=== PATIENT | male | born 1955 | race Caucasian/White ===

== ENCOUNTER 2019-12-16 20:05 | Emergency (ER) | payer OTHER, SELFPAY ==
[2019-12-16 20:07] VITALS: BP 162/96; PULSE 97; RESP 20; TEMP 36.2; O2SAT 97; BMI 39.5
--- NOTE | 2019-12-16 21:00 | CT_ITS ---
STUDY: CT ABDOMEN AND PELVIS WITHOUT CONTRAST REASON FOR EXAM: Male, 64 years old. FELL OUT OF BED OF TRUCK. LANDED ON LT HIP. PAIN. RADIATION DOSAGE (If Supplied By Facility): CTDIvol = ( 22.55 ) mGy, DLP = ( 1110.01 ) mGycm TECHNIQUE: Transaxial images were obtained from the dome of the diaphragm to the symphysis pubis without oral contrast, and without intravenous contrast. Sagittal and coronal images were reconstructed. Individualized dose optimization techniques were used for this CT. COMPARISON: None. FINDINGS: Subsegmental atelectasis seen in the lingula of the left upper lobe in addition to chronic scarring. Normal liver. No intrahepatic biliary duct dilatation or liver mass. Normal gallbladder and extrahepatic biliary system. Normal spleen. Normal pancreas. Normal bilateral adrenal glands. Normal right kidney. Normal left kidney. . No hydronephrosis or renal masses. No large stones. There is a small hiatal hernia. Normal small intestine. Mild to moderate wall of the proximal sigmoid colon in acutely inflamed diverticula in the same region compatible with acute diverticulitis. The sigmoid colon is torturous and to the right of midline. The remaining colonic loops are unremarkable. No bowel dilatation or obstruction. No free air or free fluid. The appendix is visualized and appears normal. There is diffuse atherosclerotic calcification of the abdominal aorta, without a demonstrated aneurysm. Normal inferior vena cava. Normal retroperitoneum. Normal urinary bladder. Normal abdominal wall. There are diffuse degenerative changes of the visualized lumbar spine. No visualized fractures of the spine or pelvis or bilateral hips. CT/Abdomen/Pelvis without Cont IMPRESSION: 1. Mild to moderate wall of the proximal sigmoid colon in acutely inflamed diverticula in the same region compatible with acute diverticulitis 2. There are diffuse degenerative changes of the visualized lumbar spine. No visualized fractures of the spine or pelvis or bilateral hips. Electronically Signed: Yung Gunderson MD at 21:46 EDT , Service support ,
--- NOTE | 2019-12-16 21:01 | RAD_ITS ---
STUDY: X-RAY - RIGHT WRIST REASON FOR EXAM: Male, 64 years old. FALL TECHNIQUE: 3 view(s) of the wrist were obtained. COMPARISON: None. FINDINGS: Normal visualized distal radius and ulna. Normal radiocarpal articulation. Normal distal radioulnar articulation. Normal carpal bones. Normal carpal articulations. Normal carpometacarpal articulation of the thumb. Normal second through fifth carpometacarpal articulations. Normal visualized metacarpal bones. The soft tissue structures are unremarkable. There is no demonstrated acute fracture. Atherosclerotic calcifications are present. RAD/Wrist min 3 Views IMPRESSION: No acute process of the right wrist Electronically Signed: Yung Gunderson MD at 22:20 EDT , Service support ,
--- NOTE | 2019-12-16 21:01 | ED.VIS.GEN ---
History of Present Illness Chief Complaint: Fall Informant: Patient Onset: Today Current Severity: Mild Maximum Severity: Moderate Narrative: Patient presents after a fall from the back of his pickup truck. Injury occurred 6 hours prior to my evaluation. He states he was coming off the back of his pickup truck and thought he had another step but fell to the ground landing on his right side. He is right-hand dominant. He denies striking his head or having any neck pain. He is complaining of pain to his elbow and wrist on the right. He is also complaining of pain to the right hip and right lower back. He has not noted any hematuria. He did take ibuprofen for pain prior to arrival. Past Medical History - Allergies and Home Meds Allergies/Adverse Reactions: Allergies No Known Allergies Allergy (Verified 12/16/19 20:06) Primary Care Physician: Jess Lopez AMBULATORY SERVICE REPRESENTATIVE, AMBULATORY SERVICE REPRESENTATIVE-C [Primary Care Provider] - Past Medical History: - - GERD Lives: Spouse/ Significant Other Review of Systems General: Denies: Chills, Fever Eyes: Denies: Visual changes - bilaterally ENT: Denies: Bilateral ear pain Cardiovascular: Denies: Chest pain Respiratory: Denies: Dyspnea, Cough Gastrointestinal: Denies: Abdominal pain, Vomiting, Diarrhea Genitourinary: Denies: Dysuria Musculoskeletal: Reports: Back pain, Extremity Pain Neurological: Denies: Headache, Weakness Hematologic: Denies: Easy bruising Allergy: Denies: Uticaria Physical Exam Vital Signs/Narrative: Vital Signs Temp Pulse Resp BP Pulse Ox 12/16/19 20:07 97.2 F L 97 20 H 162/96 H 97 Inital Vital Signs reviewed: Yes General: Well nourished, Well developed Head: Normocephalic ENT: Moist mucous membranes Neck: Supple Cardiovascular: Regular rate, Regular rhythm Respiratory: No distress, CTA bilaterally Abdomen: Soft, Nontender Extremities: - - Mild tenderness location at the right elbow and right wrist. Mild edema. Good range of motion. Mild tenderness over the lateral portion of the right hip. Neurological: Alert, Oriented x3 Psychological: Normal affect Diagnostic/Tx/Re-eval Impressions Abdomen/Pelvis CT 12/16/19 21:00 IMPRESSION: 1. Mild to moderate wall of the proximal sigmoid colon in acutely inflamed diverticula in the same region compatible with acute diverticulitis 2. There are diffuse degenerative changes of the visualized lumbar spine. No visualized fractures of the spine or pelvis or bilateral hips. Electronically Signed: Yung Gunderson MD at 21:46 EDT , Service support , Wrist X-Ray 12/16/19 21:01 IMPRESSION: No acute process of the right wrist Electronically Signed: Yung Gunderson MD at 22:20 EDT , Service support , Elbow X-Ray 12/16/19 21:10 IMPRESSION: Normal x-ray examination of the elbow. Electronically Signed: Yung Gunderson MD at 22:18 EDT , Service support , 12/16/19 21:00 Abdomen/Pelvis without Cont [CT] Stat 12/16/19 21:01 Wrist min 3 Views [RAD] Stat 12/16/19 21:10 Elbow min 3 Views [RAD] Stat - Medical Decision Making Patient declined anything for pain while here. X-ray results are discussed with patient and at bedside. CT flank was obtained to evaluate the right kidney and right hip along with his lower back. These areas are okay, however patient does have evidence of acute diverticulitis on CT scan. Patient will be covered with Augmentin for this. ED Disposition - Plan for ED Patient: Disposition: Home or Assisted Living Diagnosis: Diverticulitis, Arm contusion, Back strain Instructions: ED Diverticulitis, ED Mechanical Fall, ED LUMBAR SPRAIN/STRAIN Prescriptions: Amox/Clavulanate Tablet [Augmentin Tablet] 875 mg PO Q12H #20 tab Transmission Status: Pending to [facility]/pharmacy #[id number] Referrals: Jess Lopez NP, AMBULATORY SERVICE REPRESENTATIVE-C [Primary Care Provider] - 1 Week if not improving
--- NOTE | 2019-12-16 21:10 | RAD_ITS ---
STUDY: X-RAY - RIGHT ELBOW REASON FOR EXAM: Male, 64 years old. FALL TECHNIQUE: 3 view(s) of the elbow. COMPARISON: None. FINDINGS: Normal visualized humerus, radius and ulna. Normal radiocapitellar and ulnotrochlear articulations. The soft tissue structures are unremarkable. There is no demonstrated fracture. RAD/Elbow min 3 Views IMPRESSION: Normal x-ray examination of the elbow. Electronically Signed: Yung Gunderson MD at 22:18 EDT , Service support ,
[2019-12-16 21:41] VITALS: RESP 18
[2019-12-16] MEDS: Amox/Clavulanate 875 MG Tablet PO (22:42)
[2019-12-16 22:46] VITALS: RESP 16
== END 2019-12-16 22:47 | disposition home or self-care (01) ==
PROVIDERS: Emergency Provider Emergency Medicine; PCP Nurse Practitioner
DX: K57.32 Diverticulitis of large intestine without perforation or abscess without bleeding (principal); S40.021A Contusion of right upper arm, initial encounter; S39.012A Strain of muscle, fascia and tendon of lower back, initial encounter; V58.4XXA Person boarding or alighting a pick-up truck or van injured in noncollision transport accident, initial encounter; Y93.9 Activity, unspecified; Y92.9 Unspecified place or not applicable; K21.9 Gastro-esophageal reflux disease without esophagitis
CPT/HCPCS: 73080; 73110; 74176; 99283

== ENCOUNTER 2021-06-09 07:10 | Outpatient (CLI) | payer BC, SELFPAY ==
--- NOTE | 2021-06-09 07:17 | CT_ITS ---
EXAM: CT CHEST, LUNG CANCER SCREENING WITHOUT INTRAVENOUS CONTRAST : 1955 CLINICAL INDICATION: CURRENT SMOKER TECHNIQUE: Helically acquired images were obtained of the chest without intravenous contrast using low dose (LDCT) lung cancer screening protocol. This CT exam was performed using one or more of the following dose reduction techniques: automated exposure control, adjustment of the mA and/or kV according to patient size, and/or use of iterative reconstruction technique. This report was created using dscovered report generation technology. COMPARISON: None. FINDINGS: LUNGS AND PLEURAL SPACES: Several bilateral 2-3 mm pulmonary nodules are noted some of which are calcified likely related to granulomatous disease. No suspicious pulmonary nodule. No pleural effusion or thickening. No pneumothorax. HEART: Moderate coronary artery calcification. Heart size is normal. No pericardial effusion. MEDIASTINUM: Unremarkable. No mediastinal or hilar adenopathy. Esophagus is unremarkable. No hiatal hernia. THYROID: Unremarkable. No thyroid lesions. BONES/JOINTS: Unremarkable. No suspicious lytic or blastic abnormality. VASCULATURE: Unremarkable. Thoracic aorta is non-dilated. LYMPH NODES: Unremarkable. No enlarged lymph nodes. CT/Low Dose CT Lung Screening IMPRESSION: 1. Small bilateral pulmonary nodules most of which appear calcified and measure 3 mm and less in size. 2. ACR Lung CT Screening Reporting T Data System (Lung-RADS) score: 1 - Recommend continued annual screening with low-dose CT (LDCT) in 12 months. Individualized dose optimization techniques were used for this CT. at 0855 Reported and signed by: Hardy Davidson MD Electronically Signed: Hardy Davidson MD at 8:54 EST ,
--- NOTE | 2021-06-09 12:55 | PFT ---
INTRODUCTION: The patient is a 66-year-old male that presents for pulmonary function studies secondary to a diagnosis of tobacco dependency. Respiratory therapy reported good patient effort. Bronchodilators were used during testing. INTERPRETATION: Forced expiration spirometry demonstrates the presence of a mild large airways obstructive ventilatory defect. There was no significant response to aerosolized bronchodilators. Spirograms are of good quality and plateau gradually indicating slow emptying of the lungs. Body plethysmography was performed and revealed an elevated TLC and RV, indicative of underlying hyperinflation and air trapping. Diffusing capacity by single breath CO is within normal limits. IMPRESSION: Irreversible mild large airways obstructive ventilatory defect with associated hyperinflation and air trapping.
== END 2021-06-09 23:59 | disposition home or self-care (01) ==
PROVIDERS: PCP Internal Medicine; Visit Provider Internal Medicine
DX: R06.2 Wheezing (principal); F17.200 Nicotine dependence, unspecified, uncomplicated
CPT/HCPCS: 71271; 94060; 94726; 94729

== ENCOUNTER 2021-06-23 06:28 | Outpatient (CLI) | payer BC, SELFPAY ==
--- NOTE | 2021-06-23 06:30 | CT_ITS ---
STUDY: CT ABDOMEN AND PELVIS WITH CONTRAST REASON FOR EXAM: Male, 66 years old. ABD PAIN / ABNORMAL ABD CT SCAN. T1 half months of left lower quadrant pain. RADIATION DOSAGE (If Supplied By Facility): CTDIvol = ( 16.20 ) mGy, DLP = ( 1111.06 ) mGycm TECHNIQUE: Transaxial images were obtained from the dome of the diaphragm to the symphysis pubis with oral contrast. Oral and amp; IV Readi-CAT and amp; 100mL Isovue-300 was administered. Sagittal and coronal images were reconstructed. Individualized dose optimization techniques were used for this CT. COMPARISON: Comparison is made with prior study dated 12/16/2019. FINDINGS: The visualized lung bases are unremarkable. The visualized portions of the heart are within normal limits. There is decreased attenuation of the liver consistent with steatosis. Normal gallbladder and extrahepatic biliary system. Normal spleen. Normal pancreas. Normal bilateral adrenal glands. Normal right kidney. Normal left kidney. There is a small hiatal hernia. Normal small intestine. There is diverticulosis, with thickening of the colon wall, and pericolonic inflammation changes consistent with acute diverticulitis. Moderate amount of fecal material is seen in the colon. The appendix is visualized and appears normal. There is scattered atherosclerotic calcification of the abdominal aorta, without a demonstrated aneurysm. Normal inferior vena cava. Normal retroperitoneum. Normal urinary bladder. There is a small umbilical hernia containing fat. There are degenerative changes of the visualized lumbar spine. CT/Abdomen/Pelvis WITH Contrast IMPRESSION: Findings in keeping with a noncomplicated acute sigmoid diverticulitis. Moderate amount of fecal material is seen in the colon. Fatty infiltration of the liver. Electronically Signed: Dustin Dickson MD at 8:32 EDT ,
[2021-06-23 06:41] LABS: CREATININE FINGERSTICK 0.8 mg/dL (0.70-1.30); EGFR FINGERSTICK > 60.0000 mL/min (>60)
== END 2021-06-23 23:59 | disposition home or self-care (01) ==
LOC: CT 06:29
PROVIDERS: PCP Internal Medicine; Referring Provider Internal Medicine; Visit Provider Internal Medicine
DX: R10.9 Unspecified abdominal pain (principal); R93.5 Abnormal findings on diagnostic imaging of other abdominal regions, including retroperitoneum
CPT/HCPCS: 74177; Q9967

== ENCOUNTER → 2022-11-29 | Outpatient (CLI) | payer MEDICARE, OTHER, SELFPAY ==
--- NOTE | 2022-11-29 07:01 | CT_ITS ---
ACR Level 3 findings have been noted. An addendum which confirms receipt of the report will follow. INDICATION: Abnormal abdominal CT scan EXAMINATION: CT ABDOMEN AND PELVIS WITH CONTRAST - CT Abdomen And Pelvis W/ Contrast Injection TECHNIQUE: Helically acquired images were obtained of the abdomen and pelvis following IV contrast. A radiation dose optimization technique was used for this scan. IV Contrast dosage and agent: 100 mL Isovue-370 Oral contrast: None. COMPARISON: June 23, 2021. FINDINGS: LOWER CHEST: Lung bases are clear. No cardiomegaly or pericardial effusion. LIVER: Homogeneous. No focal mass. GALLBLADDER AND BILIARY TREE: No calcified gallstones. No gallbladder distension or wall edema. No intra- or extrahepatic biliary ductal dilation. PANCREAS: No focal cystic or solid mass. SPLEEN: Normal size without focal cystic or solid mass. ADRENAL GLANDS: No nodules. KIDNEYS AND URETERS: Normal renal size and position. No hydronephrosis. BOWEL: Small persistent hiatal hernia with irregular wall thickening of the cardia of the stomach. Oral contrast extends through mid small bowel without distention or wall thickening. Normal appendix. Moderate to large colonic stool burden from cecum to sigmoid colon. Large diverticulum in the sigmoid colon with wall thickening similar to June 23, 2021, slightly more extensive, with minimal adjacent inflammatory stranding..No ascites or free fluid. No free air. No abscess. LYMPH NODES: No enlarged mesenteric or retroperitoneal lymph nodes. VESSELS: Aortic atherosclerosis without ectasia. URINARY BLADDER: Unremarkable. REPRODUCTIVE ORGANS: No pelvic masses. ABDOMINAL WALL: No discrete abdominal or pelvic wall hernia. Bilateral fat-containing inguinal hernias and umbilical hernia without inflammation. BONES: No lytic or blastic abnormality. CT/Abdomen/Pelvis WITH Contrast IMPRESSION: 1. Findings concerning for recurrent acute uncomplicated diverticulitis of the sigmoid colon in same location of June 23, 2021. There is prominent wall thickening at the sigmoid diverticulum with relatively limited surrounding inflammatory stranding which is nonspecific but can be seen with underlying malignancy. Follow-up colonoscopy or CT is recommended in 6 weeks after treatment 2. Persistent hiatal hernia with increased nonspecific wall thickening of the cardia of the stomach. Further evaluation is recommended. Consider endoscopy when clinically able 3. Fat-containing umbilical and bilateral inguinal hernias without inflammation. Electronically Signed: Sarath Leos MD at 8:51 EDT ,
[2022-11-29 07:27] LABS: CREATININE FINGERSTICK 1.3 mg/dL (0.70-1.30)
== END | disposition home or self-care (01) ==
PROVIDERS: PCP Internal Medicine; Referring Provider Internal Medicine; Visit Provider Internal Medicine
DX: R93.5 Abnormal findings on diagnostic imaging of other abdominal regions, including retroperitoneum (principal)
CPT/HCPCS: 74177; Q9967

== ENCOUNTER → 2024-03-01 | Outpatient (CLI) | payer MEDICARE, OTHER, SELFPAY ==
--- NOTE | 2024-03-01 14:55 | CT_ITS ---
EXAM: CT CHEST, LUNG CANCER SCREENING WITHOUT INTRAVENOUS CONTRAST CLINICAL INDICATION: LOW-DOSE COMPUTED TOMOGRAPHY (LDCT) OF LUNGS, former smoker TECHNIQUE: Helically acquired images were obtained of the chest without intravenous contrast using low dose (LDCT) lung cancer screening protocol. This CT exam was performed using one or more of the following dose reduction techniques: automated exposure control, adjustment of the mA and/or kV according to patient size, and/or use of iterative reconstruction technique. COMPARISON: CT Lung Cancer Screening dated 06/09/2021 FINDINGS: INFRAHYOID NECK: Linear secretions identified within the trachea. LUNGS AND PLEURAL SPACES: Stable 4 mm nodule along the superior portion of the left major fissure likely representing an intrapulmonary lymph node. Minimal pleural-parenchymal thickening within the posterior right costophrenic sulcus. No pneumothorax. No evidence of a lung mass or suspicious pulmonary nodule. HEART: Normal. No pericardial effusion. Normal heart size. Coronary artery calcifications/stent is noted. MEDIASTINUM: Stable small hiatal hernia. No mediastinal or hilar adenopathy. Esophagus is unremarkable. THYROID: Normal. No thyroid nodules or calcification. BONES/JOINTS: No suspicious lytic or blastic abnormality. VASCULATURE: No aortic aneurysm. LYMPH NODES: See above. CT/Low Dose CT Lung Screening IMPRESSION: 1. No evidence of lung mass or suspicious pulmonary nodule. 2. Lung-RADS score: 1S - Additional clinically significant or potentially clinically significant findings are described. Recommend continued annual screening with a low-dose CT (LDCT) in 12 months. Electronically Signed: Hardy Davidson MD at 17:04 [facility] ,
== END | disposition home or self-care (01) ==
PROVIDERS: PCP Internal Medicine; Referring Provider Internal Medicine; Visit Provider Internal Medicine
DX: Z87.891 Personal history of nicotine dependence (principal)
CPT/HCPCS: 71271

== ENCOUNTER 2025-02-23 01:12 | Emergency (ER) | payer MEDICARE, OTHER, SELFPAY ==
[2025-02-23 01:13] VITALS: BP 215/118; PULSE 71; RESP 22; TEMP 37.1; O2SAT 99; BMI 33.2
[2025-02-23 01:16] VITALS: BP 215/188; PULSE 66; RESP 23; TEMP 37.1; O2SAT 99
--- NOTE | 2025-02-23 01:25 | CT_ITS ---
PROCEDURE: ABDOMEN/PELVIS WITHOUT CONT 02/23/2025 REASON FOR EXAM: KIDNEY STONE TECHNIQUE: Procedure Code: [id number] Modality: CT Procedure: ABDOMEN/PELVIS WITHOUT CONT Noncontrast technique limits evaluation of the abdominal and pelvic viscera. Coronal and Sagittal reconstruction series were provided. One or more dose reduction techniques were used (e.g., Automated exposure control, adjustment of the mA and/or kV according to patient size, use of iterative reconstruction technique). RADIATION DOSE SUMMARY: CTDlvol: 17.7 mGy DLP: 933 mGycm COMPARISON: 11/29/2022. FINDINGS: Bilateral nonobstructing renal stones are noted with the largest measuring 4 mm. 4 mm obstructing stone of the right ureterovesical junction. Mild right hydroureteronephrosis with right perinephric fat stranding. Moderate amount of fecal residue in the sigmoid colon. Diffuse colonic diverticulosis. Mild changes of acute sigmoid diverticulitis without perforation or abscess formation. Bilateral fat containing inguinal hernias without incarceration. Fat containing umbilical hernia without incarceration. Calcified atheromatous plaques of the aorta and iliac arteries. Diffuse spondylosis. The visualized lung bases are unremarkable. Normal unenhanced liver. Normal gallbladder and extrahepatic biliary system. Normal unenhanced spleen. Normal pancreas. Normal bilateral adrenal glands. Normal size of the right kidney. There is no right renal mass. Normal size of the left kidney. There is no left renal mass. There is no left hydronephrosis. Normal visualized left ureter. Normal visualized stomach. Normal small intestine. The appendix is visualized and appears normal. There is no demonstrated peritoneal fluid. Normal abdominal aorta. Normal inferior vena cava. Normal retroperitoneum. Normal urinary bladder. There is no pelvic mass lesion or lymphadenopathy. There is no pelvic fluid. CT/Abdomen/Pelvis without Cont IMPRESSION: Bilateral nonobstructing renal stones are noted with the largest measuring 4 mm . 4 mm obstructing stone of the right ureterovesical junction. Mild right hydroureteronephrosis with right perinephric fat stranding. Moderate amount of fecal residue in the sigmoid colon. Diffuse colonic diverticulosis. Mild changes of acute sigmoid diverticulitis without perforation or abscess for mation. Bilateral fat containing inguinal hernias without incarceration. Fat containing umbilical hernia without incarceration. Calcified atheromatous plaques of the aorta and iliac arteries. Diffuse spondylosis. Reading [facility]
[2025-02-23] MEDS: 0.9% Normal Saline (1000mL) 1,000 ML 999 ML IV (01:36)
[2025-02-23 01:37] LABS: Hematocrit 48.0 % (40-54); Hemoglobin 16.0 g/dL (13.0-16.5); Immature Granulocytes Count 0.030 X10^3/uL (0.0-0.0); Mean Corp Hgb Conc 33.3 g/dL (32-36); Mean Corpuscular Volume 85.0 fL (80-94); Mean Platelet Vol. 9.1 fl (6.2-12.0); NRBC Flagged by Analyzer 0 % (0-5); Platelet Count 243 K/mm3 (150-450); RBC Distribution Width CV 14.5 % (11.6-14.6); RBC Distribution Width SD 44.6 fl (35.1-43.9); Red Blood Count 5.65 M/mm3 (4.6-6.2); White Blood Count 9.4 K/mm3 (4.4-11.0)
[2025-02-23] MEDS: Ketorolac 30 MG/ML Syringe IV (01:37)
[2025-02-23 02:16] VITALS: BP 169/78; PULSE 65; RESP 20; TEMP 37.1; O2SAT 94
--- NOTE | 2025-02-23 02:19 | EX.ED.DYSGE1 ---
HPI History of Present Illness Chief Complaint: Flank Pain Narrative Narrative: Patient was seen and examined after presenting to ED for right-sided flank pain patient just passed a couple kidney stones a few days ago and has had experience with kidney stones in the past coming in with right flank pain and nausea and vomiting feels like continued kidney stone pain. 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) Home Medications ?Medication ?Instructions ?Recorded ?Last Taken ?Type pantoprazole 40 mg tablet,delayed 40 mg PO DAILY 12/16/19 Unknown History release cyclobenzaprine 10 mg tablet 10 mg PO HS PRN muscle spasm #7 11/07/22 Unknown Rx tabs folic acid 20 mg capsule 20 mg PO DAILY 11/07/22 Unknown History prednisone 10 mg tablet 10 mg PO DIRECTED #30 tabs 11/07/22 Unknown Rx simvastatin 20 mg tablet (Zocor) 20 mg PO DAILY 11/07/22 Unknown History amoxicillin 875 mg-potassium 875 mg PO BID #20 TABLETS 02/23/25 Unknown Rx clavulanate 125 mg tablet ondansetron 4 mg disintegrating 4 mg PO Q8H PRN PRN Nausea #30 tabs 02/23/25 Unknown Rx tablet oxycodone-acetaminophen 5 mg-325 1 tab PO Q6H PRN pain 3 days #12 02/23/25 Unknown Rx mg tablet (Percocet) tabs tamsulosin 0.4 mg capsule 0.4 mg PO DAILY #7 caps 02/23/25 Unknown Rx Allergy/AdvReac Type Severity Reaction Status Date / Time No Known Allergies Allergy Verified 04/15/24 10:11 Social History Smoking Status: Former smoker ROS ROS ED ROS Narrative Pertinent Positives: History of kidney stones recently passed more kidney stones with right flank pain nausea and vomiting Pertinent Negatives: Fevers chills chest pain pressure shortness of breath The remainder of review of systems negative unless otherwise stated in the HPI above. Systems reviewed including constitutional, psychiatric, cardiovascular, respiratory, integument, HENT, gastrointestinal. EXAM Physical Exam Narrative Exam Narrative: Afebrile he was hypertensive but likely secondary to pain. Normal heart and lung sounds. Abdomen is soft nontender nondistended but he does have right-sided CVA tenderness on palpation over the left skin discoloration or other changes no erythema no crepitus no vesicular lesions. He has intact and equal and strong MSPs in all of his extremities Const Vital Signs: 02/23/25 01:13 02/23/25 01:16 02/23/25 02:16 Temperature 98.8 F 98.8 F 98.8 F Temperature Source Oral Oral Oral Pulse Rate 71 66 65 Respiratory Rate 22 H 23 H 20 H Blood Pressure 215/118 H 215/188 H 169/78 H Blood Pressure Mean 150 197 108 Pulse Ox 99 99 94 Oxygen Delivery Method Room Air Room Air Room Air 02/23/25 03:00 Temperature 97.9 F Temperature Source Oral Pulse Rate 76 Respiratory Rate 18 Blood Pressure 174/88 H Blood Pressure Mean 116 Pulse Ox 98 Oxygen Delivery Method Room Air MDM MDM MDM Narrative Medical decision making narrative: Nursing notes, triage notes, available previous documentation, and vital signs were reviewed. Any discrepancies noted were addressed. Differential Diagnoses: Low suspicion for aortic etiology or cardiac causes seems like more likely nephrolithiasis. Lower suspicion for appendicitis or cholecystitis pancreatitis or diverticular disease Interventions: Toradol morphine Zofran Antibiotics Given: Augmentin Fluids Given: 1 L normal saline Labs Reviewed: No leukocytosis leukopenia or anemia. No electrolyte abnormality creatinine is 1.2. Urine does not appear to be infected but does show blood and 15 ketones Imaging Reviewed: Personally reviewed and interpreted by me: CT abdomen pelvis on my appearance looks like there may be a stone but still in the renal pelvis and there appeared approximately 4 mm stone in the right UVJ Previous Documentation Reviewed: None available or applicable at this time. ED Course: Patient presenting with right groin pain nausea vomiting and history of kidney stones appears that we have a kidney stone on the CT. 0406: Patient CT showing the 4 mm stone in the right UVJ with some right hydroureteronephrosis and right perinephric fat stranding but also some mild uncomplicated sigmoid diverticulitis for which patient will go home on a course of Augmentin. Patient will be given return precautions follow-up recommendations they are stable for discharge home This note was made utilizing voice recognition software. All attempts were made to correct spelling or other errors prior to note completion. However, due to the fast-paced nature of emergency medicine, some errors may still be present. Lab Data Labs: Laboratory Results - last 24 hr 02/23/25 02/23/25 01:30 03:04 WBC 9.4 RBC 5.65 Hgb 16.0 Hct 48.0 MCV 85.0 MCH 28.3 MCHC 33.3 RDW Std Deviation 44.6 H RDW Coeff of [place] 14.5 Plt Count 243 MPV 9.1 Immature Gran % (Auto) 0.300 Neut % (Auto) 81.7 H Lymph % (Auto) 10.3 L Cotton % (Auto) 4.8 Eos % (Auto) 2.6 Baso % (Auto) 0.3 Absolute Neuts (auto) 7.7 Absolute Lymphs (auto) 0.97 Nucleated RBC % 0 Sodium 141 Potassium 4.1 Chloride 108 Carbon Dioxide 20.2 L Anion Gap 14 BUN 19 Creatinine 1.28 H Estim Creat Clear Calc 67.03 Est GFR (MDRD) Non-Af 61 BUN/Creatinine Ratio 14.5 Glucose 154 H Calcium 9.3 Urine Color Yellow Urine Clarity Clear Urine pH 6.5 Ur Specific [place] 1.015 Urine Protein 30 H Urine Glucose (UA) Normal Urine Ketones 15 H Urine Occult Blood 250 H Urine Nitrite Negative Urine Bilirubin Negative Urine Urobilinogen Normal Ur Leukocyte Esterase Negative Urine RBC 0-5 SEEN Urine WBC 0 SEEN Ur Squamous Epith Cells 0 SEEN Urine Bacteria 0 SEEN Urine Mucus 0 SEEN Radiography Diagnostic Testing: Clinical Impression(s) from Imaging Studies Abdomen/Pelvis CT 02/23/25 01:25 IMPRESSION: Bilateral nonobstructing renal stones are noted with the largest measuring 4 mm. 4 mm obstructing stone of the right ureterovesical junction. Mild right hydroureteronephrosis with right perinephric fat stranding. Moderate amount of fecal residue in the sigmoid colon. Diffuse colonic diverticulosis. Mild changes of acute sigmoid diverticulitis without perforation or abscess formation. Bilateral fat containing inguinal hernias without incarceration. Fat containing umbilical hernia without incarceration. Calcified atheromatous plaques of the aorta and iliac arteries. Diffuse spondylosis. Reading Location: [place] [id number] Discharge Plan Triage Chief Complaint: Flank Pain ED Provider: Ayden Cheney Dx/Rx/DC Orders Clinical Impression: Nephrolithiasis, Hydronephrosis, right, Renal colic on right side, Diverticulitis of sigmoid colon Instructions: ED Diverticulitis, ED Kidney Stone with Pain Prescriptions: New oxycodone-acetaminophen [Percocet] 5-325 mg tablet 1 tab PO Q6H PRN (Reason: pain) 3 Days Qty: 12 0RF amoxicillin-pot clavulanate 875-125 mg tablet 875 mg PO BID Qty: 20 0RF ondansetron 4 mg tablet,disintegrating 4 mg PO Q8H PRN PRN (Reason: Nausea) Qty: 30 0RF tamsulosin 0.4 mg capsule 0.4 mg PO DAILY Qty: 7 0RF No Action folic acid 20 mg capsule 20 mg PO DAILY simvastatin [Zocor] 20 mg tablet 20 mg PO DAILY prednisone 10 mg tablet 10 mg PO DIRECTED Qty: 30 0RF Rx Instructions: 4 tablets daily x3 days, then 3 tablets daily x3 days, then 2 tablets daily x3 days, then 1 tablet daily x3 days cyclobenzaprine 10 mg tablet 10 mg PO HS PRN (Reason: muscle spasm) Qty: 7 0RF pantoprazole 40 MG tablet 40 mg PO DAILY Primary Care Provider: Lin Pardo Referrals: Lin Pardo MD [Primary Care Provider, Internal Medicine] Activity Restrictions/Additional Instructions: You have a kidney stone which we are providing you with medications for you need to follow-up with your primary care doctor and your urologist. But you also were found to have something called diverticulitis which we are putting you on antibiotics for we want you to complete that course if you are getting worse for any reason do not hesitate to return Print Language: Cam[place]onian Disposition Disposition: Home, Self Care
[2025-02-23 02:29] LABS: Anion Gap 14 (5-15); BUN 19 mg/dL (4-19); BUN/Creat Ratio 14.5 RATIO (10-20); Calcium,Total 9.3 mg/dL (7.6-11.0); Carbon Dioxide 20.2 mmol/L (21.0-32.0); Chloride 108 mmol/L (98-108); Estimated Creatinine Clearance 67.03 ml/min (50-250); Glucose 154 mg/dL (70-99); Potassium 4.1 mmol/L (3.3-5.1)
[2025-02-23 03:00] VITALS: BP 174/88; PULSE 76; RESP 18; TEMP 36.6; O2SAT 98
[2025-02-23 03:13] LABS: Mucous, Urine 0 SEEN /hpf (<or=2+); Squamous Epithelial Cells - UA 0 SEEN /hpf (0-5)
[2025-02-23 03:16] LABS: Color, Urine Yellow (Yellow); Glucose, Dipstick Normal (Normal); Ketone-Dipstick 15 mg/dl (Negative); Leukocyte Esterase-Dipstick Negative /ul (Negative); Nitrite-Dipstick Negative (Negative); Occult Blood-Urine 250 /ul (Negative); Protein-Dipstick 30 mg/dl (Negative); Specific Gravity, Urine 1.015 (1.002-1.030); Urine Bilirubin Dipstick Negative (Negative)
[2025-02-23 03:36] LABS: Red Blood Cells-Urine 0-5 SEEN /hpf (0-5)
--- OUTSIDE RECORDS SUMMARY | 2025-02-23 04:09 | XMS RPT_ITS | CCD ---
Author Organization [facility] Care Team Providers Care Education General Manager Name Role Phone John Anne Unavailable Muriel Woo Unavailable Unavailable Unavailable Unavailable Luke Driver Unavailable Unavailable Ciesa, Anne Unavailable Tiffanie Harris Unavailable Unavailable Cibeckya LEORA, Anne Unavailable Luke Driver LPN Unavailable Unavailable Adrianne Reyez LPN Unavailable Unavailable Muriel Woo Unavailable Unavailable Unavailable Unavailable Donald Moreno Unavailable Dr. Donald Pop Unavailable Lai Tucker Unavailable SABINO Gramajo LPN Unavailable Unavailable Angel , Dr. Mcdaniel Unavailable Lin Pardo MD Unavailable John COREY Anne Unavailable Dr. Lin Pardo Primary Care Provider Dr. Lin Pardo Referring Provider Dr. Lin Pardo Other Provider Dr. Harshil Huitron Attending Provider Jess Lopez Unavailable Lin Pardo MD Unavailable Lin Pardo MD Unavailable Gravius METER SETTER, Trya Unavailable Unavailable Unavailable Unavailable Lin Pardo MD Unavailable Dora Shaffer LPN Unavailable Unavailable Lin Pardo MD Attending Unavailable Lin Pardo MD Consulting Unavailable Courtney RIZVI, Kayela Unavailable Unavailable Dr. Jonas Carey Unavailable Dr. Lin Pardo Primary Care Provider [phone] Dr. Lin Pardo Referring Provider LINO Ramachandran Attending Provider Lin Pardo Referring Unavailable Willem Ramachandran Attending Unavailable Lin Pardo Primary Care Unavailable Lin Pardo Referring Unavailable Lin Pardo Primary Care Unavailable Lin Pardo Attending Unavailable Medications Current Medications Medication Drug Class(es) Dates Sig (Normalized) Sig (Original) cyclobenzaprine hydrochloride 10 mg oral tablet (20 sources) Muscle Relaxant Start: 11-07-2022 take 10 mg by mouth at bedtime Cyclobenzaprine Active 10 MG PO BEDTIME 7 November 07, 2022 12:00am Start: 07-11-2011 End: 07-09-2012 FLEXERIL, 10MG (Oral Tablet) 1 Tablet q 6-8 hours prn muscle spasm for 0 days Quantity: 30 {Tablet} Refills: 1 Ordered: 09-Jul-2012 SABINO Gramajo LPN Start : 11-Jul-2011 End : 09-Jul-2012 Inactive folic acid 20 mg oral capsule (20 sources) Start: 11-07-2022 take 20 mg by mouth once daily Folic Acid Active 20 MG PO DAILY November 07, 2022 12:00am Start: 07-20-2022 take 1 tablet by jacqueline th once daily folic acid 1 mg oral tablet 1 (one) Tablet daily for 0 days Quantity: 90 {Tablet} Refills: 3 Ordered: 20-Jul-2022 Lin Pardo MD, MD, Dana M Start : 20-Jul-2022 Active Start: 06-06-2022 take 1 tablet by jacqueline th once daily folic acid 1 mg oral tablet 1 (one) Tablet daily for 0 days Quantity: 90 {Tablet} Refills: 3 Ordered: 06-Jun-2022 Lin Pardo MD, MD, Dana M Start : 06-Jun-2022 Active Start: 06-29-2021 take 1 tablet by jacqueline th once daily Folic Acid 1 MG Oral Tablet 1 (one) Tablet daily for 0 days Quantity: 90 {Tablet} Refills: 3 Ordered: 29-Jun-2021 Tyra De Leon CMA Start : 29-Jun-2021 Active Medrol Dosepak 4 mg oral tablet (1 source) Start: 08-12-2020 End: 08-17-2020 Medrol Dosepak 4 mg oral tablet ; 1 kit orally once a day as directed x 6 days Quantity: 1 Refills: 0 Ordered: 12-Aug-2020 Tiffanie Harris Start: 12-Aug-2020 End: 17-Aug-2020 Generic Substitution Allowed Comments: It is very important that you take or use this exactly as directed. Do not skip doses or discontinue unless directed by your doctor.Obtain medical advice before taking any non-prescription drugs as some may affect the action of this medication.Take with food or milk. Comment on above: It is very important that you take or us e this exactly as directed. Do not skip doses or discontinue unless directed by your doctor.Obtain medical advice before taking any non-prescription drugs as some may affect the action of this medication.Take with food or milk. naproxen 500 mg oral tablet (1 source) Nonsteroidal Anti-inflammatory Drug Start: 08-12-2020 End: 09-01-2020 take 1 tablet by mouth every twelve hours as needed naproxen 500 mg oral tablet ; 1 tab(s) orally every 12 hours, As Needed for pain/inflammation. Take with food. Do not start until MedrolDosepak is complete Quantity: 42 Refills: 0 Ordered: 12-Aug-2020 Tiffanie Harris Start: 12-Aug-2020 End: 01-Sep-2020 Generic Substitution Allowed Comments: Check with your doctor before becoming .May cause drowsiness or dizziness.Obtain medical advice before taking any non-prescription drugs as some may affect the action of this medication.Take with food or milk. Comment on above: Check with your doctor before becoming p regnant.May cause drowsiness or dizziness.Obtain medical advice before taking any non-prescription drugs as some may affect the action of this medication.Take with food or milk. predniSONE 10 mg oral tablet (20 sources) Start: 11-07-2022 take 4 tablets by mouth once daily, then take 3 tablets by mouth once daily, then take 2 tablets by mouth once daily, then take 1 tablet by mouth once daily Prednisone Active 10 MG PO As Directed November 07, 2022 12:00am 4 tablets daily x3 days, then 3 tablets daily x3 days, then 2 tablets daily x3 days, then 1 tablet daily x3 days Start: 08-30-2007 End: 08-05-2008 take 1 tablet by mouth four times daily PREDNISONE, 10MG (Oral Tablet) 1 (one) Tablet qid for 6 days Quantity: 24 {Tablet} Refills: 0 Ordered: 30-Aug-2007 Jess Lopez Start : 30-Aug-2007 End : 05-Aug-2008 Inactive simvastatin 20 mg oral tablet (1 source) HMG-CoA Reductase Inhibitor Start: 11-07-2022 take 1 tablet by mouth once daily Simvastatin (Zocor) 20 mg tablet Active 20 MG PO DAILY November 07, 2022 12:00am valACYclovir 1000 mg oral tablet (1 source) Herpesvirus Nucleoside Analog DNA Polymerase Inhibitor, Herpes Simplex Virus Nucleoside Analog DNA Polymerase Inhibitor, Herpes Zoster Virus Nucleoside Analog DNA Polymerase Inhibitor Start: 08-12-2020 End: 08-18-2020 take 1 tablet by mouth every eight hours valACYclovir 1 g oral tablet ; 1 tab(s) orally every 8 hours x 7 days Quantity: 21 Refills: 0 Ordered: 12-Aug-2020 Tiffanie Harris Start: 12-Aug-2020 End: 18-Aug-2020 Generic Substitution Allowed Comments: It is very important that you take or use this exactly as directed. Do not skip doses or discontinue unless directed by your doctor. Comment on above: It is very important that you take or use this exactly as directed. Do not skip doses or discontinue unless directed by your doctor. Completed/Discontinued Medications Medication Drug Class(es) Dates Sig (Normalized) Sig (Original) 8 hr acetaminophen 650 mg extended release oral tablet (20 sources) Tylenol 8 Hour Arthritis Pain 650 MG Oral Tablet Extended Release (650 MG) Inactive acetaminophen 750 mg / HYDROcodone bitartrate 7.5 mg oral tablet (20 sources) Opioid Agonist Start: 07-11-2011 End: 07-09-2012 take 7.5-750 mg by mouth every six hours as needed VICODIN ES, 7.5-750MG (Oral Tablet) 1 Tablet q 6 hours prn for 0 days Quantity: 40 {Tablet} Refills: 1 Ordered: 09-Jul-2012 SABINO Graamjo LPN Start : 11-Jul-2011 End : 09-Jul-2012 Discontinued Comments: This order discontinued per [facility]. Comment on above: This order discontin ued per [facility]. [id number] 200 actuat albuterol 0.09 mg/actuat metered dose inhaler (20 sources) beta2-Adrenergic Agonist Start: 09-07-2020 End: 05-25-2021 Albuterol Sulfate HFA 108 (90 Base) MCG/ACT Inhalation Aerosol Solution 2 (two) Puff tid or qid for 0 days Quantity: 1 {Inhaler} Refills: 2 Ordered: 25-May-2021 SABINO Gramajo LPN Start : 07-Sep-2020 End : 25-May-2021 Inactive Start: 09-07-2020 End: 05-25-2021 Albuterol Sulfate HFA 108 (9 0 Base) MCG/ACT Inhalation Aerosol Solution 2 (two) Puff tid or qid for 0 days Quantity: 1 {Inhaler} Refills: 2 Ordered: 25-May-2021 SABINO Gramajo LPN Start : 07-Sep-2020 End : 25-May-2021 Inactive Start: 08-12-2020 End: 08-21-2020 take 2 puff(s) by inhalation every four hours as needed for wheezing albuterol 90 mcg/inh inhalation aerosol ; 2 puff(s) inhaled every 4 hours, As Needed for wheezing or shortness of breath Quantity: 1 Refills: 0 Ordered: 12-Aug-2020 Tiffanie Harris Start: 12-Aug-2020 End: 21-Aug-2020 Generic Substitution Allowed Comments: For inhalation only.It is very important that you take or use this exactly as directed. Do not skip doses or discontinue unless directed by your doctor.Obtain medical advice before taking any non-prescription drugs as some may affect the action of this medication.Shake well before use. Comment on above: For inhalation only. It is very important that you take or use this exactly as directed. Do not skip doses or discontinue unless directed by your doctor.Obtain medical advice before taking any non-prescription drugs as some may affect the action of this medication.Shake well before use. amoxicillin 500 mg / clavulanate 125 mg oral tablet (20 sources) Penicillin-class Antibacterial Start: 2 End: 2 take 1 tablet by mouth twice daily Augmentin 500-125 MG Oral Tablet 1 (one) Tablet bid for 14 days Quantity: 28 {Tablet} Refills: 0 Ordered: 21-Apr-2021 Jess Lopez Start : 21-Apr-2021 End : 05-May-2021 Inactive Start: 12-16-2019 End: 11-07-2022 take 875 mg by mouth every twelve hours Amoxicillin-Pot Clavulanate Active 875 MG PO Q12H December 16, 2019 10:37pm azithromycin 250 mg oral tablet (20 sources) Macrolide Antimicrobial Start: 06-08-2016 End: 06-13-2016 Zithromax Z-Chucho 250 MG Oral Tablet uad Tablet until gone for 0 days Quantity: 1 {Package} Refills: 0 Ordered: 13-Jun-2016 Coni Rebolledo CMA Start : 08-Jun-2016 End : 13-Jun-2016 Inactive ciprofloxacin 500 mg oral tablet (20 sources) Quinolone Antimicrobial Start: 06-18-2021 End: 06-29-2021 take 1 tablet by mouth twice daily Ciprofloxacin HCl 500 MG Oral Tablet 1 (one) Tablet bid for 0 days Quantity: 14 {Tablet} Refills: 0 Ordered: 29-Jun-2021 SABINO Gramajo LPN Start : 18-Jun-2021 End : 29-Jun-2021 Inactive dexlansoprazole 60 mg delayed release oral capsule (20 sources) Proton Pump Inhibitor Start: 10-03-2018 End: 10-03-2018 Dexilant 60 MG Oral Capsule Delayed Release [address] qd for 0 days Quantity: 30 {Capsule} Refills: 3 Ordered: 03-Oct-2018 Jess Lopez Start : 03-Oct-2018 End : 03-Oct-2018 Inactive Comments: to try in place of Pantoprazole until see if can get prior auth Start: 07-09-2012 End: 08-01-2012 DEXILANT, 60MG (Oral Capsule Delayed Release) [address] qd for 0 days Quantity: 30 {Capsule_DR} Refills: 0 Ordered: 01-Aug-2012 Barbie Henriquez LPN Start : 09-Jul-2012 End : 01-Aug-2012 Inactive Comments: to try in place of Pantoprazole until see if can get prior auth Comment on above: to try in place of P antoprazole until see if can get prior auth ergocalciferol 1.25 mg oral capsule (20 sources) Provitamin D2 Compound Start: 06-30-19 End: 10-14-19 take 1 capsule by mouth every week ergocalciferol (vitamin D2) 1,250 mcg (50,000 unit) oral capsule 1 (one) Capsule q weekly for 0 days Quantity: 12 {Capsule} Refills: 0 Ordered: 13-Oct-2022 Char MEJÍA, Lin Pardo MD, Lin Cisneros Start : 29-Jun-2021 End : 13-Oct-2022 Inactive gabapentin 300 mg oral capsule (20 sources) Anti-epileptic Agent Start: 08-25-19 End: 05-25-19 take 1 capsule by mouth twice daily at bedtime Gabapentin 300 MG Oral Capsule 1 (one) Capsule bid and 2at bedtime for 0 days Quantity: 120 {Capsule} Refills: 3 Ordered: 25-May-2021 SABINO Gramajo LPN Start : 07-Sep-2020 End : 25-May-2021 Inactive Comments: Oarrs run 120Post herpetic neuralgia B02.29New Dose Comment on above: Oarrs run sixty Post herpetic neuralgia B02.29 Oarrs run 120Post he rpetic neuralgia B02.29New Dose lidocaine 0.05 mg/mg topical ointment (20 sources) Antiarrhythmic, Amide Local Anesthetic Start: 09-09-19 End: 05-25-19 Lidocaine 5 % External Ointment uad Application to affected area once daily for 0 days Quantity: 30 {Gram} Refills: 2 Ordered: 25-May-2021 SABINO Gramajo LPN Start : 08-Sep-2020 End : 25-May-2021 Inactive Start: 08-12-2020 End: 08-25-2020 lidocaine 5% topical ointmen t ; Apply topically to affected area 3 times a day, As Needed for pain - do not apply to blistered/open skin Quantity: 1 Refills: 0 Ordered: 12-Aug-2020 Tiffanie Harris Start: 12-Aug-2020 End: 25-Aug-2020 Generic Substitution Allowed Comments: For external use only. Comment on above: For external use onl y. metroNIDAZOLE 500 mg oral tablet (20 sources) Nitroimidazole Antimicrobial Start: End: take 1 tablet by mouth three times daily metroNIDAZOLE 500 MG Oral Tablet 1 (one) Tablet tid for 7 days Quantity: 21 {Tablet} Refills: 0 Ordered: 29-Jun-2021 SABINO Gramajo LPN Start : 23-Jun-2021 End : 29-Jun-2021 Inactive Mounjaro 2.5 mg/0.5 mL subcutaneous pen injector (20 sources) Start: inject 2.5 mg by subcutaneous injection every week Mounjaro 2.5 mg/0.5 mL subcutaneous pen injector 2.5 Milligram SQ weekly for 30 days Quantity: 1 Kit Refills: 3 Ordered: 08-Nov-2022 Char MEJÍA, Lin Matias MD Start : 08-Nov-2022 Active Comments: please dispense QS for 30 day supply Start: 07-19-2022 inject 2.5 mg by sub cutaneous injection every week Mounjaro 2.5 mg/0.5 mL subcutaneous pen injector 2.5 Milligram SQ weekly for 30 days Quantity: 1 Kit Refills: 3 Ordered: 19-Jul-2022 Lin Pardo MD, MD, Dana M Start : 19-Jul-2022 Active Comments: please dispense QS for 30 day supply Start: 06-29-2022 inject 2.5 mg by sub cutaneous injection every week Mounjaro 2.5 mg/0.5 mL subcutaneous pen injector 2.5 Milligram SQ weekly for 30 days Quantity: 1 Kit Refills: 3 Ordered: 29-Jun-2022 Lin Pardo MD, MD, Dana M Start : 29-Jun-2022 Active Comments: please dispense QS for 30 day supply Start: 05-11-2022 inject 2.5 mg by sub cutaneous injection every week Mounjaro 2.5 mg/0.5 mL subcutaneous pen injector 2.5 Milligram SQ weekly for 30 days Quantity: 1 Kit Refills: 3 Ordered: 11-May-2022 Char MEJÍA, Lin Matias MD Start : 11-May-2022 Active Comments: please dispense QS for 30 day supply Start: 05-11-2022 inject 1 mL by subcu taneous injection every week Mounjaro 2.5 mg/0.5 mL subcutaneous pen injector 1 (one) mL SQ weekly for 30 days Quantity: 1 {Milliliter} Refills: 3 Ordered: 11-May-2022 Start : 11-May-2022 Active Comments: please dispense QS for 30 day supply Start: 04-11-2022 inject 1 mL by subcu taneous injection every week Mounjaro 2.5 mg/0.5 mL subcutaneous pen injector 1 (one) mL SQ weekly for 30 days Quantity: 1 {Milliliter} Refills: 3 Ordered: 11-Apr-2022 Fast DO, Cristina A Start : 11-Apr-2022 Active Comments: please dispense QS for 30 day supply Comment on above: please dispense QS f or 30 day supply Mounjaro 2.5 MG/0.5ML Subcutaneous Solution Pen-injector (1 source) Start: 10-18-2021 Mounjaro 2.5 MG/0.5ML Subcutaneous Solution Pen-injector 1 (one) Solution Pen-injector SC weekly for 0 days Quantity: 4 {Each} Refills: 0 Ordered: 18-Oct-2021 Char MEJÍA, Lin Matias MD Start : 18-Oct-2021 Active Comments: with needles Comment on above: with needles Mounjaro 5 mg/0.5 mL subcutaneous pen injector (4 sources) Start: 03-18-2022 Mounjaro 5 mg/0.5 mL subcutaneous pen injector 1 (one) Solution Pen-injector SC weekly for 30 days Quantity: 4 {Each} Refills: 6 Ordered: 18-Mar-2022 Lin Pardo MD, MD, Dana M Start : 18-Mar-2022 Active Comments: with needlesplease dispense quantity suff. for 30 day supply Start: 03-14-2022 Mounjaro 5 mg/ 0.5 mL subcutaneous pen injector 1 (one) Solution Pen-injector SC weekly for 30 days Quantity: 4 {Each} Refills: 6 Ordered: 14-Mar-2022 Char MEJÍA, Lin Pardo MD, Lin Cisneros Start : 14-Mar-2022 Active Comments: with needlesplease dispense quantity suff. for 30 day supply Comment on above: with needlesplease d ispense quantity suff. for 30 day supply Ozempic 1 mg/dose (4 mg/3 mL) subcutaneous pen injector (8 sources) Start: 023 inject 1 mg by subcutaneous injection every week Ozempic 1 mg/dose (4 mg/3 mL) subcutaneous pen injector 1 (one) mg sq weekly for 30 days Quantity: 4 {Applicator} Refills: 0 Ordered: 23-Nov-2022 Dora Shaffer LPN Start : 23-Nov-2022 Active Comments: Please dispense QS for month supply at 1mg weekly Comment on above: Please dispense QS f or month supply at 1mg weekly pantoprazole 40 mg delayed release oral tablet (20 sources) Proton Pump Inhibitor Start: 023 pantoprazole 40 mg oral tablet, delayed release (enteric coated) [address] qd for 0 days Quantity: 90 {Tablet} Refills: 3 Ordered: 14-Nov-2022 Yessica Wilhelm DO Start : 14-Nov-2022 Active Start: 09-06-2021 Pantoprazole S odium 40 MG Oral Tablet Delayed Release [address] qd for 0 days Quantity: 90 {Tablet} Refills: 3 Ordered: 06-Sep-2021 Tyra De Leon CMA Start : 06-Sep-2021 Active Start: 10-06-2020 Pantoprazole S odium 40 MG Oral Tablet Delayed Release [address] qd for 0 days Quantity: 90 {Tablet} Refills: 3 Ordered: 06-Oct-2020 Jess Lopez Start : 06-Oct-2020 Active Start: 09-07-2020 Pantoprazole S odium 40 MG Oral Tablet Delayed Release [address] qd for 0 days Quantity: 90 {Tablet} Refills: 3 Ordered: 07-Sep-2020 Jess Lopez CNP, CNP, Jess Flores Start : 07-Sep-2020 Active Start: 12-16-2019 take 40 mg by mouth once daily Pantoprazole Active 40 MG PO DAILY December 16, 2019 9:44pm Start: 09-25-2019 Pantoprazole S odium 40 MG Oral Tablet Delayed Release [address] qd for 0 days Quantity: 90 {Tablet} Refills: 3 Ordered: 25-Sep-2019 John COREY Jess Rodriguez CNP Start : 25-Sep-2019 Active Start: 10-03-2018 Pantoprazole S odium 40 MG Oral Tablet Delayed Release [address] qd for 0 days Quantity: 90 {Tablet} Refills: 3 Ordered: 03-Oct-2018 John COREY Jess Lopez CNP Jess Flores Start : 03-Oct-2018 Active Start: 10-02-2018 End: 10-03-2018 Pantoprazole Sodium 40 MG Or al Tablet Delayed Release [address] qd for 0 days Quantity: 90 {Tablet} Refills: 3 Ordered: 03-Oct-2018 John COREY Jess Lopez CNP Jess Flores Start : 02-Oct-2018 End : 03-Oct-2018 Inactive Start: 10-02-2018 Pantoprazole S odium 40 MG Oral Tablet Delayed Release [address] qd for 0 days Quantity: 90 {Tablet} Refills: 3 Ordered: 02-Oct-2018 John COREY Jess Lopez CNP Jess Flores Start : 02-Oct-2018 Active Start: 09-05-2017 Pantoprazole S odium 40 MG Oral Tablet Delayed Release [address] qd for 0 days Quantity: 90 {Tablet} Refills: 3 Ordered: 05-Sep-2017 John COREY Jess Lopez CNP Jess Flores Start : 05-Sep-2017 Active Start: 08-07-2006 End: 07-06-2012 PROTONIX, 40MG (Oral Tablet Delayed Release) [address] QD for 0 days Quantity: 30 {Tablet_DR} Refills: 3 Ordered: 06-Jul-2012 SABINO Gramajo LPN Start : 07-Aug-2006 End : 06-Jul-2012 Inactive Protonix 40 mg o ral granule, delayed release ; 1 each orally once a day Quantity: 0 Refills: 0 Ordered: 12-Aug-2020 Viviane Giordano Generic Substitution Allowed rosuvastatin calcium 5 mg oral tablet (20 sources) HMG-CoA Reductase Inhibitor Start: 06-06-2022 take 1 tablet by mouth once daily at bedtime rosuvastatin 5 mg oral tablet 1 (one) Tablet qhs for 0 days Quantity: 90 {Tablet} Refills: 3 Ordered: 06-Jun-2022 Lin Pardo MD, MD, Dana M Start : 06-Jun-2022 Active Start: 03-15-2022 take 1 tablet by jacqueline th once daily at bedtime rosuvastatin 5 mg oral tablet 1 (one) Tablet qhs for 0 days Quantity: 90 {Tablet} Refills: 3 Ordered: 15-Mar-2022 Lin Pardo MD, MD, Dana M Start : 15-Mar-2022 Active Start: 06-18-2021 take 1 tablet by jacqueline th once daily at bedtime Rosuvastatin Calcium 5 MG Oral Tablet 1 (one) Tablet qhs for 0 days Quantity: 90 {Tablet} Refills: 3 Ordered: 18-Jun-2021 LuisJess alejandra Start : 18-Jun-2021 Active Start: 12-01-2020 take 1 tablet by jacqueline th once daily at bedtime Rosuvastatin Calcium 5 MG Oral Tablet 1 (one) Tablet qhs for 0 days Quantity: 90 {Tablet} Refills: 0 Ordered: 01-Dec-2020 Jess Lopez CNP Start : 01-Dec-2020 Active Start: 09-07-2020 take 1 tablet by jacqueline th once daily at bedtime Rosuvastatin Calcium 5 MG Oral Tablet 1 (one) Tablet qhs for 0 days Quantity: 90 {Tablet} Refills: 0 Ordered: 07-Sep-2020 John COREY AnneSandra Lopez CNP Jess Flores Start : 07-Sep-2020 Active Vitamin D3 25 mcg (1,000 unit) oral tablet (14 sources) Start: 10-13-2022 take 1 tablet by mouth once daily Vitamin D3 25 mcg (1,000 unit) oral tablet 1 Tablet daily for 0 days Quantity: 30 {Tablet} Refills: 0 Ordered: 13-Oct-2022 Lin Pardo MD, MD, Dana M Start : 13-Oct-2022 Active Vitamins B Complex oral capsule (18 sources) Start: 06-06-2022 take 1 capsule by mouth once daily Vitamins B Complex oral capsule 1 (one) capsule daily for 0 days Quantity: 30 {Capsule} Refills: 0 Ordered: 13-Oct-2022 Dora Shaffer LPN Start : 06-Jun-2022 Active Start: 06-06-2022 take 1 capsule by mo uth once daily Vitamins B Complex oral capsule 1 (one) capsule daily for 0 days Quantity: 30 {Capsule} Refills: 0 Ordered: 06-Jun-2022 Char MEJÍA, Lin Matias MD Start : 06-Jun-2022 Active Problems Active Problems Problem Classification Problem Date Documented Da te Episodic/Chronic Abdominal pain (20 sources) Abdominal pain; Translations: [Abdominal pain] Resolved: 09-06-2021 04-21-2021 Episodic Comment on above: he has had 02-21. no blood in urine like kidney stone. his Ct in ER show diverticulitis... he in past was given augemntin for diverticulitis month ago and made not difference it has bneen constant and bee the same ibuprofen helps and climbs out of truck. if not take nsaids it will hurt dull ache in lower abd finally better had s cope cleaned out. 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 not alot signs and symptoms am cough not want regular inhaler at this point Chronic obstructive pulmonary disease and bronchiectasis (10 sources) Chronic obstructive pulmonary disease and bronchiectasis Delirium, dementia, and amnestic and other cognitive disorders (20 sources) Age-related cognitive decline; Translations: [Age-related cognitive decline] 09-06-2021 Chronic Diabetes mellitus without complication (20 sources) Abnormal glucose level; Translations: [Abnormal glucose (Renamed from Abnormal glucose level)] 10-15-2021 Episodic Diabetes mellitus without complication (20 sources) Diabetes mellitus without complication Disorders of lipid metabolism (20 sources) Hypercholesterolemia; Translations: [Hypercholesterolemia ] 05-25-2018 Chronic Comment on above: reveiwed with patien t recent tests. need to change diet. reveiwed with patien t recent tests. need to change diet. APO B and APO A great Diverticulosis and diverticulitis (20 sources) Diverticulitis; Translations: [Diverticulitis of intestine, part unspecified, without perforation or abscess without bleeding] 06-29-2021 Chronic Esophageal disorders (20 sources) Gastro-esophageal reflux disease without esophagitis; Translations: [Gastroesophageal reflux disease] Resolved: 09-06-2021 05-25-2018 Chronic Comment on above: on PPI had dilation in past right now signs and symptoms good Dr. carey E[place]. care[place] he was on protonix willstay on was on nsaids off now better on ppi and off nsaid s Esophageal disorders (12 sources) Erosive esophagitis; Translations: [Erosive esophagitis] 05-25-2018 Episodic Headache; including migraine (2 sources) Pain in face; Translations: [Left-sided face pain] 11-07-2022 Episodic Hepatitis (20 sources) Hepatitis Immunizations and screening for infectious disease (20 sources) Exposure to Bordetella pertussis; Translations: [Exposure to pertussis] Resolved: 09-06-2021 05-25-2018 Episodic Comment on above: recheck DNA good Nonspecific chest pain (20 sources) Chest pain; Translations: [Chest pain] Resolved: 07-09-2012 03-12-2015 Episodic Nutritional deficiencies (20 sources) Vitamin D deficiency; Translations: [Vitamin D deficiency] 06-29-2021 Chronic Comment on above: 06-29-21 level 15.1 06-29-21 level 15.1-- now normal Other eye disorders (20 sources) Eye / vision finding; Translations: [Visual changes] Resolved: 09-06-2021 05-25-2018 Episodic Other gastrointestinal disorders (20 sources) History of diverticulitis; Translations: [History of diverticulitis] Resolved: 06-29-2021 05-25-2021 Episodic Other infections; including parasitic (20 sources) History of herpes zoster; Translations: [History of shingles] 05-25-2021 Episodic Other lower respiratory disease (20 sources) Wheezing; Translations: [Wheezing] Resolved: 06-29-2021 08-12-2020 Episodic Other nutritional; endocrine; and metabolic disorders (20 sources) Obesity; Translations: [Obesity] 05-25-2018 Chronic Comment on above: talk about diet. has pop and carbs. no exercises. talkabout make habit. lost alot of weight on mounjaro Other nutritional; endocrine; and metabolic disorders (20 sources) Body mass index 40+ - severely obese; Translations: [BMI 40.0-44.9, adult] Resolved: 05-25-2021 05-25-2018 Chronic Comment on above: 40.44 Other nutritional; endocrine; and metabolic disorders (20 sources) Body mass index 30+ - obesity; Translations: [BMI 38.0-38.9,adult] Resolved: 05-25-2021 05-25-2018 Chronic Other nutritional; endocrine; and metabolic disorders (20 sources) Morbid obesity; Translations: [Morbid obesity] 06-29-2021 Chronic Comment on above: goal weight is 175. last see that weight 10 years ago when started camping did alot cook outs and more etoh not camp anymoreBMI 38.0 goal weight is 175. slowly loosingBMI 38.0 Other screening for suspected conditions (not mental disorders or infectious disease) (20 sources) Patient encounter status; Translations: [Screening for deficiency anemia] Resolved: 06-29-2021 05-05-2020 Episodic Comment on above: look like diverticul itis but not change with oral atb and worsen willrecheck hasd been a few months the ceruloplasmin hi s high...thats an acute phase reactant its a concern for wilsons disease if its low liver is good he needs scoped to rule out anyrhing in colon ? divert, ? drom col on inflammation getting scope. look like diverticul itis but not change with oral atb and worsen willrecheck hasd been a few months colosncopy done want repeat in year.- Other skin disorders (20 sources) Eruption; Translations: [Rash] Resolved: 09-25-2008 07-09-2012 Episodic Comment on above: Sunburn with ? 2nd d egree burn Residual codes; unclassified (20 sources) Family history of diabetes mellitus; Translations: [Family history of diabetes mellitus type 2] 05-25-2018 Episodic Residual codes; unclassified (20 sources) Tobacco use; Translations: [Tobacco use and exposure - finding] Episodic Residual codes; unclassified (20 sources) Current non-smoker ; Translations: [Current non-smoker] Resolved: 09-06-2021 08-24-2020 Episodic Residual codes; unclassified (20 sources) Insomnia; Translations: [Insomnia] Resolved: 09-06-2021 08-24-2020 Episodic Comment on above: secondary to shingle s Residual codes; unclassified (20 sources) Non-smoker; Translations: [Current non-smoker] Resolved: 09-06-2021 09-06-2021 Episodic Residual codes; unclassified (20 sources) Finding of systemic arterial pressure; Translations: [Abnormal ankle brachial index (BRINDA)] 10-13-2022 Episodic Comment on above: both 0.94 willrechec k in a year no signs and symptoms Screening and history of mental health and substance abuse codes (20 sources) Ex-smoker; Translations: [Former smoker] Onset: 04-01-2024 05-25-2021 Episodic Comment on above: LDCT scan 06-09-21 con tinue screening q 12 months Sprains and strains (4 sources) Strain of back muscle; Translations: [Strain of muscle, fascia and tendon of lower back, initial encounter] 12-17-2019 Episodic Substance-related disorders (20 sources) Smoker; Translations: [Current smoker] Resolved: 06-29-2021 05-25-2021 Chronic Comment on above: now down to social s moking greater than 30 pack years dad with lung ca Superficial injury; contusion (2 sources) Contusion of upper limb; Translations: [Contusion of unspecified upper arm, initial encounter] 12-17-2019 Episodic Unclassified (20 sources) Unclassified (20 sources) Well Male Exam (V70.0) Unclassified (20 sources) Current non-smoker ; Translations: [Current non-smoker] 05-25-2018 Unclassified (20 sources) DISEASES OF ESOPHAGUS, STRICTURE AND STENOSIS OF ESOPHAGUS (530.3) Unclassified (20 sources) BMI 38.0-38.9,adult Unclassified (20 sources) Visual changes Unclassified (3 sources) SHINGLES 08-12-2020 Comment on above: SHINGLES Unclassified (20 sources) Wheeze Unclassified (20 sources) Gastric reflux Unclassified (11 sources) Former smoker Unclassified (20 sources) History of shingles Unclassified (16 sources) Current smoker Unclassified (16 sources) History of diverticulitis Unclassified (20 sources) History of nephrolithiasis Unclassified (16 sources) Encounter for screening for malignant neoplasm of colon (Renamed from Special screening for malignant neoplasms, colon) Unclassified (14 sources) Encounter for hepatitis C virus screening test for high risk patient Unclassified (10 sources) Encounter for well adult exam with abnormal findings (Renamed from Encounter for general adult medical examination with abnormal findings) Unclassified (16 sources) Sigmoid diverticulitis Unclassified (16 sources) Abnormal abdominal CT scan Unclassified (13 sources) Elevated high sensitivity C-reactive protein Unclassified (10 sources) Elevated homocysteine Unclassified (10 sources) Abnormal blood level of copper Unclassified (10 sources) Esophageal stricture Unclassified (4 sources) BMI 37.0-37.9, adult Urinary tract infections (20 sources) Urinary tract infectious disease; Translations: [UTI (urinary tract infection)] Resolved: 06-29-2021 06-29-2021 Episodic Viral infection (20 sources) Herpes zoster; Translations: [Herpes zoster without mention of complication] Resolved: 09-06-2021 08-12-2020 Episodic Comment on above: keeps him awake x 4- 5 weeks. Will increase gabapentin and send to pain management right now not been a year not have pain but stillsome nerve decrease Past or Other Problems Problem Classification Problem Date Documented Da te Episodic/Chronic Deficiency and other anemia (20 sources) Deficiency and other anemia Hemorrhoids (20 sources) Hemorrhoids; Translations: [Hemorrhoids] Resolved: 09-25-2008 01-13-2015 Episodic Other gastrointestinal disorders (20 sources) Dysphagia; Translations: [Dysphagia] Resolved: 09-25-2008 03-16-2015 Episodic Other upper respiratory disease (20 sources) Allergic rhinitis; Translations: [Allergic rhinitis] Resolved: 09-25-2008 01-06-2015 Chronic Residual codes; unclassified (4 sources) Tobacco user; Translations: [Tobacco use] Resolved: 07-09-2013 02-20-2015 Chronic Comment on above: rare and in summer. Residual codes; unclassified (20 sources) Tobacco use and exposure - finding; Translations: [Tobacco use] Resolved: 07-09-2013 02-20-2015 Episodic Comment on above: rare and in summer. Screening and history of mental health and substance abuse codes (2 sources) Tobacco use and exposure - finding; Translations: [Tobacco use] Resolved: 07-09-2013 02-20-2015 Chronic Comment on above: rare and in summer. Unclassified (20 sources) DOT- GENERAL MEDICAL EXAMINATION FOR ADMINISTRATIVE PURPOSES (V70.3) Unclassified (20 sources) Aloe gel Unclassified (20 sources) Wear a hat Unclassified (5 sources) Patient examined; Translations: [General medical examination] 05-25-2018 Comment on above: see papers Unclassified (20 sources) Use sunscreen Unclassified (20 sources) Rash (782.1) Unclassified (20 sources) SYMPTOM, PAIN, CHEST NOS (786.50) Unclassified (20 sources) Patient encounter status; Translations: [Encounter for routine history and physical exam for male] Resolved: 07-10-2017 01-06-2015 Comment on above: psa rectal 01-13. re commend colon cancer screening DOT exam see papers Unclassified (20 sources) SCREENING FOR LIPID DISORDERS (V77.91) Unclassified (20 sources) SCREENING FOR CANCER OF THE PROSTATE (V76.44) Unclassified (7 sources) Screening status; Translations: [Screening for deficiency anemia] Resolved: 07-10-2017 07-10-2017 Unclassified (20 sources) Physical exam without abnormal findings (Renamed from Encounter for routine adult health examination without abnormal findings) Unclassified (20 sources) Encounter for examination for driving license Unclassified (20 sources) BMI 40.0-44.9, adult Unclassified (20 sources) Exposure to pertussis Unclassified (20 sources) Unspecified Diagnosis Resolved: 05-25-2021 10-03-2018 Unclassified (20 sources) Physical exam for work or camp (Renamed from Encounter for school health examination) Unclassified (20 sources) Screening for thyroid disorder Unclassified (10 sources) Screening for prostate cancer Results Test Name Value Interpretation Reference Range Facility Urgent Care Visit Reporton 0 04-15-2024 Urgent Care Visit Report [facility] [address], [address] [place] [address] OFFICE VISIT Date of Service: 04/15/24 MR#: [id number] Acct: [id number] Name: LEANA PORTER Rep #: [id number] 2 : 1955 Provider: LINO Puckett Age/Sex: 69/M Location: [facility] Status: Signed Intake Vital Signs 11/07/22 16:13 Height 5 ft 7 in Intake Visit Reasons: DOT PHYSICAL/SELF PAY Allergies No Known Allergies Allergy (Verified 04/15/24 10:11) Have you fallen in the past year?: No [facility] Medical History (Updated 11/07/22 @ 16:40 by Willem HUYNH, PA) Cervical strain Left-sided face pain High cholesterol GERD (gastroesophageal reflux disease) 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 by 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) Social History Smoking Status: Former smoker HPI HPI Details: LEANA PORTER, is a 69 M who presents to the office today for Office Procedures Physical Exam Coding PE Coding DOT PE: Yes Coding Level of Care Code No Charge Diagnoses 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 by 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) Z02.89 Assessment and Plan Assessment and Plan (1) 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 by 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): Status: Acute Clinical Quality Measures Falls Risk Screening/Assistive Devices Have you fallen in the past year?: No 04/15/24 1024 Date Willem HUYNH Cosigner Signature: Date (if applicable) CC: Normal [facility] Low Dose CT Lung Screeningon 03-01-[address] Lung Screening [facility] Imaging Services [address] [place] [id number] Lung Screening MR#: [id number] Acct: [id number] Name: LEAAN PORTER Rep #: [id number] : 1955 M 69 From: Hardy Davidson MD PCP: Dr. Lin Pardo MD Status: [facility] Study: Low Dose CT Lung Screening Date of Exam: 03/01 Exam# [id number] Ordering Dr: Lin Pardo MD [id number] EXAM: CT CHEST, LUNG CANCER SCREENING WITHOUT INTRAVENOUS CONTRAST CLINICAL INDICATION: LOW-DOSE COMPUTED TOMOGRAPHY (LDCT) OF LUNGS, former smoker TECHNIQUE: Helically acquired images were obtained of the chest without intravenous contrast using low dose (LDCT) lung cancer screening protocol. This CT exam was performed using one or more of the following dose reduction techniques: automated exposure control, adjustment of the mA and/or kV according to patient size, and/or use of iterative reconstruction technique. COMPARISON: CT Lung Cancer Screening dated 06/09/2021 FINDINGS: INFRAHYOID NECK: Linear secretions identified within the trachea. LUNGS AND PLEURAL SPACES: Stable 4 mm nodule along the superior portion of the left major fissure likely representing an intrapulmonary lymph node. Minimal pleural-parenchymal thickening within the posterior right costophrenic sulcus. No pneumothorax. No evidence of a lung mass or suspicious pulmonary nodule. HEART: Normal. No pericardial effusion. Normal heart size. Coronary artery calcifications/stent is noted. MEDIASTINUM: Stable small hiatal hernia. No mediastinal or hilar adenopathy. Esophagus is unremarkable. THYROID: Normal. No thyroid nodules or calcification. BONES/JOINTS: No suspicious lytic or blastic abnormality. VASCULATURE: No aortic aneurysm. LYMPH NODES: See above. CT/Low Dose CT Lung Screening IMPRESSION: 1. No evidence of lung mass or suspicious pulmonary nodule. 2. Lung-RADS score: 1S - Additional clinically significant or potentially clinically significant findings are described. Recommend continued annual screening with a low-dose CT (LDCT) in 12 months. Electronically Signed: Hardy Davidson MD at 17:04 EST , CC: Dr. Lin Pardo MD Corporate Giving Manager: Signed Normal [facility] Basophil percentageOrdered B y: Lin Pardo on 11-29-2022 Creatinine [Mass/Vol] 1.3 mg/dL 0.70-1.30 [facility] Laboratory - Chemistry and C hemistry - challengeOrdered By: Linjustyn Pardo on 11-29-2022 GFR/1.73 sq M.predicted among non-blacks MDRD (S/P/Bld) [Vol rate/Area] 60.0000 mL/min/{1.73_m2} >60 [facility] PSA ([place] [facility] [place] (8415 3)Ordered By: Supervisor Electronic Coils on 09-02-2022 Prostate specific Ag [Mass/Vol] 0.8 ng/mL Normal 0.0-4.0 [facility]; [facility] Work Phone: Comment on above: [employer] ECLIA methodol ogy. .According to the [place] [employer], Serum PSA shoulddecrease and remain at undetectable levels after radicalprostatectomy. The AUA defines biochemical recurrence as an initialPSA value 0.2 ng/mL or greater followed by a subsequent confirmatoryPSA value 0.2 ng/mL or greater.Values obtained with different assay methods or kits cannot be usedinterchangeably. Results cannot be interpreted as absolute evidenceof the presence or absence of malignant disease. PATIENT NOT FASTINGP ERFORMED BY: [email or web address] [place] [id number] C-REACT PROT HIGH SENS(hsCRP ) (64840)Ordered By: Supervisor Electronic Coils on 06-03-2022 CRP High sensitivity method [Mass/Vol] 8.58 mg/L Abnormal 0.00-3.00 [facility]; [facility] Work Phone: Comment on above: Relative Risk for Fu ture Cardiovascular Event Low <1.00 Average 1.00 - 3.00 High >3.00 PATIENT WAS FASTINGP ERFORMED BY: [employer] [email or web address] [place] [id number] CALCIFEDIOL (31095)Ordered B y: Supervisor Electronic Coils on 06-03-2022 25-hydroxyvitamin D [Mass/Vol] 68.9 ng/mL Normal 30.0-100.0 [facility]; [facility] Work Phone: Comment on above: Vitamin D deficiency has been defined by the [place] ofMedicine and an Endocrine Society practice guideline as alevel of serum 25-OH vitamin D less than 20 ng/mL (1,2).The Endocrine Society went on to further define vitamin Dinsufficiency as a level between 21 and 29 ng/mL (2).1. IOM ([place] of Medicine). 2010. Dietary reference intakes for calcium and D. [place]: The National Academies Press.2. Favian MF, Shubham RAMOS, Josep STAHL, et al. Evaluation, treatment, and prevention of vitamin D deficiency: an Endocrine Society clinical practice guideline. JCEM. 2010; 96(7):1911-30. PATIENT WAS FASTINGP ERFORMED BY: CB [facility] [id number] Travis RoadDublin [place] [id number] CBC & PLATELETS (AUTO) (8502 7)Ordered By: Supervisor Electronic Coils on 06-03-2022 Erythrocyte distribution width (RBC) [Ratio] 13.5 % Normal 11.6-15.4 [facility]; [facility] Work Phone: Comment on above: PATIENT WAS FASTINGP ERFORMED BY: CB [facility] Infscj5157 [address] RoadDublin [place] [id number] Hematocrit (Bld) [Volume fraction] 47.1 % Normal 37.5-51.0 [facility]; [facility] Work Phone: Comment on above: PATIENT WAS FASTINGP ERFORMED BY: CB [facility] [id number] [address] RoadDublin [place] [id number] Hemoglobin (Bld) [Mass/Vol] 15.8 g/dL Normal 13.0-17.7 [facility]; [facility] Work Phone: Comment on above: PATIENT WAS FASTINGP ERFORMED BY: CB [facility] [id number] [address] RoadDublin [place] [id number] MCH (RBC) [Entitic mass] 28.8 pg Normal 26.6-33.0 [facility]; [facility] Work Phone: Comment on above: PATIENT WAS FASTINGP ERFORMED BY: CB [facility] [id number] [address] RoadDublin [place] [id number] MCHC (RBC) [Mass/Vol] 33.5 g/dL Normal 31.5-35.7 [facility]; [facility] Work Phone: Comment on above: PATIENT WAS FASTINGP ERFORMED BY: GERTRUDE [facility] Hlgdto[address] [facility] [place] [id number] MCV (RBC) [Entitic vol] 86 fL Normal 79-97 [facility]; [facility] Work Phone: Comment on above: PATIENT WAS FASTINGP ERFORMED BY: GERTRUDE [facility] [id number] Travis RoadGranville Medical Centerin [place] [id number] Platelets (Bld) [#/Vol] 237 10*3/uL Normal 150-450 [facility]; [facility] Work Phone: Comment on above: PATIENT WAS FASTINGP ERFORMED BY: GERTRUDE [facility] Ohsqcd2712 Travis RoadGranville Medical Centerin [place] [id number] RBC (Bld) [#/Vol] 5.48 10*6/uL Normal 4.14-5.80 [facility]; [facility] Work Phone: Comment on above: PATIENT WAS FASTINGP ERFORMED BY: GERTRUDE [facility] Dxuesm[address] [facility] [place] [id number] WBC (Bld) [#/Vol] 8.0 10*3/uL Normal 3.4-10.8 [facility]; [facility] Work Phone: Comment on above: PATIENT WAS FASTINGP ERFORMED BY: [facility] Mvviru[address] [facility]in [place] [id number] HGB A1C (90887)Ordered By: S ystem Silver Service Waiter on 06-03-2022 HbA1c (Bld) [Mass fraction] 5.7 % Abnormal 4.8-5.6 [facility]; [facility] Work Phone: Comment on above: . Prediabetes: 5.7 - 6.4 Diabetes: >6.4 Glycemic control for adults with diabetes: <7.0 PATIENT WAS FASTINGP ERFORMED BY: GERTRUDE [facility] Bnwuxi2814 [facility] [id number] Homocysteine, Plasma (91043) Ordered By: Supervisor Electronic Coils on 06-03-2022 Homocysteine [Moles/Vol] 13.7 umol/L Normal 0.0-17.2 [facility]; [facility] Work Phone: Comment on above: PATIENT WAS FASTINGP ERFORMED BY: GERTRUDE Kari aMria6370 [facility] [id number] LIPID PANEL (70617)Ordered B y: Supervisor Electronic Coils on 06-03-2022 Cholesterol [Mass/Vol] 127 mg/dL Normal 100-199 [facility]; [facility] Work Phone: Comment on above: PATIENT WAS FASTINGP ERFORMED BY: GERTRUDE Kari Maria6370 [facility] [id number] Cholesterol in HDL [Mass/Vol] 37 mg/dL Abnormal [facility]; [facility] Work Phone: Comment on above: PATIENT WAS FASTINGP ERFORMED BY: GERTRUDE Kari Maria6370 [facility] [id number] Triglyceride [Mass/Vol] 51 mg/dL Normal 0-149 [facility]; [facility] Work Phone: Comment on above: PATIENT WAS FASTINGP ERFORMED BY: GERTRUDE Kari Maria6370 [facility] [id number] LIPID PANEL (05428) 12 mg/dL Normal 5-40 Compr e[facility]; [facility] Work Phone: Comment on above: PATIENT WAS FASTINGP ERFORMED BY: GERTRUDE Forresterlin6370 [facility] [id number] LIPID PANEL (67526) 78 mg/dL Normal 0-99 Compr ehensive [facility]; [facility] Work Phone: Comment on above: PATIENT WAS FASTINGP ERFORMED BY: GERTRUDE Forresterlin6370 [facility] [id number] LIPID PANEL (38098) 2.1 {ratio} Normal 0.0-3.[address] [facility]; [facility] Work Phone: Comment on above: LDL/HDL Ratio Men Wo men 1/2 Avg.Risk 1.0 1.5 Avg.Risk 3.6 3.2 2X Avg.Risk 6.2 5.0 3X Avg.Risk 8.0 6.1 PATIENT WAS FASTINGP ERFORMED BY: [facility] Ipdrki[address] [facility] [place] [id number] METABOLIC PANEL, COMPREHENSI VE (01149)Ordered By: Supervisor Electronic Coils on 06-03-2022 Albumin [Mass/Vol] 4.3 g/dL Normal 3.8-4.8 [facility]; [facility] Work Phone: Comment on above: PATIENT WAS FASTINGP ERFORMED BY: [facility] Cibyjq[address] [facility] [place] [id number] Albumin/Globulin [Mass ratio] 1.3 {ratio} Normal 1.2-2.2 [facility]; [facility] Work Phone: Comment on above: PATIENT WAS FASTINGP ERFORMED BY: [facility] Kirowe[address] [facility]in [place] [id number] ALP [Catalytic activity/Vol] 77 U/L Normal 44-121 [facility]; [facility] Work Phone: Comment on above: PATIENT WAS FASTINGP ERFORMED BY: [facility] Kvdgky[address] [facility] [place] [id number] ALT [Catalytic activity/Vol] 12 U/L Normal 0-44 [facility]; [facility] Work Phone: Comment on above: PATIENT WAS FASTINGP ERFORMED BY: [facility] Jfobra[address] [facility]in [place] [id number] AST [Catalytic activity/Vol] 17 U/L Normal 0-40 [facility]; [facility] Work Phone: Comment on above: PATIENT WAS FASTINGP ERFORMED BY: [facility] Faiquj[address] [facility] [place] [id number] Bilirubin [Mass/Vol] 0.2 mg/dL Normal 0.0-1.2 [facility]; [facility] Work Phone: Comment on above: PATIENT WAS FASTINGP ERFORMED BY: [facility] Eifonh9920 [address] RoadDublin [place] [id number] Calcium [Mass/Vol] 9.5 mg/dL Normal 8.6-10.2 [facility]; [facility] Work Phone: Comment on above: PATIENT WAS FASTINGP ERFORMED BY: [facility] Nqocxp6675 [address] RoadDublin [place] [id number] Chloride [Moles/Vol] 106 mmol/L Normal 96-106 [facility]; [facility] Work Phone: Comment on above: PATIENT WAS FASTINGP ERFORMED BY: [facility] Jycgua3693 [address] RoadDublin [place] [id number] CO2 [Moles/Vol] 23 mmol/L Normal 20-29 [facility]; [facility] Work Phone: Comment on above: PATIENT WAS FASTINGP ERFORMED BY: [facility] Kptkfa0551 Travis RoadGranville Medical Centerin [place] [id number] Creatinine [Mass/Vol] 0.99 mg/dL Normal 0.76-1.27 [facility]; [facility] Work Phone: Comment on above: PATIENT WAS FASTINGP ERFORMED BY: [facility] Ovlbab[address] [facility]in [place] [id number] GFR/1.73 sq M.predicted among non-blacks MDRD (S/P/Bld) [Vol rate/Area] 85 mL/min/{1.73_m2} Normal Comprehensiv e [facility]; [facility] Work Phone: Comment on above: PATIENT WAS FASTINGP ERFORMED BY: [facility] Wltgte7968 [address] RoadDublin [place] [id number] Globulin (S) [Mass/Vol] 3.2 g/dL Normal 1.5-4.5 [facility]; [facility] Work Phone: Comment on above: PATIENT WAS FASTINGP ERFORMED BY: [facility] Hlmkwq6445 [address] Roadblin [place] [id number] Glucose [Mass/Vol] 101 mg/dL Abnormal 70-99 [facility]; [facility] Work Phone: Comment on above: PATIENT WAS FASTINGP ERFORMED BY: CB [facility] Qjlwsr9679 [address] RoadDublin [place] [id number] Potassium [Moles/Vol] 4.7 mmol/L Normal 3.5-5.2 [facility]; [facility] Work Phone: Comment on above: PATIENT WAS FASTINGP ERFORMED BY: CB [facility] Swsppd8882 Travis RoadGranville Medical Centerin [place] [id number] Protein [Mass/Vol] 7.5 g/dL Normal 6.0-8.5 [facility]; [facility] Work Phone: Comment on above: PATIENT WAS FASTINGP ERFORMED BY: CB [facility] Oijsse7283 [address] RoadDuin [place] [id number] Sodium [Moles/Vol] 144 mmol/L Normal 134-144 [facility] [facility]; [facility] Medicine Work Phone: Comment on above: PATIENT WAS FASTINGP ERFORMED BY: CB [facility] Bbxirn97[address] Travis RoadDublin [place] [id number] Urea nitrogen [Mass/Vol] 11 mg/dL Normal 8-27 [facility]; [facility] Work Phone: Comment on above: PATIENT WAS FASTINGP ERFORMED BY: CB [facility] Jtsesu1496 Travis RoadDublin [place] [id number] Urea nitrogen/Creatinine [Mass ratio] 11 mg/mg Normal 10-24 [facility]; [facility] Work Phone: Comment on above: PATIENT WAS FASTINGP ERFORMED BY: CB [facility] Aejdor26[address] Travis RoadDublin [place] [id number] C-REACT PROT HIGH SENS(hsCRP ) (68448)Ordered By: Supervisor Electronic Coils on 09-07-2021 CRP High sensitivity method [Mass/Vol] 12.45 mg/L Abnormal 0.00-3.00 [facility]; [facility] Work Phone: Comment on above: Relative Risk for Fu ture Cardiovascular Event Low <1.00 Average 1.00 - 3.00 High >3.00 PATIENT NOT FASTINGP ERFORMED BY: GERTRUDE Superfocusmiladys Aoqdix6911 JeNu Biosciencesblin [place] [id number] CALCIFIDIOL (94120) VIT D 25 Ordered By: Supervisor Electronic Coils on 09-07-2021 25-hydroxyvitamin D [Mass/Vol] 67.3 ng/mL Normal 30.0-100.0 [facility]; [facility] Work Phone: Comment on above: Vitamin D deficiency has been defined by the [place] of[place]icine and an Endocrine Society practice guideline as alevel of serum 25-OH vitamin D less than 20 ng/mL (1,2).The Endocrine Society went on to further define vitamin Dinsufficiency as a level between 21 and 29 ng/mL (2).1. IOM ([place] of Medicine). 2010. Dietary reference intakes for calcium and D. [place]: The National Academies Press.2. Favian MF, Shubham RAMOS, Josep STAHL, et al. Evaluation, treatment, and prevention of vitamin D deficiency: an Endocrine Society clinical practice guideline. JCEM. 2010; 96(7):1911-30. PATIENT NOT FASTINGP ERFORMED BY: GERTRUDE Cinpost6370 Z[address] Displaysin [place] [id number] CERULOPLASMIN (18033)Ordered By: Supervisor Electronic Coils on 09-07-2021 Ceruloplasmin [Mass/Vol] 29.1 mg/dL Normal 16.0-31.0 [facility]; [facility] Work Phone: Comment on above: PATIENT NOT FASTINGP ERFORMED BY: GERTRUDE Superfocusmiladys Oqgbsx4[address] [place] [id number] Information: NURSE DRAW Homocysteine, Plasma (93434) Ordered By: Supervisor Electronic Coils on 09-07-2021 Homocysteine [Moles/Vol] 12.5 umol/L Normal 0.0-17.2 [facility]; [facility] Work Phone: Comment on above: PATIENT NOT FASTINGP ERFORMED BY: GERTRUDE Cinpost6370 [facility]Ohio [facility] [id number] VITAMIN B12 AND FOLATES (826 07)Ordered By: Supervisor Electronic Coils on 09-07-2021 Cobalamin (Vitamin B12) [Mass/Vol] 312 pg/mL Normal 232-1245 [facility]; [facility] Work Phone: Comment on above: PATIENT NOT FASTINGP ERFORMED BY: GERTRUDE Superfocus Horafc2842 JeNu BiosciencesHighsmith-Rain[facility] [id number] Information: NURSE DRAW Folate [Mass/Vol] ng/mL Normal Compreh ensive Internal Medicine; [facility] Work Phone: Comment on above: A serum folate viktor ntration of less than 3.1 ng/mL isconsidered to represent clinical deficiency. PATIENT NOT FASTINGP ERFORMED BY: GERTRUDE VendorStack70 TravisWEISSENHAUSHighsmith-Rainey Specialty Hospital [id number] Information: NURSE DRAW Basophil percentageon 2021 Creatinine [Mass/Vol] 0.8 mg/dL 0.70-1.30 [facility] Work Phone: No Panel Informationon 06-23 Bedside Estimated GFR (eGFR) > 60.0000 mL/min >60 [facility] Work Phone: ASM (ANTI SMOOTH MUSCLE ANTI BODY) (29486)Ordered By: Supervisor Electronic Coils on 06-15-2021 Actin IgG Qn 7 {Units} Normal 0-19 Comprehensiv e Internal Medicine; [facility] Work Phone: Comment on above: Negative 0 - 19 Weak positive 20 - 30 Moderate to strong positive >30 . Actin Antibodies are found in 52-85% of patients with autoimmune hepatitis or chronic active hepatitis and in 22% of patients with primary biliary cirrhosis. PATIENT NOT FASTINGP ERFORMED BY: [place] Yuandong GroupSaint Luke's Health System1447 [facility] [id number] BY: GERTRUDE Superfocus Ktmbou88[address] Women.comFormerly [facility] [id number] CERULOPLASMIN (45683)Ordered By: Supervisor Electronic Coils on 06-15-2021 Ceruloplasmin [Mass/Vol] 32.2 mg/dL Abnormal 16.0-31.0 [facility]; [facility] Work Phone: Comment on above: PATIENT NOT FASTINGP ERFORMED BY: Superfocus[address] [id number] BY: Superfocus Cbrnvd4195 [facility] [id number] Hepatitis C Quant, DNA Probe , Amplified (12599)Ordered By: Supervisor Electronic Coils on 06-15-2021 HCV RNA ANIYA+probe Qn Not detected Normal [facility]; [facility] Work Phone: Comment on above: PATIENT NOT FASTINGP ERFORMED BY: Superfocus[address] [id number] BY: Superfocus Vloxnu4982 [facility] [id number] Hepatitis C Quant, DNA Probe, Amplified (86563) SPRCS Normal [facility]; [facility] Work Phone: Comment on above: The quantitative ran ge of this assay is 15 IU/mL to 100 million IU/mL. PATIENT NOT FASTINGP ERFORMED BY: DotBlu[address] [id number] BY: Superfocus Zxqhoz1796 [facility] [id number] MICROSOMAL ANTIBODY (10968)O rdered By: Supervisor Electronic Coils on 06-15-2021 Liver kidney microsomal 1 Ab Qn (S) 1.4 {Units} Normal 0.0-20.0 [facility]; [facility] Work Phone: Comment on above: Negative 0.0 - 20.0 Equivocal 20.1 - 24.9 Positive >24.9 . LKM type 1 antibodies are detected in patients with autoimmune hepatitis type 2 and in up to 8% of patients with chronic HCV infection. PATIENT NOT FASTINGP ERFORMED BY: Superfocus[address] [id number] BY: SuperfocusCare One at Raritan Bay Medical CenterAikutc3503 [facility] [id number] URINE JONNY CULTURE-IDENTIFICA [place] (47517)Ordered By: Supervisor Electronic Coils on 06-15-2021 Bacteria identified Cx Nom (U) Final report Abnormal [facility]; [facility] Work Phone: Comment on above: PATIENT NOT FASTINGP ERFORMED BY: LabDesRueda.com Ryqrvo3989 JeNu BiosciencesHighsmith-Rain[facility] [id number] Information: SRC: Bacteria identified Cx Nom (U) Citrobacter koseri Abnormal [facility]; [facility] Work Phone: Comment on above: 25,000-50,000 colony forming units per mL PATIENT NOT FASTINGP ERFORMED BY: [facility] Aysmed6712 [address] PlibberHighsmith-Rainey Specialty Hospital [id number] Information: SRC: Other Antibiotic [Susc] MIHEAD Normal [facility]; [facility] Work Phone: Comment on above: S = Susceptible; I = Intermediate; R = Resistant P = Positive; N = Negative MICS are expressed in micrograms per mL Antibiotic RSLT#1 RSLT#2 RSLT#3 RSLT#4Amoxicillin/Clavulanic Acid SCefepime SCeftriaxone SCefuroxime SCiprofloxacin SErtapenem SGentamicin SImipenem SLevofloxacin SMeropenem SNitrofurantoin SPiperacillin/Tazobactam STetracycline STobramycin STrimethoprim/Sulfa S PATIENT NOT FASTINGP ERFORMED BY: LabDesRueda.comrp Ntkxme9335 [facility] [id number] Information: SRC: Urinalysis, Office (33249)Or dered By: SABINO Gramajo on 06-15-2021 Bilirubin Ql (U) Negative Normal Comprehe nsive Internal Medicine; [facility] Work Phone: Glucose Test strip (U) [Mass/Vol] Negative Normal [facility]; [facility] Work Phone: Hemoglobin Ql (U) Negative Normal Compreh ensive [facility] Medicine; [facility] Work Phone: Ketones Ql (U) Negative Normal Comprehens judson Internal [facility]; [facility] Work Phone: Leukocyte esterase Test strip Ql (U) Negative Normal [facility]; [facility] Work Phone: Nitrite Ql (U) Negative Normal Comprehens judson [facility]; [facility] Work Phone: pH (U) 6.0 [pH] Normal [facility]; [facility] Work Phone: Protein Ql (U) Negative Normal Comprehens judson [facility]; [facility] Work Phone: Specific gravity (U) [Rel density] 1.010 1 Normal [facility]; [facility] Work Phone: Urobilinogen (24H U) [Mass/Time] 2 mg/dL Normal [facility]; [facility] Work Phone: CBC WITH MANUAL DIFF (42772) Ordered By: Supervisor Electronic Coils on 06-08-2021 Basophils (Bld) [#/Vol] 0.0 10*3/uL Normal 0.0-0.2 [facility]; [facility] Work Phone: Comment on above: Test(s) 249287-XVG-G ; 555502-IVZ-V; 753034-Jlkrxmoppithx; 190399-Rqxrybmlcbg, Total; 111812-IQH-F (Total); 334890-Qhfig LDL-P; 902176-UJQ Size; 856050-SZ-UG Scorewas developed and its performance characteristics determinedby Second Dec[employer]. It has not been cleared or approved by the Foodand Drug Administration.PATIENT WAS FASTINGPERFORMED BY: Labcocliniq.ly Ctzkjhzlpb6708 [facility] [id number] BY: LabDesRueda.comCare One at Raritan Bay Medical CenterRniszt4244 [facility] [id number] Basophils/100 WBC (Bld) 1 % Normal [facility]; [facility] Work Phone: Comment on above: Test(s) 352371-SQC-L ; 107243-RSI-C; 305093-Hpyanwldmkouz; 193785-Wwcepijtcwq, Total; 548555-MPG-X (Total); 743516-Bnduw LDL-P; 232390-GDQ Size; 968598-OB-VM Scorewas developed and its performance characteristics determinedby Second Decimal. It has not been cleared or approved by the Foodand Drug Administration.PATIENT WAS FASTINGPERFORMED BY: Red's All natural[address] [id number] BY: BankerBay Technologies Xputho5817 JeNu BiosciencesHighsmith-Rainey Special[facility] Hospital [id number] Eosinophils (Bld) [#/Vol] 0.4 10*3/uL Normal 0.0-0.4 [facility]; [facility] Work Phone: Comment on above: Test(s) 989952-CSW-B ; 195301-RZP-U; 574745-Bnixrfpybqhsw; 710516-Hvuiijeeesm, Total; 946991-YBM-B (Total); 664602-Rjmbq LDL-P; 186544-WTY Size; 699331-EO-TH Scorewas developed and its performance characteristics determinedby Second Decimal. It has not been cleared or approved by the Foodand Drug Administration.PATIENT WAS FASTINGPERFORMED BY: [employer] [id number] BY: VPIsystems70 Travis PlibberHighsmith-Rainey Specialty Hospital [id number] Eosinophils/100 WBC (Bld) 5 % Normal [facility]; [facility] Work Phone: Comment on above: Test(s) 831841-FWG-V ; 463650-KUT-R; 987061-Sfuxdcgrxjlcl; 000085-Irpiiiikkib, Total; 819486-NUX-B (Total); 438207-Qnbfi LDL-P; 952102-OUE Size; 464702-YJ-HI Scorewas developed and its performance characteristics determinedby Second Decimal. It has not been cleared or approved by the Foodand Drug Administration.PATIENT WAS FASTINGPERFORMED BY: Red's All natural[address] [id number] BY: BankerBay TechnologiesCare One at Raritan Bay Medical CenterUpugvq4763 [facility] [id number] Erythrocyte distribution width (RBC) [Ratio] 14.0 % Normal 11.6-15.4 [facility]; [facility] Work Phone: Comment on above: Test(s) 457935-DGE-A ; 365583-QHK-Y; 075440-Yaasvxytjrioo; 111487-Dqscdrdbmvm, Total; 078130-KSY-P (Total); 840596-Bkalt LDL-P; 717282-BJG Size; 851633-UW-NG Scorewas developed and its performance characteristics determinedby Second Decimal. It has not been cleared or approved by the Foodand Drug Administration.PATIENT WAS FASTINGPERFORMED BY: uberlife [address] [id number] BY: VPIsystems70 [facility] [id number] Hematocrit (Bld) [Volume fraction] 51.0 % Normal 37.5-51.0 [facility]; [facility] Work Phone: Comment on above: Test(s) 054365-YEN-I ; 726748-NVD-H; 364074-Mkejylqujdtzx; 186781-Xunnezvqhvs, Total; 708547-PWP-Y (Total); 885755-Kryqx LDL-P; 075074-UGR Size; 485187-TU-ZU Scorewas developed and its performance characteristics determinedby Second Decimal. It has not been cleared or approved by the Foodand Drug Administration.PATIENT WAS FASTINGPERFORMED BY: uberlife [address] [id number] BY: Yeahka Qgddqa0648 [facility] [id number] Hemoglobin (Bld) [Mass/Vol] 16.6 g/dL Normal 13.0-17.7 [facility]; [facility] Work Phone: Comment on above: Test(s) 589098-CQN-B ; 164162-YJQ-X; 708158-Iboedmekaukhw; 765992-Xalwrbwntwq, Total; 116818-IYZ-I (Total); 833361-Iqeme LDL-P; 798919-JCJ Size; 823272-BP-ZP Scorewas developed and its performance characteristics determinedby Second Decimal. It has not been cleared or approved by the Foodand Drug Administration.PATIENT WAS FASTINGPERFORMED BY: uberlife [address] [id number] BY: SuperfocusCare One at Raritan Bay Medical CenterJxzdon1204 [facility] [id number] Immature granulocytes (Bld) [#/Vol] 0.0 10*3/uL Normal 0.0-0.1 [facility]; [facility] Work Phone: Comment on above: Test(s) 197232-WQG-G ; 754569-HFF-J; 780648-Tyzuhwkpyglmm; 481519-Audyccevnwf, Total; 882104-ELY-Q (Total); 220524-Rqhfn LDL-P; 684290-SMK Size; 188820-LA-PN Scorewas developed and its performance characteristics determinedby Second Decimal. It has not been cleared or approved by the Foodand Drug Administration.PATIENT WAS FASTINGPERFORMED BY: uberlife [address] [id number] BY: Soma Water6370 [facility] [id number] Immature granulocytes/100 WBC (Bld) 1 % Normal [facility]; [facility] Work Phone: Comment on above: Test(s) 697914-LMF-Y ; 538848-WSP-S; 108211-Xytioocutaxyn; 763383-Wfhafqlodwx, Total; 230189-VGH-R (Total); 269865-Fjrzu LDL-P; 188406-MNP Size; 135676-CA-PD Scorewas developed and its performance characteristics determinedby Second Decimal. It has not been cleared or approved by the Foodand Drug Administration.PATIENT WAS FASTINGPERFORMED BY: Red's All natural[address] [id number] BY: SuperfocusCare One at Raritan Bay Medical CenterPcoozr8527 [facility] [id number] Lymphocytes (Bld) [#/Vol] 1.5 10*3/uL Normal 0.7-3.1 [facility]; [facility] Work Phone: Comment on above: Test(s) 988143-ZPA-M ; 181174-VNP-K; 055176-Irvpbkwdecaea; 056451-Ucocrcgqyfe, Total; 868771-WTA-K (Total); 996487-Zzzhn LDL-P; 848327-HOX Size; 653034-JK-XH Scorewas developed and its performance characteristics determinedby Second Decimal. It has not been cleared or approved by the Foodand Drug Administration.PATIENT WAS FASTINGPERFORMED BY: uberlife [address] [id number] BY: VPIsystems70 Travis PlibberHighsmith-Rainey Specialty Hospital [id number] Lymphocytes/100 WBC (Bld) 18 % Normal [facility]; [facility] Work Phone: Comment on above: Test(s) 388095-XAF-L ; 776550-XHC-B; 822973-Hrpsxgralcdqb; 508289-Foofnuntduu, Total; 276309-ARN-A (Total); 269802-Szccn LDL-P; 918978-LMX Size; 064583-QG-EV Scorewas developed and its performance characteristics determinedby Second Decimal. It has not been cleared or approved by the Foodand Drug Administration.PATIENT WAS FASTINGPERFORMED BY: uberlife [address] [id number] BY: VPIsystems70 Travis PlibberHighsmith-Rainey Specialty Hospital [id number] MCH (RBC) [Entitic mass] 28.1 pg Normal 26.6-33.0 [facility]; [facility] Work Phone: Comment on above: Test(s) 135674-GJH-F ; 201463-MMV-E; 357074-Oeeqsffondfpb; 782169-Oqobupqykrx, Total; 189055-CVC-U (Total); 940409-Wvkiq LDL-P; 070657-GGB Size; 623813-BZ-BX Scorewas developed and its performance characteristics determinedby Second Decimal. It has not been cleared or approved by the Foodand Drug Administration.PATIENT WAS FASTINGPERFORMED BY: uberlife [address] [id number] BY: VPIsystems70 JeNu BiosciencesHighsmith-Rainey Special[facility] Hospital [id number] MCHC (RBC) [Mass/Vol] 32.5 g/dL Normal 31.5-35.7 [facility]; [facility] Work Phone: Comment on above: Test(s) 231502-OJU-A ; 053422-OEN-U; 813753-Hvoaoqxhvlbgd; 953483-Sollsjrwdyg, Total; 310263-ZQH-T (Total); 322354-Rahsl LDL-P; 157959-WQV Size; 665903-QN-FC Scorewas developed and its performance characteristics determinedby Second Decimal. It has not been cleared or approved by the Foodand Drug Administration.PATIENT WAS FASTINGPERFORMED BY: [employer] [id number] BY: VPIsystems70 [facility] [id number] MCV (RBC) [Entitic vol] 86 fL Normal 79-97 [facility]; [facility] Work Phone: Comment on above: Test(s) 114732-OLU-H ; 912412-XGJ-F; 121386-Whpulkocmgstc; 869336-Omlogialzny, Total; 208891-KZK-H (Total); 364719-Cxqxj LDL-P; 700656-SXQ Size; 020277-HM-AR Scorewas developed and its performance characteristics determinedby Second Decimal. It has not been cleared or approved by the Foodand Drug Administration.PATIENT WAS FASTINGPERFORMED BY: [employer] [id number] BY: Soma Water6370 [facility] [id number] Monocytes (Bld) [#/Vol] 0.5 10*3/uL Normal 0.1-0.9 [facility]; [facility] Work Phone: Comment on above: Test(s) 416191-HNH-T ; 972207-LDL-A; 762937-Tatswdfjyocnh; 152952-Pmvmhsqfdmw, Total; 980919-RFN-X (Total); 512132-Tlmdz LDL-P; 276306-QJO Size; 339312-YD-TY Scorewas developed and its performance characteristics determinedby Second Decimal. It has not been cleared or approved by the Foodand Drug Administration.PATIENT WAS FASTINGPERFORMED BY: uberlife [address] [id number] BY: Yeahka Zvbinw4402 [facility] [id number] Monocytes/100 WBC (Bld) 6 % Normal [facility]; [facility] Work Phone: Comment on above: Test(s) 522548-HIG-H ; 860458-OXO-Z; 225433-Rfqdfwwysbjku; 370956-Phsbgfvjkov, Total; 706186-IXX-Q (Total); 125063-Cdush LDL-P; 921342-TOH Size; 227238-RH-VB Scorewas developed and its performance characteristics determinedby Second Decimal. It has not been cleared or approved by the Foodand Drug Administration.PATIENT WAS FASTINGPERFORMED BY: uberlife [address] [id number] BY: VPIsystems70 [facility] [id number] Neutrophils (Bld) [#/Vol] 5.7 10*3/uL Normal 1.4-7.0 [facility]; [facility] Work Phone: Comment on above: Test(s) 288213-BUR-W ; 044786-JIT-O; 216789-Pbxdnbfvyfpcn; 820747-Bngaefrihsq, Total; 526388-EEQ-Z (Total); 810142-Kksij LDL-P; 514677-EAG Size; 079831-EW-KP Scorewas developed and its performance characteristics determinedby Second Decimal. It has not been cleared or approved by the Foodand Drug Administration.PATIENT WAS FASTINGPERFORMED BY: uberlife [address] [id number] BY: Yeahka Pmrper4907 [facility] [id number] Neutrophils/100 WBC (Bld) 69 % Normal [facility]; [facility] Work Phone: Comment on above: Test(s) 657796-JCB-O ; 693210-SGK-J; 881701-Snhnzuvbhjxau; 726738-Zfcoticevfq, Total; 163935-ZXS-P (Total); 168364-Dtgoh LDL-P; 397562-RDL Size; 369131-VE-AZ Scorewas developed and its performance characteristics determinedby Second Decimal. It has not been cleared or approved by the Foodand Drug Administration.PATIENT WAS FASTINGPERFORMED BY: uberlife [address] [id number] BY: Soma Water6370 [facility] [id number] Platelets (Bld) [#/Vol] 282 10*3/uL Normal 150-450 [facility]; [facility] Work Phone: Comment on above: Test(s) 568416-TSX-J ; 096183-XHU-D; 094863-Mvjfwvildipls; 400677-Codjpmjqcqm, Total; 783079-UCI-R (Total); 025996-Vhzvt LDL-P; 505807-TKR Size; 533403-DZ-GY Scorewas developed and its performance characteristics determinedby Second Decimal. It has not been cleared or approved by the Foodand Drug Administration.PATIENT WAS FASTINGPERFORMED BY: uberlife [address] [id number] BY: Soma Water6370 [facility] [id number] RBC (Bld) [#/Vol] 5.90 10*6/uL Abnormal 4.14-5.80 [facility]; [facility] Work Phone: Comment on above: Test(s) 781004-EVK-B ; 081602-OTM-N; 924850-Sxzxpsvdmnnzu; 702880-Nnupnsmiirl, Total; 049490-RNE-H (Total); 437824-Tjdei LDL-P; 899581-MAM Size; 360601-VF-RL Scorewas developed and its performance characteristics determinedby Second Decimal. It has not been cleared or approved by the Foodand Drug Administration.PATIENT WAS FASTINGPERFORMED BY: uberlife [address] [id number] BY: SuperfocusCare One at Raritan Bay Medical CenterBtjjpe2424 [facility] [id number] WBC (Bld) [#/Vol] 8.1 10*3/uL Normal 3.4-10.8 [facility]; [facility] Work Phone: Comment on above: Test(s) 256128-IBK-M ; 492963-ISK-H; 304276-Wrgfxlqzkxlon; 617209-Spijowcinlg, Total; 019495-VVM-U (Total); 779344-Hzhoy LDL-P; 190436-HBH Size; 495880-CV-NI Scorewas developed and its performance characteristics determinedby Second Decimal. It has not been cleared or approved by the Foodand Drug Administration.PATIENT WAS FASTINGPERFORMED BY: uberlife [address] [id number] BY: Second Dec[employer] Ldxgao1579 [facility] [id number] HEPATITIS C ANTIBODY (71005) Ordered By: Supervisor Electronic Coils on 06-08-2021 HCV Ab Signal/Cutoff IA [Rel units/Vol] 1.3 {s/co_ratio} Abnormal 0.0-0.9 [facility]; [facility] Work Phone: Comment on above: . Negative: < 0.8 In determinate: 0.8 - 0.9 Positive: > 0.9 . The CDC recommends that a positive HCV antibody result be followed up with a HCV Nucleic Acid Amplification test (375853). Test(s) 751899-EUI-I ; 377434-DNF-E; 107960-Riafiifydfsre; 941845-Taxnnqjxbpr, Total; 754382-HBT-Q (Total); 829183-Euchd LDL-P; 200838-EER Size; 921359-PX-CW Scorewas developed and its performance characteristics determinedby Second Decimal. It has not been cleared or approved by the Foodand Drug Administration.PATIENT WAS FASTINGPERFORMED BY: uberlife [address] [id number] BY: Soma Water6370 [facility] [id number] Metabolic Panel, Comprehensi ve (14700)Ordered By: Supervisor Electronic Coils on 06-08-2021 Albumin [Mass/Vol] 4.0 g/dL Normal 3.8-4.8 [facility]; [facility] Work Phone: Comment on above: Test(s) 364387-IZU-D ; 464129-NUB-M; 820042-Lqwcrygclykxo; 651681-Cbziwpvhwpm, Total; 401498-OCV-V (Total); 922023-Ftyvk LDL-P; 766931-JDB Size; 608232-GT-TC Scorewas developed and its performance characteristics determinedby [employer]. It has not been cleared or approved by the Foodand Drug Administration.PATIENT WAS FASTINGPERFORMED BY: [employer] [id number] BY: Soma Water6370 [address] Women.comFormerly [facility] [id number] Albumin/Globulin [Mass ratio] 1.1 {ratio} Abnormal 1.2-2.2 [facility]; [facility] Work Phone: Comment on above: Test(s) 878576-OBM-O ; 062349-SDE-L; 426130-Xkykbtdcuatad; 087081-Gtmujyxxhjg, Total; 078829-HBK-E (Total); 575988-Phwsz LDL-P; 107668-PUL Size; 153713-HR-JA Scorewas developed and its performance characteristics determinedby [employer]. It has not been cleared or approved by the Foodand Drug Administration.PATIENT WAS FASTINGPERFORMED BY: [employer] [id number] BY: Soma Water6370 [facility] [id number] ALP [Catalytic activity/Vol] 87 U/L Normal 44-121 [facility]; [facility] Work Phone: Comment on above: Test(s) 218758-UNP-O ; 999282-AIS-A; 942895-Gidsoztdcifpt; 300739-Xqfithcbnqw, Total; 410975-NWG-P (Total); 110387-Klfol LDL-P; 543051-VOI Size; 903037-KU-DG Scorewas developed and its performance characteristics determinedby Second Dec[employer]. It has not been cleared or approved by the Foodand Drug Administration.PATIENT WAS FASTINGPERFORMED BY: Superfocus[address] [id number] BY: [employer] Nlvrjr5998 [facility] [id number] ALT [Catalytic activity/Vol] 15 U/L Normal 0-44 [facility]; [facility] Work Phone: Comment on above: Test(s) 213926-PHD-H ; 585226-ECB-J; 183820-Glzeuohdbdtdy; 794132-Xyfajsdatoq, Total; 359681-CRR-X (Total); 125541-Ukbtt LDL-P; 572812-BSY Size; 578812-DW-YN Scorewas developed and its performance characteristics determinedby [employer]. It has not been cleared or approved by the Foodand Drug Administration.PATIENT WAS FASTINGPERFORMED BY: [employer] [address] [id number] BY: [employer] Emzwdz1098 [facility] [id number] AST [Catalytic activity/Vol] 18 U/L Normal 0-40 [facility]; [facility] Work Phone: Comment on above: Test(s) 778579-OQQ-J ; 341662-PWT-G; 164740-Eptzcvdmtieuv; 658019-Jwuoldlnpjx, Total; 063978-QCE-P (Total); 645389-Cqupk LDL-P; 585130-PCP Size; 902819-JT-NJ Scorewas developed and its performance characteristics determinedby [employer]. It has not been cleared or approved by the Foodand Drug Administration.PATIENT WAS FASTINGPERFORMED BY: Superfocus[address] [id number] BY: Super[employer] Dtowsf5548 [facility] [id number] Bilirubin [Mass/Vol] 0.5 mg/dL Normal 0.0-1.2 [facility]; [facility] Work Phone: Comment on above: Test(s) 845386-UUM-M ; 018923-IGW-B; 798359-Fskxdgpnqqczo; 891365-Pogjswemrld, Total; 968845-OWQ-V (Total); 036265-Pfyoy LDL-P; 090441-HGA Size; 020772-EB-EU Scorewas developed and its performance characteristics determinedby [employer]. It has not been cleared or approved by the Foodand Drug Administration.PATIENT WAS FASTINGPERFORMED BY: DotBlu[address] [id number] BY: Cinpost6370 [facility] [id number] Calcium [Mass/Vol] 8.9 mg/dL Normal 8.6-10.2 [facility]; [facility] Work Phone: Comment on above: Test(s) 344749-DQR-P ; 202854-YEV-X; 279700-Gvhkuciphtlcs; 319064-Ibvxyccqnem, Total; 811252-BPV-H (Total); 245619-Wopkh LDL-P; 029355-JDK Size; 908350-EY-OW Scorewas developed and its performance characteristics determinedby [employer]. It has not been cleared or approved by the Foodand Drug Administration.PATIENT WAS FASTINGPERFORMED BY: DotBlu[address] [id number] BY: Cinpost6370 [facility] [id number] Chloride [Moles/Vol] 101 mmol/L Normal 96-106 [facility]; [facility] Work Phone: Comment on above: Test(s) 879475-YYJ-W ; 132291-BGS-N; 539493-Bsdpopyosvzaz; 947324-Ygynmuarvwh, Total; 961459-WSN-A (Total); 824931-Demik LDL-P; 792102-HUQ Size; 283324-RY-YV Scorewas developed and its performance characteristics determinedby [employer]. It has not been cleared or approved by the Foodand Drug Administration.PATIENT WAS FASTINGPERFORMED BY: uberlife [address] [id number] BY: [employer] Whrqpi6899 [facility] [id number] CO2 [Moles/Vol] 23 mmol/L Normal 20-29 [facility]; [facility] Work Phone: Comment on above: Test(s) 889849-LFN-T ; 254388-ECR-P; 581314-Aljiwnsivdcsh; 885921-Vqprefspcjb, Total; 851784-FUM-F (Total); 616630-Ojnkl LDL-P; 667606-YBO Size; 617963-JL-PT Scorewas developed and its performance characteristics determinedby [employer]. It has not been cleared or approved by the Foodand Drug Administration.PATIENT WAS FASTINGPERFORMED BY: uberlife [address] [id number] BY: Soma Water6370 [facility] [id number] Creatinine [Mass/Vol] 1.05 mg/dL Normal 0.76-1.27 [facility]; [facility] Work Phone: Comment on above: Test(s) 414630-FRA-Z ; 797467-XFZ-Y; 596878-Ehjrknaxembaf; 098999-Vtldussoidl, Total; 296416-TOH-J (Total); 021442-Kxbou LDL-P; 654791-ZIH Size; 099406-IY-OO Scorewas developed and its performance characteristics determinedby [employer]. It has not been cleared or approved by the Foodand Drug Administration.PATIENT WAS FASTINGPERFORMED BY: uberlife [address] [id number] BY: Yeahka Vznbfw6390 [facility] [id number] GFR/1.73 sq M.predicted among non-blacks MDRD (S/P/Bld) [Vol rate/Area] 79 mL/min/{1.73_m2} Normal [facility]; [facility] Work Phone: Comment on above: Test(s) 261801-WJD-L ; 558422-MDT-M; 202213-Xugwpdbqnqddi; 158157-Kqmhztplfwi, Total; 434300-ISX-E (Total); 751987-Rdufk LDL-P; 368244-FEJ Size; 718772-RA-RN Scorewas developed and its performance characteristics determinedby [employer]. It has not been cleared or approved by the Foodand Drug Administration.PATIENT WAS FASTINGPERFORMED BY: [employer] [id number] BY: VPIsystems70 [facility] [id number] Globulin (S) [Mass/Vol] 3.5 g/dL Normal 1.5-4.5 [facility]; [facility] Work Phone: Comment on above: Test(s) 765820-WPQ-T ; 432886-DUT-Y; 152237-Ueniugcjngbph; 409953-Usnldqjxuuy, Total; 807340-KVR-D (Total); 254244-Pxlnx LDL-P; 310253-ZIQ Size; 289159-JB-ZR Scorewas developed and its performance characteristics determinedby [employer]. It has not been cleared or approved by the Foodand Drug Administration.PATIENT WAS FASTINGPERFORMED BY: [employer] [id number] BY: Soma Water6370 [facility] [id number] Glucose [Mass/Vol] 91 mg/dL Normal 65-99 [facility]; [facility] Work Phone: Comment on above: Test(s) 984414-ROB-R ; 300010-MGH-G; 743399-Ffxmkgjhrjddq; 076667-Dloxakuovuf, Total; 647739-EBZ-Q (Total); 607699-Fbygb LDL-P; 187854-GHA Size; 804983-TV-WL Scorewas developed and its performance characteristics determinedby [employer]. It has not been cleared or approved by the Foodand Drug Administration.PATIENT WAS FASTINGPERFORMED BY: Superfocus[address] [id number] BY: SuperfocusCare One at Raritan Bay Medical CenterJgrdyr5070 [facility] [id number] Potassium [Moles/Vol] 4.4 mmol/L Normal 3.5-5.2 [facility]; [facility] Work Phone: Comment on above: Test(s) 144005-DZF-U ; 264531-AGO-K; 159939-Umoktbzqlscxw; 310594-Wwimzjezzeh, Total; 383161-PQG-K (Total); 736239-Wjlhq LDL-P; 740463-YMF Size; 887084-WB-XV Scorewas developed and its performance characteristics determinedby [employer]. It has not been cleared or approved by the Foodand Drug Administration.PATIENT WAS FASTINGPERFORMED BY: [employer] [address] [id number] BY: SuperfocusUNM Children's Psychiatric CenterJfabed7100 [facility] [id number] Protein [Mass/Vol] 7.5 g/dL Normal 6.0-8.5 [facility]; [facility] Work Phone: Comment on above: Test(s) 173023-WVR-U ; 665813-VMB-M; 706879-Wgsuagtvoreds; 623327-Lmwjuhjzzhp, Total; 503363-GRI-K (Total); 083647-Ouklf LDL-P; 692102-YRV Size; 302735-QO-XV Scorewas developed and its performance characteristics determinedby [employer]. It has not been cleared or approved by the Foodand Drug Administration.PATIENT WAS FASTINGPERFORMED BY: Superfocus[address] [id number] BY: SuperfocusCare One at Raritan Bay Medical CenterTpbakl0347 [facility] [id number] Sodium [Moles/Vol] 141 mmol/L Normal 134-144 [facility]; [facility] Work Phone: Comment on above: Test(s) 224919-OFI-S ; 725618-IJC-Y; 081170-Yaolnvfavanvx; 706476-Gsfeppnqkcc, Total; 625180-FES-O (Total); 270506-Boyck LDL-P; 468543-NUR Size; 928456-EO-AM Scorewas developed and its performance characteristics determinedby [employer]. It has not been cleared or approved by the Foodand Drug Administration.PATIENT WAS FASTINGPERFORMED BY: uberlife [address] [id number] BY: VPIsystems70 [facility] [id number] Urea nitrogen [Mass/Vol] 12 mg/dL Normal 8-27 [facility]; [facility] Work Phone: Comment on above: Test(s) 812452-ZVL-X ; 016206-AHF-K; 304706-Gmtjwyndwusge; 216199-Bwtzwzphdks, Total; 467548-HMN-L (Total); 127353-Nklrz LDL-P; 775300-EWL Size; 272646-XG-IF Scorewas developed and its performance characteristics determinedby [employer]. It has not been cleared or approved by the Foodand Drug Administration.PATIENT WAS FASTINGPERFORMED BY: [employer]erlife [address] [id number] BY: Soma Water6370 [facility] [id number] Urea nitrogen/Creatinine [Mass ratio] 11 mg/mg Normal 10-24 [facility]; [facility] Work Phone: Comment on above: Test(s) 606092-YJN-F ; 832886-IEN-C; 586291-Mdhklojivjkay; 179026-Pptsmluvfrt, Total; 504312-BVO-I (Total); 166266-Kssiu LDL-P; 631620-WMM Size; 294081-XU-DY Scorewas developed and its performance characteristics determinedby [employer]. It has not been cleared or approved by the Foodand Drug Administration.PATIENT WAS FASTINGPERFORMED BY: uberlife [address] [id number] BY: BankerBay TechnologiesUNM Children's Psychiatric CenterBnjxqk5833 [facility] [id number] NMR Profile (81483)Ordered B y: Supervisor Electronic Coils on 06-08-2021 Cholesterol [Mass/Vol] 124 mg/dL Normal 100-199 [facility]; [facility] Work Phone: Comment on above: Test(s) 841583-OJG-O ; 109218-TGD-Q; 544475-Ivmxfejyounst; 736746-Qehtpjiturq, Total; 110223-VVH-Y (Total); 383548-Depfg LDL-P; 080747-VSG Size; 129201-HU-PL Scorewas developed and its performance characteristics determinedby [employer]. It has not been cleared or approved by the Foodand Drug Administration.PATIENT WAS FASTINGPERFORMED BY: [employer] [id number] BY: Soma Water6370 [facility] [id number] Information: NURSE DRAW Lipoprotein.alpha [Moles/Vol] 20.5 umol/L Abnormal [facility]; [facility] Work Phone: Comment on above: Test(s) 932793-NUS-R ; 243274-LIW-G; 952138-Vkqvklhwamtvf; 050275-Bnatiiendam, Total; 949528-GTC-L (Total); 507209-Wvsxl LDL-P; 729282-LII Size; 020862-YI-UH Scorewas developed and its performance characteristics determinedby [employer]. It has not been cleared or approved by the Foodand Drug Administration.PATIENT WAS FASTINGPERFORMED BY: uberlife [address] [id number] BY: Yeahka Khojms0809 [facility] [id number] Information: NURSE DRAW Lipoprotein.beta.stringer bparticle [Entitic length] 21.0 nm Normal [facility]; [facility] Work Phone: Comment on above: INTERPRETATIVE INFORMATION PARTICLE CONCENTRATION AND SIZE <--Lower CVD Risk Higher CVD Risk--> LDL AND HDL PARTICLES Percentile in Reference Population HDL-P (total) High 75th 50th 25th Low >34.9 34.9 30.5 26.7 <26.7 . Small LDL-P Low 25th 50th 75th High <117 117 527 839 >839 . LDL Size <-Large (Pattern A)-> <-Small (Pattern B)-> 23.0 20.6 20.5 19.0 Small LDL-P and LDL Size are associated with CVD risk, but not afterLDL-P is taken into account. Test(s) 530074-YGG-V ; 919795-QIC-V; 390171-Qwisoalstseqv; 258968-Uimmulyatcj, Total; 536478-HEV-O (Total); 496555-Znmdc LDL-P; 229618-PDN Size; 233351-SU-BW Scorewas developed and its performance characteristics determinedby [employer]. It has not been cleared or approved by the Foodand Drug Administration.PATIENT WAS FASTINGPERFORMED BY: BN [facility] [address] [id number] BY: LabcoCare One at Raritan Bay Medical CenterIasrvw9849 [facility] [id number] Information: NURSE DRAW Lipoprotein.beta.stringer bparticle [Moles/Vol] 1072 nmol/L Abnormal [facility]; [facility] Work Phone: Comment on above: Low < 1000 Moderate 1000 - 1299 Borderline-High 1300 - 1599 High 1600 - 2000 Very High > 2000 Test(s) 836837-WBZ-Y ; 532057-QXZ-P; 977360-Meqqffikldpnf; 486331-Dxirqpesrwq, Total; 648249-OAW-O (Total); 436490-Uyxye LDL-P; 218640-QTR Size; 579621-VP-IA Scorewas developed and its performance characteristics determinedby [employer]. It has not been cleared or approved by the Foodand Drug Administration.PATIENT WAS FASTINGPERFORMED BY: uberlife [address] [id number] BY: Yeahka Yikbzl2701 [facility] [id number] Information: NURSE DRAW Lipoprotein.beta.stringer bparticle.small [Moles/Vol] 532 nmol/L Abnormal [facility]; [facility] Work Phone: Comment on above: Test(s) 850787-GKN-C ; 195279-LQC-O; 835018-Nqekfkhmeupio; 931489-Voydialdvrq, Total; 392360-LWG-T (Total); 027552-Bizvy LDL-P; 268907-WNP Size; 423066-OW-PC Scorewas developed and its performance characteristics determinedby [employer]. It has not been cleared or approved by the Foodand Drug Administration.PATIENT WAS FASTINGPERFORMED BY: uberlife [address] [id number] BY: Yeahka Ohumyf7474 [facility] [id number] Information: NURSE DRAW Triglyceride [Mass/Vol] 78 mg/dL Normal 0-149 [facility]; [facility] Work Phone: Comment on above: Test(s) 319283-GIK-N ; 287658-NCU-V; 582370-Amljimftonkmn; 815249-Qspearkavsk, Total; 646364-BSM-H (Total); 758267-Tcgbj LDL-P; 542205-UTK Size; 114139-FQ-JJ Scorewas developed and its performance characteristics determinedby [employer]. It has not been cleared or approved by the Foodand Drug Administration.PATIENT WAS FASTINGPERFORMED BY: uberlife [address] [id number] BY: Soma Water6370 [facility] [id number] Information: NURSE DRAW NMR Profile (28131) 74 mg/dL Normal 0-99 [facility]; [facility] Work Phone: Comment on above: . Optimal < 100 Abov e optimal 100 - 129 Borderline 130 - 159 High 160 - 189 Very high > 189 . Test(s) 885013-QGM-L ; 156473-YMX-I; 024052-Ighvcqrairzou; 125138-Kxdqafhewlh, Total; 882182-APY-L (Total); 872875-Htjpk LDL-P; 057685-KJZ Size; 861974-IS-VR Scorewas developed and its performance characteristics determinedby Second Dec[employer]. It has not been cleared or approved by the Foodand Drug Administration.PATIENT WAS FASTINGPERFORMED BY: uberlife [address] [id number] BY: Soma Water6370 [facility] [id number] Information: NURSE DRAW NMR Profile (66282) 34 mg/dL Abnormal [facility]; [facility] Work Phone: Comment on above: Test(s) 027480-KEU-V ; 096817-HQD-R; 124703-Kxlsctuwzlnml; 472828-Qzundjfpglw, Total; 972731-NIM-X (Total); 948588-Sjcdz LDL-P; 823007-SZK Size; 758255-EJ-RJ Scorewas developed and its performance characteristics determinedby Second Dec[employer]. It has not been cleared or approved by the Foodand Drug Administration.PATIENT WAS FASTINGPERFORMED BY: uberlife [address] [id number] BY: VPIsystems70 [facility] [id number] Information: NURSE DRAW PSA (Prostate Specific Antig en), Screening (98544)Ordered By: Supervisor Electronic Coils on 06-08-2021 Prostate specific Ag [Mass/Vol] 1.0 ng/mL Normal 0.0-4.0 [facility]; [facility] Work Phone: Comment on above: Josee ECLIA methodol ogy. .According to the [place] [employer], Serum PSA shoulddecrease and remain at undetectable levels after radicalprostatectomy. The AUA defines biochemical recurrence as an initialPSA value 0.2 ng/mL or greater followed by a subsequent confirmatoryPSA value 0.2 ng/mL or greater.Values obtained with different assay methods or kits cannot be usedinterchangeably. Results cannot be interpreted as absolute evidenceof the presence or absence of malignant disease. Test(s) 586017-UEB-V ; 928663-DLY-Y; 816436-Tvamnzxvjqysy; 228096-Hmnfrcvonoa, Total; 572008-QYD-O (Total); 617156-Zqyoq LDL-P; 845407-OKB Size; 308190-PB-BC Scorewas developed and its performance characteristics determinedby Second Dec[employer]. It has not been cleared or approved by the Foodand Drug Administration.PATIENT WAS FASTINGPERFORMED BY: Superfocus[address] [id number] BY: Superfocus Xhgnig7814 JeNu BiosciencesHighsmith-Rain[facility] [id number] CBC, PLATELETS & AUT DIFF (5 4984)Ordered By: Supervisor Electronic Coils on 09-03-2020 Basophils (Bld) [#/Vol] 0.0 10*3/uL Normal 0.0-0.2 [facility]; [facility] Work Phone: Comment on above: PATIENT WAS FASTINGP ERFORMED BY: Roojoomlin6370 JeNu BiosciencesHighsmith-Rainey Special[facility] Hospital [id number] Basophils/100 WBC (Bld) 1 % Normal [facility]; [facility] Work Phone: Comment on above: PATIENT WAS FASTINGP ERFORMED BY: Tesaris70 [facility] DisplaysOhio [facility] [id number] Eosinophils (Bld) [#/Vol] 0.3 10*3/uL Normal 0.0-0.4 [facility]; [facility] Work Phone: Comment on above: PATIENT WAS FASTINGP ERFORMED BY: Roojoomlin6370 [facility] [id number] Eosinophils/100 WBC (Bld) 5 % Normal [facility]; [facility] Work Phone: Comment on above: PATIENT WAS FASTINGP ERFORMED BY: GERTRUDE Maria6370 [facility] [id number] Erythrocyte distribution width (RBC) [Ratio] 14.2 % Normal 11.6-15.4 [facility]; [facility] Work Phone: Comment on above: PATIENT WAS FASTINGP ERFORMED BY: [facility] Dkpyxk0437 [facility] [id number] Hematocrit (Bld) [Volume fraction] 44.1 % Normal 37.5-51.0 [facility]; [facility] Work Phone: Comment on above: PATIENT WAS FASTINGP ERFORMED BY: [facility] Yezlfi1447 [facility] [id number] Hemoglobin (Bld) [Mass/Vol] 14.8 g/dL Normal 13.0-17.7 [facility]; [facility] Work Phone: Comment on above: PATIENT WAS FASTINGP ERFORMED BY: Esa Qicfap4750 [facility] [id number] Immature granulocytes (Bld) [#/Vol] 0.0 10*3/uL Normal 0.0-0.1 [facility]; [facility] Work Phone: Comment on above: PATIENT WAS FASTINGP ERFORMED BY: [facility] Xibapq1453 [facility] [id number] Immature granulocytes/100 WBC (Bld) 1 % Normal [facility]; [facility] Work Phone: Comment on above: PATIENT WAS FASTINGP ERFORMED BY: [facility] Yhbmss0675 [facility] [id number] Lymphocytes (Bld) [#/Vol] 1.6 10*3/uL Normal 0.7-3.1 [facility]; [facility] Work Phone: Comment on above: PATIENT WAS FASTINGP ERFORMED BY: [facility] Vgmthw3758 [facility] [id number] Lymphocytes/100 WBC (Bld) 23 % Normal [facility]; [facility] Work Phone: Comment on above: PATIENT WAS FASTINGP ERFORMED BY: [facility] Gkeuoh5074 [facility] [id number] MCH (RBC) [Entitic mass] 28.5 pg Normal 26.6-33.0 [facility]; [facility] Work Phone: Comment on above: PATIENT WAS FASTINGP ERFORMED BY: [place] [id number] [facility] [id number] MCHC (RBC) [Mass/Vol] 33.6 g/dL Normal 31.5-35.7 [facility]; [facility] Work Phone: Comment on above: PATIENT WAS FASTINGP ERFORMED BY: [place] [id number] [facility] [id number] MCV (RBC) [Entitic vol] 85 fL Normal 79-97 [facility]; [facility] Work Phone: Comment on above: PATIENT WAS FASTINGP ERFORMED BY: JustinChristina [place] [id number] [facility] [id number] Monocytes (Bld) [#/Vol] 0.3 10*3/uL Normal 0.1-0.9 [facility]; [facility] Work Phone: Comment on above: PATIENT WAS FASTINGP ERFORMED BY: [facility]6370 [facility] [id number] Monocytes/100 WBC (Bld) 5 % Normal [facility]; [facility] Work Phone: Comment on above: PATIENT WAS FASTINGP ERFORMED BY: [facility]Holland [facility]6370 [facility] [id number] Neutrophils (Bld) [#/Vol] 4.5 10*3/uL Normal 1.4-7.0 [facility]; [facility] Work Phone: Comment on above: PATIENT WAS FASTINGP ERFORMED BY: GERTRUDE [facility] Pqvrpj8396 Travis RoadDublin [place] [id number] Neutrophils/100 WBC (Bld) 65 % Normal [facility]; [facility] Work Phone: Comment on above: PATIENT WAS FASTINGP ERFORMED BY: GERTRUDE [facility] Sdnygb4509 Travis RoadDublin [place] [id number] Platelets (Bld) [#/Vol] 254 10*3/uL Normal 150-450 [facility]; [facility] Work Phone: Comment on above: PATIENT WAS FASTINGP ERFORMED BY: GERTRUDE [facility] [id number] Travis RoadDublin [place] [id number] RBC (Bld) [#/Vol] 5.19 10*6/uL Normal 4.14-5.80 Compr ehensive [facility]; [facility] Work Phone: Comment on above: PATIENT WAS FASTINGP ERFORMED BY: GERTRUDE [facility] [id number] [address] RoadDublin [place] [id number] WBC (Bld) [#/Vol] 6.8 10*3/uL Normal 3.4-10.8 Compre [facility]; [facility] Work Phone: Comment on above: PATIENT WAS FASTINGP ERFORMED BY: GERTRUDE [facility] Ntlaon6585 [address] RoadDublin [place] [id number] LIPID PANEL ([id number])Ordered B y: Supervisor Electronic Coils on 09-03-2020 Cholesterol [Mass/Vol] 197 mg/dL Normal 100-199 [facility]; [facility] Work Phone: Comment on above: PATIENT WAS FASTINGP ERFORMED BY: GERTRUDE [facility] [id number] [address] RoadDublin [place] [id number] Cholesterol in HDL [Mass/Vol] 37 mg/dL Abnormal [facility]; [facility] Work Phone: Comment on above: PATIENT WAS FASTINGP ERFORMED BY: GERTRUDE [facility] Ylvoio4044 [address] RoadDublin [place] [id number] Triglyceride [Mass/Vol] 73 mg/dL Normal 0-149 [facility]; [facility] Work Phone: Comment on above: PATIENT WAS FASTINGP ERFORMED BY: GERTRUDE [facility] [id number] [address]blin [place] [id number] LIPID PANEL ([id number]) 13 mg/dL Normal 5-40 [facility]; [facility] Work Phone: Comment on above: PATIENT WAS FASTINGP ERFORMED BY: GERTRUDE [facility] Hasicm0790 [address]blin [place] [id number] LIPID PANEL (22008) 147 mg/dL Abnormal 0-99 [facility]; [facility] Work Phone: Comment on above: PATIENT WAS FASTINGP ERFORMED BY: GERTRUDE [facility] ForresterMsjwmv[address] [facility] [id number] LIPID PANEL (06288) 4.0 {ratio} Abnormal 0.0-3.6 [facility]; [facility] Work Phone: Comment on above: LDL/HDL Ratio Men Wo men 1/2 Avg.Risk 1.0 1.5 Avg.Risk 3.6 3.2 2X Avg.Risk 6.2 5.0 3X Avg.Risk 8.0 6.1 PATIENT WAS FASTINGP ERFORMED BY: GERTRUDE [facility] Ucyhmc7360 [facility] [id number] METABOLIC PANEL, COMPREHENSI VE ([id number])Ordered By: Supervisor Electronic Coils on 09-03-2020 Albumin [Mass/Vol] 3.8 g/dL Normal 3.8-4.8 [facility]; [facility] Work Phone: Comment on above: PATIENT WAS FASTINGP ERFORMED BY: GERTRUDE [facility] Owyeef[address] [facility] [place] [id number] Albumin/Globulin [Mass ratio] 1.2 {ratio} Normal 1.2-2.2 [facility]; [facility] Work Phone: Comment on above: PATIENT WAS FASTINGP ERFORMED BY: GERTRUDE [facility] [id number] [address] [facility] HospitalDublin [place] [id number] ALP [Catalytic activity/Vol] 78 U/L Normal 48-121 [facility]; [facility] Work Phone: Comment on above: PATIENT WAS FASTINGP ERFORMED BY: CB [facility] Zcisue2978 [address] RoadDublin [place] [id number] ALT [Catalytic activity/Vol] 18 U/L Normal 0-44 [facility]; [facility] Work Phone: Comment on above: PATIENT WAS FASTINGP ERFORMED BY: CB [facility] Ewktnf8248 [address]Dublin [place] [id number] AST [Catalytic activity/Vol] 22 U/L Normal 0-40 [facility]; [facility] Work Phone: Comment on above: PATIENT WAS FASTINGP ERFORMED BY: CB [facility] Nfsieo1016 [address]Dublin [place] [id number] Bilirubin [Mass/Vol] 0.3 mg/dL Normal 0.0-1.2 [facility]; [facility] Work Phone: Comment on above: PATIENT WAS FASTINGP ERFORMED BY: CB [facility] Ykquyt9131 [address]Dublin [place] [id number] Calcium [Mass/Vol] 8.7 mg/dL Normal 8.6-10.2 [facility]; [facility] Work Phone: Comment on above: PATIENT WAS FASTINGP ERFORMED BY: CB [facility] Fhlnhn7335 [address] RoadDublin [place] [id number] Chloride [Moles/Vol] 107 mmol/L Abnormal 96-106 [facility]; [facility] Work Phone: Comment on above: PATIENT WAS FASTINGP ERFORMED BY: CB [facility] Amrwtd6287 [address]Dublin [place] [id number] CO2 [Moles/Vol] 24 mmol/L Normal 20-29 [facility]; [facility] Work Phone: Comment on above: PATIENT WAS FASTINGP ERFORMED BY: CB [facility] Duvohg9862 [address] RoadDublin [place] [id number] Creatinine [Mass/Vol] 1.19 mg/dL Normal 0.76-1.27 [facility]; [facility] Work Phone: Comment on above: PATIENT WAS FASTINGP ERFORMED BY: [facility]6370 [facility] [id number] GFR/1.73 sq M.predicted among blacks CKD-EPI (S/P/Bld) [Vol rate/Area] 75 mL/min/1.73 Normal [facility]; [facility] Work Phone: Comment on above: [facility] currently reports eGFR in compliance with the current recommendations of the National Kidney Foundation. [facility] will update reporting as new guidelines are published from the NKF-ASN Task force. PATIENT WAS FASTINGP ERFORMED BY: [facility]6370 [facility] [id number] GFR/1.73 sq M.predicted among non-blacks CKD-EPI (S/P/Bld) [Vol rate/Area] 65 mL/min/1.73 Normal [facility]; [facility] Work Phone: Comment on above: PATIENT WAS FASTINGP ERFORMED BY: [facility]6370 [facility] [id number] Globulin (S) [Mass/Vol] 3.3 g/dL Normal 1.5-4.5 [facility]; [facility] Work Phone: Comment on above: PATIENT WAS FASTINGP ERFORMED BY: [facility]6370 [facility] [id number] Glucose [Mass/Vol] 92 mg/dL Normal 65-99 [facility]; [facility] Work Phone: Comment on above: PATIENT WAS FASTINGP ERFORMED BY: [facility] Qapleg5450 [facility] [id number] Potassium [Moles/Vol] 4.6 mmol/L Normal 3.5-5.2 [facility]; [facility] Work Phone: Comment on above: PATIENT WAS FASTINGP ERFORMED BY: [facility] Vcyazs1492 [facility] [id number] Protein [Mass/Vol] 7.1 g/dL Normal 6.0-8.5 [facility]; [facility] Work Phone: Comment on above: PATIENT WAS FASTINGP ERFORMED BY: [facility] Xhpvtc2736 [address] [facility] [id number] Sodium [Moles/Vol] 145 mmol/L Abnormal 134-144 [facility]; [facility] Work Phone: Comment on above: PATIENT WAS FASTINGP ERFORMED BY: [facility] Unfasj3655 [address] [facility] [id number] Urea nitrogen [Mass/Vol] 12 mg/dL Normal 8-27 [facility]; [facility] Work Phone: Comment on above: PATIENT WAS FASTINGP ERFORMED BY: [facility] Ypuzjn[address] [facility] [id number] Urea nitrogen/Creatinine [Mass ratio] 10 mg/mg Normal 10-24 [facility]; [facility] Work Phone: Comment on above: PATIENT WAS FASTINGP ERFORMED BY: [facility] Xlvknx7496 [facility] [id number] TSH (THYROID STIMULATING HOR JAYSON) ([id number])Ordered By: Supervisor Electronic Coils on 09-03-2020 TSH Qn 2.850 {uIU/mL} Normal 0.450-4.500 [facility] Internal [facility]; [facility] Work Phone: Comment on above: PATIENT WAS FASTINGP ERFORMED BY: [facility] Gpyxur0841 [facility] [id number] Provider Note - ED v2on 08-01 Provider Note - ED v2 Provider Note - ED v2: Chart Review: HISTORY OF PRESENTING ILLNESS MEMO is a 65 year old Male and was seen by me at 12-Aug-2020 14:17. The historian is the patientspouse. Triage Information: Most recent Vital Sign Value Date PAST MEDICAL HISTORY ATTESTATION: I have reviewed and confirmed nurse's/medic's notes for patient's medications, allergies, and medical, surgical, family and social history ALLERGIES/INTOLERANCES: No Known Allergies HEALTH HISTORY: No known health issues. Family history: no pertinent history. Social history: . 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 Former smoker (quit in 2019) - 1 PPD x 20+ years. OUTPATIENT MEDICATIONS: Home Medications Review Status for Reconciliation: Complete Med Status: Patient Currently Takes Medications Drug Name: Protonix 40 mg oral granule, delayed release Instructions: 1 each orally once a day Drug Name: albuterol 90 mcg/inh inhalation aerosol Instructions: 2 puff(s) inhaled every 4 hours, As Needed for wheezing or shortness of breath Drug Name: Medrol Dosepak 4 mg oral tablet Instructions: 1 kit orally once a day as directed x 6 days Drug Name: valACYclovir 1 g oral tablet Instructions: 1 tab(s) orally every 8 hours x 7 days Drug Name: lidocaine 5% topical ointment Instructions: Apply topically to affected area 3 times a day, As Needed for pain - do not apply to blistered/open skin Drug Name: naproxen 500 mg oral tablet Instructions: 1 tab(s) orally every 12 hours, As Needed for pain/inflammation. Take with food. Do not start until MedrolDosepak is complete SIGNIFICANT EVENTS: No known significant events or known past surgical history. RESULTS/VITAL SIGNS VITAL SIGNS: T PRBP SpO2O2(LPM) %FiO2 Method 12-Aug-2020 13:41:[id number] 97 MEDICAL DECISION MAKING/ED COURSE MDM/ED COURSE: This note was generated with voice recognition software and may contain errors including spelling, grammar, syntax, and misrecognization of what was dictated CHIEF COMPLAINT rash and R leg pain wheezing (added) HISTORY OF PRESENT ILLNESS Patient presents today (accompanied by his , who helps to provide history) for evaluation of R leg pain that started on Monday, followed by a rash to his R leg that he first noticed yesterday. He had fatigue and malaise on Monday, and burning R buttock/leg pain that he attributed to a flare up of my sciatica. However, when he noticed the rash yesterday, he became concerned about shingles. The rash is burning and very sensitive- feels like sunburn. Pain is worst at his R buttock, but goes down all the way to his ankle - I thought a bug was biting me or something before I saw the rash. Rash extends from R buttock all the way down his leg; no rash noted anywhere else. Denies any itching or drainage; no known injury or irritants. No fever/chills, n/v, or other systemic symptoms. He has been taking Aleve more than I should - 440 mg every AM and 440 mg again before noon. Has not tried any OTC medications for his symptoms. Denies any other complaints. No known health issues. 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 States he has not received the Herpes Zoster vaccine. Audible wheezing not noted by patient, but noted by provider during discussion/exam- pt denies any bothersome symptoms, and reports breathing is baseline. Denies any history of or treatment for asthma/COPD, and states is not a current smoker, but has a 20+ year history of 1 PPD smoking. Denies any acute c/o; symptoms do not typically interfere with his activities. states he does snore loudly when asleep. REVIEW OF SYSTEMS 10 systems reviewed negative with exception of history of present illness listed above PHYSICAL EXAMINATION General: Pleasant male, alert and oriented, in no acute distress. Accompanied by his , who helps to provide history. Eyes: Pupils equal, round and reactive to light. Eyes non-icteric; conjunctiva clear. No rash noted to eyelids or immediate periorbital area. HENT: Airway patent. Neck: Supple; no palpable lymphadenopathy Respiratory: Respirations are non-labored; lungs with decreased air movement throughout, with few scattered wheezes - pt states is baseline and not bothersome. Breath sounds are equal, Symmetrical chest wall expansion. Non-dyspneic. Cardiovascular: Normal rate, Regular rhythm. No m/r/g. Musculoskeletal: Grossly normal. Gait mildly antalgic. Has FROM all extremities, including R knee/hip, and ankle. Neg SLRs to 90 degrees bilat (but testing elicits pain); no spinal tenderness, but tenderness starting at R SI and extending down R leg. Integumentary: Clusters of clear vesicles (on erythematous base) and maculopapular rash scattered to posterior R buttock and extending down posterior R leg (rash limited to S1/S2 dermatomal area), down to distal R calf. No pustules, crusting, or drainage, (more content not included)... Normal [facility] Urinalysis, Office ([id number])Or dered By: Luke Driver on 05-05-2020 Bilirubin Ql (U) Negative Normal Comprehe nsive [facility]; [facility] Work Phone: Bilirubin Ql (U) Negative Normal Comprehe nsive [facility]; [facility] Work Phone: Glucose Test strip (U) [Mass/Vol] Negative Normal [facility]; [facility] Work Phone: Glucose Test strip (U) [Mass/Vol] Negative Normal [facility]; [facility] Work Phone: Hemoglobin Ql (U) Negative Normal Compreh ensive [facility]; [facility] Work Phone: Hemoglobin Ql (U) Negative Normal Compreh ensive [facility]; [facility] Work Phone: Ketones Ql (U) Negative Normal Comprehens [facility]; [facility] Work Phone: Ketones Ql (U) Negative Normal Comprehens [facility]; [facility] Work Phone: Leukocyte esterase Test strip Ql (U) Negative Normal [facility]; [facility] Work Phone: Leukocyte esterase Test strip Ql (U) Negative Normal [facility]; [facility] Work Phone: Nitrite Ql (U) Negative Normal Comprehens [facility]; [facility] Work Phone: Nitrite Ql (U) Negative Normal Comprehens [facility]; [facility] Work Phone: pH (U) 6 [pH] Abnormal [facility]; [facility] Work Phone: Protein Ql (U) Negative Normal Comprehens [facility]; [facility] Work Phone: Protein Ql (U) Negative Normal Comprehens [facility]; [facility] Work Phone: Specific gravity (U) [Rel density] 1.030 1 Abnormal [facility]; [facility] Work Phone: Urobilinogen (24H U) [Mass/Time] Normal Normal [facility]; [facility] Work Phone: Urinalysis, Office ([id number])Or dered By: Muriel Woo on 05-25-2018 Bilirubin Ql (U) Negative Normal Comprehe nsive [facility] Work Phone: Bilirubin Ql (U) Negative Normal Comprehe nsive [facility]; [facility] Work Phone: Glucose Test strip (U) [Mass/Vol] Negative Normal [facility]; [facility] Work Phone: Glucose Test strip mass conc (U) Negative Normal [facility] Work Phone: Hemoglobin Ql (U) Negative Normal Compreh ensive [facility] Work Phone: Hemoglobin Ql (U) Negative Normal Compreh ensive [facility]; [facility] Work Phone: Ketones Ql (U) Negative Normal Comprehens [facility] Work Phone: Ketones Ql (U) Negative Normal Comprehens [facility]; [facility] Work Phone: Leukocyte esterase Test strip Ql (U) Negative Normal [facility] Work Phone: Leukocyte esterase Test strip Ql (U) Negative Normal [facility]; [facility] Work Phone: Nitrite Ql (U) Negative Normal Comprehens [facility] Work Phone: Nitrite Ql (U) Negative Normal Comprehens [facility]; [facility] Work Phone: pH (U) 6.5 [pH] Normal [facility] Work Phone: Protein Ql (U) Negative Normal Comprehens [facility] Work Phone: Protein Ql (U) Negative Normal Comprehens [facility]; [facility] Work Phone: Specific gravity Relative Density (U) 1.020 1 Normal [facility] Work Phone: Urobilinogen mass/time (24H U) Normal Normal [facility] Work Phone: Urinalysis, Office ([id number])Or dered By: Coni Rebolledo on 06-13-2016 Bilirubin Ql (U) Negative Normal Comprehe nsive [facility] Work Phone: Bilirubin Ql (U) Negative Normal Comprehe nsive [facility]; [facility] Work Phone: Glucose Test strip (U) [Mass/Vol] Negative Normal [facility]; [facility] Work Phone: Glucose Test strip mass conc (U) Negative Normal [facility] Work Phone: Hemoglobin Ql (U) Negative Normal Compreh ensive [facility] Work Phone: Hemoglobin Ql (U) Negative Normal Compreh ensive [facility]; [facility] Work Phone: Ketones Ql (U) Negative Normal Comprehens [facility] Work Phone: Ketones Ql (U) Negative Normal Comprehens [facility]; [facility] Work Phone: Leukocyte esterase Test strip Ql (U) Negative Normal [facility] Work Phone: Leukocyte esterase Test strip Ql (U) Negative Normal [facility]; [facility] Work Phone: Nitrite Ql (U) Negative Normal Comprehens [facility] Work Phone: Nitrite Ql (U) Negative Normal Comprehens [facility]; [facility] Work Phone: pH (U) 5 [pH] Abnormal [facility] Work Phone: Protein Ql (U) Negative Normal Comprehens [facility] Work Phone: Protein Ql (U) Negative Normal Comprehens [facility]; [facility] Work Phone: Specific gravity Relative Density (U) 1.025 1 Normal [facility] Work Phone: Urobilinogen mass/time (24H U) Normal Normal [facility] Work Phone: Urinalysis, Office ([id number])Or dered By: Barbie Henriquez on 07-01-2014 Bilirubin Ql (U) Negative Normal Comprehe nsive [facility] Work Phone: Bilirubin Ql (U) Negative Normal Comprehe nsive [facility]; [facility] Work Phone: Glucose Test strip (U) [Mass/Vol] Negative Normal [facility]; [facility] Work Phone: Glucose Test strip mass conc (U) Negative Normal [facility] Work Phone: Hemoglobin Ql (U) Negative Normal Compreh ensive [facility] Work Phone: Hemoglobin Ql (U) Negative Normal Compreh ensive [facility]; [facility] Work Phone: Ketones Ql (U) Negative Normal Comprehens [facility] Work Phone: Ketones Ql (U) Negative Normal Comprehens [facility]; [facility] Work Phone: Leukocyte esterase Test strip Ql (U) Negative Normal [facility] Work Phone: Leukocyte esterase Test strip Ql (U) Negative Normal [facility]; [facility] Work Phone: Nitrite Ql (U) Negative Normal Comprehens [facility] Work Phone: Nitrite Ql (U) Negative Normal Comprehens [facility]; [facility] Work Phone: pH (U) 7.0 [pH] Normal [facility] Work Phone: Protein Ql (U) Negative Normal Comprehens [facility] Work Phone: Protein Ql (U) Negative Normal Comprehens [facility]; [facility] Work Phone: Specific gravity Relative Density (U) 1.020 1 Normal [facility] Work Phone: Urobilinogen mass/time (24H U) Normal Normal [facility] Work Phone: Urinalysis, Office ([id number])Or dered By: Tiffanie Hopkins on 01-14-2013 Bilirubin Ql (U) Negative Normal Comprehe nsive [facility] Work Phone: Comment on above: screen fmx bladder c a Glucose Test strip mass conc (U) Negative Normal [facility] Work Phone: Comment on above: screen fmx bladder c a Hemoglobin Ql (U) Negative Normal Compreh ensive [facility] Work Phone: Comment on above: screen fmx bladder c a Ketones Ql (U) Negative Normal Comprehens [facility] Work Phone: Comment on above: screen fmx bladder c a Leukocyte esterase Test strip Ql (U) Negative Normal [facility] Work Phone: Comment on above: screen fmx bladder c a Nitrite Ql (U) Negative Normal Comprehens [facility] Work Phone: Comment on above: screen fmx bladder c a pH (U) 6.0 [pH] Normal [facility] Work Phone: Comment on above: screen fmx bladder c a Protein Ql (U) Negative Normal Comprehens [facility] Work Phone: Comment on above: screen fmx bladder c a Specific gravity Relative Density (U) 1.025 1 Normal [facility] Work Phone: Comment on above: screen fmx bladder c a Urobilinogen mass/time (24H U) Normal Normal [facility] Work Phone: Comment on above: screen fmx bladder c a Urinalysis, Office ([id number])on 01-14-2013 Bilirubin Ql (U) Negative Normal Comprehe nsive [facility]; [facility] Work Phone: Comment on above: screen fmx bladder c a Glucose Test strip (U) [Mass/Vol] Negative Normal [facility]; [facility] Work Phone: Comment on above: screen fmx bladder c a Hemoglobin Ql (U) Negative Normal Compreh ensive [facility]; [facility] Work Phone: Comment on above: screen fmx bladder c a Ketones Ql (U) Negative Normal Comprehens [facility]; [facility] Work Phone: Comment on above: screen fmx bladder c a Leukocyte esterase Test strip Ql (U) Negative Normal [facility]; [facility] Work Phone: Comment on above: screen fmx bladder c a Nitrite Ql (U) Negative Normal Comprehens [facility]; [facility] Work Phone: Comment on above: screen fmx bladder c a Protein Ql (U) Negative Normal Comprehens [facility]; [facility] Work Phone: Comment on above: screen fmx bladder c a CBCDOrdered By: System Manag er on 12-22-2012 Erythrocyte distribution width Ratio (RBC) 15.2 % Abnormal 11.6-14.6 [facility] Work Phone: Hematocrit Volume Fraction (Bld) 45.4 % Normal 40-54 [facility] Work Phone: Hemoglobin mass conc (Bld) 15.1 g/dL Normal 13.0-16.5 [facility] Work Phone: MCH Entitic mass (RBC) 28.8 pg Normal 27.0-32.0 [facility] Work Phone: MCHC mass conc (RBC) 33.3 g/dL Normal 32-36 [facility] Work Phone: MCV Entitic volume (RBC) 86.6 fL Normal 80-94 [facility] Work Phone: Platelet mean volume Entitic volume (Bld) 9.5 fL Normal 6.2-12.0 [facility] Work Phone: Platelets #/vol (Bld) 265 10*3/uL Normal 150-450 [facility] Work Phone: RBC #/vol (Bld) 5.24 {M/mm3} Normal 4.6-6.2 Compreh ensive [facility] Work Phone: WBC #/vol (Bld) 7.4 {k/mm3} Normal 4.4-11.0 Comprehe nsive [facility] Work Phone: CBCD 0.4 % Normal 0-1 [facility] Work Phone: CBCD 4.7 % Normal 0-5 [facility] Work Phone: CBCD 8.1 % Normal 0-10 [facility] Work Phone: CBCD 22.6 % Normal 19-41 [facility] Work Phone: CBCD 63.8 % Normal 47-70 [facility] Work Phone: CBCD 48.1 fL Abnormal 35.1-43.9 [facility] Work Phone: CBCD 4.7 3/uL Normal 2.0-7.7 [facility] Work Phone: CBCD 0.40 % Normal 0.0-0.9 [facility] Work Phone: Comment on above: IG% - Immature Granu locytes (promyelocytes, myelocytes,metamyelocytes) >1.0% indicates that a LEFT SHIFT ispresent. CMPOrdered By: System Manage r on 12-22-2012 Albumin mass conc 3.5 g/dL Normal 3.4-5.0 [facility] Work Phone: ALT enzyme act/vol 25 U/L Normal 12-78 [facility] Work Phone: AST enzyme act/vol 20 U/L Normal 15-37 [facility] Work Phone: Calcium mass conc 8.8 mg/dL Normal 8.5-10.1 [facility] Work Phone: Chloride molar conc 105 mmol/L Normal 98-107 [facility] Work Phone: CO2 molar conc 28.0 mmol/L Normal 21.0-32.0 [facility] Work Phone: Creatinine mass conc 1.1 mg/dL Normal 0.8-1.3 [facility] Work Phone: GFR/1.73 sq M predicted among non-blacks MDRD vol rate/area (S/P/Bld) 74 mL/min/{1.73_m2} Normal [facility] Work Phone: Globulin mass conc (S) 4.3 g/dL Abnormal 2.7-4.2 [facility] Work Phone: Glucose mass conc 91 mg/dL Normal 70-110 [facility] Work Phone: Potassium molar conc 4.3 mmol/L Normal 3.5-5.1 [facility] Work Phone: Protein mass conc 7.8 g/dL Normal 6.4-8.2 [facility] Work Phone: Sodium molar conc 142 mmol/L Normal 136-145 [facility] Work Phone: Urea nitrogen mass conc 13 mg/dL Normal 7-18 [facility] Work Phone: CMP 0.50 mg/dL Normal 0.00-1.00 [facility] Work Phone: CMP 86 U/L Normal 50-136 [facility] Work Phone: CMP 9 1 Normal 5-15 [facility] Work Phone: CMP 0.8 {RATIO} Abnormal 0.9-2.4 [facility] Work Phone: CMP 11.8 {RATIO} Normal 10-20 [facility] Work Phone: CMP 90 mL/min Normal [facility] Work Phone: LIPIDOrdered By: Yury hennessy on 12-22-2012 Cholesterol in HDL mass conc 35 mg/dL Abnormal [facility] Work Phone: Comment on above: Reference RangeHDL < 40 mg/dL Low HDL CholesterolHDL >or= 60 mg/dL High HDL Cholesterol Cholesterol in LDL mass conc 132 mg/dL Abnormal 0-130 [facility] Work Phone: Cholesterol mass conc 181 mg/dL Normal [facility] Work Phone: Comment on above: <200 mg/dL Desirable 200-240 mg/dL Borderline>240 mg/dL High Risk Triglyceride mass conc 69 mg/dL Normal [facility] Work Phone: Comment on above: Serum Triglycerides Reference IntervalNormal <150 mg/dLBorderline high 150 - 199 mg/dLHigh 200 - 499 mg/dLVery High > or = 500 mg/dL LIPID 14 mg/dL Normal 5-40 [facility] Work Phone: Urinalysis, Office ([id number])Or dered By: Barbie Henriquez on 08-01-2012 Bilirubin Ql (U) Negative Normal [facility] Work Phone: Bilirubin Ql (U) Negative Normal [facility]; [facility] Work Phone: Glucose Test strip (U) [Mass/Vol] Negative Normal [facility]; [facility] Work Phone: Glucose Test strip mass conc (U) Negative Normal [facility] Work Phone: Hemoglobin Ql (U) Negative Normal [facility] Work Phone: Hemoglobin Ql (U) Negative Normal [facility]; [facility] Work Phone: Ketones Ql (U) Negative Normal [facility] Work Phone: Ketones Ql (U) Negative Normal [facility]; [facility] Work Phone: Leukocyte esterase Test strip Ql (U) Negative Normal [facility] Work Phone: Leukocyte esterase Test strip Ql (U) Negative Normal [facility]; [facility] Work Phone: Nitrite Ql (U) Negative Normal [facility] Work Phone: Nitrite Ql (U) Negative Normal [facility]; [facility] Work Phone: pH (U) 6.0 [pH] Normal [facility] Work Phone: Protein Ql (U) Negative Normal [facility] Work Phone: Protein Ql (U) Negative Normal [facility]; [facility] Work Phone: Specific gravity Relative Density (U) 1.025 1 Normal [facility] Work Phone: Urobilinogen mass/time (24H U) 2 mg/dL Normal [facility] Work Phone: RIBS,UNI,MIN 3V,W/PA CHESTOr dered By: Supervisor Electronic Coils on 07-11-2011 RIBS,UNI,MIN 3V,W/PA CHEST See Note Normal [facility] Work Phone: Comment on above: PROCEDURE: X-RAY - U NILATERAL RIBS ( LEFT ) REASON FOR EXAM: Male, 56 years old. Left-sided rib pain TECHNIQUE: 5 views of the ribs. COMPARISON: None. FINDINGS:There are 12 left-sided ribs. There is no acute fracture or dislocation.There is no periosteal reaction to suggest nondisplaced fractures. Normal visualized lung. There is no demonstrated pneumothorax. Normal visualized thoracic spine. Limited evaluation of the leftshoulderdemonstrates no gross abnormalities. IMPRESSION:No acute fracture or dislocation of the left sided ribs. To consult with a radiologist regarding this report, please call our [id number] line @ Dictated on 07/11/11 1426 by Ashley MEJÍA, SupratikTranscribed on 07/12/11 0121 by ITS IMPORTSign by Ashley MEJÍA, Supratik on 07/12/11 0122 Sign by: Ashley MEJÍA, Supratik Urinalysis, Office ([id number])Or dered By: Dominga Queen on 07-26-2010 Bilirubin Ql (U) Negative Normal [facility] Work Phone: Glucose Test strip mass conc (U) Negative Normal [facility] Work Phone: Hemoglobin Ql (U) Negative Normal [facility] Work Phone: Ketones Ql (U) Negative Normal [facility] Work Phone: Leukocyte esterase Test strip Ql (U) Negative Normal [facility] Work Phone: Nitrite Ql (U) Negative Normal [facility] Work Phone: pH (U) 7.0 [pH] Normal [facility] Work Phone: Protein Ql (U) Negative Normal [facility] Work Phone: Specific gravity Relative Density (U) 1.025 1 Normal [facility] Work Phone: Urobilinogen mass/time (24H U) Normal Normal [facility] Work Phone: Urinalysis, Office ([id number])on 07-26-2010 Bilirubin Ql (U) Negative Normal [facility]; [facility] Work Phone: Glucose Test strip (U) [Mass/Vol] Negative Normal [facility]; [facility] Work Phone: Hemoglobin Ql (U) Negative Normal [facility]; [facility] Work Phone: Ketones Ql (U) Negative Normal [facility]; [facility] Work Phone: Leukocyte esterase Test strip Ql (U) Negative Normal [facility]; [facility] Work Phone: Nitrite Ql (U) Negative Normal [facility]; [facility] Work Phone: Protein Ql (U) Negative Normal [facility]; [facility] Work Phone: PSA (Prostate Specific Antig en), Screening ([id number])Ordered By: Jess Lopez on 08-06-2008 Prostate specific Ag mass conc 1.0 ng/mL Normal 0.0-4.0 [facility] Work Phone: Comment on above: Josee ECLIA methodol ogy. .According to the [place] [employer], PSA should beundetectable after radical prostatectomy. A PSA of less than0.5 ng/mL (or undetectable) is not likely to be associated withdisease recurrence within five years of treatment.Values obtained with different assay methods or kits cannot be usedinterchangeably. Results cannot be interpreted as absolute evidenceof the presence or absence of malignant disease. PATIENT NOT FASTINGC linical Information: ADD DRAW FEE [id number] ADD J [id number] [facility]: [facility] [id number] Urinalysis, Office ([id number])Or dered By: Shawnee Payan on 08-05-2008 Bilirubin Ql (U) Negative Normal [facility] Work Phone: Comment on above: done BC Bilirubin Ql (U) Negative Normal [facility]; [facility] Work Phone: Comment on above: done BC Glucose Test strip (U) [Mass/Vol] Negative Normal [facility]; [facility] Work Phone: Comment on above: done BC Glucose Test strip mass conc (U) Negative Normal [facility] Work Phone: Comment on above: done BC Hemoglobin Ql (U) Hemolyzed Trace [facility] Work Phone: Comment on above: done BC Ketones Ql (U) Negative Normal [facility] Work Phone: Comment on above: done BC Ketones Ql (U) Negative Normal [facility]; [facility] Work Phone: Comment on above: done BC Leukocyte esterase Test strip Ql (U) Negative Normal [facility] Work Phone: Comment on above: done BC Leukocyte esterase Test strip Ql (U) Negative Normal [facility]; [facility] Work Phone: Comment on above: done BC Nitrite Ql (U) Negative Normal [facility] Work Phone: Comment on above: done BC Nitrite Ql (U) Negative Normal [facility]; [facility] Work Phone: Comment on above: done BC pH (U) 6.0 [pH] Normal [facility] Work Phone: Comment on above: done BC Protein Ql (U) Negative Normal [facility] Work Phone: Comment on above: done BC Protein Ql (U) Negative Normal [facility]; [facility] Work Phone: Comment on above: done BC Specific gravity Relative Density (U) 1.025 1 Normal [facility] Work Phone: Comment on above: done BC Urobilinogen mass/time (24H U) Normal Normal [facility] Work Phone: Comment on above: done BC Vital Signs Date Time Vital Sign Value Performing Clinician Facility 11-07-2022 16:13-0400 Body height 170.[address] Lin Pardo Work Phone: [facility] 11-07-2022 16:13-0400 Body mass index (BMI) [Ratio] 31.8 kg/m2 Dr. Lin Pardo Work Phone: [facility] 11-07-2022 16:13-0400 Body temperature 98.2 [degF] Dr. Lin Pardo Work Phone: [facility] 11-07-2022 16:13-0400 Body weight 92.[address] Lin Pardo Work Phone: [facility] 11-07-2022 16:13-0400 Diastolic blood pressure 86 mm[Hg] Dr. Lin Pardo Work Phone: [facility] 11-07-2022 16:13-0400 Heart rate 73 /min Dr. Lin Pardo Work Phone: [facility] 11-07-2022 16:13-0400 Respiratory rate 16 /min Dr. Lin Pardo Work Phone: [facility] 11-07-2022 16:13-0400 SaO2% (BldA) [Mass fraction] 98 % Dr. Lin Pardo Work Phone: [facility] 11-07-2022 16:13-0400 Systolic blood pressure 128 mm[Hg] Dr. Lin Pardo Work Phone: [facility] 10-13-2022 14:52-0400 Body height 167.64 cm Dora Shaffer LPN [facility]; [facility] Work Phone: 10-13-2022 14:52-0400 Body mass index (BMI) [Ratio] 32.78 kg/m2 Dora Shaffer LPN [facility]; [facility] Work Phone: 10-13-2022 14:52-0400 Body surface area Derived from formula 2.01 m2 Dora Shaffer LPN [facility]; [facility] Work Phone: 10-13-2022 14:52-0400 Body temperature 97.8 [degF] Dora Shaffer LPN [facility]; [facility] Work Phone: 10-13-2022 14:52-0400 Body weight 92.14 kg Dora Shaffer LPN [facility]; [facility] Work Phone: 10-13-2022 14:52-0400 Diastolic blood pressure 90 mm[Hg] Dora Shaffer LPN [facility]; [facility] Work Phone: Comment on above: Patient Position: Sitting; Cuff Location : Left Arm; Cuff Size: Standard 10-13-2022 14:52-0400 Heart rate 83 /min Dora Shaffer LPN [facility]; [facility] Work Phone: Comment on above: Pattern: Regular 10-13-2022 14:52-0400 Respiratory rate 16 /min Dora Shaffer LPN [facility]; [facility] Work Phone: Comment on above: Pattern: Unlabored 10-13-2022 14:52-0400 SaO2% (BldA) [Mass fraction] 94 % Dora Shaffer LPN [facility]; [facility] Work Phone: Comment on above: Room air 10-13-2022 14:52-0400 Systolic blood pressure 130 mm[Hg] Dora Shaffer LPN [facility]; [facility] Work Phone: Comment on above: Patient Position: Sitting; Cuff Location : Left Arm; Cuff Size: Standard 06-06-2022 15:21-0500 Body temperature 98.1 [degF] Dora Shaffer LPN [facility]; [facility] Work Phone: 06-06-2022 15:21-0500 Body weight 98.49 kg Dora Shaffer LPN [facility]; [facility] Work Phone: 06-06-2022 15:21-0500 Diastolic blood pressure 72 mm[Hg] Dora Shaffer LPN [facility]; [facility] Work Phone: Comment on above: Patient Position: Sitting; Cuff Location : Left Arm; Cuff Size: Standard 06-06-2022 15:21-0500 Heart rate 85 /min Dora Shaffer LPN [facility]; [facility] Work Phone: Comment on above: Pattern: Regular 06-06-2022 15:21-0500 Respiratory rate 16 /min Dora Shaffer NURSING CLINICAL DIRECTOR [facility]; [facility] Work Phone: Comment on above: Pattern: Unlabored 06-06-2022 15:21-0500 SaO2% (BldA) [Mass fraction] 99 % Dora Shaffer LPN [facility]; [facility] Work Phone: Comment on above: Room air 06-06-2022 15:21-0500 Systolic blood pressure 118 mm[Hg] Dora Shaffer NURSING CLINICAL DIRECTOR [facility]; [facility] Work Phone: Comment on above: Patient Position: Sitting; Cuff Location : Left Arm; Cuff Size: Standard 04-11-2022 13:48-0500 Body weight 90.72 kg Lin Pardo MD Work Phone: [facility]; [facility] Work Phone: 09-06-2021 15:38-0400 Body height 167.64 cm Tyra De Leon [facility]; [facility] Work Phone: 09-06-2021 15:38-0400 Body mass index (BMI) [Ratio] 37.77 kg/m2 Tyra De Leon [facility]; [facility] Work Phone: 09-06-2021 15:38-0400 Body surface area Derived from formula 2.14 m2 Tyra De Leon [facility]; [facility] Work Phone: 09-06-2021 15:38-0400 Body temperature 97.3 [degF] Tyra De Leon [facility]; [facility] Work Phone: Comment on above: Method: Infrared 06-06-2022 15:38-0400 Body weight 106.15 kg Tyra De Leon [facility]; [facility] Work Phone: 09-06-2021 15:38-0400 Diastolic blood pressure 82 mm[Hg] Tyra De Leon [facility]; [facility] Work Phone: Comment on above: Patient Position: Sitting; Cuff Location : Left Arm; Cuff Size: Standard 09-06-2021 15:38-0400 Heart rate 84 /min Tyra De Leon [facility]; [facility] Work Phone: Comment on above: Pattern: Regular 09-06-2021 15:38-0400 Respiratory rate 16 /min Tyra De Leon [facility]; [facility] Work Phone: Comment on above: Pattern: Unlabored 09-06-2021 15:38-0400 SaO2% (BldA) [Mass fraction] 94 % Tyra De Leon [facility]; [facility] Work Phone: Comment on above: Room air 09-06-2021 15:38-0400 Systolic blood pressure 138 mm[Hg] Tyra De Leon [facility]; [facility] Work Phone: Comment on above: Patient Position: Sitting; Cuff Location : Left Arm; Cuff Size: Standard 06-29-2021 15:55-0400 Body height 167.64 cm SABINO Gramajo LPN [facility]; [facility] Work Phone: 06-29-2021 15:55-0400 Body mass index (BMI) [Ratio] 37.61 kg/m2 SABINO Gramajo LPN [facility]; [facility] Work Phone: 06-29-2021 15:55-0400 Body surface area Derived from formula 2.13 m2 SABINO Gramajo LPN [facility]; [facility] Work Phone: 06-29-2021 15:55-0400 Body temperature 97.9 [degF] SABINO Gramajo LPN [facility]; [facility] Work Phone: Comment on above: Method: Temporal 06-29-2021 15:55-0400 Body weight 105.7 kg SABINO Gramajo LONNIE [facility]; [facility] Work Phone: 06-29-2021 15:55-0400 Diastolic blood pressure 86 mm[Hg] SABINO Gramajo LONNIE [facility]; [facility] Work Phone: Comment on above: Patient Position: Sitting; Cuff Location : Left Arm; Cuff Size: Standard 06-29-2021 15:55-0400 Heart rate 88 /min SABINO Gramajo LONNIE [facility]; [facility] Work Phone: Comment on above: Pattern: Regular 06-29-2021 15:55-0400 Respiratory rate 20 /min SABINO Gramajo LONNIE [facility]; [facility] Work Phone: Comment on above: Pattern: Unlabored 06-29-2021 15:55-0400 SaO2% (BldA) [Mass fraction] 97 % SABINO Gramajo LONNIE [facility]; [facility] Work Phone: Comment on above: Room air 06-29-2021 15:55-0400 Systolic blood pressure 127 mm[Hg] SABINO Gramajo LONNIE [facility]; [facility] Work Phone: Comment on above: Patient Position: Sitting; Cuff Location : Left Arm; Cuff Size: Standard 05-25-2021 15:55-0500 Body temperature 100.22 [degF] Lin Pardo MD Work Phone: [facility]; [facility] Work Phone: Comment on above: Method: Oral 05-25-2021 15:55-0500 Diastolic blood pressure 80 mm[Hg] Lin Pardo MD Work Phone: [facility]; [facility] Work Phone: Comment on above: Patient Position: Sitting 05-25-2021 15:55-0500 Heart rate 84 /min Lin Pardo MD Work Phone: [facility]; [facility] Work Phone: Comment on above: Pattern: Regular 05-25-2021 15:55-0500 Respiratory rate 18 /min Lin Pardo MD Work Phone: [facility]; [facility] Work Phone: 05-25-2021 15:55-0500 SaO2% (BldA) [Mass fraction] 97 % Lin Pardo MD Work Phone: [facility]; [facility] Work Phone: Comment on above: Room air 05-25-2021 15:55-0500 Systolic blood pressure 124 mm[Hg] Lin Pardo MD Work Phone: [facility]; [facility] Work Phone: Comment on above: Patient Position: Sitting 09-07-2020 14:55-0400 Body height 172.72 cm Luke Driver LPN [facility]; [facility] Work Phone: 09-07-2020 14:55-0400 Body mass index (BMI) [Ratio] 38.78 kg/m2 Luke Driver LPN [facility]; [facility] Work Phone: 09-07-2020 14:55-0400 Body surface area Derived from formula 2.27 m2 Luke Driver LPN [facility]; [facility] Work Phone: 09-07-2020 14:55-0400 Body temperature 97.9 [degF] Luke Driver LPN [facility]; [facility] Work Phone: Comment on above: Method: Infrared 09-07-2020 14:55-0400 Body weight 115.68 kg Luke Driver LPN [facility]; [facility] Work Phone: 09-07-2020 14:55-0400 Diastolic blood pressure 82 mm[Hg] Luke Driver LPN [facility]; [facility] Work Phone: Comment on above: Patient Position: Sitting; Cuff Location : Left Arm; Cuff Size: Standard 09-07-2020 14:55-0400 Heart rate 99 /min Luke Driver LPN [facility]; [facility] Work Phone: Comment on above: Pattern: Regular 09-07-2020 14:55-0400 Respiratory rate 16 /min Luke Driver NURSING CLINICAL DIRECTOR [facility]; [facility] Work Phone: Comment on above: Pattern: Unlabored 09-07-2020 14:55-0400 SaO2% (BldA) [Mass fraction] 98 % Luke Driver [facility]; [facility] Work Phone: Comment on above: Room air 09-07-2020 14:55-0400 Systolic blood pressure 140 mm[Hg] Luke Driver [facility]; [facility] Work Phone: Comment on above: Patient Position: Sitting; Cuff Location : Left Arm; Cuff Size: Standard 08-24-2020 15:38-0400 Body height 172.72 cm [facility]; [facility] Work Phone: 08-24-2020 15:38-0400 Body mass index (BMI) [Ratio] 38.32 kg/m2 [facility]; [facility] Work Phone: 08-24-2020 15:38-0400 Body surface area Derived from formula 2.26 m2 [facility]; [facility] Work Phone: 08-24-2020 15:38-0400 Body weight 114.33 kg [facility]; [facility] Work Phone: 08-12-2020 15:41-0400 Body height 175.2 cm Jess Lopez Other Phone: [facility] 08-12-2020 15:41-0400 Body temperature 98.6 [degF] Jess Lopez Other Phone: [facility] 08-12-2020 15:41-0400 Diastolic blood pressure 86 mm[Hg] Jess Lopez Other Phone: [facility] 08-12-2020 15:41-0400 Heart rate 90 /min Jess Lopez Other Phone: [facility] 08-12-2020 15:41-0400 Respiratory rate 16 /min Jess Lopez Other Phone: [facility] 08-12-2020 15:41-0400 SaO2% (BldA) [Mass fraction] 97 % Jess Lopez Other Phone: [facility] 08-12-2020 15:41-0400 Systolic blood pressure 143 mm[Hg] Jess Lopez Other Phone: [facility] 05-05-2020 12:56-0500 BMI (Body Mass Index) 38.32 kg/m2 Luke Driver LPN [facility]; [facility] Work Phone: Comment on above: PASSED WHISPER TESTPASSED COLOR VISION T EST 05-05-2020 12:56-0500 Body Temperature 97.8 [degF] Luke Driver LPN [facility]; [facility] Work Phone: Comment on above: Method: Infrared PASSED WHISPER TESTP ASSED COLOR VISION TEST 05-05-2020 12:56-0500 Body weight 114.33 kg Luke Driver LPN [facility]; [facility] Work Phone: Comment on above: PASSED WHISPER TESTPASSED COLOR VISION T EST 05-05-2020 12:56-0500 BP Diastolic 78 mm[Hg] Luke Driver LPN [facility]; [facility] Work Phone: Comment on above: Patient Position: Sitting; Cuff Location : Left Arm; Cuff Size: Standard PASSED WHISPER TESTP ASSED COLOR VISION TEST 05-05-2020 12:56-0500 BP Systolic 120 mm[Hg] Luke Driver LPN [facility]; [facility] Work Phone: Comment on above: Patient Position: Sitting; Cuff Location : Left Arm; Cuff Size: Standard PASSED WHISPER TESTP ASSED COLOR VISION TEST 05-05-2020 12:56-0500 BSA (Body Surface Area) 2.26 m2 Luke Driver LPN [facility]; [facility] Work Phone: Comment on above: PASSED WHISPER TESTPASSED COLOR VISION T EST 05-05-2020 12:56-0500 Height 172.72 cm Luke Driver LPN [facility]; [facility] Work Phone: Comment on above: PASSED WHISPER TESTPASSED COLOR VISION T EST 05-05-2020 12:56-0500 Pulse (Heart Rate) 100 /min Luke Driver LPN [facility]; [facility] Work Phone: Comment on above: Pattern: Regular PASSED WHISPER TESTP ASSED COLOR VISION TEST 05-05-2020 12:56-0500 Pulse Oximetry 97 % Jess Lopez [facility]; [facility] Work Phone: Comment on above: Room air PASSED WHISPER TESTP ASSED COLOR VISION TEST 05-05-2020 12:56-0500 Respiratory Rate 18 /min Luke Driver LPN [facility]; [facility] Work Phone: Comment on above: Pattern: Unlabored PASSED WHISPER TESTP ASSED COLOR VISION TEST 05-05-2020 12:56-0500 SaO2% (BldA) [Mass fraction] 97 % Luke Driver LPN [facility]; [facility] Work Phone: Comment on above: Room air PASSED WHISPER TESTP ASSED COLOR VISION TEST 05-25-2018 09:13-0500 BMI (Body Mass Index) 38.49 kg/m2 Muriel Woo [facility] Internal Medicine Work Phone: 05-25-2018 09:13-0500 Body Temperature 97.1 [degF] Muriel Woo [facility] Work Phone: Comment on above: Method: Temporal 05-25-2018 09:13-0500 Body weight 114.82 kg Muriel Woo [facility] Work Phone: 05-25-2018 09:13-0500 BP Diastolic 80 mm[Hg] Muriel Woo [facility] Work Phone: Comment on above: Patient Position: Sitting; Cuff Location : Left Arm; Cuff Size: Standard 05-25-2018 09:13-0500 BP Systolic 124 mm[Hg] Muriel Woo [facility] Work Phone: Comment on above: Patient Position: Sitting; Cuff Location : Left Arm; Cuff Size: Standard 05-25-2018 09:13-0500 BSA (Body Surface Area) 2.26 m2 Muriel Woo [facility] Work Phone: 05-25-2018 09:13-0500 Height 172.72 cm Muriel Woo [facility] Work Phone: 05-25-2018 09:13-0500 Pulse (Heart Rate) 86 /min Muriel Woo [facility] Work Phone: Comment on above: Pattern: Regular 05-25-2018 09:13-0500 Pulse Oximetry 96 % Jess Lopez [facility] Work Phone: Comment on above: Room air 05-25-2018 09:13-0500 Respiratory Rate 17 /min Muriel Woo [facility] Work Phone: Comment on above: Pattern: Unlabored 05-25-2018 09:13-0500 SaO2% (BldA) [Mass fraction] 96 % Muriel Woo [facility]; [facility] Work Phone: Comment on above: Room air 05-25-2018 09:13-0500 Weight 114.82 kg Jess Lopez [facility] Medicine Work Phone: 06-13-2016 14:29-0400 BMI (Body Mass Index) 40.44 kg/m2 Coni Rebolledo [facility] Internal Medicine Work Phone: 06-13-2016 14:29-0400 Body Temperature 98.4 [degF] Coni Rebolledo [facility] Medicine Work Phone: Comment on above: Method: Temporal 06-13-2016 14:29-0400 Body weight 120.66 kg Coni Rebolledo [facility] Medicine Work Phone: 06-13-2016 14:29-0400 BP Diastolic 78 mm[Hg] Coni Rebolledo [facility] Work Phone: Comment on above: Patient Position: Sitting; Cuff Location : Left Arm; Cuff Size: Standard 06-13-2016 14:29-0400 BP Systolic 136 mm[Hg] Coni Rebolledo [facility] Work Phone: Comment on above: Patient Position: Sitting; Cuff Location : Left Arm; Cuff Size: Standard 06-13-2016 14:29-0400 BSA (Body Surface Area) 2.31 m2 Coni Rebolledo [facility] Internal Medicine Work Phone: 06-13-2016 14:29-0400 Height 172.72 cm Coni Rebolledo [facility] Medicine Work Phone: 06-13-2016 14:29-0400 Pulse (Heart Rate) 93 /min Coni Rebolledo [facility] Medicine Work Phone: Comment on above: Pattern: Regular 06-13-2016 14:29-0400 Pulse Oximetry 98 % Jess Lopez [facility] Work Phone: Comment on above: Room air 06-13-2016 14:29-0400 Respiratory Rate 16 /min Coni Rebolledo [facility] Medicine Work Phone: Comment on above: Pattern: Unlabored 06-13-2016 14:29-0400 SaO2% (BldA) [Mass fraction] 98 % Coni Rebolledo [facility]; [facility] Work Phone: Comment on above: Room air 06-13-2016 14:29-0400 Weight 120.66 kg Jess Lopez [facility] Medicine Work Phone: 07-01-2014 15:38-0400 BMI (Body Mass Index) 40.29 kg/m2 Barbie Martinez [facility] Internal Medicine Work Phone: 07-01-2014 15:38-0400 Body Temperature 98.6 [degF] Barbie Martinez [facility] Internal Medicine Work Phone: Comment on above: Method: Oral 07-01-2014 15:38-0400 Body weight 120.2 kg Barbie Henriquez [facility] Internal Medicine Work Phone: 07-01-2014 15:38-0400 BP Diastolic 78 mm[Hg] Barbie Henriquez LPN [facility] Work Phone: Comment on above: Patient Position: Sitting; Cuff Location : Left Arm; Cuff Size: Standard 07-01-2014 15:38-0400 BP Systolic 124 mm[Hg] Barbie Henriquez LPN [facility] Work Phone: Comment on above: Patient Position: Sitting; Cuff Location : Left Arm; Cuff Size: Standard 07-01-2014 15:38-0400 BSA (Body Surface Area) 2.3 m2 Barbie Henriquez LPN [facility] Work Phone: 07-01-2014 15:38-0400 Height 172.72 cm Barbie Henriquez LPN [facility] Work Phone: 07-01-2014 15:38-0400 Pulse (Heart Rate) 84 /min Barbie Henriquez LPN [facility] Work Phone: Comment on above: Pattern: Regular 07-01-2014 15:38-0400 Pulse Oximetry 98 % Jess Lopez [facility] Work Phone: Comment on above: Room air 07-01-2014 15:38-0400 Respiratory Rate 16 /min Barbie Henriquez LPN [facility] Work Phone: 07-01-2014 15:38-0400 SaO2% (BldA) [Mass fraction] 98 % Barbie Henriquez LPN [facility]; [facility] Work Phone: Comment on above: Room air 07-01-2014 15:38-0400 Weight 120.2 kg Jess Lopez [facility] Work Phone: 01-14-2013 15:05-0400 BMI (Body Mass Index) 39.25 kg/m2 Talia Henderson [facility] Internal Medicine Work Phone: 01-14-2013 15:05-0400 Body Temperature 97.8 [degF] Talia Fountain [facility] Work Phone: Comment on above: Method: Oral 10-14-2013 15:05-0400 Body weight 117.09 kg Talia Fountain [facility] Work Phone: 01-14-2013 15:05-0400 BP Diastolic 58 mm[Hg] Talia Fountain [facility] Work Phone: Comment on above: Patient Position: Sitting; Cuff Location : Left Arm; Cuff Size: Standard 01-14-2013 15:05-0400 BP Systolic 116 mm[Hg] [facility] Work [facility]: Comment on above: Patient Position: Sitting; Cuff Location : Left Arm; Cuff Size: Standard 01-14-2013 15:05-0400 BSA (Body Surface Area) 2.28 m2 Talia Fountain [facility] Work Phone: 01-14-2013 15:05-0400 Height 172.72 cm [facility] Work Phone: 01-14-2013 15:05-0400 Pulse (Heart Rate) 72 /min Talia Fountain [facility] Work Phone: Comment on above: Pattern: Regular 01-14-2013 15:05-0400 Respiratory Rate 18 /min Talia Fountain [facility] Work Phone: Comment on above: Pattern: Unlabored 01-14-2013 15:05-0400 Weight 117.09 kg Jess Lopez [facility] Work Phone: 08-01-2012 15:20-0400 BMI (Body Mass Index) 39.25 kg/m2 Barbie Martinez [facility] Internal Medicine Work Phone: 08-01-2012 15:20-0400 Body Temperature 98.2 [degF] Barbie Martinez FLEMING [facility] Work Phone: Comment on above: Method: Oral 08-01-2012 15:20-0400 Body weight 117.09 kg Barbie Martinez FLEMING [facility] Work Phone: 08-01-2012 15:20-0400 BP Diastolic 82 mm[Hg] Barbie Henriquez LPN [facility] Work Phone: Comment on above: Patient Position: Sitting; Cuff Location : Left Arm; Cuff Size: Standard 08-01-2012 15:20-0400 BP Systolic 124 mm[Hg] Barbie Henriquez LPN [facility] Work Phone: Comment on above: Patient Position: Sitting; Cuff Location : Left Arm; Cuff Size: Standard 08-01-2012 15:20-0400 BSA (Body Surface Area) 2.28 m2 Barbie Henriquez LPN [facility] Work Phone: 08-01-2012 15:20-0400 Height 172.72 cm Barbie Henriquez LPN [facility] Work Phone: 08-01-2012 15:20-0400 Pulse (Heart Rate) 86 /min Barbie Henriquez LPN [facility] Work Phone: Comment on above: Pattern: Regular 08-01-2012 15:20-0400 Pulse Oximetry 98 % Jess Lopez [facility] Work Phone: Comment on above: Room air 08-01-2012 15:20-0400 Respiratory Rate 16 /min Barbie Henriquez LPN [facility] Work Phone: 08-01-2012 15:20-0400 SaO2% (BldA) [Mass fraction] 98 % Barbie Henriquez LPN [facility]; [facility] Work Phone: Comment on above: Room air 08-01-2012 15:20-0400 Weight 117.09 kg Jess Lopez [facility] Work Phone: 07-26-2010 15:43-0400 BMI (Body Mass Index) 38.37 kg/m2 Barbie Henriquez LPN [facility] Work Phone: 07-26-2010 15:43-0400 Body Temperature 97 [degF] Barbie Henriquez LPN [facility] Work Phone: Comment on above: Method: Oral 07-26-2010 15:43-0400 Body weight 114.48 kg Barbie Henriquez LPN [facility] Work Phone: 07-26-2010 15:43-0400 BP Diastolic 82 mm[Hg] Barbie Henriquez LPN [facility] Work Phone: Comment on above: Patient Position: Sitting; Cuff Location : Left Arm; Cuff Size: Standard 07-26-2010 15:43-0400 BP Systolic 124 mm[Hg] Barbie Henriquez LPN [facility] Work Phone: Comment on above: Patient Position: Sitting; Cuff Location : Left Arm; Cuff Size: Standard 07-26-2010 15:43-0400 BSA (Body Surface Area) 2.26 m2 Barbie Henriquez LPN [facility] Work Phone: 07-26-2010 15:43-0400 Height 172.72 cm Barbie Henriquez LPN [facility] Work Phone: 07-26-2010 15:43-0400 Pulse (Heart Rate) 82 /min Barbie Henriquez LPN [facility] Work Phone: Comment on above: Pattern: Regular 07-26-2010 15:43-0400 Respiratory Rate 15 /min Barbie Henriquez LPN [facility] Work Phone: Comment on above: Pattern: Unlabored 07-26-2010 15:43-0400 Weight 114.48 kg Jess Lopez [facility] Work Phone: 08-05-2008 15:47-0400 BMI (Body Mass Index) 37.43 kg/m2 Shawnee Payan [facility] Internal Medicine Work Phone: 08-05-2008 15:47-0400 Body Temperature 97.5 [degF] Shawnee [facility] Work Phone: Comment on above: Method: Oral 08-05-2008 15:47-0400 Body [facility] 111.67 [facility] Work Phone: 08-05-2008 15:47-0400 BP Diastolic 82 mm[Hg] Shawnee [facility] Work Phone: Comment on above: Patient Position: Sitting; Cuff Location : Left Arm; Cuff Size: Large 08-05-2008 15:47-0400 BP Systolic 128 mm[Hg] Shawnee [facility] Work Phone: Comment on above: Patient Position: Sitting; Cuff Location : Left Arm; Cuff Size: Large 08-05-2008 15:47-0400 BSA (Body Surface Area) 2.23 m2 [facility] Work Phone: 08-05-2008 15:47-0400 Head Circumference 0 [facility] Work Phone: 08-05-2008 15:47-0400 Head Occipital-frontal circumference 0 cm [facility]; [facility] Work Phone: 08-05-2008 15:47-0400 Height 172.72 cm Shaw[facility] Work Phone: 08-05-2008 15:47-0400 Pulse (Heart Rate) 74 /min Shaw[facility] Work Phone: Comment on above: Pattern: Regular 08-05-2008 15:47-0400 Respiratory Rate 16 /min Shaw[facility] Work Phone: Comment on above: Pattern: Unlabored 08-05-2008 15:47-0400 Weight 111.67 kg [facility] Work Phone: 08-30-2007 08:03-0400 BMI (Body Mass Index) 38.11 kg/m2 Junie [facility] Medicine Work Phone: 08-30-2007 08:03-0400 Body Temperature 98 [degF] [facility] Work Phone: Comment on above: Method: Oral 08-30-2007 08:03-0400 Body weight 112.04 kg [facility] Work Phone: 08-30-2007 08:03-0400 BP Diastolic 70 mm[Hg] [facility] Work Phone: Comment on above: Patient Position: Sitting; Cuff Location : Left Arm; Cuff Size: Large 08-30-2007 08:03-0400 BP Systolic 128 mm[Hg] [facility] Work Phone: Comment on above: Patient Position: Sitting; Cuff Location : Left Arm; Cuff Size: Large 08-30-2007 08:03-0400 BSA (Body Surface Area) 2.22 m2 [facility] Work Phone: 08-30-2007 08:03-0400 Head Circumference 0 cm Jess [facility] Medicine Work Phone: 08-30-2007 08:03-0400 Head Occipital-frontal circumference 0 cm [facility]; [facility] Work Phone: 08-30-2007 08:03-0400 Height 171.45 cm [facility] Work Phone: 08-30-2007 08:03-0400 Pulse (Heart Rate) 80 /min [facility] Work Phone: Comment on above: Pattern: Regular 08-30-2007 08:03-0400 Respiratory Rate 18 /min [facility] Work Phone: Comment on above: Pattern: Unlabored 08-30-2007 08:03-0400 Weight 112.04 kg Jess Lopez [facility] Work Phone: 08-07-2006 15:26-0400 BMI (Body Mass Index) 38.11 kg/m2 Lena Metcalf RN [facility] Internal Medicine Work Phone: 08-07-2006 15:26-0400 Body Temperature 98.1 [degF] Lena Metcalf RN [facility] Work Phone: Comment on above: Method: Oral 08-07-2006 15:26-0400 Body weight 112.04 kg Lena Metcalf RN [facility] Work Phone: 08-07-2006 15:26-0400 BP Diastolic 78 mm[Hg] Lena Metcalf RN [facility] Work Phone: Comment on above: Patient Position: Sitting; Cuff Location : Left Arm; Cuff Size: Standard 08-07-2006 15:26-0400 BP Systolic 130 mm[Hg] Lena Metcalf RN [facility] Work Phone: Comment on above: Patient Position: Sitting; Cuff Location : Left Arm; Cuff Size: Standard 08-07-2006 15:26-0400 BSA (Body Surface Area) 2.22 m2 Lena Metcalf RN [facility] Work Phone: 08-07-2006 15:26-0400 Head Circumference 0 cm Jess John Onofre [facility] Work Phone: 08-07-2006 15:26-0400 Head Occipital-frontal circumference 0 cm Lena Metcalf RN [facility]; [facility] Work Phone: 08-07-2006 15:26-0400 Height 171.45 cm Lena Metcalf RN [facility] Work Phone: 08-07-2006 15:26-0400 Pulse (Heart Rate) 72 /min Lena Metcalf RN [facility] Work Phone: Comment on above: Pattern: Regular 08-07-2006 15:-0400 Respiratory Rate 16 /min Lena Metcalf RN [facility] Work Phone: Comment on above: Pattern: Unlabored 08-07-2006 15:-0400 Weight 112.04 kg Jess John [facility] Work Phone: Encounters Encounter Date Encounter Type Care Provider Facility Start: 04-15-2024 End: 04-15-2024 [facility] Start: 03-01-2024 End: 03-01-2024 [facility] Start: 11-30-2022 End: 11-30-2022 Phone Encounter Lin Pardo MD Work Phone: [facility] Start: 11-29-2022 End: 11-29-[address] Lin Pardo Work Phone: [facility] Work Phone: Start: 11-29-2022 End: 11-29-[address] Lin Pardo Work Phone: [facility] [place] [facility], [facility] Work Phone: Start: 11-23-2022 End: 11-23-2022 Prescription Refill Lin Pardo MD Work Phone: [facility] Start: 11-07-2022 End: 11-07-[address] Lin Pardo Work Phone: [facility] Work Phone: Start: 10-13-2022 End: 10-13-2022 Patient encounter procedure Lin Pardo MD Work Phone: [facility] Start: 10-13-2022 End: 10-13-2022 Patient encounter status Lin Pardo MD Work Phone: [facility] Start: 10-13-2022 Review Lin Cueva Work Phone: [facility] Start: 09-02-2022 End: 09-01-2022 Lab Order Lin Pardo MD Work Phone: [facility] Start: 09-01-2022 End: 09-01-2022 Phone Encounter Lin Pardo MD Work Phone: [facility] Start: 06-06-2022 ambulatory Lin Pardo MD [facility] Start: 06-06-2022 End: 06-06-2022 Office outpatient visit 25 minutes Lin Pardo MD Work Phone: [facility] Start: 06-06-2022 End: 06-06-2022 Patient encounter status Lin Pardo MD Work Phone: [facility]; [facility] Work Phone: Comment on above: 06-29-21 EUSEBIOP physic al: positive hep c negative viral load, PSA 06-22, colonoscopy scheduled with Angel, LDCT scan good recheck 12 months, PFT's done (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) Start: 04-11-2022 End: 04-11-2022 Phone Encounter Lin Pardo MD Work Phone: [facility] Start: 02-08-2022 End: 02-08-2022 Lab Order Lin Pardo MD Work Phone: [facility] Start: 10-18-2021 End: 10-18-2021 Office outpatient visit 15 minutes Lin Pardo MD Work Phone: [facility] Start: 10-15-2021 End: 10-15-2021 Office outpatient visit 10 minutes Lin Pardo MD Work Phone: [facility] Start: 09-10-2021 End: 09-10-2021 Lab Order Lin Pardo MD Work Phone: [facility] Start: 09-06-2021 End: 09-06-2021 Office outpatient visit 40 minutes Lin Pardo MD Work Phone: [facility] Start: 09-06-2021 End: 09-06-2021 Patient encounter status Lin Pardo MD Work Phone: [facility]; [facility] Work Phone: Comment on above: 06-29-21 EUSEBIOP physic al: positive hep c negative viral load, PSA 06-22, colonoscopy scheduled with Angel, LDCT scan good recheck 12 months, PFT's done (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 Lin Pardo Work Phone: [facility], [facility] Start: 06-18-2021 End: 06-18-2021 Phone Encounter Jess Lopez Work Phone: [facility] Start: 06-17-2021 Review Jess Lopez Work Phone: [facility] Start: 06-15-2021 End: 06-15-2021 Office outpatient visit 15 minutes Jess Lopez Work Phone: [facility] Start: 06-15-2021 End: 06-15-2021 Lab Order Jess Loepz CNP Work Phone: [facility] Start: 06-14-2021 End: 06-14-2021 Lab Order Jess Lopez CNP Work Phone: [facility] Start: 06-09-2021 Non-patient / Non-visit Dr. Galdamez Work Phone: [facility] Start: 06-09-2021 End: 06-09-[address] iLn Pardo Work Phone: [facility] Start: 05-28-2021 End: 05-28-2021 Lab Order Jess Lopez CNP Work Phone: [facility] Start: 05-25-2021 Review Jess Lopez CNP Work Phone: [facility] Start: 05-25-2021 End: 05-25-2021 Periodic preventive med est patient 18-39 yrs Jess Lopez CNP Work Phone: [facility] Start: 05-25-2021 Review Jess Lopez CNP Work Phone: [facility] Start: 04-21-2021 End: 04-21-2021 Annotation/Addendum Jess Lopez CNP Work Phone: [facility] Start: 09-08-2020 End: 09-08-2020 Phone Encounter Jess Lopez CNP Work Phone: [facility] Start: 09-07-2020 End: 09-07-2020 Annotation/Addendum Jess Ciesa [employer] Work Phone: [facility] Start: 09-07-2020 End: 09-07-2020 Office outpatient visit 25 minutes Jess Lopez [employer] Work Phone: [facility] Start: 09-07-2020 Review Jess Lopez [employer] Work Phone: [facility] Start: 09-03-2020 End: 09-03-2020 Annotation/Addendum Jess Lopez [employer] Work Phone: [facility] Start: 08-24-2020 End: 08-24-2020 Office outpatient visit 15 minutes Jess Lopez [employer] Work Phone: [facility] Start: 08-12-2020 End: 08-12-2020 Emergency department patient visit Tiffanie Harris [facility] Start: 05-05-2020 End: 05-05-2020 Office outpatient visit 25 minutes Jess Lopez [facility] Start: 10-03-2018 End: 10-03-2018 Annotation/Addendum Jess Luisjustyn Onofre [facility] Start: 05-25-2018 End: 05-25-2018 Office outpatient visit 25 minutes Jess Lopez [facility] Start: 05-25-2018 End: 05-25-2018 Physical examination Lin Pardo MD Work Phone: [facility] Start: 06-13-2016 End: 06-13-2016 Office outpatient visit 15 minutes Jess Lopez [facility] Start: 06-08-2016 End: 06-08-2016 Refill Request Jess Lopez [facility] Start: 07-01-2014 End: 07-01-2014 Office outpatient visit 15 minutes Jess Lopez [facility] Start: 07-01-2014 End: 07-01-2014 Patient encounter status Lin Pardo MD Work Phone: [facility] Start: 01-14-2013 End: 01-14-2013 Patient encounter procedure Jess Lopez [facility] Start: 01-14-2013 End: 01-14-2013 Patient encounter status Lin Pardo MD Work Phone: [facility] Start: 08-01-2012 End: 08-01-2012 Office outpatient visit 25 minutes Jess Lopez [facility] Start: 08-01-2012 End: 08-01-2012 Patient encounter status Lin Pardo MD Work Phone: [facility] Start: 07-09-2012 End: 07-09-2012 Phone Encounter Jess Lopez [facility] Start: 07-09-2012 End: 07-09-2012 Phone Encounter Jess Lopez [facility] Start: 07-06-2012 End: 07-06-2012 Refill Request Jess Lopez [facility] Medicine Start: 07-11-2011 End: 07-11-2011 Phone Encounter Jess Lopez [facility] Start: 07-26-2010 End: 07-27-2010 Office outpatient visit 15 minutes Jess Lopez [facility] Start: 07-26-2010 End: 07-27-2010 Patient encounter status Lin Pardo MD Work Phone: [facility] Start: 08-05-2008 End: 08-05-2008 Patient encounter procedure Jess Lopez [facility] Start: 08-05-2008 End: 08-05-2008 Patient encounter status Lin Pardo MD Work Phone: [facility] Start: 08-30-2007 End: 08-30-2007 Office outpatient visit 25 minutes Jess Lopez [facility] Start: 08-07-2006 End: 08-07-2006 Patient encounter procedure Jess Lopez [facility] Start: 08-07-2006 End: 08-07-2006 Patient encounter status Lin Pardo MD Work Phone: [facility] Start: 08-03-2006 End: 08-03-2006 Historical Summary Jess Lopez [facility] Patient encounter status Muriel Woo [facility]; [facility] Work Phone: Comment on above: see papers Patient encounter status SABINO GURROLA [facility]; [facility] Work Phone: Comment on above: 06-29-21 CORNEL physic al: positive hep c negative viral load, PSA 06-22, colonoscopy scheduled with Angel, LDCT scan good recheck 12 months, PFT's done (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) Patient encounter status Lin Pardo MD Work Phone: [facility]; [facility] Work Phone: Comment on above: 10-13-22 AMP and EUSEBIO P physical: positive hep PSA 08/23, colonoscopy 2021 with Angel, LDCT scan good recheck 12 months, PFT's done (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) refused [place] and cognivue Physical examination Adrianne Reyez NURSING CLINICAL DIRECTOR Com prehens[facility]; [facility] Work Phone: Comment on above: DOT exam End: 10-28-2013 Physical examination Supervisor Electronic Coils [facility]; [facility] Work Phone: Comment on above: psa rectal 10-13. re commend colon cancer screening Physical examination Luke Driver [facility] Com prehensive Internal Medicine; [facility] Work Phone: Comment on above: DOT exam Physical examination Lin zhu MD Work Phone: [facility]; [facility] Work Phone: Comment on above: DOT exam Physical examination SABINO Gramajo [facility] Medicine; [facility] Work Phone: Comment on above: DOT exam Physical examination Tyra De Leon [facility] Work Phone: Comment on above: DOT exam [facility] Work Phone: Comment on above: DOT exam Physical examination [facility] Work Phone: Comment on above: DOT exam Procedures Date Procedure Procedure Detail Performing Clinician Start: 11-29-2022 Computed tomography of abdomen and pelvis with contrast Dr. Lin Pardo Work Phone: Start: 11-29-2022 End: 11-29-2022 Abdomen/Pelvis WITH Contrast Procedure Note: See Note; NOTES: [facility] Imaging Services [address] [place] [id number] Abdomen/Pelvis WITH Contrast MR#: [id number] Acct: [id number] Name: LEANA PORTER Rep #: [id number] : 1955 M 67 From: Sarath Leos MD PCP: Dr. Lin Pardo MD Status: REG CLI Study: Abdomen/Pelvis WITH Contrast Date of Exam: Exam# [id number] Ordering Dr: Lni Pardo MD ACR Level 3 findings have been noted. An addendum which confirms receipt of the report will follow. INDICATION: Abnormal abdominal CT scan EXAMINATION: CT ABDOMEN AND PELVIS WITH CONTRAST - CT Abdomen And Pelvis W/ Contrast Injection TECHNIQUE: Helically acquired images were obtained of the abdomen and pelvis following IV contrast. A radiation dose optimization technique was used for this scan. IV Contrast dosage and agent: 100 mL Isovue-370 Oral contrast: None. COMPARISON: June 23, 2021. FINDINGS: LOWER CHEST: Lung bases are clear. No cardiomegaly or pericardial effusion. LIVER: Homogeneous. No focal mass. GALLBLADDER AND BILIARY TREE: No calcified gallstones. No gallbladder distension or wall edema. No intra- or extrahepatic biliary ductal dilation. PANCREAS: No focal cystic or solid mass. SPLEEN: Normal size without focal cystic or solid mass. ADRENAL GLANDS: No nodules. KIDNEYS AND URETERS: Normal renal size and position. No hydronephrosis. BOWEL: Small persistent hiatal hernia with irregular wall thickening of the cardia of the stomach. Oral contrast extends through mid small bowel without distention or wall thickening. Normal appendix. Moderate to large colonic stool burden from cecum to sigmoid colon. Large diverticulum in the sigmoid colon with wall thickening similar to June 23, 2021, slightly more extensive, with minimal adjacent inflammatory stranding..No ascites or free fluid. No free air. No abscess. LYMPH NODES: No enlarged mesenteric or retroperitoneal lymph nodes. VESSELS: Aortic atherosclerosis without ectasia. URINARY BLADDER: Unremarkable. REPRODUCTIVE ORGANS: No pelvic masses. ABDOMINAL WALL: No discrete abdominal or pelvic wall hernia. Bilateral fat-containing inguinal hernias and umbilical hernia without inflammation. BONES: No lytic or blastic abnormality. CT/Abdomen/Pelvis WITH Contrast IMPRESSION: 1. Findings concerning for recurrent acute uncomplicated diverticulitis of the sigmoid colon in same location of June 23, 2021. There is prominent wall thickening at the sigmoid diverticulum with relatively limited surrounding inflammatory stranding which is nonspecific but can be seen with underlying malignancy. Follow-up colonoscopy or CT is recommended in 6 weeks after treatment 2. Persistent hiatal hernia with increased nonspecific wall thickening of the cardia of the stomach. Further evaluation is recommended. Consider endoscopy when clinically able 3. Fat-containing umbilical and bilateral inguinal hernias without inflammation. Electronically Signed: Sarath Leos MD at 8:51 EDT , CC: Dr. Lin Pardo MD Corporate Giving Manager: Signed Lin Pardo MD Work Phone: Start: 11-07-2022 End: 11-07-2022 Urgent Care Visit Report Procedure Note: See Note; NOTES: [facility] [address], [address] [place] [id number] OFFICE VISIT Date of Service: 11/07/22 MR#: [id number] Acct: [id number] Name: LEANA PORTER Rep #: [id number] : 1955 Provider: LINO Puckett Age/Sex: 67/M Location: [facility] Status: Signed Intake Vital Signs 12/16/19 20:07 11/07/22 16:13 Height 5 ft 8 in 5 ft 7 in Weight: 203 lb BMI 31.8 BP 128/86 H Blood Pressure Location Lt brachial Position Sitting Respiration 16 Pulse 73 Pulse Source Monitor Temp 98.2 F Temp Source Temporal Pulse Oximetry (%) 98 Oxygen Delivery Method room air Intake Visit Reasons: LEFT EAR PAIN/SORE THROAT Chief Complaint: LT ear pain Lumber Buyer Required: No Accompanied by: Is patient in pain?: No Allergies No Known Allergies Allergy (Verified 11/07/22 16:14) Medications pantoprazole 40 mg tablet,delayed release 40 mg PO DAILY 09/14/20 [History Confirmed 11/07/22] cyclobenzaprine 10 mg tablet 10 mg PO HS PRN muscle spasm #7 tabs 11/07/22 [Rx Confirmed 11/07/22] folic acid 20 mg capsule 20 mg PO DAILY 11/07/22 [History Confirmed 11/07/22] prednisone 10 mg tablet 10 mg PO DIRECTED #30 tabs 11/07/22 [Rx Confirmed 11/07/22] simvastatin 20 mg tablet (Zocor) 20 mg PO DAILY 11/07/22 [History Confirmed 11/07/22] PFS Medical History (Updated 11/07/22 @ 16:40 by Willem HUYNH, PA) Cervical strain 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 No vision changes, and no hearing changes. No complaints of rash, upper extremity radicular complaints, fever, chills, sweats, lightheadedness/dizziness, nausea/vomiting. Patient has tolerated food and fluids well, no changes in color/character of urine/stool. No vrow-xmz-mnoqepi products taken to assist. Chickenpox as a child, along with shingles x1 outbreak several years ago. No other associated symptoms and no alleviating/aggravating factors. ROS Const Constitutional: No other (As above) Exam Const General: cooperative, healthy appearing and no acute distress Orientation: alert, awake and oriented x3 HENMT Head: normal to inspection Ears: hearing grossly normal bilaterally, external ears normal, TM's normal bilaterally and EAC's normal Nose: external nose normal, nares normal, septum normal and no nasal discharge Face and sinus: normal facial exam, sinuses nontender and face symmetric Mouth: oral mucosae normal, lip normal, tongue normal and oropharynx normal Throat: posterior oropharynx normal, tonsils normal, uvula midline and no postnasal drainage Eyes General: appearance normal, both eyes and all related structures Neck Neck: normal visual inspection, full ROM, no lymphadenopathy, no meningeal signs and supple Neck mass: No Thyroid: thyroid normal Lymphatic: no lymphadenopathy noted Chest Chest palpation inspection: normal inspection of the chest Resp Effort Inspection: normal respiratory effort and able to speak in complete sentences Auscultation: Bilateral: Clear to Auscultation Cardio Palpation: normal PMI Rate: regular rate Rhythm: regular rhythm Heart Sounds: S1 normal, S2 normal, no gallops, no murmurs and no rubs Pulses: radial pulses present GI Inspection: normal to inspection Palpation: soft and no hepatosplenomegaly Musc Cervical Spine: cervical muscular tenderness (left to touch); No cervical spinal tenderness Skin General: no rashes or lesions noted Neuro General: patient alert, patient awake, patient oriented x3 and gait normal Cognition: normal cognition Speech: speech normal Gait: normal gait Motor: muscle tone normal throughout Sensory Exam: no sensory deficits noted Extrem General: normal to inspection Psych Appearance: grossly normal Mental Status: mental status grossly normal Mood: congruent mood Affect: normal affect Speech and Movement: speech and movement normal Attitude: cooperative Thought Process: normal Thought Content: normal Judgment: judgment good Coding Level of Care Code Off vis,est,level 3 Diagnoses Left-sided face pain R51.9 Cervical strain S16.1XXA Assessment and Plan Assessment and Plan (1) Left-sided face pain: Status: Acute (2) Cervical strain: Status: Acute Plan: Prednisone and Flexeril as prescribed today. Supportive measures as instructed today. Follow-up with PCP in 5 to 7 days should symptoms not improve, sooner should symptoms worsen or any other concerns develop. Patient and both state acknowledging understanding all the above. This note was generated with Croak[employer] dictation software. It may contain incorrect words, spelling, and punctuation that were not noted in checking the note before signing. Medications: New prednisone 4 tablets daily x3 days, then 3 tablets daily x3 days, then 2 tablets daily x3 days, then 1 tablet daily x3 days 10 mg PO DIRECTED 30 tabs 0RF cyclobenzaprine 10 mg PO HS PRN 7 tabs 0RF muscle spasm 11/07/22 1641 <Electronically signed by Willem HUYNH> Date Willem Holt Signature: Date (if applicable) CC: Lin Pardo MD Work Phone: Start: 04-28-2022 End: 04-28-2022 Urgent Care Visit Report Procedure Note: See Note; NOTES: [facility] [address] [place] [address] [address] [place] [address] OFFICE VISIT Date of Service: 04/28/22 MR#: [id number] Acct: [id number] Name: LEANA PORTER Rep #: [id number] : 1955 Provider: LINO pena Age/Sex: 67/M Location: [facility] Status: Signed Intake Intake Visit Reasons: DOT PHYSICAL/[place] Allergies No Known Allergies Allergy (Verified 12/16/19 20:06) [facility] Medical History (Updated 04/28/22 @ 16:26 by LINO Leal) 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 by 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) Social History Smoking Status: Former smoker HPI HPI Details: LEANA PORTER, is a 67 M who presents to the office today for Office Procedures Physical Exam Coding PE Coding Sports/School Physical: No DOT PE: Yes Pre-employment PE: No Coding Level of Care Code No Charge Diagnoses 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 by 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) Z02.89 Assessment and Plan Assessment and Plan (1) 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 by 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): Status: Acute 04/28/22 1626 <Electronically signed by Willem HUYNH> Date Willem Holt Signature: Date (if applicable) CC: Lin Pardo MD Work Phone: Start: 06-23-2021 End: 06-23-2021 Abdomen/Pelvis WITH Contrast Comments: See Note; NOTES: [facility] Imaging Services [address] [place] [address] Abdomen/Pelvis WITH Contrast MR#: [id number] Acct: [id number] Name: LEANA PORTER Rep #: [id number] : 1955 M 66 From: Dustin rivera MD PCP: Dr. Lin Pardo MD Status: REG CLI Study: Abdomen/Pelvis WITH Contrast Date of Exam: Exam# [id number] Ordering Dr: Lin Pardo MD STUDY: CT ABDOMEN AND PELVIS WITH CONTRAST REASON FOR EXAM: Male, 66 years old. ABD PAIN / ABNORMAL ABD CT SCAN. T1 half months of left lower quadrant pain. RADIATION DOSAGE (If Supplied By Facility): CTDIvol = ( 16.20 ) mGy, DLP = ( 1111.06 ) mGycm TECHNIQUE: Transaxial images were obtained from the dome of the diaphragm to the symphysis pubis with oral contrast. Oral and amp; IV Readi-CAT and amp; 100mL Isovue-300 was administered. Sagittal and coronal images were reconstructed. Individualized dose optimization techniques were used for this CT. COMPARISON: Comparison is made with prior study dated 12/16/2019. FINDINGS: The visualized lung bases are unremarkable. The visualized portions of the heart are within normal limits. There is decreased attenuation of the liver consistent with steatosis. Normal gallbladder and extrahepatic biliary system. Normal spleen. Normal pancreas. Normal bilateral adrenal glands. Normal right kidney. Normal left kidney. There is a small hiatal hernia. Normal small intestine. There is diverticulosis, with thickening of the colon wall, and pericolonic inflammation changes consistent with acute diverticulitis. Moderate amount of fecal material is seen in the colon. The appendix is visualized and appears normal. There is scattered atherosclerotic calcification of the abdominal aorta, without a demonstrated aneurysm. Normal inferior vena cava. Normal retroperitoneum. Normal urinary bladder. There is a small umbilical hernia containing fat. There are degenerative changes of the visualized lumbar spine. CT/Abdomen/Pelvis WITH Contrast IMPRESSION: Findings in keeping with a noncomplicated acute sigmoid diverticulitis. Moderate amount of fecal material is seen in the colon. Fatty infiltration of the liver. Electronically Signed: Dustin Dickson MD at 8:32 EDT , CC: Dr. Lin Pardo MD Corporate Giving Manager: Signed Lin Pardo MD Work Phone: Start: 06-23-2021 Computed tomography of abdomen and pelvis with contrast Dr. Lin Pardo Work Phone: Start: 06-09-2021 End: 06-09-2021 Pulmonary Function Test Comments: See Note; NOTES: [facility]Neurology [address] [place] [address] MR#: [id number] Acct: [id number] Name: LEANA PORTER Rep #: [id number] : 1955 66 From: Harshil Huitron DO Referring Dr: Status: REG CLI Location: CT Date: 06/09/21 Sex: M C INTRODUCTION: The patient is a 66-year-old male that presents for pulmonary function studies secondary to a diagnosis of tobacco dependency. Respiratory therapy reported good patient effort. Bronchodilators were used during testing. INTERPRETATION: Forced expiration spirometry demonstrates the presence of a mild large airways obstructive ventilatory defect. There was no significant response to aerosolized bronchodilators. Spirograms are of good quality and plateau gradually indicating slow emptying of the lungs. Body plethysmography was performed and revealed an elevated TLC and RV, indicative of underlying hyperinflation and air trapping. Diffusing capacity by single breath CO is within normal limits. IMPRESSION: Irreversible mild large airways obstructive ventilatory defect with associated hyperinflation and air trapping. 06/09/21 1256 <Electronically signed by Harshil Huitron DO> Date Harshil Huitron DO CC: Dr. Lin Pardo MD Date Dictated: 06/09/21 1255 Date Transcribed: 06/09/211254 Corporate Giving Manager: DB Signed Jess Lopez CNP Work Phone: Start: 06-09-[address] Lin Pardo Work Phone: Start: 06-09-2021 End: 06-09-[address] Lung Screening Comments: See Note; NOTES: [facility] Imaging Services [address] [place] [address] Lung Screening MR#: [id number] Acct: [id number] Name: LEANA PORTER Rep #: [id number] : 1955 M 66 From: Hardy Davidson MD PCP: Dr. Lin Pardo MD Status: [facility] Study: Low Dose CT Lung Screening Date of Exam: 06/09 Exam# [id number] Ordering Dr: Lin Pardo MD EXAM: CT CHEST, LUNG CANCER SCREENING WITHOUT INTRAVENOUS CONTRAST : 1955 CLINICAL INDICATION: CURRENT SMOKER TECHNIQUE: Helically acquired images were obtained of the chest without intravenous contrast using low dose (LDCT) lung cancer screening protocol. This CT exam was performed using one or more of the following dose reduction techniques: automated exposure control, adjustment of the mA and/or kV according to patient size, and/or use of iterative reconstruction technique. This report was created using NetHook[employer] report generation technology. COMPARISON: None. FINDINGS: LUNGS AND PLEURAL SPACES: Several bilateral 2-3 mm pulmonary nodules are noted some of which are calcified likely related to granulomatous disease. No suspicious pulmonary nodule. No pleural effusion or thickening. No pneumothorax. HEART: Moderate coronary artery calcification. Heart size is normal. No pericardial effusion. MEDIASTINUM: Unremarkable. No mediastinal or hilar adenopathy. Esophagus is unremarkable. No hiatal hernia. THYROID: Unremarkable. No thyroid lesions. BONES/JOINTS: Unremarkable. No suspicious lytic or blastic abnormality. VASCULATURE: Unremarkable. Thoracic aorta is non-dilated. LYMPH NODES: Unremarkable. No enlarged lymph nodes. CT/Low Dose CT Lung Screening IMPRESSION: 1. Small bilateral pulmonary nodules most of which appear calcified and measure 3 mm and less in size. 2. ACR Lung CT Screening Reporting T Data System (Lung-RADS) score: 1 - Recommend continued annual screening with low-dose CT (LDCT) in 12 months. Individualized dose optimization techniques were used for this CT. at 0855 Reported and signed by: Hardy Davidson MD Electronically Signed: Hardy Davidson MD at 8:54 EST , CC: Dr. Lin Pardo MD Corporate Giving Manager: Signed Lin Pardo MD Work Phone: Start: 12-16-2019 End: 12-17-2019 Elbow min 3 Views Comments: See Note; NOTES: [facility] Imaging Services [address] [place] [address] Elbow min 3 Views MR#: [id number] Acct: [id number] Name: LEANA PORTER Rep #: [id number] : 1955 M 64 From: Yung forbes MD PCP: Jess Lopez NP-C Status: REG ER Study: Elbow min 3 Views Date of Exam: 12/16/19 Exam# [id number] Ordering Dr: Heather Mina MD STUDY: X-RAY - RIGHT ELBOW REASON FOR EXAM: Male, 64 years old. FALL TECHNIQUE: 3 view(s) of the elbow. COMPARISON: None. FINDINGS: Normal visualized humerus, radius and ulna. Normal radiocapitellar and ulnotrochlear articulations. The soft tissue structures are unremarkable. There is no demonstrated fracture. RAD/Elbow min 3 Views IMPRESSION: Normal x-ray examination of the elbow. Electronically Signed: Yung Gunderson MD at 22:18 EDT , Service support , CC: EDWIN Lopez; Dr. Heather Mina MD Corporate Giving Manager: Signed Jess Lopez Start: 12-16-2019 End: 12-17-2019 Emergency Department Summary Comments: See Note; NOTES: [facility] Medical Records Department [address] [place] [address] Emergency Department Summary 12/16/19 MR#: [id number] Acct: [id number] Name: LEANA PORTER Rep #: [id number] : 1955 64 From: Heather Mina MD PCP: EDWIN Davalos Status:DEP ER History of Present Illness Chief Complaint: Fall Informant: Patient Onset: Today Current Severity: Mild Maximum Severity: Moderate Narrative: Patient presents after a fall from the back of his pickup truck. Injury occurred 6 hours prior to my evaluation. He states he was coming off the back of his pickup truck and thought he had another step but fell to the ground landing on his right side. He is right-hand dominant. He denies striking his head or having any neck pain. He is complaining of pain to his elbow and wrist on the right. He is also complaining of pain to the right hip and right lower back. He has not noted any hematuria. He did take ibuprofen for pain prior to arrival. Past Medical History - Allergies and Home Meds Allergies/Adverse Reactions: Allergies No Known Allergies Allergy (Verified 12/16/19 20:06) Primary Care Physician: Jess Lopez NP SEMICONDUCTOR LAB TECHNICIAN-C [Primary Care Provider] - Past Medical History: - - GERD Lives: Spouse/ Significant Other Review of Systems General: Denies: Chills, Fever Eyes: Denies: Visual changes - bilaterally ENT: Denies: Bilateral ear pain Cardiovascular: Denies: Chest pain Respiratory: Denies: Dyspnea, Cough Gastrointestinal: Denies: Abdominal pain, Vomiting, Diarrhea Genitourinary: Denies: Dysuria Musculoskeletal: Reports: Back pain, Extremity Pain Neurological: Denies: Headache, Weakness Hematologic: Denies: Easy bruising Allergy: Denies: Uticaria Physical Exam Vital Signs/Narrative: Vital Signs Temp Pulse Resp BP Pulse Ox 12/16/19 20:07 97.2 F L 97 20 H 162/96 H 97 Inital Vital Signs reviewed: Yes General: Well nourished, Well developed Head: Normocephalic ENT: Moist mucous membranes Neck: Supple Cardiovascular: Regular rate, Regular rhythm Respiratory: No distress, CTA bilaterally Abdomen: Soft, Nontender Extremities: - - Mild tenderness location at the right elbow and right wrist. Mild edema. Good range of motion. Mild tenderness over the lateral portion of the right hip. Neurological: Alert, Oriented x3 Psychological: Normal affect Diagnostic/Tx/Re-eval Impressions Abdomen/Pelvis CT 12/16/19 21:00 IMPRESSION: 1. Mild to moderate wall of the proximal sigmoid colon in acutely inflamed diverticula in the same region compatible with acute diverticulitis 2. There are diffuse degenerative changes of the visualized lumbar spine. No visualized fractures of the spine or pelvis or bilateral hips. Electronically Signed: Ynug Gunderson MD at 21:46 EDT , Service support , Wrist X-Ray 12/16/19 21:01 IMPRESSION: No acute process of the right wrist Electronically Signed: Yung Gunderson MD at 22:20 EDT , Service support , Elbow X-Ray 12/16/19 21:10 IMPRESSION: Normal x-ray examination of the elbow. Electronically Signed: Yung Gunderson MD at 22:18 EDT , Service support , 12/16/19 21:00 Abdomen/Pelvis without Cont [CT] Stat 12/16/19 21:01 Wrist min 3 Views [RAD] Stat 12/16/19 21:10 Elbow min 3 Views [RAD] Stat - Medical Decision Making Patient declined anything for pain while here. X-ray results are discussed with patient and at bedside. CT flank was obtained to evaluate the right kidney and right hip along with his lower back. These areas are okay, however patient does have evidence of acute diverticulitis on CT scan. Patient will be covered with Augmentin for this. ED Disposition - Plan for ED Patient: Disposition: Home or Assisted Living Diagnosis: Diverticulitis, Arm contusion, Back strain Instructions: ED Diverticulitis, ED Mechanical Fall, ED LUMBAR SPRAIN/STRAIN Prescriptions: Amox/Clavulanate Tablet [Augmentin Tablet] 875 mg PO Q12H #20 tab Transmission Status: Pending to [facility]/pharmacy #[id number] Referrals: Jess Lopez NP, SEMICONDUCTOR LAB TECHNICIAN-C [Primary Care Provider] - 1 Week if not improving What to do if you have Problems For any increased pain, shortness of breath, bleeding, nausea or vomiting, chest pain, or any unexpected problems, contact your Primary Care Provider. Call [facility] ([phone]) or report to the closest Emergency Room. Call 911 if necessary. 12/17/19 0039 <Electronically signed by Heather Mina MD> Date Heather Mina MD Cosigner Signature (If Indicated): Date CC: SEMICONDUCTOR LAB TECHNICIAN-C Jess Lopez Start: 12-16-2019 End: 12-17-2019 Wrist min 3 Views Comments: See Note; NOTES: [facility] Imaging Services [address] [place] [address] Wrist min 3 Views MR#: [id number] Acct: [id number] Name: LEANA PORTER Rep #: [id number] : 1955 M 64 From: Yung forbes MD PCP: EDWIN Davalos Status: REG ER Study: Wrist min 3 Views Date of Exam: 12/16/19 Exam# [id number] Ordering Dr: Heather Mina MD STUDY: X-RAY - RIGHT WRIST REASON FOR EXAM: Male, 64 years old. FALL TECHNIQUE: 3 view(s) of the wrist were obtained. COMPARISON: None. FINDINGS: Normal visualized distal radius and ulna. Normal radiocarpal articulation. Normal distal radioulnar articulation. Normal carpal bones. Normal carpal articulations. Normal carpometacarpal articulation of the thumb. Normal second through fifth carpometacarpal articulations. Normal visualized metacarpal bones. The soft tissue structures are unremarkable. There is no demonstrated acute fracture. Atherosclerotic calcifications are present. RAD/Wrist min 3 Views IMPRESSION: No acute process of the right wrist Electronically Signed: Yung Gunderson MD at 22:20 EDT , Service support , CC: EDWIN Lopez; Dr. Heather Mina MD Corporate Giving Manager: Signed Jess Lopez Start: 12-16-2019 End: 12-17-2019 Abdomen/Pelvis without Cont Comments: See Note; NOTES: [facility] Imaging Services [address] [place] [id number] Abdomen/Pelvis without Cont MR#: [id number] Acct: [id number] Name: LEANA PORTER Rep #: [id number] : 1955 M 64 From: Yung forbes MD PCP: EDWIN Davalos Status: REG ER Study: Abdomen/Pelvis without Cont Date of Exam: 12/02 07/21 Exam# [id number] Ordering Dr: Heather Mina MD STUDY: CT ABDOMEN AND PELVIS WITHOUT CONTRAST REASON FOR EXAM: Male, 64 years old. FELL OUT OF BED OF TRUCK. LANDED ON LT HIP. PAIN. RADIATION DOSAGE (If Supplied By Facility): CTDIvol = ( 22.55 ) mGy, DLP = ( 1110.01 ) mGycm TECHNIQUE: Transaxial images were obtained from the dome of the diaphragm to the symphysis pubis without oral contrast, and without intravenous contrast. Sagittal and coronal images were reconstructed. Individualized dose optimization techniques were used for this CT. COMPARISON: None. FINDINGS: Subsegmental atelectasis seen in the lingula of the left upper lobe in addition to chronic scarring. Normal liver. No intrahepatic biliary duct dilatation or liver mass. Normal gallbladder and extrahepatic biliary system. Normal spleen. Normal pancreas. Normal bilateral adrenal glands. Normal right kidney. Normal left kidney. . No hydronephrosis or renal masses. No large stones. There is a small hiatal hernia. Normal small intestine. Mild to moderate wall of the proximal sigmoid colon in acutely inflamed diverticula in the same region compatible with acute diverticulitis. The sigmoid colon is torturous and to the right of midline. The remaining colonic loops are unremarkable. No bowel dilatation or obstruction. No free air or free fluid. The appendix is visualized and appears normal. There is diffuse atherosclerotic calcification of the abdominal aorta, without a demonstrated aneurysm. Normal inferior vena cava. Normal retroperitoneum. Normal urinary bladder. Normal abdominal wall. There are diffuse degenerative changes of the visualized lumbar spine. No visualized fractures of the spine or pelvis or bilateral hips. CT/Abdomen/Pelvis without Cont IMPRESSION: 1. Mild to moderate wall of the proximal sigmoid colon in acutely inflamed diverticula in the same region compatible with acute diverticulitis 2. There are diffuse degenerative changes of the visualized lumbar spine. No visualized fractures of the spine or pelvis or bilateral hips. Electronically Signed: Yung Gunderson MD at 21:46 EDT , Service support , CC: EDWIN Lopez; Dr. Heather Mina MD Corporate Giving Manager: Signed Jess Lopez Start: 12-22-2012 PSA screening Jess Lopez Comment on above: This test was performed using the TPSA a ssay method for the[employer] chemistry system. Values obtained with differentassay methods cannot be used interchangably.When changing PSA assays in the course of monitoring apatient, additional sequential testing should be carriedout to confirm baseline values. 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 Comment on above: 1983 Vasectomy planned Dora Coff man NURSING CLINICAL DIRECTOR Comment on above: 1983 Vasectomy planned Dora Coff man NURSING CLINICAL DIRECTOR Comment on above: 1983 Plan of Treatment Date Care Activity Detail Author Start: 10-13-2022 Procedure Education Eprescribe d prescriptions (G8553) [facility] Work Phone: Start: 09-01-2022 Assay of prostate specific antigen total PSA (PROSTATE SPECIFIC ANTIGEN) (V76.44) [facility]; [facility] Work Phone: Start: 06-06-2022 Procedure Education Eprescribe d prescriptions (G8553) [facility]; [facility] Work Phone: Start: 02-08-2022 C-reactive protein h igh sensitivity C-REACT PROT HIGH SENS(hsCRP) (13270) [facility]; [facility] Work Phone: Start: 02-08-2022 25 hydroxy includes fractions if performed CALCIFEDIOL (42073) [facility]; [facility] Work Phone: Start: 02-08-2022 Assay of homocysteine Homocyst eine, Plasma (81121) [facility]; [facility] Work Phone: Start: 02-08-2022 Blood count complete automated CBC & PLATELETS (AUTO) (11523) [facility]; [facility] Work Phone: Start: 02-08-2022 Hemoglobin glycosyla darrion a1c HGB A1C (57772) [facility]; [facility] Work Phone: Start: 02-08-2022 Comprehensive metabo lic panel METABOLIC PANEL, COMPREHENSIVE (09374) [facility]; [facility] Work Phone: Start: 02-08-2022 Lipid panel LIPID PANEL (17994) [facility]; [facility] Work Phone: Start: 09-10-2021 C-reactive protein C-REACTIVE PROTEIN (23199) [facility]; [facility] Work Phone: Comment on above: re check prior to [place] appointment Start: 09-06-2021 Ceruloplasmin CERULOPLASMIN (89946) [facility]; [facility] Work Phone: Start: 09-06-2021 Procedure Education Eprescribe d prescriptions (G8553) [facility]; [facility] Work Phone: Start: 06-29-2021 Protein total xcpt refractometry urine PROTEIN, URINE , Copper (43808) [facility]; [facility] Work Phone: Comment on above: need 24 hour urine c opper Start: 06-29-2021 Cyanocobalamin vitam in b-12 VITAMIN B12 AND FOLATES (84011) [facility]; [facility] Work Phone: Start: 06-29-2021 Assay of homocysteine Homocyst eine, Plasma (21063) [facility]; [facility] Work Phone: Start: 06-29-2021 C-reactive protein h igh sensitivity C-REACT PROT HIGH SENS(hsCRP) (56851) [facility]; [facility] Work Phone: Start: 06-29-2021 25 hydroxy includes fractions if performed CALCIFIDIOL (26990) VIT D 25 [facility]; [facility] Work Phone: Start: 06-15-2021 Culture bct isol&prs mptv id isolate ea urine URINE JONNY CULTURE-IDENTIFICATN (99122) [facility]; [facility] Work Phone: Start: 06-15-2021 Iadna hepatitis c amplified probe&revrse transcr Hepatitis C RNA, DNA Probe, Amplified (60988) [facility]; [facility] Work Phone: Start: 06-15-2021 Ceruloplasmin CERULOPLASMIN (64803) [facility]; [facility] Work Phone: Start: 06-15-2021 Fluorescent nonnfct agt antb screen ea antibody ASM (ANTI SMOOTH MUSCLE ANTIBODY) (38593) [facility]; [facility] Work Phone: Start: 06-15-2021 Microsomal antibodie s each MICROSOMAL ANTIBODY (93311) [facility]; [facility] Work Phone: Start: 06-15-2021 Iadna hepatitis c qu ant & reverse pharmacy billing adjudicator Hepatitis C Quant, DNA Probe, Amplified (03029) [facility]; [facility] Work Phone: Start: 06-14-2021 Iadna hepatitis c amplified probe&revrse transcr Hepatitis C RNA, DNA Probe, Amplified (71238) [facility]; [facility] Work Phone: Start: 06-08-2021 Assay of prostate specific antigen total PSA (Prostate Specific Antigen), Screening (54445) [facility]; [facility] Work Phone: Start: 06-08-2021 Blood count manual c ell count each CBC WITH MANUAL DIFF (51553) [facility]; [facility] Work Phone: Start: 06-08-2021 Comprehensive metabo lic panel Metabolic Panel, Comprehensive (94340) [facility]; [facility] Work Phone: Start: 06-08-2021 Hepatitis c antibody HEPATITIS C ANTIBODY (16458) [facility]; [facility] Work Phone: Start: 06-08-2021 Lipoprotein blood qu an numbers & subclasses NMR Profile (16310) [facility]; [facility] Work Phone: Start: 12-08-2020 Comprehensive metabo lic panel Metabolic Panel, Comprehensive (74527) [facility]; [facility] Work Phone: Start: 12-08-2020 Lipid panel LIPID PANEL (87634) [facility]; [facility] Work Phone: Start: 09-07-2020 Procedure Education Eprescribe d prescriptions (G8553) [facility]; [facility] Work Phone: Start: 09-07-2020 Provider Instruction s for Treatment Follow up in 3 months 4-7 days after Dec 7 [facility]; [facility] Work Phone: Start: 09-03-2020 Assay of thyroid stimulating hormone tsh TSH (83988) [facility]; [facility] Work Phone: Start: 09-03-2020 Blood count complete auto&auto difrntl wbc CBC, Platelets & Auto Diff (40171) [facility]; [facility] Work Phone: Start: 09-03-2020 Comprehensive metabo lic panel Metabolic Panel, Comprehensive (68202) [facility]; [facility] Work Phone: Start: 09-03-2020 Lipid panel LIPID PANEL (45249) [facility] Work Phone: Start: 09-03-2020 Assay of thyroid stimulating hormone tsh [facility]; [facility] Work Phone: Start: 09-03-2020 Blood count complete auto&auto difrntl wbc [facility]; [facility] Work Phone: Start: 09-03-2020 Comprehensive metabo lic panel METABOLIC PANEL, COMPREHENSIVE (65348) [facility]; [facility] Work Phone: Start: 09-03-2020 Lipid panel LIPID PANEL (79522) [facility]; [facility] Work Phone: Start: 08-24-2020 Procedure Education Eprescribe d prescriptions (G8553) [facility]; [facility] Work Phone: Start: 08-24-2020 Provider Instruction s for Treatment Follow up Week of September 07 with [facility] desk clerk to schedule [facility]; [facility] Work Phone: Start: 05-05-2020 Procedure Education Eprescribe d prescriptions (G8553) [facility]; [facility] Work Phone: Start: 05-05-2020 Provider Instruction s for Treatment COVID SCREENING FORM [facility]; [facility] Work Phone: Start: 05-25-2018 Procedure Education Eprescribe d prescriptions (G8553) [facility] Work Phone: Start: 06-13-2016 Procedure Education Eprescribe d prescriptions (G8553) [facility] Work Phone: Start: 01-14-2013 Lipid panel LIPID PANEL (87851) [facility] Work Phone: Start: 01-14-2013 Hepatic function panel HEPATIC FUNCTION PANEL (66071) [facility] Work Phone: Start: 08-01-2012 Blood count complete auto&auto difrntl wbc CBC, Platelets & Auto Diff (80184) [facility] Work Phone: Start: 08-01-2012 Comprehensive metabo lic panel Metabolic Panel, Comprehensive (60782) [facility] Work Phone: Start: 08-01-2012 Lipid panel Lipid Panel (19967) [facility] Work Phone: Start: 08-01-2012 Assay of prostate specific antigen total PSA (PROSTATE SPECIFIC ANTIGEN) (V76.44) [facility] Work Phone: Start: 08-01-2012 Protein mass conc PSA (PROSTAT E SPECIFIC ANTIGEN) (V76.44) [facility] Work Phone: Start: 08-01-2012 Provider Instruction s for Treatment [facility] Work Phone: Start: 08-07-2006 Assay of prostate specific antigen total PSA (PROSTATE SPECIFIC ANTIGEN) (12245) [facility] Work Phone: Start: 08-07-2006 Protein mass conc PSA (PROSTAT E SPECIFIC ANTIGEN) (33790) [facility] Work Phone: Start: 08-07-2006 Glucose mass conc Glucose (43087) [facility] Work Phone: Start: 08-07-2006 Glucose quantitative blood xcpt reagent strip Glucose (13741) [facility]; [facility] Work Phone: Start: 08-07-2006 Lipid panel Lipid Panel (63614) [facility] Work Phone: [facility] Work [facility]: [facility] Work Phone: [facility] Work Phone: [facility] Work Phone: [facility] Work Phone: [facility] Work Phone[facility] Work Phone: [facility] Work Phone: [facility] Work Phone: [facility] Work Phone: [facility] Work Phone: [facility]; [facility] Work Phone: Payers Date Payer Category Payer Self-pay [id number] 2024 Medicare [id number] 2024 Unknown [id number] 2021 Unknown [id number] 2017 Private Health Insurance [id number] 1955 Unknown [id number] Private Health Insurance [id number] Private Health Insurance [id number] Unknown Unknown [id number] Unknown [id number] Social History Date Type Detail Facility Alcohol Use [facility] Work Phone: Comment on above: Occasional alcohol u se some rum in the summer. 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 start at 12 yo, at the height of smoking pack a day Occasional alcohol u se some rum in the summer. not as much as use too can go weeks without. was mainly around camping. negative CAGE Start: 12-16-2019 End: 11-07-2022 Tobacco smoking consumption unknown [facility] Start: 12-16-2019 Spouse/ Signif icant Other [facility] Start: 1955 Sex Assigned At Male W [facility] Functional Status Date Assessment Result Facility 06-08-2021 LP-IR Score LP-IR Score 49 [facility]; [facility] Work Phone: Comment on above: INSULIN RESISTANCE M KELI <--Insulin Sensitive Insulin Resistant--> Percentile in Reference PopulationInsulin Resistance ScoreLP-IR Score Low 25th 50th 75th High <27 27 45 63 >63LP-IR Score is inaccurate if patient is non-fasting. .The LP-IR score is a laboratory developed index that has beenassociated with insulin resistance and diabetes risk and should beused as one component of a physician's clinical assessment. Test(s) 177283-MFA-N ; 155520-OII-P; 161624-Ytsjinyrudwfr; 844458-Jaggazhsxgb, Total; 909942-IMY-Y (Total); 805869-Tieuc LDL-P; 440588-IMY Size; 363179-YD-PN Scorewas developed and its performance characteristics determinedby [employer]. It has not been cleared or approved by the Foodand Drug Administration.PATIENT WAS FASTINGPERFORMED BY: BN [facility] [id number] [facility] [id number] BY: GERTRUDE [facility] [id number] [facility] [id number] Information: NURSE DRAW Clinical Notes Note Date & Type Note Facility Evaluation note No assessment information availa ble [facility] Work Phone: Evaluation note Diagnosis Onset Date Cervical strain acute Left-sided face pain acute [facility] Work Phone: Instructions* Name Dates Details How to Access Health Informa tion Online using Patient Portal and [employer] Indication:Current non-smoker Start:24-Aug-2020 Instruction Type:Patient Education Patient Instructions Indication:BMI 38.0-38.9,adult Start:24-Aug-2020 Instruction Type:Provider Instructions for Treatment Patient Instructions Indication:Current non-smoker Start:05-May-2020 Instruction Type:Provider Instructions for Treatment How to Access Health Informa tion Online using Patient Portal and [employer] Apps Indication:Current non-smoker Start:05-May-2020 Instruction Type:Patient Education How to access health informa tion online Indication:Physical exam without abnormal findings (Renamed from Encounter for routine adult health examination without abnormal findings) Start:25-May-2018 Instruction Type:Patient Education How to access health informa tion online - Detail Indication:Physical exam without abnormal findings (Renamed from Encounter for routine adult health examination without abnormal findings) Start:25-May-2018 Instruction Type:Patient Education Patient Instructions Indication:BMI 38.0-38.9,adult Start:25-May-2018 Instruction Type:Provider Instructions for Treatment How to access health informa tion online Indication:Encounter for examination for driving license Start:13-Jun-2016 Instruction Type:Patient Education How to access health informa tion online - Detail Indication:Encounter for examination for driving license Start:13-Jun-2016 Instruction Type:Patient Education Patient Instructions Indication:Encounter for examination for driving license Start:13-Jun-2016 Instruction Type:Provider Instructions for Treatment Patient Instructions Indication:Obesity Start:14-Jan-2013 Instruction Type:Provider Instructions for Treatment [facility]; [facility] Work Phone: Instructions* Name Dates Details How to Access Health Informa tion Online using Patient Portal and [employer] Apps Indication:Current non-smoker Start:24-Aug-2020 Instruction Type:Patient Education Patient Instructions Indication:BMI 38.0-38.9,adult Start:24-Aug-2020 Instruction Type:Provider Instructions for Treatment Patient Instructions Indication:Current non-smoker Start:05-May-2020 Instruction Type:Provider Instructions for Treatment How to Access Health Informa tion Online using Patient Portal and [employer] Apps Indication:Current non-smoker Start:05-May-2020 Instruction Type:Patient Education How to access health informa tion online Indication:Physical exam without abnormal findings (Renamed from Encounter for routine adult health examination without abnormal findings) Start:25-May-2018 Instruction Type:Patient Education How to access health informa tion online - Detail Indication:Physical exam without abnormal findings (Renamed from Encounter for routine adult health examination without abnormal findings) Start:25-May-2018 Instruction Type:Patient Education Patient Instructions Indication:BMI 38.0-38.9,adult Start:25-May-2018 Instruction Type:Provider Instructions for Treatment How to access health informa tion online Indication:Encounter for examination for driving license Start:13-Jun-2016 Instruction Type:Patient Education How to access health informa tion online - Detail Indication:Encounter for examination for driving license Start:13-Jun-2016 Instruction Type:Patient Education Patient Instructions Indication:Encounter for examination for driving license Start:13-Jun-2016 Instruction Type:Provider Instructions for Treatment Patient Instructions Indication:Obesity Start:14-Jan-2013 Instruction Type:Provider Instructions for Treatment [facility]; [facility] Work Phone: Instructions* Name Dates Details Patient Instructions Indication:Current non-smoker Start:07-Sep-2020 Instruction Type:Provider Instructions for Treatment How to Access Health Informa tion Online using Patient Portal and [employer] Apps Indication:Current non-smoker Start:07-Sep-2020 Instruction Type:Patient Education How to Access Health Informa tion Online using Patient Portal and [employer] Apps Indication:Current non-smoker Start:24-Aug-2020 Instruction Type:Patient Education Patient Instructions Indication:BMI 38.0-38.9,adult Start:24-Aug-2020 Instruction Type:Provider Instructions for Treatment Patient Instructions Indication:Current non-smoker Start:05-May-2020 Instruction Type:Provider Instructions for Treatment How to Access Health Informa tion Online using Patient Portal and [employer] Apps Indication:Current non-smoker Start:05-May-2020 Instruction Type:Patient Education How to access health informa tion online Indication:Physical exam without abnormal findings (Renamed from Encounter for routine adult health examination without abnormal findings) Start:25-May-2018 Instruction Type:Patient Education How to access health informa tion online - Detail Indication:Physical exam without abnormal findings (Renamed from Encounter for routine adult health examination without abnormal findings) Start:25-May-2018 Instruction Type:Patient Education Patient Instructions Indication:BMI 38.0-38.9,adult Start:25-May-2018 Instruction Type:Provider Instructions for Treatment How to access health informa tion online Indication:Encounter for examination for driving license Start:13-Jun-2016 Instruction Type:Patient Education How to access health informa tion online - Detail Indication:Encounter for examination for driving license Start:13-Jun-2016 Instruction Type:Patient Education Patient Instructions Indication:Encounter for examination for driving license Start:13-Jun-2016 Instruction Type:Provider Instructions for Treatment Patient Instructions Indication:Obesity Start:14-Jan-2013 Instruction Type:Provider Instructions for Treatment [facility] Work Phone: Instructions* Name Dates Details Patient Instructions Indication:Gastric reflux Start:07-Sep-2020 Instruction Type:Provider Instructions for Treatment How to Access Health Informa tion Online using Patient Portal and [employer] Apps Indication:Current non-smoker Start:07-Sep-2020 Instruction Type:Patient Education How to Access Health Informa tion Online using Patient Portal and [employer] Apps Indication:Current non-smoker Start:24-Aug-2020 Instruction Type:Patient Education Patient Instructions Indication:BMI 38.0-38.9,adult Start:24-Aug-2020 Instruction Type:Provider Instructions for Treatment Patient Instructions Indication:Current non-smoker Start:05-May-2020 Instruction Type:Provider Instructions for Treatment How to Access Health Informa tion Online using Patient Portal and [employer] Apps Indication:Current non-smoker Start:05-May-2020 Instruction Type:Patient Education How to access health informa tion online Indication:Physical exam without abnormal findings (Renamed from Encounter for routine adult health examination without abnormal findings) Start:25-May-2018 Instruction Type:Patient Education How to access health informa tion online - Detail Indication:Physical exam without abnormal findings (Renamed from Encounter for routine adult health examination without abnormal findings) Start:25-May-2018 Instruction Type:Patient Education Patient Instructions Indication:BMI 38.0-38.9,adult Start:25-May-2018 Instruction Type:Provider Instructions for Treatment How to access health informa tion online Indication:Encounter for examination for driving license Start:13-Jun-2016 Instruction Type:Patient Education How to access health informa tion online - Detail Indication:Encounter for examination for driving license Start:13-Jun-2016 Instruction Type:Patient Education Patient Instructions Indication:Encounter for examination for driving license Start:13-Jun-2016 Instruction Type:Provider Instructions for Treatment Patient Instructions Indication:Obesity Start:14-Jan-2013 Instruction Type:Provider Instructions for Treatment [facility]; [facility] Work Phone: Instructions* Name Dates Details Patient Instructions Indication:Gastric reflux Start:07-Sep-2020 Instruction Type:Provider Instructions for Treatment How to Access Health Informa tion Online using Patient Portal and [employer] Indication:Current non-smoker Start:07-Sep-2020 Instruction Type:Patient Education How to Access Health Informa tion Online using Patient Portal and [employer] Apps Indication:Current non-smoker Start:24-Aug-2020 Instruction Type:Patient Education Patient Instructions Indication:BMI 38.0-38.9,adult Start:24-Aug-2020 Instruction Type:Provider Instructions for Treatment Patient Instructions Indication:Current non-smoker Start:05-May-2020 Instruction Type:Provider Instructions for Treatment How to Access Health Informa tion Online using Patient Portal and [employer] Indication:Current non-smoker Start:05-May-2020 Instruction Type:Patient Education How to access health informa tion online Indication:Physical exam without abnormal findings (Renamed from Encounter for routine adult health examination without abnormal findings) Start:25-May-2018 Instruction Type:Patient Education How to access health informa tion online - Detail Indication:Physical exam without abnormal findings (Renamed from Encounter for routine adult health examination without abnormal findings) Start:25-May-2018 Instruction Type:Patient Education Patient Instructions Indication:BMI 38.0-38.9,adult Start:25-May-2018 Instruction Type:Provider Instructions for Treatment How to access health informa tion online Indication:Encounter for examination for driving license Start:13-Jun-2016 Instruction Type:Patient Education How to access health informa tion online - Detail Indication:Encounter for examination for driving license Start:13-Jun-2016 Instruction Type:Patient Education Patient Instructions Indication:Encounter for examination for driving license Start:13-Jun-2016 Instruction Type:Provider Instructions for Treatment Patient Instructions Indication:Obesity Start:14-Jan-2013 Instruction Type:Provider Instructions for Treatment [facility]; [facility] Work Phone: Instructions* Name Dates Details Patient Instructions Indication:Gastric reflux Start:07-Sep-2020 Instruction Type:Provider Instructions for Treatment How to Access Health Informa tion Online using Patient Portal and [employer] Indication:Current non-smoker Start:07-Sep-2020 Instruction Type:Patient Education How to Access Health Informa tion Online using Patient Portal and [employer] Apps Indication:Current non-smoker Start:24-Aug-2020 Instruction Type:Patient Education Patient Instructions Indication:BMI 38.0-38.9,adult Start:24-Aug-2020 Instruction Type:Provider Instructions for Treatment Patient Instructions Indication:Current non-smoker Start:05-May-2020 Instruction Type:Provider Instructions for Treatment How to Access Health Informa tion Online using Patient Portal and [employer] Apps Indication:Current non-smoker Start:05-May-2020 Instruction Type:Patient Education How to access health informa tion online Indication:Physical exam without abnormal findings (Renamed from Encounter for routine adult health examination without abnormal findings) Start:25-May-2018 Instruction Type:Patient Education How to access health informa tion online - Detail Indication:Physical exam without abnormal findings (Renamed from Encounter for routine adult health examination without abnormal findings) Start:25-May-2018 Instruction Type:Patient Education Patient Instructions Indication:BMI 38.0-38.9,adult Start:25-May-2018 Instruction Type:Provider Instructions for Treatment How to access health informa tion online Indication:Encounter for examination for driving license Start:13-Jun-2016 Instruction Type:Patient Education How to access health informa tion online - Detail Indication:Encounter for examination for driving license Start:13-Jun-2016 Instruction Type:Patient Education Patient Instructions Indication:Encounter for examination for driving license Start:13-Jun-2016 Instruction Type:Provider Instructions for Treatment Patient Instructions Indication:Obesity Start:14-Jan-2013 Instruction Type:Provider Instructions for Treatment [facility]; [facility] Work Phone: instructions* Name Dates Details Patient Instructions Indication:Gastric reflux Start:07-Sep-2020 Instruction Type:Provider Instructions for Treatment How to Access Health Informa tion Online using Patient Portal and [employer] Apps Indication:Current non-smoker Start:07-Sep-2020 Instruction Type:Patient Education How to Access Health Informa tion Online using Patient Portal and [employer] Apps Indication:Current non-smoker Start:24-Aug-2020 Instruction Type:Patient Education Patient Instructions Indication:BMI 38.0-38.9,adult Start:24-Aug-2020 Instruction Type:Provider Instructions for Treatment Patient Instructions Indication:Current non-smoker Start:05-May-2020 Instruction Type:Provider Instructions for Treatment How to Access Health Informa tion Online using Patient Portal and [employer] Apps Indication:Current non-smoker Start:05-May-2020 Instruction Type:Patient Education How to access health informa tion online Indication:Physical exam without abnormal findings (Renamed from Encounter for routine adult health examination without abnormal findings) Start:25-May-2018 Instruction Type:Patient Education How to access health informa tion online - Detail Indication:Physical exam without abnormal findings (Renamed from Encounter for routine adult health examination without abnormal findings) Start:25-May-2018 Instruction Type:Patient Education Patient Instructions Indication:BMI 38.0-38.9,adult Start:25-May-2018 Instruction Type:Provider Instructions for Treatment How to access health informa tion online Indication:Encounter for examination for driving license Start:13-Jun-2016 Instruction Type:Patient Education How to access health informa tion online - Detail Indication:Encounter for examination for driving license Start:13-Jun-2016 Instruction Type:Patient Education Patient Instructions Indication:Encounter for examination for driving license Start:13-Jun-2016 Instruction Type:Provider Instructions for Treatment Patient Instructions Indication:Obesity Start:14-Jan-2013 Instruction Type:Provider Instructions for Treatment [facility]; [facility] Work Phone: Instructions* Name Dates Details Patient Instructions Indication:Gastric reflux Start:07-Sep-2020 Instruction Type:Provider Instructions for Treatment How to Access Health Informa tion Online using Patient Portal and [employer] Apps Indication:Current non-smoker Start:07-Sep-2020 Instruction Type:Patient Education How to Access Health Informa tion Online using Patient Portal and [employer] Apps Indication:Current non-smoker Start:24-Aug-2020 Instruction Type:Patient Education Patient Instructions Indication:BMI 38.0-38.9,adult Start:24-Aug-2020 Instruction Type:Provider Instructions for Treatment Patient Instructions Indication:Current non-smoker Start:05-May-2020 Instruction Type:Provider Instructions for Treatment How to Access Health Informa tion Online using Patient Portal and [employer] Apps Indication:Current non-smoker Start:05-May-2020 Instruction Type:Patient Education How to access health informa tion online Indication:Physical exam without abnormal findings (Renamed from Encounter for routine adult health examination without abnormal findings) Start:25-May-2018 Instruction Type:Patient Education How to access health informa tion online - Detail Indication:Physical exam without abnormal findings (Renamed from Encounter for routine adult health examination without abnormal findings) Start:25-May-2018 Instruction Type:Patient Education Patient Instructions Indication:BMI 38.0-38.9,adult Start:25-May-2018 Instruction Type:Provider Instructions for Treatment How to access health informa tion online Indication:Encounter for examination for driving license Start:13-Jun-2016 Instruction Type:Patient Education How to access health informa tion online - Detail Indication:Encounter for examination for driving license Start:13-Jun-2016 Instruction Type:Patient Education Patient Instructions Indication:Encounter for examination for driving license Start:13-Jun-2016 Instruction Type:Provider Instructions for Treatment Patient Instructions Indication:Obesity Start:14-Jan-2013 Instruction Type:Provider Instructions for Treatment [facility]; [facility] Work Phone: Instructions* Name Dates Details Patient Instructions Indication:Gastric reflux Start:07-Sep-2020 Instruction Type:Provider Instructions for Treatment How to Access Health Informa tion Online using Patient Portal and [employer] Apps Indication:Current non-smoker Start:07-Sep-2020 Instruction Type:Patient Education How to Access Health Informa tion Online using Patient Portal and [employer] Apps Indication:Current non-smoker Start:24-Aug-2020 Instruction Type:Patient Education Patient Instructions Indication:BMI 38.0-38.9,adult Start:24-Aug-2020 Instruction Type:Provider Instructions for Treatment Patient Instructions Indication:Current non-smoker Start:05-May-2020 Instruction Type:Provider Instructions for Treatment How to Access Health Informa tion Online using Patient Portal and [employer] Apps Indication:Current non-smoker Start:05-May-2020 Instruction Type:Patient Education How to access health informa tion online Indication:Physical exam without abnormal findings (Renamed from Encounter for routine adult health examination without abnormal findings) Start:25-May-2018 Instruction Type:Patient Education How to access health informa tion online - Detail Indication:Physical exam without abnormal findings (Renamed from Encounter for routine adult health examination without abnormal findings) Start:25-May-2018 Instruction Type:Patient Education Patient Instructions Indication:BMI 38.0-38.9,adult Start:25-May-2018 Instruction Type:Provider Instructions for Treatment How to access health informa tion online Indication:Encounter for examination for driving license Start:13-Jun-2016 Instruction Type:Patient Education How to access health informa tion online - Detail Indication:Encounter for examination for driving license Start:13-Jun-2016 Instruction Type:Patient Education Patient Instructions Indication:Encounter for examination for driving license Start:13-Jun-2016 Instruction Type:Provider Instructions for Treatment Patient Instructions Indication:Obesity Start:14-Jan-2013 Instruction Type:Provider Instructions for Treatment [facility]; [facility] Work Phone: Instructions* Name Dates Details Patient Instructions Indication:Gastric reflux Start:07-Sep-2020 Instruction Type:Provider Instructions for Treatment How to Access Health Informa tion Online using Patient Portal and [employer] Apps Indication:Current non-smoker Start:07-Sep-2020 Instruction Type:Patient Education How to Access Health Informa tion Online using Patient Portal and [employer] Apps Indication:Current non-smoker Start:24-Aug-2020 Instruction Type:Patient Education Patient Instructions Indication:BMI 38.0-38.9,adult Start:24-Aug-2020 Instruction Type:Provider Instructions for Treatment Patient Instructions Indication:Current non-smoker Start:05-May-2020 Instruction Type:Provider Instructions for Treatment How to Access Health Informa tion Online using Patient Portal and [employer] Indication:Current non-smoker Start:05-May-2020 Instruction Type:Patient Education How to access health informa tion online Indication:Physical exam without abnormal findings (Renamed from Encounter for routine adult health examination without abnormal findings) Start:25-May-2018 Instruction Type:Patient Education How to access health informa tion online - Detail Indication:Physical exam without abnormal findings (Renamed from Encounter for routine adult health examination without abnormal findings) Start:25-May-2018 Instruction Type:Patient Education Patient Instructions Indication:BMI 38.0-38.9,adult Start:25-May-2018 Instruction Type:Provider Instructions for Treatment How to access health informa tion online Indication:Encounter for examination for driving license Start:13-Jun-2016 Instruction Type:Patient Education How to access health informa tion online - Detail Indication:Encounter for examination for driving license Start:13-Jun-2016 Instruction Type:Patient Education Patient Instructions Indication:Encounter for examination for driving license Start:13-Jun-2016 Instruction Type:Provider Instructions for Treatment Patient Instructions Indication:Obesity Start:14-Jan-2013 Instruction Type:Provider Instructions for Treatment [facility]; [facility] Work Phone: Instructions* Name Dates Details Patient Instructions Indication:Gastric reflux Start:07-Sep-2020 Instruction Type:Provider Instructions for Treatment How to Access Health Informa tion Online using Patient Portal and [employer] Apps Indication:Current non-smoker Start:07-Sep-2020 Instruction Type:Patient Education How to Access Health Informa tion Online using Patient Portal and [employer] Apps Indication:Current non-smoker Start:24-Aug-2020 Instruction Type:Patient Education Patient Instructions Indication:BMI 38.0-38.9,adult Start:24-Aug-2020 Instruction Type:Provider Instructions for Treatment Patient Instructions Indication:Current non-smoker Start:05-May-2020 Instruction Type:Provider Instructions for Treatment How to Access Health Informa tion Online using Patient Portal and [employer] Apps Indication:Current non-smoker Start:05-May-2020 Instruction Type:Patient Education How to access health informa tion online Indication:Physical exam without abnormal findings (Renamed from Encounter for routine adult health examination without abnormal findings) Start:25-May-2018 Instruction Type:Patient Education How to access health informa tion online - Detail Indication:Physical exam without abnormal findings (Renamed from Encounter for routine adult health examination without abnormal findings) Start:25-May-2018 Instruction Type:Patient Education Patient Instructions Indication:BMI 38.0-38.9,adult Start:25-May-2018 Instruction Type:Provider Instructions for Treatment How to access health informa tion online Indication:Encounter for examination for driving license Start:13-Jun-2016 Instruction Type:Patient Education How to access health informa tion online - Detail Indication:Encounter for examination for driving license Start:13-Jun-2016 Instruction Type:Patient Education Patient Instructions Indication:Encounter for examination for driving license Start:13-Jun-2016 Instruction Type:Provider Instructions for Treatment Patient Instructions Indication:Obesity Start:14-Jan-2013 Instruction Type:Provider Instructions for Treatment [facility]; [facility] Work Phone: Instructions* Name Dates Details Patient Instructions Indication:Gastric reflux Start:07-Sep-2020 Instruction Type:Provider Instructions for Treatment How to Access Health Informa tion Online using Patient Portal and [employer] Indication:Current non-smoker Start:07-Sep-2020 Instruction Type:Patient Education How to Access Health Informa tion Online using Patient Portal and [employer] Indication:Current non-smoker Start:24-Aug-2020 Instruction Type:Patient Education Patient Instructions Indication:BMI 38.0-38.9,adult Start:24-Aug-2020 Instruction Type:Provider Instructions for Treatment Patient Instructions Indication:Current non-smoker Start:05-May-2020 Instruction Type:Provider Instructions for Treatment How to Access Health Informa tion Online using Patient Portal and [employer] Indication:Current non-smoker Start:05-May-2020 Instruction Type:Patient Education How to access health informa tion online Indication:Physical exam without abnormal findings (Renamed from Encounter for routine adult health examination without abnormal findings) Start:25-May-2018 Instruction Type:Patient Education How to access health informa tion online - Detail Indication:Physical exam without abnormal findings (Renamed from Encounter for routine adult health examination without abnormal findings) Start:25-May-2018 Instruction Type:Patient Education Patient Instructions Indication:BMI 38.0-38.9,adult Start:25-May-2018 Instruction Type:Provider Instructions for Treatment How to access health informa tion online Indication:Encounter for examination for driving license Start:13-Jun-2016 Instruction Type:Patient Education How to access health informa tion online - Detail Indication:Encounter for examination for driving license Start:13-Jun-2016 Instruction Type:Patient Education Patient Instructions Indication:Encounter for examination for driving license Start:13-Jun-2016 Instruction Type:Provider Instructions for Treatment Patient Instructions Indication:Obesity Start:14-Jan-2013 Instruction Type:Provider Instructions for Treatment [facility]; [facility] Work Phone: Instructions* Name Dates Details Patient Instructions Indication:Gastric reflux Start:07-Sep-2020 Instruction Type:Provider Instructions for Treatment How to Access Health Informa tion Online using Patient Portal and [employer] Indication:Current non-smoker Start:07-Sep-2020 Instruction Type:Patient Education How to Access Health Informa tion Online using Patient Portal and [employer] Apps Indication:Current non-smoker Start:24-Aug-2020 Instruction Type:Patient Education Patient Instructions Indication:BMI 38.0-38.9,adult Start:24-Aug-2020 Instruction Type:Provider Instructions for Treatment Patient Instructions Indication:Current non-smoker Start:05-May-2020 Instruction Type:Provider Instructions for Treatment How to Access Health Informa tion Online using Patient Portal and [employer] Apps Indication:Current non-smoker Start:05-May-2020 Instruction Type:Patient Education How to access health informa tion online Indication:Physical exam without abnormal findings (Renamed from Encounter for routine adult health examination without abnormal findings) Start:25-May-2018 Instruction Type:Patient Education How to access health informa tion online - Detail Indication:Physical exam without abnormal findings (Renamed from Encounter for routine adult health examination without abnormal findings) Start:25-May-2018 Instruction Type:Patient Education Patient Instructions Indication:BMI 38.0-38.9,adult Start:25-May-2018 Instruction Type:Provider Instructions for Treatment How to access health informa tion online Indication:Encounter for examination for driving license Start:13-Jun-2016 Instruction Type:Patient Education How to access health informa tion online - Detail Indication:Encounter for examination for driving license Start:13-Jun-2016 Instruction Type:Patient Education Patient Instructions Indication:Encounter for examination for driving license Start:13-Jun-2016 Instruction Type:Provider Instructions for Treatment Patient Instructions Indication:Obesity Start:14-Jan-2013 Instruction Type:Provider Instructions for Treatment [facility]; [facility] Work Phone: Instructions* Name Dates Details Patient Instructions Indication:Gastric reflux Start:07-Sep-2020 Instruction Type:Provider Instructions for Treatment How to Access Health Informa tion Online using Patient Portal and [employer] Indication:Current non-smoker Start:07-Sep-2020 Instruction Type:Patient Education How to Access Health Informa tion Online using Patient Portal and [employer] Apps Indication:Current non-smoker Start:24-Aug-2020 Instruction Type:Patient Education Patient Instructions Indication:BMI 38.0-38.9,adult Start:24-Aug-2020 Instruction Type:Provider Instructions for Treatment Patient Instructions Indication:Current non-smoker Start:05-May-2020 Instruction Type:Provider Instructions for Treatment How to Access Health Informa tion Online using Patient Portal and [employer] Apps Indication:Current non-smoker Start:05-May-2020 Instruction Type:Patient Education How to access health informa tion online Indication:Physical exam without abnormal findings (Renamed from Encounter for routine adult health examination without abnormal findings) Start:25-May-2018 Instruction Type:Patient Education How to access health informa tion online - Detail Indication:Physical exam without abnormal findings (Renamed from Encounter for routine adult health examination without abnormal findings) Start:25-May-2018 Instruction Type:Patient Education Patient Instructions Indication:BMI 38.0-38.9,adult Start:25-May-2018 Instruction Type:Provider Instructions for Treatment How to access health informa tion online Indication:Encounter for examination for driving license Start:13-Jun-2016 Instruction Type:Patient Education How to access health informa tion online - Detail Indication:Encounter for examination for driving license Start:13-Jun-2016 Instruction Type:Patient Education Patient Instructions Indication:Encounter for examination for driving license Start:13-Jun-2016 Instruction Type:Provider Instructions for Treatment Patient Instructions Indication:Obesity Start:14-Jan-2013 Instruction Type:Provider Instructions for Treatment [facility] Work Phone: instructions* Name Dates Details Patient Instructions Indication:Encounter for well adult exam with abnormal findings (Renamed from Encounter for general adult medical examination with abnormal findings) Start:29-Jun-2021 Instruction Type:Provider Instructions for Treatment How to Access Health Informa tion Online using Patient Portal and [employer] Apps Indication:Encounter for well adult exam with abnormal findings (Renamed from Encounter for general adult medical examination with abnormal findings) Start:29-Jun-2021 Instruction Type:Patient Education Patient Instructions Indication:Gastric reflux Start:07-Sep-2020 Instruction Type:Provider Instructions for Treatment How to Access Health Informa tion Online using Patient Portal and [employer] Apps Indication:Current non-smoker Start:07-Sep-2020 Instruction Type:Patient Education How to Access Health Informa tion Online using Patient Portal and [employer] Apps Indication:Current non-smoker Start:24-Aug-2020 Instruction Type:Patient Education Patient Instructions Indication:BMI 38.0-38.9,adult Start:24-Aug-2020 Instruction Type:Provider Instructions for Treatment Patient Instructions Indication:Current non-smoker Start:05-May-2020 Instruction Type:Provider Instructions for Treatment How to Access Health Informa tion Online using Patient Portal and [employer] Apps Indication:Current non-smoker Start:05-May-2020 Instruction Type:Patient Education How to access health informa tion online Indication:Physical exam without abnormal findings (Renamed from Encounter for routine adult health examination without abnormal findings) Start:25-May-2018 Instruction Type:Patient Education How to access health informa tion online - Detail Indication:Physical exam without abnormal findings (Renamed from Encounter for routine adult health examination without abnormal findings) Start:25-May-2018 Instruction Type:Patient Education Patient Instructions Indication:BMI 38.0-38.9,adult Start:25-May-2018 Instruction Type:Provider Instructions for Treatment How to access health informa tion online Indication:Encounter for examination for driving license Start:13-Jun-2016 Instruction Type:Patient Education How to access health informa tion online - Detail Indication:Encounter for examination for driving license Start:13-Jun-2016 Instruction Type:Patient Education Patient Instructions Indication:Encounter for examination for driving license Start:13-Jun-2016 Instruction Type:Provider Instructions for Treatment Patient Instructions Indication:Obesity Start:14-Jan-2013 Instruction Type:Provider Instructions for Treatment [facility] Work Phone: Instructions* Name Dates Details Patient Instructions Indication:Encounter for well adult exam with abnormal findings (Renamed from Encounter for general adult medical examination with abnormal findings) Start:29-Jun-2021 Instruction Type:Provider Instructions for Treatment How to Access Health Informa tion Online using Patient Portal and [employer] Apps Indication:Encounter for well adult exam with abnormal findings (Renamed from Encounter for general adult medical examination with abnormal findings) Start:29-Jun-2021 Instruction Type:Patient Education Patient Instructions Indication:Gastric reflux Start:07-Sep-2020 Instruction Type:Provider Instructions for Treatment How to Access Health Informa tion Online using Patient Portal and [employer] Apps Indication:Current non-smoker Start:07-Sep-2020 Instruction Type:Patient Education How to Access Health Informa tion Online using Patient Portal and [employer] Apps Indication:Current non-smoker Start:24-Aug-2020 Instruction Type:Patient Education Patient Instructions Indication:BMI 38.0-38.9,adult Start:24-Aug-2020 Instruction Type:Provider Instructions for Treatment Patient Instructions Indication:Current non-smoker Start:05-May-2020 Instruction Type:Provider Instructions for Treatment How to Access Health Informa tion Online using Patient Portal and [employer] Apps Indication:Current non-smoker Start:05-May-2020 Instruction Type:Patient Education How to access health informa tion online Indication:Physical exam without abnormal findings (Renamed from Encounter for routine adult health examination without abnormal findings) Start:25-May-2018 Instruction Type:Patient Education How to access health informa tion online - Detail Indication:Physical exam without abnormal findings (Renamed from Encounter for routine adult health examination without abnormal findings) Start:25-May-2018 Instruction Type:Patient Education Patient Instructions Indication:BMI 38.0-38.9,adult Start:25-May-2018 Instruction Type:Provider Instructions for Treatment How to access health informa tion online Indication:Encounter for examination for driving license Start:13-Jun-2016 Instruction Type:Patient Education How to access health informa tion online - Detail Indication:Encounter for examination for driving license Start:13-Jun-2016 Instruction Type:Patient Education Patient Instructions Indication:Encounter for examination for driving license Start:13-Jun-2016 Instruction Type:Provider Instructions for Treatment Patient Instructions Indication:Obesity Start:14-Jan-2013 Instruction Type:Provider Instructions for Treatment [facility] Work Phone: Instructions* Name Dates Details Patient Instructions Indication:BMI 37.0-37.9, adult Start:06-Sep-2021 Instruction Type:Provider Instructions for Treatment How to Access Health Informa tion Online using Patient Portal and [employer] Apps Indication:BMI 37.0-37.9, adult Start:06-Sep-2021 Instruction Type:Patient Education Patient Instructions Indication:Encounter for well adult exam with abnormal findings (Renamed from Encounter for general adult medical examination with abnormal findings) Start:29-Jun-2021 Instruction Type:Provider Instructions for Treatment How to Access Health Informa tion Online using Patient Portal and [employer] Apps Indication:Encounter for well adult exam with abnormal findings (Renamed from Encounter for general adult medical examination with abnormal findings) Start:29-Jun-2021 Instruction Type:Patient Education Patient Instructions Indication:Gastric reflux Start:07-Sep-2020 Instruction Type:Provider Instructions for Treatment How to Access Health Informa tion Online using Patient Portal and [employer] Apps Indication:Current non-smoker Start:07-Sep-2020 Instruction Type:Patient Education How to Access Health Informa tion Online using Patient Portal and [employer] Apps Indication:Current non-smoker Start:24-Aug-2020 Instruction Type:Patient Education Patient Instructions Indication:BMI 38.0-38.9,adult Start:24-Aug-2020 Instruction Type:Provider Instructions for Treatment Patient Instructions Indication:Current non-smoker Start:05-May-2020 Instruction Type:Provider Instructions for Treatment How to Access Health Informa tion Online using Patient Portal and [employer] Apps Indication:Current non-smoker Start:05-May-2020 Instruction Type:Patient Education How to access health informa tion online Indication:Physical exam without abnormal findings (Renamed from Encounter for routine adult health examination without abnormal findings) Start:25-May-2018 Instruction Type:Patient Education How to access health informa tion online - Detail Indication:Physical exam without abnormal findings (Renamed from Encounter for routine adult health examination without abnormal findings) Start:25-May-2018 Instruction Type:Patient Education Patient Instructions Indication:BMI 38.0-38.9,adult Start:25-May-2018 Instruction Type:Provider Instructions for Treatment How to access health informa tion online Indication:Encounter for examination for driving license Start:13-Jun-2016 Instruction Type:Patient Education How to access health informa tion online - Detail Indication:Encounter for examination for driving license Start:13-Jun-2016 Instruction Type:Patient Education Patient Instructions Indication:Encounter for examination for driving license Start:13-Jun-2016 Instruction Type:Provider Instructions for Treatment Patient Instructions Indication:Obesity Start:14-Jan-2013 Instruction Type:Provider Instructions for Treatment [facility] Work Phone: Instructions* Name Dates Details Patient Instructions Indication:BMI 37.0-37.9, adult Start:06-Sep-2021 Instruction Type:Provider Instructions for Treatment How to Access Health Informa tion Online using Patient Portal and [employer] Apps Indication:BMI 37.0-37.9, adult Start:06-Sep-2021 Instruction Type:Patient Education Patient Instructions Indication:Encounter for well adult exam with abnormal findings (Renamed from Encounter for general adult medical examination with abnormal findings) Start:29-Jun-2021 Instruction Type:Provider Instructions for Treatment How to Access Health Informa tion Online using Patient Portal and [employer] Apps Indication:Encounter for well adult exam with abnormal findings (Renamed from Encounter for general adult medical examination with abnormal findings) Start:29-Jun-2021 Instruction Type:Patient Education Patient Instructions Indication:Gastric reflux Start:07-Sep-2020 Instruction Type:Provider Instructions for Treatment How to Access Health Informa tion Online using Patient Portal and [employer] Apps Indication:Current non-smoker Start:07-Sep-2020 Instruction Type:Patient Education How to Access Health Informa tion Online using Patient Portal and [employer] Apps Indication:Current non-smoker Start:24-Aug-2020 Instruction Type:Patient Education Patient Instructions Indication:BMI 38.0-38.9,adult Start:24-Aug-2020 Instruction Type:Provider Instructions for Treatment Patient Instructions Indication:Current non-smoker Start:05-May-2020 Instruction Type:Provider Instructions for Treatment How to Access Health Informa tion Online using Patient Portal and [employer] Apps Indication:Current non-smoker Start:05-May-2020 Instruction Type:Patient Education How to access health informa tion online Indication:Physical exam without abnormal findings (Renamed from Encounter for routine adult health examination without abnormal findings) Start:25-May-2018 Instruction Type:Patient Education How to access health informa tion online - Detail Indication:Physical exam without abnormal findings (Renamed from Encounter for routine adult health examination without abnormal findings) Start:25-May-2018 Instruction Type:Patient Education Patient Instructions Indication:BMI 38.0-38.9,adult Start:25-May-2018 Instruction Type:Provider Instructions for Treatment How to access health informa tion online Indication:Encounter for examination for driving license Start:13-Jun-2016 Instruction Type:Patient Education How to access health informa tion online - Detail Indication:Encounter for examination for driving license Start:13-Jun-2016 Instruction Type:Patient Education Patient Instructions Indication:Encounter for examination for driving license Start:13-Jun-2016 Instruction Type:Provider Instructions for Treatment Patient Instructions Indication:Obesity Start:14-Jan-2013 Instruction Type:Provider Instructions for Treatment [facility] Work Phone: Instructions* Name Dates Details Patient Instructions Indication:BMI 37.0-37.9, adult Start:06-Sep-2021 Instruction Type:Provider Instructions for Treatment How to Access Health Informa tion Online using Patient Portal and [employer] Apps Indication:BMI 37.0-37.9, adult Start:06-Sep-2021 Instruction Type:Patient Education Patient Instructions Indication:Encounter for well adult exam with abnormal findings (Renamed from Encounter for general adult medical examination with abnormal findings) Start:29-Jun-2021 Instruction Type:Provider Instructions for Treatment How to Access Health Informa tion Online using Patient Portal and [employer] Indication:Encounter for well adult exam with abnormal findings (Renamed from Encounter for general adult medical examination with abnormal findings) Start:29-Jun-2021 Instruction Type:Patient Education Patient Instructions Indication:Gastric reflux Start:07-Sep-2020 Instruction Type:Provider Instructions for Treatment How to Access Health Informa tion Online using Patient Portal and [employer] Apps Indication:Current non-smoker Start:07-Sep-2020 Instruction Type:Patient Education How to Access Health Informa tion Online using Patient Portal and [employer] Apps Indication:Current non-smoker Start:24-Aug-2020 Instruction Type:Patient Education Patient Instructions Indication:BMI 38.0-38.9,adult Start:24-Aug-2020 Instruction Type:Provider Instructions for Treatment Patient Instructions Indication:Current non-smoker Start:05-May-2020 Instruction Type:Provider Instructions for Treatment How to Access Health Informa tion Online using Patient Portal and [employer] Apps Indication:Current non-smoker Start:05-May-2020 Instruction Type:Patient Education How to access health informa tion online Indication:Physical exam without abnormal findings (Renamed from Encounter for routine adult health examination without abnormal findings) Start:25-May-2018 Instruction Type:Patient Education How to access health informa tion online - Detail Indication:Physical exam without abnormal findings (Renamed from Encounter for routine adult health examination without abnormal findings) Start:25-May-2018 Instruction Type:Patient Education Patient Instructions Indication:BMI 38.0-38.9,adult Start:25-May-2018 Instruction Type:Provider Instructions for Treatment How to access health informa tion online Indication:Encounter for examination for driving license Start:13-Jun-2016 Instruction Type:Patient Education How to access health informa tion online - Detail Indication:Encounter for examination for driving license Start:13-Jun-2016 Instruction Type:Patient Education Patient Instructions Indication:Encounter for examination for driving license Start:13-Jun-2016 Instruction Type:Provider Instructions for Treatment Patient Instructions Indication:Obesity Start:14-Jan-2013 Instruction Type:Provider Instructions for Treatment [facility] Work Phone: Instructions* Name Dates Details Patient Instructions Indication:BMI 37.0-37.9, adult Start:06-Sep-2021 Instruction Type:Provider Instructions for Treatment How to Access Health Informa tion Online using Patient Portal and [employer] Apps Indication:BMI 37.0-37.9, adult Start:06-Sep-2021 Instruction Type:Patient Education Patient Instructions Indication:Encounter for well adult exam with abnormal findings (Renamed from Encounter for general adult medical examination with abnormal findings) Start:29-Jun-2021 Instruction Type:Provider Instructions for Treatment How to Access Health Informa tion Online using Patient Portal and [employer] Apps Indication:Encounter for well adult exam with abnormal findings (Renamed from Encounter for general adult medical examination with abnormal findings) Start:29-Jun-2021 Instruction Type:Patient Education Patient Instructions Indication:Gastric reflux Start:07-Sep-2020 Instruction Type:Provider Instructions for Treatment How to Access Health Informa tion Online using Patient Portal and [employer] Apps Indication:Current non-smoker Start:07-Sep-2020 Instruction Type:Patient Education How to Access Health Informa tion Online using Patient Portal and [employer] Apps Indication:Current non-smoker Start:24-Aug-2020 Instruction Type:Patient Education Patient Instructions Indication:BMI 38.0-38.9,adult Start:24-Aug-2020 Instruction Type:Provider Instructions for Treatment Patient Instructions Indication:Current non-smoker Start:05-May-2020 Instruction Type:Provider Instructions for Treatment How to Access Health Informa tion Online using Patient Portal and [employer] Apps Indication:Current non-smoker Start:05-May-2020 Instruction Type:Patient Education How to access health informa tion online Indication:Physical exam without abnormal findings (Renamed from Encounter for routine adult health examination without abnormal findings) Start:25-May-2018 Instruction Type:Patient Education How to access health informa tion online - Detail Indication:Physical exam without abnormal findings (Renamed from Encounter for routine adult health examination without abnormal findings) Start:25-May-2018 Instruction Type:Patient Education Patient Instructions Indication:BMI 38.0-38.9,adult Start:25-May-2018 Instruction Type:Provider Instructions for Treatment How to access health informa tion online Indication:Encounter for examination for driving license Start:13-Jun-2016 Instruction Type:Patient Education How to access health informa tion online - Detail Indication:Encounter for examination for driving license Start:13-Jun-2016 Instruction Type:Patient Education Patient Instructions Indication:Encounter for examination for driving license Start:13-Jun-2016 Instruction Type:Provider Instructions for Treatment Patient Instructions Indication:Obesity Start:14-Jan-2013 Instruction Type:Provider Instructions for Treatment [facility] Work Phone: Instructions* Name Dates Details Patient Instructions Indication:BMI 37.0-37.9, adult Start:06-Sep-2021 Instruction Type:Provider Instructions for Treatment How to Access Health Informa tion Online using Patient Portal and [employer] Apps Indication:BMI 37.0-37.9, adult Start:06-Sep-2021 Instruction Type:Patient Education Patient Instructions Indication:Encounter for well adult exam with abnormal findings (Renamed from Encounter for general adult medical examination with abnormal findings) Start:29-Jun-2021 Instruction Type:Provider Instructions for Treatment How to Access Health Informa tion Online using Patient Portal and [employer] Apps Indication:Encounter for well adult exam with abnormal findings (Renamed from Encounter for general adult medical examination with abnormal findings) Start:29-Jun-2021 Instruction Type:Patient Education Patient Instructions Indication:Gastric reflux Start:07-Sep-2020 Instruction Type:Provider Instructions for Treatment How to Access Health Informa tion Online using Patient Portal and [employer] Apps Indication:Current non-smoker Start:07-Sep-2020 Instruction Type:Patient Education How to Access Health Informa tion Online using Patient Portal and [employer] Apps Indication:Current non-smoker Start:24-Aug-2020 Instruction Type:Patient Education Patient Instructions Indication:BMI 38.0-38.9,adult Start:24-Aug-2020 Instruction Type:Provider Instructions for Treatment Patient Instructions Indication:Current non-smoker Start:05-May-2020 Instruction Type:Provider Instructions for Treatment How to Access Health Informa tion Online using Patient Portal and [employer] Apps Indication:Current non-smoker Start:05-May-2020 Instruction Type:Patient Education How to access health informa tion online Indication:Physical exam without abnormal findings (Renamed from Encounter for routine adult health examination without abnormal findings) Start:25-May-2018 Instruction Type:Patient Education How to access health informa tion online - Detail Indication:Physical exam without abnormal findings (Renamed from Encounter for routine adult health examination without abnormal findings) Start:25-May-2018 Instruction Type:Patient Education Patient Instructions Indication:BMI 38.0-38.9,adult Start:25-May-2018 Instruction Type:Provider Instructions for Treatment How to access health informa tion online Indication:Encounter for examination for driving license Start:13-Jun-2016 Instruction Type:Patient Education How to access health informa tion online - Detail Indication:Encounter for examination for driving license Start:13-Jun-2016 Instruction Type:Patient Education Patient Instructions Indication:Encounter for examination for driving license Start:13-Jun-2016 Instruction Type:Provider Instructions for Treatment Patient Instructions Indication:Obesity Start:14-Jan-2013 Instruction Type:Provider Instructions for Treatment [facility]; [facility] Work Phone: Instructions* Name Dates Details Patient Instructions Indication:BMI 37.0-37.9, adult Start:06-Sep-2021 Instruction Type:Provider Instructions for Treatment How to Access Health Informa tion Online using Patient Portal and [employer] Apps Indication:BMI 37.0-37.9, adult Start:06-Sep-2021 Instruction Type:Patient Education Patient Instructions Indication:Encounter for well adult exam with abnormal findings (Renamed from Encounter for general adult medical examination with abnormal findings) Start:29-Jun-2021 Instruction Type:Provider Instructions for Treatment How to Access Health Informa tion Online using Patient Portal and [employer] Apps Indication:Encounter for well adult exam with abnormal findings (Renamed from Encounter for general adult medical examination with abnormal findings) Start:29-Jun-2021 Instruction Type:Patient Education Patient Instructions Indication:Gastric reflux Start:07-Sep-2020 Instruction Type:Provider Instructions for Treatment How to Access Health Informa tion Online using Patient Portal and [employer] Apps Indication:Current non-smoker Start:07-Sep-2020 Instruction Type:Patient Education How to Access Health Informa tion Online using Patient Portal and [employer] Apps Indication:Current non-smoker Start:24-Aug-2020 Instruction Type:Patient Education Patient Instructions Indication:BMI 38.0-38.9,adult Start:24-Aug-2020 Instruction Type:Provider Instructions for Treatment Patient Instructions Indication:Current non-smoker Start:05-May-2020 Instruction Type:Provider Instructions for Treatment How to Access Health Informa tion Online using Patient Portal and [employer] Apps Indication:Current non-smoker Start:05-May-2020 Instruction Type:Patient Education How to access health informa tion online Indication:Physical exam without abnormal findings (Renamed from Encounter for routine adult health examination without abnormal findings) Start:25-May-2018 Instruction Type:Patient Education How to access health informa tion online - Detail Indication:Physical exam without abnormal findings (Renamed from Encounter for routine adult health examination without abnormal findings) Start:25-May-2018 Instruction Type:Patient Education Patient Instructions Indication:BMI 38.0-38.9,adult Start:25-May-2018 Instruction Type:Provider Instructions for Treatment How to access health informa tion online Indication:Encounter for examination for driving license Start:13-Jun-2016 Instruction Type:Patient Education How to access health informa tion online - Detail Indication:Encounter for examination for driving license Start:13-Jun-2016 Instruction Type:Patient Education Patient Instructions Indication:Encounter for examination for driving license Start:13-Jun-2016 Instruction Type:Provider Instructions for Treatment Patient Instructions Indication:Obesity Start:14-Jan-2013 Instruction Type:Provider Instructions for Treatment [facility]; [facility] Work Phone: Instructions* Name Dates Details Patient Instructions Indication:BMI 37.0-37.9, adult Start:06-Sep-2021 Instruction Type:Provider Instructions for Treatment How to Access Health Informa tion Online using Patient Portal and [employer] Indication:BMI 37.0-37.9, adult Start:06-Sep-2021 Instruction Type:Patient Education Patient Instructions Indication:Encounter for well adult exam with abnormal findings (Renamed from Encounter for general adult medical examination with abnormal findings) Start:29-Jun-2021 Instruction Type:Provider Instructions for Treatment How to Access Health Informa tion Online using Patient Portal and [employer] Apps Indication:Encounter for well adult exam with abnormal findings (Renamed from Encounter for general adult medical examination with abnormal findings) Start:29-Jun-2021 Instruction Type:Patient Education Patient Instructions Indication:Gastric reflux Start:07-Sep-2020 Instruction Type:Provider Instructions for Treatment How to Access Health Informa tion Online using Patient Portal and [employer] Apps Indication:Current non-smoker Start:07-Sep-2020 Instruction Type:Patient Education How to Access Health Informa tion Online using Patient Portal and [employer] Apps Indication:Current non-smoker Start:24-Aug-2020 Instruction Type:Patient Education Patient Instructions Indication:BMI 38.0-38.9,adult Start:24-Aug-2020 Instruction Type:Provider Instructions for Treatment Patient Instructions Indication:Current non-smoker Start:05-May-2020 Instruction Type:Provider Instructions for Treatment How to Access Health Informa tion Online using Patient Portal and [employer] Apps Indication:Current non-smoker Start:05-May-2020 Instruction Type:Patient Education How to access health informa tion online Indication:Physical exam without abnormal findings (Renamed from Encounter for routine adult health examination without abnormal findings) Start:25-May-2018 Instruction Type:Patient Education How to access health informa tion online - Detail Indication:Physical exam without abnormal findings (Renamed from Encounter for routine adult health examination without abnormal findings) Start:25-May-2018 Instruction Type:Patient Education Patient Instructions Indication:BMI 38.0-38.9,adult Start:25-May-2018 Instruction Type:Provider Instructions for Treatment How to access health informa tion online Indication:Encounter for examination for driving license Start:13-Jun-2016 Instruction Type:Patient Education How to access health informa tion online - Detail Indication:Encounter for examination for driving license Start:13-Jun-2016 Instruction Type:Patient Education Patient Instructions Indication:Encounter for examination for driving license Start:13-Jun-2016 Instruction Type:Provider Instructions for Treatment Patient Instructions Indication:Obesity Start:14-Jan-2013 Instruction Type:Provider Instructions for Treatment [facility]; [facility] Work Phone: Instructions* Name Dates Details Patient Instructions Indication:BMI 37.0-37.9, adult Start:06-Sep-2021 Instruction Type:Provider Instructions for Treatment How to Access Health Informa tion Online using Patient Portal and [employer] Apps Indication:BMI 37.0-37.9, adult Start:06-Sep-2021 Instruction Type:Patient Education Patient Instructions Indication:Encounter for well adult exam with abnormal findings (Renamed from Encounter for general adult medical examination with abnormal findings) Start:29-Jun-2021 Instruction Type:Provider Instructions for Treatment How to Access Health Informa tion Online using Patient Portal and [employer] Apps Indication:Encounter for well adult exam with abnormal findings (Renamed from Encounter for general adult medical examination with abnormal findings) Start:29-Jun-2021 Instruction Type:Patient Education Patient Instructions Indication:Gastric reflux Start:07-Sep-2020 Instruction Type:Provider Instructions for Treatment How to Access Health Informa tion Online using Patient Portal and [employer] Apps Indication:Current non-smoker Start:07-Sep-2020 Instruction Type:Patient Education How to Access Health Informa tion Online using Patient Portal and [employer] Apps Indication:Current non-smoker Start:24-Aug-2020 Instruction Type:Patient Education Patient Instructions Indication:BMI 38.0-38.9,adult Start:24-Aug-2020 Instruction Type:Provider Instructions for Treatment Patient Instructions Indication:Current non-smoker Start:05-May-2020 Instruction Type:Provider Instructions for Treatment How to Access Health Informa tion Online using Patient Portal and [employer] Apps Indication:Current non-smoker Start:05-May-2020 Instruction Type:Patient Education How to access health informa tion online Indication:Physical exam without abnormal findings (Renamed from Encounter for routine adult health examination without abnormal findings) Start:25-May-2018 Instruction Type:Patient Education How to access health informa tion online - Detail Indication:Physical exam without abnormal findings (Renamed from Encounter for routine adult health examination without abnormal findings) Start:25-May-2018 Instruction Type:Patient Education Patient Instructions Indication:BMI 38.0-38.9,adult Start:25-May-2018 Instruction Type:Provider Instructions for Treatment How to access health informa tion online Indication:Encounter for examination for driving license Start:13-Jun-2016 Instruction Type:Patient Education How to access health informa tion online - Detail Indication:Encounter for examination for driving license Start:13-Jun-2016 Instruction Type:Patient Education Patient Instructions Indication:Encounter for examination for driving license Start:13-Jun-2016 Instruction Type:Provider Instructions for Treatment Patient Instructions Indication:Obesity Start:14-Jan-2013 Instruction Type:Provider Instructions for Treatment [facility]; [facility] Work Phone: Instructions* Name Dates Details Patient Instructions Indication:BMI 37.0-37.9, adult Start:06-Sep-2021 Instruction Type:Provider Instructions for Treatment How to Access Health Informa tion Online using Patient Portal and [employer] Apps Indication:BMI 37.0-37.9, adult Start:06-Sep-2021 Instruction Type:Patient Education Patient Instructions Indication:Encounter for well adult exam with abnormal findings (Renamed from Encounter for general adult medical examination with abnormal findings) Start:29-Jun-2021 Instruction Type:Provider Instructions for Treatment How to Access Health Informa tion Online using Patient Portal and [employer] Apps Indication:Encounter for well adult exam with abnormal findings (Renamed from Encounter for general adult medical examination with abnormal findings) Start:29-Jun-2021 Instruction Type:Patient Education Patient Instructions Indication:Gastric reflux Start:07-Sep-2020 Instruction Type:Provider Instructions for Treatment How to Access Health Informa tion Online using Patient Portal and [employer] Apps Indication:Current non-smoker Start:07-Sep-2020 Instruction Type:Patient Education How to Access Health Informa tion Online using Patient Portal and [employer] Indication:Current non-smoker Start:24-Aug-2020 Instruction Type:Patient Education Patient Instructions Indication:BMI 38.0-38.9,adult Start:24-Aug-2020 Instruction Type:Provider Instructions for Treatment Patient Instructions Indication:Current non-smoker Start:05-May-2020 Instruction Type:Provider Instructions for Treatment How to Access Health Informa tion Online using Patient Portal and [employer] Apps Indication:Current non-smoker Start:05-May-2020 Instruction Type:Patient Education How to access health informa tion online Indication:Physical exam without abnormal findings (Renamed from Encounter for routine adult health examination without abnormal findings) Start:25-May-2018 Instruction Type:Patient Education How to access health informa tion online - Detail Indication:Physical exam without abnormal findings (Renamed from Encounter for routine adult health examination without abnormal findings) Start:25-May-2018 Instruction Type:Patient Education Patient Instructions Indication:BMI 38.0-38.9,adult Start:25-May-2018 Instruction Type:Provider Instructions for Treatment How to access health informa tion online Indication:Encounter for examination for driving license Start:13-Jun-2016 Instruction Type:Patient Education How to access health informa tion online - Detail Indication:Encounter for examination for driving license Start:13-Jun-2016 Instruction Type:Patient Education Patient Instructions Indication:Encounter for examination for driving license Start:13-Jun-2016 Instruction Type:Provider Instructions for Treatment Patient Instructions Indication:Obesity Start:14-Jan-2013 Instruction Type:Provider Instructions for Treatment [facility]; [facility] Work Phone: Instructions* Name Dates Details Patient Instructions Indication:BMI 37.0-37.9, adult Start:06-Sep-2021 Instruction Type:Provider Instructions for Treatment How to Access Health Informa tion Online using Patient Portal and [employer] Apps Indication:BMI 37.0-37.9, adult Start:06-Sep-2021 Instruction Type:Patient Education Patient Instructions Indication:Encounter for well adult exam with abnormal findings (Renamed from Encounter for general adult medical examination with abnormal findings) Start:29-Jun-2021 Instruction Type:Provider Instructions for Treatment How to Access Health Informa tion Online using Patient Portal and [employer] Apps Indication:Encounter for well adult exam with abnormal findings (Renamed from Encounter for general adult medical examination with abnormal findings) Start:29-Jun-2021 Instruction Type:Patient Education Patient Instructions Indication:Gastric reflux Start:07-Sep-2020 Instruction Type:Provider Instructions for Treatment How to Access Health Informa tion Online using Patient Portal and [employer] Apps Indication:Current non-smoker Start:07-Sep-2020 Instruction Type:Patient Education How to Access Health Informa tion Online using Patient Portal and [employer] Apps Indication:Current non-smoker Start:24-Aug-2020 Instruction Type:Patient Education Patient Instructions Indication:BMI 38.0-38.9,adult Start:24-Aug-2020 Instruction Type:Provider Instructions for Treatment Patient Instructions Indication:Current non-smoker Start:05-May-2020 Instruction Type:Provider Instructions for Treatment How to Access Health Informa tion Online using Patient Portal and [employer] Indication:Current non-smoker Start:05-May-2020 Instruction Type:Patient Education How to access health informa tion online Indication:Physical exam without abnormal findings (Renamed from Encounter for routine adult health examination without abnormal findings) Start:25-May-2018 Instruction Type:Patient Education How to access health informa tion online - Detail Indication:Physical exam without abnormal findings (Renamed from Encounter for routine adult health examination without abnormal findings) Start:25-May-2018 Instruction Type:Patient Education Patient Instructions Indication:BMI 38.0-38.9,adult Start:25-May-2018 Instruction Type:Provider Instructions for Treatment How to access health informa tion online Indication:Encounter for examination for driving license Start:13-Jun-2016 Instruction Type:Patient Education How to access health informa tion online - Detail Indication:Encounter for examination for driving license Start:13-Jun-2016 Instruction Type:Patient Education Patient Instructions Indication:Encounter for examination for driving license Start:13-Jun-2016 Instruction Type:Provider Instructions for Treatment Patient Instructions Indication:Obesity Start:14-Jan-2013 Instruction Type:Provider Instructions for Treatment [facility]; [facility] Work Phone: Instructions* Name Dates Details Patient Instructions Indication:BMI 38.0-38.9,adult Start:06-Jun-2022 Instruction Type:Provider Instructions for Treatment How to Access Health Informa tion Online using Patient Portal and [employer] Indication:BMI 38.0-38.9,adult Start:06-Jun-2022 Instruction Type:Patient Education Patient Instructions Indication:BMI 37.0-37.9, adult Start:06-Sep-2021 Instruction Type:Provider Instructions for Treatment How to Access Health Informa tion Online using Patient Portal and [employer] Apps Indication:BMI 37.0-37.9, adult Start:06-Sep-2021 Instruction Type:Patient Education Patient Instructions Indication:Encounter for well adult exam with abnormal findings (Renamed from Encounter for general adult medical examination with abnormal findings) Start:29-Jun-2021 Instruction Type:Provider Instructions for Treatment How to Access Health Informa tion Online using Patient Portal and [employer] Indication:Encounter for well adult exam with abnormal findings (Renamed from Encounter for general adult medical examination with abnormal findings) Start:29-Jun-2021 Instruction Type:Patient Education Patient Instructions Indication:Gastric reflux Start:07-Sep-2020 Instruction Type:Provider Instructions for Treatment How to Access Health Informa tion Online using Patient Portal and [employer] Indication:Current non-smoker Start:07-Sep-2020 Instruction Type:Patient Education How to Access Health Informa tion Online using Patient Portal and [employer] Indication:Current non-smoker Start:24-Aug-2020 Instruction Type:Patient Education Patient Instructions Indication:BMI 38.0-38.9,adult Start:24-Aug-2020 Instruction Type:Provider Instructions for Treatment Patient Instructions Indication:Current non-smoker Start:05-May-2020 Instruction Type:Provider Instructions for Treatment How to Access Health Informa tion Online using Patient Portal and [employer] Indication:Current non-smoker Start:05-May-2020 Instruction Type:Patient Education How to access health informa tion online Indication:Physical exam without abnormal findings (Renamed from Encounter for routine adult health examination without abnormal findings) Start:25-May-2018 Instruction Type:Patient Education How to access health informa tion online - Detail Indication:Physical exam without abnormal findings (Renamed from Encounter for routine adult health examination without abnormal findings) Start:25-May-2018 Instruction Type:Patient Education Patient Instructions Indication:BMI 38.0-38.9,adult Start:25-May-2018 Instruction Type:Provider Instructions for Treatment How to access health informa tion online Indication:Encounter for examination for driving license Start:13-Jun-2016 Instruction Type:Patient Education How to access health informa tion online - Detail Indication:Encounter for examination for driving license Start:13-Jun-2016 Instruction Type:Patient Education Patient Instructions Indication:Encounter for examination for driving license Start:13-Jun-2016 Instruction Type:Provider Instructions for Treatment Patient Instructions Indication:Obesity Start:14-Jan-2013 Instruction Type:Provider Instructions for Treatment [facility]; [facility] Work Phone: Instructions* Name Dates Details Patient Instructions Indication:BMI 38.0-38.9,adult Start:06-Jun-2022 Instruction Type:Provider Instructions for Treatment How to Access Health Informa tion Online using Patient Portal and [employer] Indication:BMI 38.0-38.9,adult Start:06-Jun-2022 Instruction Type:Patient Education Patient Instructions Indication:BMI 37.0-37.9, adult Start:06-Sep-2021 Instruction Type:Provider Instructions for Treatment How to Access Health Informa tion Online using Patient Portal and [employer] Apps Indication:BMI 37.0-37.9, adult Start:06-Sep-2021 Instruction Type:Patient Education Patient Instructions Indication:Encounter for well adult exam with abnormal findings (Renamed from Encounter for general adult medical examination with abnormal findings) Start:29-Jun-2021 Instruction Type:Provider Instructions for Treatment How to Access Health Informa tion Online using Patient Portal and [employer] Apps Indication:Encounter for well adult exam with abnormal findings (Renamed from Encounter for general adult medical examination with abnormal findings) Start:29-Jun-2021 Instruction Type:Patient Education Patient Instructions Indication:Gastric reflux Start:07-Sep-2020 Instruction Type:Provider Instructions for Treatment How to Access Health Informa tion Online using Patient Portal and [employer] Indication:Current non-smoker Start:07-Sep-2020 Instruction Type:Patient Education How to Access Health Informa tion Online using Patient Portal and [employer] Apps Indication:Current non-smoker Start:24-Aug-2020 Instruction Type:Patient Education Patient Instructions Indication:BMI 38.0-38.9,adult Start:24-Aug-2020 Instruction Type:Provider Instructions for Treatment Patient Instructions Indication:Current non-smoker Start:05-May-2020 Instruction Type:Provider Instructions for Treatment How to Access Health Informa tion Online using Patient Portal and [employer] Indication:Current non-smoker Start:05-May-2020 Instruction Type:Patient Education How to access health informa tion online Indication:Physical exam without abnormal findings (Renamed from Encounter for routine adult health examination without abnormal findings) Start:25-May-2018 Instruction Type:Patient Education How to access health informa tion online - Detail Indication:Physical exam without abnormal findings (Renamed from Encounter for routine adult health examination without abnormal findings) Start:25-May-2018 Instruction Type:Patient Education Patient Instructions Indication:BMI 38.0-38.9,adult Start:25-May-2018 Instruction Type:Provider Instructions for Treatment How to access health informa tion online Indication:Encounter for examination for driving license Start:13-Jun-2016 Instruction Type:Patient Education How to access health informa tion online - Detail Indication:Encounter for examination for driving license Start:13-Jun-2016 Instruction Type:Patient Education Patient Instructions Indication:Encounter for examination for driving license Start:13-Jun-2016 Instruction Type:Provider Instructions for Treatment Patient Instructions Indication:Obesity Start:14-Jan-2013 Instruction Type:Provider Instructions for Treatment [facility]; [facility] Work Phone: Instructions* Name Dates Details Patient Instructions Indication:BMI 38.0-38.9,adult Start:06-Jun-2022 Instruction Type:Provider Instructions for Treatment How to Access Health Informa tion Online using Patient Portal and [employer] Indication:BMI 38.0-38.9,adult Start:06-Jun-2022 Instruction Type:Patient Education Patient Instructions Indication:BMI 37.0-37.9, adult Start:06-Sep-2021 Instruction Type:Provider Instructions for Treatment How to Access Health Informa tion Online using Patient Portal and [employer] Indication:BMI 37.0-37.9, adult Start:06-Sep-2021 Instruction Type:Patient Education Patient Instructions Indication:Encounter for well adult exam with abnormal findings (Renamed from Encounter for general adult medical examination with abnormal findings) Start:29-Jun-2021 Instruction Type:Provider Instructions for Treatment How to Access Health Informa tion Online using Patient Portal and [employer] Indication:Encounter for well adult exam with abnormal findings (Renamed from Encounter for general adult medical examination with abnormal findings) Start:29-Jun-2021 Instruction Type:Patient Education Patient Instructions Indication:Gastric reflux Start:07-Sep-2020 Instruction Type:Provider Instructions for Treatment How to Access Health Informa tion Online using Patient Portal and [employer] Indication:Current non-smoker Start:07-Sep-2020 Instruction Type:Patient Education How to Access Health Informa tion Online using Patient Portal and [employer] Indication:Current non-smoker Start:24-Aug-2020 Instruction Type:Patient Education Patient Instructions Indication:BMI 38.0-38.9,adult Start:24-Aug-2020 Instruction Type:Provider Instructions for Treatment Patient Instructions Indication:Current non-smoker Start:05-May-2020 Instruction Type:Provider Instructions for Treatment How to Access Health Informa tion Online using Patient Portal and [employer] Apps Indication:Current non-smoker Start:05-May-2020 Instruction Type:Patient Education How to access health informa tion online Indication:Physical exam without abnormal findings (Renamed from Encounter for routine adult health examination without abnormal findings) Start:25-May-2018 Instruction Type:Patient Education How to access health informa tion online - Detail Indication:Physical exam without abnormal findings (Renamed from Encounter for routine adult health examination without abnormal findings) Start:25-May-2018 Instruction Type:Patient Education Patient Instructions Indication:BMI 38.0-38.9,adult Start:25-May-2018 Instruction Type:Provider Instructions for Treatment How to access health informa tion online Indication:Encounter for examination for driving license Start:13-Jun-2016 Instruction Type:Patient Education How to access health informa tion online - Detail Indication:Encounter for examination for driving license Start:13-Jun-2016 Instruction Type:Patient Education Patient Instructions Indication:Encounter for examination for driving license Start:13-Jun-2016 Instruction Type:Provider Instructions for Treatment Patient Instructions Indication:Obesity Start:14-Jan-2013 Instruction Type:Provider Instructions for Treatment [facility]; [facility] Work Phone: Instructions* Name Dates Details Patient Instructions Indication:BMI 38.0-38.9,adult Start:06-Jun-2022 Instruction Type:Provider Instructions for Treatment How to Access Health Informa tion Online using Patient Portal and [employer] Apps Indication:BMI 38.0-38.9,adult Start:06-Jun-2022 Instruction Type:Patient Education Patient Instructions Indication:BMI 37.0-37.9, adult Start:06-Sep-2021 Instruction Type:Provider Instructions for Treatment How to Access Health Informa tion Online using Patient Portal and [employer] Indication:BMI 37.0-37.9, adult Start:06-Sep-2021 Instruction Type:Patient Education Patient Instructions Indication:Encounter for well adult exam with abnormal findings (Renamed from Encounter for general adult medical examination with abnormal findings) Start:29-Jun-2021 Instruction Type:Provider Instructions for Treatment How to Access Health Informa tion Online using Patient Portal and [employer] Apps Indication:Encounter for well adult exam with abnormal findings (Renamed from Encounter for general adult medical examination with abnormal findings) Start:29-Jun-2021 Instruction Type:Patient Education Patient Instructions Indication:Gastric reflux Start:07-Sep-2020 Instruction Type:Provider Instructions for Treatment How to Access Health Informa tion Online using Patient Portal and [employer] Apps Indication:Current non-smoker Start:07-Sep-2020 Instruction Type:Patient Education How to Access Health Informa tion Online using Patient Portal and [employer] Apps Indication:Current non-smoker Start:24-Aug-2020 Instruction Type:Patient Education Patient Instructions Indication:BMI 38.0-38.9,adult Start:24-Aug-2020 Instruction Type:Provider Instructions for Treatment Patient Instructions Indication:Current non-smoker Start:05-May-2020 Instruction Type:Provider Instructions for Treatment How to Access Health Informa tion Online using Patient Portal and [employer] Apps Indication:Current non-smoker Start:05-May-2020 Instruction Type:Patient Education How to access health informa tion online Indication:Physical exam without abnormal findings (Renamed from Encounter for routine adult health examination without abnormal findings) Start:25-May-2018 Instruction Type:Patient Education How to access health informa tion online - Detail Indication:Physical exam without abnormal findings (Renamed from Encounter for routine adult health examination without abnormal findings) Start:25-May-2018 Instruction Type:Patient Education Patient Instructions Indication:BMI 38.0-38.9,adult Start:25-May-2018 Instruction Type:Provider Instructions for Treatment How to access health informa tion online Indication:Encounter for examination for driving license Start:13-Jun-2016 Instruction Type:Patient Education How to access health informa tion online - Detail Indication:Encounter for examination for driving license Start:13-Jun-2016 Instruction Type:Patient Education Patient Instructions Indication:Encounter for examination for driving license Start:13-Jun-2016 Instruction Type:Provider Instructions for Treatment Patient Instructions Indication:Obesity Start:14-Jan-2013 Instruction Type:Provider Instructions for Treatment [facility] Work Phone: Instructions* Name Dates Details Patient Instructions Indication:BMI 38.0-38.9,adult Start:13-Oct-2022 Instruction Type:Provider Instructions for Treatment How to Access Health Informa tion Online using Patient Portal and [employer] Apps Indication:BMI 38.0-38.9,adult Start:13-Oct-2022 Instruction Type:Patient Education Patient Instructions Indication:BMI 38.0-38.9,adult Start:06-Jun-2022 Instruction Type:Provider Instructions for Treatment How to Access Health Informa tion Online using Patient Portal and [employer] Apps Indication:BMI 38.0-38.9,adult Start:06-Jun-2022 Instruction Type:Patient Education Patient Instructions Indication:BMI 37.0-37.9, adult Start:06-Sep-2021 Instruction Type:Provider Instructions for Treatment How to Access Health Informa tion Online using Patient Portal and [employer] Apps Indication:BMI 37.0-37.9, adult Start:06-Sep-2021 Instruction Type:Patient Education Patient Instructions Indication:Encounter for well adult exam with abnormal findings (Renamed from Encounter for general adult medical examination with abnormal findings) Start:29-Jun-2021 Instruction Type:Provider Instructions for Treatment How to Access Health Informa tion Online using Patient Portal and [employer] Apps Indication:Encounter for well adult exam with abnormal findings (Renamed from Encounter for general adult medical examination with abnormal findings) Start:29-Jun-2021 Instruction Type:Patient Education Patient Instructions Indication:Gastric reflux Start:07-Sep-2020 Instruction Type:Provider Instructions for Treatment How to Access Health Informa tion Online using Patient Portal and [employer] Apps Indication:Current non-smoker Start:07-Sep-2020 Instruction Type:Patient Education How to Access Health Informa tion Online using Patient Portal and [employer] Apps Indication:Current non-smoker Start:24-Aug-2020 Instruction Type:Patient Education Patient Instructions Indication:BMI 38.0-38.9,adult Start:24-Aug-2020 Instruction Type:Provider Instructions for Treatment Patient Instructions Indication:Current non-smoker Start:05-May-2020 Instruction Type:Provider Instructions for Treatment How to Access Health Informa tion Online using Patient Portal and [employer] Apps Indication:Current non-smoker Start:05-May-2020 Instruction Type:Patient Education How to access health informa tion online Indication:Physical exam without abnormal findings (Renamed from Encounter for routine adult health examination without abnormal findings) Start:25-May-2018 Instruction Type:Patient Education How to access health informa tion online - Detail Indication:Physical exam without abnormal findings (Renamed from Encounter for routine adult health examination without abnormal findings) Start:25-May-2018 Instruction Type:Patient Education Patient Instructions Indication:BMI 38.0-38.9,adult Start:25-May-2018 Instruction Type:Provider Instructions for Treatment How to access health informa tion online Indication:Encounter for examination for driving license Start:13-Jun-2016 Instruction Type:Patient Education How to access health informa tion online - Detail Indication:Encounter for examination for driving license Start:13-Jun-2016 Instruction Type:Patient Education Patient Instructions Indication:Encounter for examination for driving license Start:13-Jun-2016 Instruction Type:Provider Instructions for Treatment Patient Instructions Indication:Obesity Start:14-Jan-2013 Instruction Type:Provider Instructions for Treatment [facility] Work Phone: Instructions* Name Dates Details Patient Instructions Indication:BMI 38.0-38.9,adult Start:13-Oct-2022 Instruction Type:Provider Instructions for Treatment How to Access Health Informa tion Online using Patient Portal and [employer] Apps Indication:BMI 38.0-38.9,adult Start:13-Oct-2022 Instruction Type:Patient Education Patient Instructions Indication:BMI 38.0-38.9,adult Start:06-Jun-2022 Instruction Type:Provider Instructions for Treatment How to Access Health Informa tion Online using Patient Portal and [employer] Apps Indication:BMI 38.0-38.9,adult Start:06-Jun-2022 Instruction Type:Patient Education Patient Instructions Indication:BMI 37.0-37.9, adult Start:06-Sep-2021 Instruction Type:Provider Instructions for Treatment How to Access Health Informa tion Online using Patient Portal and [employer] Apps Indication:BMI 37.0-37.9, adult Start:06-Sep-2021 Instruction Type:Patient Education Patient Instructions Indication:Encounter for well adult exam with abnormal findings (Renamed from Encounter for general adult medical examination with abnormal findings) Start:29-Jun-2021 Instruction Type:Provider Instructions for Treatment How to Access Health Informa tion Online using Patient Portal and [employer] Apps Indication:Encounter for well adult exam with abnormal findings (Renamed from Encounter for general adult medical examination with abnormal findings) Start:29-Jun-2021 Instruction Type:Patient Education Patient Instructions Indication:Gastric reflux Start:07-Sep-2020 Instruction Type:Provider Instructions for Treatment How to Access Health Informa tion Online using Patient Portal and [employer] Apps Indication:Current non-smoker Start:07-Sep-2020 Instruction Type:Patient Education How to Access Health Informa tion Online using Patient Portal and [employer] Apps Indication:Current non-smoker Start:24-Aug-2020 Instruction Type:Patient Education Patient Instructions Indication:BMI 38.0-38.9,adult Start:24-Aug-2020 Instruction Type:Provider Instructions for Treatment Patient Instructions Indication:Current non-smoker Start:05-May-2020 Instruction Type:Provider Instructions for Treatment How to Access Health Informa tion Online using Patient Portal and [employer] Apps Indication:Current non-smoker Start:05-May-2020 Instruction Type:Patient Education How to access health informa tion online Indication:Physical exam without abnormal findings (Renamed from Encounter for routine adult health examination without abnormal findings) Start:25-May-2018 Instruction Type:Patient Education How to access health informa tion online - Detail Indication:Physical exam without abnormal findings (Renamed from Encounter for routine adult health examination without abnormal findings) Start:25-May-2018 Instruction Type:Patient Education Patient Instructions Indication:BMI 38.0-38.9,adult Start:25-May-2018 Instruction Type:Provider Instructions for Treatment How to access health informa tion online Indication:Encounter for examination for driving license Start:13-Jun-2016 Instruction Type:Patient Education How to access health informa tion online - Detail Indication:Encounter for examination for driving license Start:13-Jun-2016 Instruction Type:Patient Education Patient Instructions Indication:Encounter for examination for driving license Start:13-Jun-2016 Instruction Type:Provider Instructions for Treatment Patient Instructions Indication:Obesity Start:14-Jan-2013 Instruction Type:Provider Instructions for Treatment [facility] Work Phone: Instructions* Name Dates Details Patient Instructions Indication:BMI 38.0-38.9,adult Start:13-Oct-2022 Instruction Type:Provider Instructions for Treatment How to Access Health Informa tion Online using Patient Portal and [employer] Apps Indication:BMI 38.0-38.9,adult Start:13-Oct-2022 Instruction Type:Patient Education Patient Instructions Indication:BMI 38.0-38.9,adult Start:06-Jun-2022 Instruction Type:Provider Instructions for Treatment How to Access Health Informa tion Online using Patient Portal and [employer] Apps Indication:BMI 38.0-38.9,adult Start:06-Jun-2022 Instruction Type:Patient Education Patient Instructions Indication:BMI 37.0-37.9, adult Start:06-Sep-2021 Instruction Type:Provider Instructions for Treatment How to Access Health Informa tion Online using Patient Portal and [employer] Apps Indication:BMI 37.0-37.9, adult Start:06-Sep-2021 Instruction Type:Patient Education Patient Instructions Indication:Encounter for well adult exam with abnormal findings (Renamed from Encounter for general adult medical examination with abnormal findings) Start:29-Jun-2021 Instruction Type:Provider Instructions for Treatment How to Access Health Informa tion Online using Patient Portal and [employer] Apps Indication:Encounter for well adult exam with abnormal findings (Renamed from Encounter for general adult medical examination with abnormal findings) Start:29-Jun-2021 Instruction Type:Patient Education Patient Instructions Indication:Gastric reflux Start:07-Sep-2020 Instruction Type:Provider Instructions for Treatment How to Access Health Informa tion Online using Patient Portal and [employer] Apps Indication:Current non-smoker Start:07-Sep-2020 Instruction Type:Patient Education How to Access Health Informa tion Online using Patient Portal and [employer] Apps Indication:Current non-smoker Start:24-Aug-2020 Instruction Type:Patient Education Patient Instructions Indication:BMI 38.0-38.9,adult Start:24-Aug-2020 Instruction Type:Provider Instructions for Treatment Patient Instructions Indication:Current non-smoker Start:05-May-2020 Instruction Type:Provider Instructions for Treatment How to Access Health Informa tion Online using Patient Portal and [employer] Apps Indication:Current non-smoker Start:05-May-2020 Instruction Type:Patient Education How to access health informa tion online Indication:Physical exam without abnormal findings (Renamed from Encounter for routine adult health examination without abnormal findings) Start:25-May-2018 Instruction Type:Patient Education How to access health informa tion online - Detail Indication:Physical exam without abnormal findings (Renamed from Encounter for routine adult health examination without abnormal findings) Start:25-May-2018 Instruction Type:Patient Education Patient Instructions Indication:BMI 38.0-38.9,adult Start:25-May-2018 Instruction Type:Provider Instructions for Treatment How to access health informa tion online Indication:Encounter for examination for driving license Start:13-Jun-2016 Instruction Type:Patient Education How to access health informa tion online - Detail Indication:Encounter for examination for driving license Start:13-Jun-2016 Instruction Type:Patient Education Patient Instructions Indication:Encounter for examination for driving license Start:13-Jun-2016 Instruction Type:Provider Instructions for Treatment Patient Instructions Indication:Obesity Start:14-Jan-2013 Instruction Type:Provider Instructions for Treatment [facility] Work Phone: Instructions* Name Dates Details Patient Instructions Indication:BMI 38.0-38.9,adult Start:13-Oct-2022 Instruction Type:Provider Instructions for Treatment How to Access Health Informa tion Online using Patient Portal and [employer] Apps Indication:BMI 38.0-38.9,adult Start:13-Oct-2022 Instruction Type:Patient Education Patient Instructions Indication:BMI 38.0-38.9,adult Start:06-Jun-2022 Instruction Type:Provider Instructions for Treatment How to Access Health Informa tion Online using Patient Portal and [employer] Apps Indication:BMI 38.0-38.9,adult Start:06-Jun-2022 Instruction Type:Patient Education Patient Instructions Indication:BMI 37.0-37.9, adult Start:06-Sep-2021 Instruction Type:Provider Instructions for Treatment How to Access Health Informa tion Online using Patient Portal and [employer] Apps Indication:BMI 37.0-37.9, adult Start:06-Sep-2021 Instruction Type:Patient Education Patient Instructions Indication:Encounter for well adult exam with abnormal findings (Renamed from Encounter for general adult medical examination with abnormal findings) Start:29-Jun-2021 Instruction Type:Provider Instructions for Treatment How to Access Health Informa tion Online using Patient Portal and [employer] Apps Indication:Encounter for well adult exam with abnormal findings (Renamed from Encounter for general adult medical examination with abnormal findings) Start:29-Jun-2021 Instruction Type:Patient Education Patient Instructions Indication:Gastric reflux Start:07-Sep-2020 Instruction Type:Provider Instructions for Treatment How to Access Health Informa tion Online using Patient Portal and [employer] Apps Indication:Current non-smoker Start:07-Sep-2020 Instruction Type:Patient Education How to Access Health Informa tion Online using Patient Portal and [employer] Apps Indication:Current non-smoker Start:24-Aug-2020 Instruction Type:Patient Education Patient Instructions Indication:BMI 38.0-38.9,adult Start:24-Aug-2020 Instruction Type:Provider Instructions for Treatment Patient Instructions Indication:Current non-smoker Start:05-May-2020 Instruction Type:Provider Instructions for Treatment How to Access Health Informa tion Online using Patient Portal and [employer] Apps Indication:Current non-smoker Start:05-May-2020 Instruction Type:Patient Education How to access health informa tion online Indication:Physical exam without abnormal findings (Renamed from Encounter for routine adult health examination without abnormal findings) Start:25-May-2018 Instruction Type:Patient Education How to access health informa tion online - Detail Indication:Physical exam without abnormal findings (Renamed from Encounter for routine adult health examination without abnormal findings) Start:25-May-2018 Instruction Type:Patient Education Patient Instructions Indication:BMI 38.0-38.9,adult Start:25-May-2018 Instruction Type:Provider Instructions for Treatment How to access health informa tion online Indication:Encounter for examination for driving license Start:13-Jun-2016 Instruction Type:Patient Education How to access health informa tion online - Detail Indication:Encounter for examination for driving license Start:13-Jun-2016 Instruction Type:Patient Education Patient Instructions Indication:Encounter for examination for driving license Start:13-Jun-2016 Instruction Type:Provider Instructions for Treatment Patient Instructions Indication:Obesity Start:14-Jan-2013 Instruction Type:Provider Instructions for Treatment [facility] Work Phone: Instructions* Name Dates Details Patient Instructions Indication:BMI 38.0-38.9,adult Start:13-Oct-2022 Instruction Type:Provider Instructions for Treatment How to Access Health Informa tion Online using Patient Portal and [employer] Apps Indication:BMI 38.0-38.9,adult Start:13-Oct-2022 Instruction Type:Patient Education Patient Instructions Indication:BMI 38.0-38.9,adult Start:06-Jun-2022 Instruction Type:Provider Instructions for Treatment How to Access Health Informa tion Online using Patient Portal and [employer] Apps Indication:BMI 38.0-38.9,adult Start:06-Jun-2022 Instruction Type:Patient Education Patient Instructions Indication:BMI 37.0-37.9, adult Start:06-Sep-2021 Instruction Type:Provider Instructions for Treatment How to Access Health Informa tion Online using Patient Portal and [employer] Apps Indication:BMI 37.0-37.9, adult Start:06-Sep-2021 Instruction Type:Patient Education Patient Instructions Indication:Encounter for well adult exam with abnormal findings (Renamed from Encounter for general adult medical examination with abnormal findings) Start:29-Jun-2021 Instruction Type:Provider Instructions for Treatment How to Access Health Informa tion Online using Patient Portal and [employer] Apps Indication:Encounter for well adult exam with abnormal findings (Renamed from Encounter for general adult medical examination with abnormal findings) Start:29-Jun-2021 Instruction Type:Patient Education Patient Instructions Indication:Gastric reflux Start:07-Sep-2020 Instruction Type:Provider Instructions for Treatment How to Access Health Informa tion Online using Patient Portal and [employer] Apps Indication:Current non-smoker Start:07-Sep-2020 Instruction Type:Patient Education How to Access Health Informa tion Online using Patient Portal and [employer] Apps Indication:Current non-smoker Start:24-Aug-2020 Instruction Type:Patient Education Patient Instructions Indication:BMI 38.0-38.9,adult Start:24-Aug-2020 Instruction Type:Provider Instructions for Treatment Patient Instructions Indication:Current non-smoker Start:05-May-2020 Instruction Type:Provider Instructions for Treatment How to Access Health Informa tion Online using Patient Portal and [employer] Apps Indication:Current non-smoker Start:05-May-2020 Instruction Type:Patient Education How to access health informa tion online Indication:Physical exam without abnormal findings (Renamed from Encounter for routine adult health examination without abnormal findings) Start:25-May-2018 Instruction Type:Patient Education How to access health informa tion online - Detail Indication:Physical exam without abnormal findings (Renamed from Encounter for routine adult health examination without abnormal findings) Start:25-May-2018 Instruction Type:Patient Education Patient Instructions Indication:BMI 38.0-38.9,adult Start:25-May-2018 Instruction Type:Provider Instructions for Treatment How to access health informa tion online Indication:Encounter for examination for driving license Start:13-Jun-2016 Instruction Type:Patient Education How to access health informa tion online - Detail Indication:Encounter for examination for driving license Start:13-Jun-2016 Instruction Type:Patient Education Patient Instructions Indication:Encounter for examination for driving license Start:13-Jun-2016 Instruction Type:Provider Instructions for Treatment Patient Instructions Indication:Obesity Start:14-Jan-2013 Instruction Type:Provider Instructions for Treatment [facility] Work Phone: Instructions* Name Dates Details Patient Instructions Indication:BMI 38.0-38.9,adult Start:13-Oct-2022 Instruction Type:Provider Instructions for Treatment How to Access Health Informa tion Online using Patient Portal and [employer] Apps Indication:BMI 38.0-38.9,adult Start:13-Oct-2022 Instruction Type:Patient Education Patient Instructions Indication:BMI 38.0-38.9,adult Start:06-Jun-2022 Instruction Type:Provider Instructions for Treatment How to Access Health Informa tion Online using Patient Portal and [employer] Indication:BMI 38.0-38.9,adult Start:06-Jun-2022 Instruction Type:Patient Education Patient Instructions Indication:BMI 37.0-37.9, adult Start:06-Sep-2021 Instruction Type:Provider Instructions for Treatment How to Access Health Informa tion Online using Patient Portal and [employer] Indication:BMI 37.0-37.9, adult Start:06-Sep-2021 Instruction Type:Patient Education Patient Instructions Indication:Encounter for well adult exam with abnormal findings (Renamed from Encounter for general adult medical examination with abnormal findings) Start:29-Jun-2021 Instruction Type:Provider Instructions for Treatment How to Access Health Informa tion Online using Patient Portal and [employer] Indication:Encounter for well adult exam with abnormal findings (Renamed from Encounter for general adult medical examination with abnormal findings) Start:29-Jun-2021 Instruction Type:Patient Education Patient Instructions Indication:Gastric reflux Start:07-Sep-2020 Instruction Type:Provider Instructions for Treatment How to Access Health Informa tion Online using Patient Portal and [employer] Apps Indication:Current non-smoker Start:07-Sep-2020 Instruction Type:Patient Education How to Access Health Informa tion Online using Patient Portal and [employer] Apps Indication:Current non-smoker Start:24-Aug-2020 Instruction Type:Patient Education Patient Instructions Indication:BMI 38.0-38.9,adult Start:24-Aug-2020 Instruction Type:Provider Instructions for Treatment Patient Instructions Indication:Current non-smoker Start:05-May-2020 Instruction Type:Provider Instructions for Treatment How to Access Health Informa tion Online using Patient Portal and [employer] Indication:Current non-smoker Start:05-May-2020 Instruction Type:Patient Education How to access health informa tion online Indication:Physical exam without abnormal findings (Renamed from Encounter for routine adult health examination without abnormal findings) Start:25-May-2018 Instruction Type:Patient Education How to access health informa tion online - Detail Indication:Physical exam without abnormal findings (Renamed from Encounter for routine adult health examination without abnormal findings) Start:25-May-2018 Instruction Type:Patient Education Patient Instructions Indication:BMI 38.0-38.9,adult Start:25-May-2018 Instruction Type:Provider Instructions for Treatment How to access health informa tion online Indication:Encounter for examination for driving license Start:13-Jun-2016 Instruction Type:Patient Education How to access health informa tion online - Detail Indication:Encounter for examination for driving license Start:13-Jun-2016 Instruction Type:Patient Education Patient Instructions Indication:Encounter for examination for driving license Start:13-Jun-2016 Instruction Type:Provider Instructions for Treatment Patient Instructions Indication:Obesity Start:14-Jan-2013 Instruction Type:Provider Instructions for Treatment [facility]; [facility] Work Phone: Instructions* Name Dates Details Patient Instructions Indication:BMI 38.0-38.9,adult Start:13-Oct-2022 Instruction Type:Provider Instructions for Treatment How to Access Health Informa tion Online using Patient Portal and [employer] Apps Indication:BMI 38.0-38.9,adult Start:13-Oct-2022 Instruction Type:Patient Education Patient Instructions Indication:BMI 38.0-38.9,adult Start:06-Jun-2022 Instruction Type:Provider Instructions for Treatment How to Access Health Informa tion Online using Patient Portal and [employer] Indication:BMI 38.0-38.9,adult Start:06-Jun-2022 Instruction Type:Patient Education Patient Instructions Indication:BMI 37.0-37.9, adult Start:06-Sep-2021 Instruction Type:Provider Instructions for Treatment How to Access Health Informa tion Online using Patient Portal and [employer] Indication:BMI 37.0-37.9, adult Start:06-Sep-2021 Instruction Type:Patient Education Patient Instructions Indication:Encounter for well adult exam with abnormal findings (Renamed from Encounter for general adult medical examination with abnormal findings) Start:29-Jun-2021 Instruction Type:Provider Instructions for Treatment How to Access Health Informa tion Online using Patient Portal and [employer] Apps Indication:Encounter for well adult exam with abnormal findings (Renamed from Encounter for general adult medical examination with abnormal findings) Start:29-Jun-2021 Instruction Type:Patient Education Patient Instructions Indication:Gastric reflux Start:07-Sep-2020 Instruction Type:Provider Instructions for Treatment How to Access Health Informa tion Online using Patient Portal and [employer] Apps Indication:Current non-smoker Start:07-Sep-2020 Instruction Type:Patient Education How to Access Health Informa tion Online using Patient Portal and [employer] Apps Indication:Current non-smoker Start:24-Aug-2020 Instruction Type:Patient Education Patient Instructions Indication:BMI 38.0-38.9,adult Start:24-Aug-2020 Instruction Type:Provider Instructions for Treatment Patient Instructions Indication:Current non-smoker Start:05-May-2020 Instruction Type:Provider Instructions for Treatment How to Access Health Informa tion Online using Patient Portal and [employer] Indication:Current non-smoker Start:05-May-2020 Instruction Type:Patient Education How to access health informa tion online Indication:Physical exam without abnormal findings (Renamed from Encounter for routine adult health examination without abnormal findings) Start:25-May-2018 Instruction Type:Patient Education How to access health informa tion online - Detail Indication:Physical exam without abnormal findings (Renamed from Encounter for routine adult health examination without abnormal findings) Start:25-May-2018 Instruction Type:Patient Education Patient Instructions Indication:BMI 38.0-38.9,adult Start:25-May-2018 Instruction Type:Provider Instructions for Treatment How to access health informa tion online Indication:Encounter for examination for driving license Start:13-Jun-2016 Instruction Type:Patient Education How to access health informa tion online - Detail Indication:Encounter for examination for driving license Start:13-Jun-2016 Instruction Type:Patient Education Patient Instructions Indication:Encounter for examination for driving license Start:13-Jun-2016 Instruction Type:Provider Instructions for Treatment Patient Instructions Indication:Obesity Start:14-Jan-2013 Instruction Type:Provider Instructions for Treatment [facility] Work Phone: Family History No Family History Records FoundUnknown Family Member Name Dates Details Brother 1 Comments:DM Status:Active Father Comments:[place] of lung, HTN, di ed of bladder cancer. DM Status:Active Mother Comments:HTN, DM Status:Active Sister 1 Comments:DM Status:Active Unknown Family Member Name Dates Details Brother 1 Comments:DM Status:Active Father Comments:[place] of lung, HTN, di ed of bladder cancer. DM Status:Active Mother Comments:HTN, DM Status:Active Sister 1 Comments:DM Status:Active Unknown Family Member Name Dates Details Brother 1 Comments:DM Status:Active Father Comments:[place] of lung, HTN, di ed of bladder cancer. DM Status:Active Mother Comments:HTN, DM Status:Active Sister 1 Comments:DM Status:Active Unknown Family Member Name Dates Details Brother 1 Comments:DM Status:Active Father Comments:[place] of lung, HTN, di ed of bladder cancer. DM Status:Active Mother Comments:HTN, DM Status:Active Sister 1 Comments:DM Status:Active Unknown Family Member Name Dates Details Brother 1 Comments:DM Status:Active Father Comments:[place] of lung, HTN, di ed of bladder cancer. DM Status:Active Mother Comments:HTN, DM Status:Active Sister 1 Comments:DM Status:Active Unknown Family Member Name Dates Details Brother 1 Comments:DM Status:Active Father Comments:[place] of lung, HTN, di ed of bladder cancer. DM Status:Active Mother Comments:HTN, DM Status:Active Sister 1 Comments:DM Status:Active Unknown Family Member Name Dates Details Brother 1 Comments:DM Status:Active Father Comments:[place] of lung, HTN, di ed of bladder cancer. DM Status:Active Mother Comments:HTN, DM Status:Active Sister 1 Comments:DM Status:Active Unknown Family Member Name Dates Details Brother 1 Comments:DM Status:Active Father Comments:[place] of lung, HTN, di ed of bladder cancer. DM Status:Active Mother Comments:HTN, DM Status:Active Sister 1 Comments:DM Status:Active Unknown Family Member Name Dates Details Brother 1 Comments:DM Status:Active Father Comments:[place] of lung, HTN, di ed of bladder cancer. DM Status:Active Mother Comments:HTN, DM Status:Active Sister 1 Comments:DM Status:Active Unknown Family Member Name Dates Details Brother 1 Comments:DM Status:Active Father Comments:[place] of lung, HTN, di ed of bladder cancer. DM Status:Active Mother Comments:HTN, DM Status:Active Sister 1 Comments:DM Status:Active Unknown Family Member Name Dates Details Brother 1 Comments:DM Status:Active Father Comments:[place] of lung, HTN, di ed of bladder cancer. DM Status:Active Mother Comments:HTN, DM Status:Active Sister 1 Comments:DM Status:Active Unknown Family Member Name Dates Details Brother 1 Comments:DM Status:Active Father Comments:[place] of lung, HTN, di ed of bladder cancer. DM Status:Active Mother Comments:HTN, DM Status:Active Sister 1 Comments:DM Status:Active Unknown Family Member Name Dates Details Brother 1 Comments:DM Status:Active Father Comments:[place] of lung, HTN, di ed of bladder cancer. DM Status:Active Mother Comments:HTN, DM Status:Active Sister 1 Comments:DM Status:Active Unknown Family Member Name Dates Details Brother 1 Comments:DM Status:Active Father Comments:[place] of lung, HTN, di ed of bladder cancer. DM Status:Active Mother Comments:HTN, DM Status:Active Sister 1 Comments:DM Status:Active Unknown Family Member Name Dates Details Brother 1 Comments:DM--diet controlled now Status:Active Father Comments:[place] of lung, smoker, HTN, of bladder cancer. DM Status:Active Mother Comments:HTN, DM Status:Active Sister 1 Comments:DM Status:Active Unknown Family Member Name Dates Details Brother 1 Comments:DM--diet controlled now Status:Active Father Comments:[place] of lung, smoker, HTN, of bladder cancer. DM Status:Active Mother Comments:HTN, DM Status:Active Sister 1 Comments:DM Status:Active Unknown Family Member Name Dates Details Brother 1 Comments:DM--diet controlled now Status:Active Father Comments:[place] of lung, smoker, HTN, of bladder cancer. DM Status:Active Mother Comments:HTN, DM Status:Active Sister 1 Comments:DM Status:Active Unknown Family Member Name Dates Details Brother 1 Comments:DM--diet controlled now Status:Active Father Comments:[place] of lung, smoker, HTN, of bladder cancer. DM Status:Active Mother Comments:HTN, DM Status:Active Sister 1 Comments:DM Status:Active Unknown Family Member Name Dates Details Brother 1 Comments:DM--diet controlled now Status:Active Father Comments:[place] of lung, smoker, HTN, of bladder cancer. DM Status:Active Mother Comments:HTN, DM Status:Active Sister 1 Comments:DM Status:Active Unknown Family Member Name Dates Details Brother 1 Comments:DM--diet controlled now Status:Active Father Comments:[place] of lung, smoker, HTN, of bladder cancer. DM Status:Active Mother Comments:HTN, DM Status:Active Sister 1 Comments:DM Status:Active Unknown Family Member Name Dates Details Brother 1 Comments:DM--diet controlled now Status:Active Father Comments:[place] of lung, smoker, HTN, of bladder cancer. DM Status:Active Mother Comments:HTN, DM Status:Active Sister 1 Comments:DM Status:Active Unknown Family Member Name Dates Details Brother 1 Comments:DM--diet controlled now Status:Active Father Comments:[place] of lung, smoker, HTN, of bladder cancer. DM Status:Active Mother Comments:HTN, DM Status:Active Sister 1 Comments:DM Status:Active Unknown Family Member Name Dates Details Brother 1 Comments:DM--diet controlled now Status:Active Father Comments:[place] of lung, smoker, HTN, of bladder cancer. DM Status:Active Mother Comments:HTN, DM Status:Active Sister 1 Comments:DM Status:Active Unknown Family Member Name Dates Details Brother 1 Comments:DM--diet controlled now Status:Active Father Comments:[place] of lung, smoker, HTN, of bladder cancer. DM Status:Active Mother Comments:HTN, DM Status:Active Sister 1 Comments:DM Status:Active Unknown Family Member Name Dates Details Brother 1 Comments:DM--diet controlled now Status:Active Father Comments:[place] of lung, smoker, HTN, of bladder cancer. DM Status:Active Mother Comments:HTN, DM Status:Active Sister 1 Comments:DM Status:Active Unknown Family Member Name Dates Details Brother 1 Comments:DM--diet controlled now Status:Active Father Comments:[place] of lung, smoker, HTN, of bladder cancer. DM Status:Active Mother Comments:HTN, DM Status:Active Sister 1 Comments:DM Status:Active Unknown Family Member Name Dates Details Brother 1 Comments:DM--diet controlled now Status:Active Father Comments:[place] of lung, smoker, HTN, of bladder cancer. DM Status:Active Mother Comments:HTN, DM Status:Active Sister 1 Comments:DM Status:Active Unknown Family Member Name Dates Details Brother 1 Comments:DM--diet controlled now Status:Active Father Comments:[place] of lung, smoker, HTN, of bladder cancer. DM Status:Active Mother Comments:HTN, DM Status:Active Sister 1 Comments:DM Status:Active Unknown Family Member Name Dates Details Brother 1 Comments:DM--diet controlled now Status:Active Father Comments:[place] of lung, smoker, HTN, of bladder cancer. DM Status:Active Mother Comments:HTN, DM Status:Active Sister 1 Comments:DM Status:Active Unknown Family Member Name Dates Details Brother 1 Comments:DM--diet controlled now Status:Active Father Comments:[place] of lung, smoker, HTN, of bladder cancer. DM Status:Active Mother Comments:HTN, DM Status:Active Sister 1 Comments:DM Status:Active Unknown Family Member Name Dates Details Brother 1 Comments:DM--diet controlled now Status:Active Father Comments:[place] of lung, smoker, HTN, of bladder cancer. DM Status:Active Mother Comments:HTN, DM Status:Active Sister 1 Comments:DM Status:Active Unknown Family Member Name Dates Details Brother 1 Comments:DM--diet controlled now Status:Active Father Comments:[place] of lung, smoker, HTN, of bladder cancer. DM Status:Active Mother Comments:HTN, DM Status:Active Sister 1 Comments:DM Status:Active Unknown Family Member Name Dates Details Brother 1 Comments:DM--diet controlled now Status:Active Father Comments:[place] of lung, smoker, HTN, of bladder cancer. DM Status:Active Mother Comments:HTN, DM Status:Active Sister 1 Comments:DM Status:Active Unknown Family Member Name Dates Details Brother 1 Comments:DM--diet controlled now Status:Active Father Comments:[place] of lung, smoker, HTN, of bladder cancer. DM Status:Active Mother Comments:HTN, DM Status:Active Sister 1 Comments:DM Status:Active Unknown Family Member Name Dates Details Brother 1 Comments:DM--diet controlled now Status:Active Father Comments:[place] of lung, smoker, HTN, of bladder cancer. DM Status:Active Mother Comments:HTN, DM Status:Active Sister 1 Comments:DM Status:Active Unknown Family Member Name Dates Details Brother 1 Comments:DM--diet controlled now Status:Active Father Comments:[place] of lung, smoker, HTN, of bladder cancer. DM Status:Active Mother Comments:HTN, DM Status:Active Sister 1 Comments:DM Status:Active Unknown Family Member Name Dates Details Brother 1 Comments:DM--diet controlled now Status:Active Father Comments:[place] of lung, smoker, HTN, of bladder cancer. DM Status:Active Mother Comments:HTN, DM Status:Active Sister 1 Comments:DM Status:Active Unknown Family Member Name Dates Details Brother 1 Comments:DM--diet controlled now Status:Active Father Comments:[place] of lung, smoker, HTN, of bladder cancer. DM Status:Active Mother Comments:HTN, DM Status:Active Sister 1 Comments:DM Status:Active Unknown Family Member Name Dates Details Brother 1 Comments:DM--diet controlled now Status:Active Father Comments:[place] of lung, smoker, HTN, of bladder cancer. DM Status:Active Mother Comments:HTN, DM Status:Active Sister 1 Comments:DM Status:Active Unknown Family Member Name Dates Details Brother 1 Comments:DM--diet controlled now Status:Active Father Comments:[place] of lung, smoker, HTN, of bladder cancer. DM Status:Active Mother Comments:HTN, DM Status:Active Sister 1 Comments:DM Status:Active Unknown Family Member Name Dates Details Brother 1 Comments:DM--diet controlled now Status:Active Father Comments:[place] of lung, smoker, HTN, of bladder cancer. DM Status:Active Mother Comments:HTN, DM Status:Active Sister 1 Comments:DM Status:Active Unknown Family Member Name Dates Details Brother 1 Comments:DM--diet controlled now Status:Active Father Comments:[place] of lung, smoker, HTN, of bladder cancer. DM Status:Active Mother Comments:HTN, DM Status:Active Sister 1 Comments:DM Status:Active Instructions Name Dates Details Physical exam without abnorm al findings (Renamed from Encounter for routine adult health examination without abnormal findings) : How to access health information online Indication:Physical exam without abnormal findings (Renamed from Encounter for routine adult health examination without abnormal findings) Physical exam without abnorm al findings (Renamed from Encounter for routine adult health examination without abnormal findings) : How to access health information online - Detail Indication:Physical exam without abnormal findings (Renamed from Encounter for routine adult health examination without abnormal findings) BMI 38.0-38.9,adult : Patien t Instructions Indication:BMI 38.0-38.9,adult Encounter for examination fo r driving license : How to access health information online Indication:Encounter for examination for driving license Encounter for examination fo r driving license : How to access health information online - Detail Indication:Encounter for examination for driving license Encounter for examination fo r driving license : Patient Instructions Indication:Encounter for examination for driving license Obesity : Patient Instructio ns Indication:Obesity Name Dates Details How to access health informa tion online Indication:Physical exam without abnormal findings (Renamed from Encounter for routine adult health examination without abnormal findings) Start:25-May-2018 Instruction Type:Patient Education How to access health informa tion online - Detail Indication:Physical exam without abnormal findings (Renamed from Encounter for routine adult health examination without abnormal findings) Start:25-May-2018 Instruction Type:Patient Education Patient Instructions Indication:BMI 38.0-38.9,adult Start:25-May-2018 Instruction Type:Provider Instructions for Treatment How to access health informa tion online Indication:Encounter for examination for driving license Start:13-Jun-2016 Instruction Type:Patient Education How to access health informa tion online - Detail Indication:Encounter for examination for driving license Start:13-Jun-2016 Instruction Type:Patient Education Patient Instructions Indication:Encounter for examination for driving license Start:13-Jun-2016 Instruction Type:Provider Instructions for Treatment Patient Instructions Indication:Obesity Start:14-Jan-2013 Instruction Type:Provider Instructions for Treatment Name Dates Details How to access health informa tion online Indication:Physical exam without abnormal findings (Renamed from Encounter for routine adult health examination without abnormal findings) Start:25-May-2018 Instruction Type:Patient Education How to access health informa tion online - Detail Indication:Physical exam without abnormal findings (Renamed from Encounter for routine adult health examination without abnormal findings) Start:25-May-2018 Instruction Type:Patient Education Patient Instructions Indication:BMI 38.0-38.9,adult Start:25-May-2018 Instruction Type:Provider Instructions for Treatment How to access health informa tion online Indication:Encounter for examination for driving license Start:13-Jun-2016 Instruction Type:Patient Education How to access health informa tion online - Detail Indication:Encounter for examination for driving license Start:13-Jun-2016 Instruction Type:Patient Education Patient Instructions Indication:Encounter for examination for driving license Start:13-Jun-2016 Instruction Type:Provider Instructions for Treatment Patient Instructions Indication:Obesity Start:14-Jan-2013 Instruction Type:Provider Instructions for Treatment Name Dates Details How to access health informa tion online Indication:Physical exam without abnormal findings (Renamed from Encounter for routine adult health examination without abnormal findings) Start:25-May-2018 Instruction Type:Patient Education How to access health informa tion online - Detail Indication:Physical exam without abnormal findings (Renamed from Encounter for routine adult health examination without abnormal findings) Start:25-May-2018 Instruction Type:Patient Education Patient Instructions Indication:BMI 38.0-38.9,adult Start:25-May-2018 Instruction Type:Provider Instructions for Treatment How to access health informa tion online Indication:Encounter for examination for driving license Start:13-Jun-2016 Instruction Type:Patient Education How to access health informa tion online - Detail Indication:Encounter for examination for driving license Start:13-Jun-2016 Instruction Type:Patient Education Patient Instructions Indication:Encounter for examination for driving license Start:13-Jun-2016 Instruction Type:Provider Instructions for Treatment Patient Instructions Indication:Obesity Start:14-Jan-2013 Instruction Type:Provider Instructions for Treatment Name Dates Details Patient Instructions Indication:Current non-smoker Start:05-May-2020 Instruction Type:Provider Instructions for Treatment How to Access Health Informa tion Online using Patient Portal and [employer] Apps Indication:Current non-smoker Start:05-May-2020 Instruction Type:Patient Education How to access health informa tion online Indication:Physical exam without abnormal findings (Renamed from Encounter for routine adult health examination without abnormal findings) Start:25-May-2018 Instruction Type:Patient Education How to access health informa tion online - Detail Indication:Physical exam without abnormal findings (Renamed from Encounter for routine adult health examination without abnormal findings) Start:25-May-2018 Instruction Type:Patient Education Patient Instructions Indication:BMI 38.0-38.9,adult Start:25-May-2018 Instruction Type:Provider Instructions for Treatment How to access health informa tion online Indication:Encounter for examination for driving license Start:13-Jun-2016 Instruction Type:Patient Education How to access health informa tion online - Detail Indication:Encounter for examination for driving license Start:13-Jun-2016 Instruction Type:Patient Education Patient Instructions Indication:Encounter for examination for driving license Start:13-Jun-2016 Instruction Type:Provider Instructions for Treatment Patient Instructions Indication:Obesity Start:14-Jan-2013 Instruction Type:Provider Instructions for Treatment Summary Purpose Advance Directives No Advanced Directives Records Found Advance Directive Response Recorded Date/ Time Living Will No December 16, 2019 9:41pm 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 (unrecognized sect ion and content) No Status Records FoundNo Status Records FoundNo Status Records Found INFORMATION SOURCE (unrecogn ized section and content) DATE CREATED AUTHOR 08/25/2020 [facility] DATE CREATED AUTHOR AUTHOR'S ORGANIZ ATION 06/08/2022 [facility] DATE CREATED AUTHOR AUTHOR'S ORGANIZ ATION 04/18/2024 [facility] Goals (unrecognized section and content) Goals may be documented in a n alternate sectionGoals may be documented in an alternate section Care Teams (unrecognized sec tion and content) Team Status: Active Member Role Status Dates Dr. Lin Pardo MD Family Provider Active Dr. Lin Pardo MD Primary Care Provider Active Team Status: Inactive Member Role Status Dates Dr. Lin Pardo MD Primary Care Provider, Referring Provider Active Willem HUYNH, PA Attending Provider Active Team Status: Inactive Member Role Status Dates Dr. Lin Pardo MD Primary Care Provi nikita, Attending Provider, Referring Provider Active FOR RECORDS PERTAINING TO PATIENTS WHO ARE OR HAVE BEEN ENROLLED IN A CHEMICAL DEPENDENCY/SUBSTANCEABUSE PROGRAM, SOME INFORMATION MAY BE OMITTED. This clinical summary was aggregated from multiple sources. Caution should be exercised in using it in the provision of clinical care. This summary normalizes information from multiple sources, and as a consequence, information in this document may materially change the coding, format and clinical context of patient data. In addition, data may be omitted in some cases. CLINICAL DECISIONS SHOULD BE BASED ON THE PRIMARY CLINICAL RECORDS. [employer] provides no warranty or guarantee of the accuracy or completeness of information in this document.
[2025-02-23 04:40] VITALS: BP 146/57; PULSE 76; RESP 18; TEMP 36.8; O2SAT 99
== END 2025-02-23 04:41 | disposition home or self-care (01) ==
PROVIDERS: Emergency Provider Specialist/Technologist Athletic Trainer; PCP Internal Medicine; Visit Provider Specialist/Technologist Athletic Trainer
DX: N13.2 Hydronephrosis with renal and ureteral calculous obstruction (principal); E78.00 Pure hypercholesterolemia, unspecified; Z87.891 Personal history of nicotine dependence; K57.32 Diverticulitis of large intestine without perforation or abscess without bleeding; N23 Unspecified renal colic; K21.9 Gastro-esophageal reflux disease without esophagitis; Z79.899 Other long term (current) drug therapy
CPT/HCPCS: 74176; 80048; 81001; 85025; 96361; 96374; 96375; 96376; 99282; A4216; J2405

== ENCOUNTER 2025-02-28 08:08 | Day surgery (SDC) | payer MEDICARE, OTHER, SELFPAY ==
[2025-02-28] VITALS (14 sets, daily range): BP systolic 93–175; BP diastolic 73–110; PULSE 74–94; RESP 14–20; TEMP 36.5–36.8; O2SAT 95–100; BMI 30.8
--- NOTE | 2025-02-28 08:18 | EX.ED.DYSGE1 ---
HPI History of Present Illness Chief Complaint: Flank Pain Informant: patient Onset/Context/Timing Onset: Weeks (1) Context: Sudden Onset Timing: Continuous Quality: Aching Location: Right flank Worsened by: Movement, laying flat, car rides Relieved by: Nothing Narrative Narrative: Patient presents with right flank pain that has been constant for the past week. Patient states it began rather suddenly. Patient describes it as aching. Patient states she was seen here at that time and diagnosed with right distal ureteral calculus. Patient has been taking oxycodone and tamsulosin with minimal relief. Patient states his pain is worse with any movement, laying flat, and car rides. Patient is nothing seems to help with the pain. Patient denies any fevers or chills. Patient admits to some nausea and vomiting. Patient denies any dysuria or hematuria. 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) Home Medications ?Medication ?Instructions ?Recorded ?Last Taken ?Type pantoprazole 40 mg tablet,delayed 40 mg PO DAILY 12/16/19 Unknown History release cyclobenzaprine 10 mg tablet 10 mg PO HS PRN muscle spasm #7 11/07/22 Unknown Rx tabs folic acid 20 mg capsule 20 mg PO DAILY 11/07/22 Unknown History prednisone 10 mg tablet 10 mg PO DIRECTED #30 tabs 11/07/22 Unknown Rx simvastatin 20 mg tablet (Zocor) 20 mg PO DAILY 11/07/22 Unknown History amoxicillin 875 mg-potassium 875 mg PO BID #20 TABLETS 02/23/25 Unknown Rx clavulanate 125 mg tablet ondansetron 4 mg disintegrating 4 mg PO Q8H PRN PRN Nausea #30 tabs 02/23/25 Unknown Rx tablet oxycodone-acetaminophen 5 mg-325 1 tab PO Q6H PRN pain 3 days #12 02/23/25 Unknown Rx mg tablet (Percocet) tabs tamsulosin 0.4 mg capsule 0.4 mg PO DAILY #7 caps 02/23/25 Unknown Rx Allergy/AdvReac Type Severity Reaction Status Date / Time No Known Allergies Allergy Verified 02/28/25 08:10 Social History (Updated 02/28/25 @ 08:[address] Mario Brennan, DO) Smoking Status: Former smoker substance use type: marijuana ROS ROS ED Constitutional Constitutional ED: Denies chills or fever(s) Eyes Eyes: Denies blurry vision or change in vision ENT ENT ED: Denies rhinorrhea or sore throat Cardiovascular Cardiovascular: Denies chest pain or palpitations Respiratory/Chest Respiratory/Chest: Denies cough or dyspnea Gastrointestinal Gastrointestinal: Reports nausea and vomiting Genitourinary Genitourinary ED: Denies dysuria or hematuria Musculoskeletal Musculoskeletal: Reports back pain; Denies neck pain Integumentary Denies abscess or rash Neurologic Neurologic: Denies headache(s) or weakness Allergic/Immunologic Allergic/Immunologic ED: Denies mouth swelling or urticaria EXAM Physical Exam Const Vital Signs: 02/28/25 08:08 02/28/25 09:08 02/28/25 10:00 Temperature 97.9 F Temperature Source Oral Pulse Rate 94 88 Respiratory Rate 18 14 Blood Pressure 175/110 H 150/97 H 150/97 H Blood Pressure Mean 131 114 114 Pulse Ox 97 100 Oxygen Delivery Method Room Air 02/28/25 11:00 02/28/25 12:00 Temperature Temperature Source Pulse Rate 84 88 Respiratory Rate 16 14 Blood Pressure 145/90 H 134/88 H Blood Pressure Mean 108 103 Pulse Ox 99 100 Oxygen Delivery Method Room Air Positive well nourished and well developed General Appearance ED: well developed and NAD HEENT Reports moist mucous membranes Neck supple and no JVD Resp normal respiratory effort and clear to auscultation bilaterally Cardio regular rate and regular rhythm GI non-distended Palpation: soft and tender RLQ and RUQ; Negative for guarding or rebound tenderness present Back/Spine General Back: CVA tenderness right Neuro oriented x3, CN's II-XII intact bilaterally and no sensory deficits noted Sensorium / Orientation: alert Motor Exam: strength 5/5 throughout Psych mental status grossly normal MDM MDM MDM Narrative Medical decision making narrative: Differential diagnosis includes ureteral calculus, pyelonephritis, urinary tract infection, diverticulitis, electrolyte abnormality, dehydration, bowel obstruction, perforation, abscess, and viral illness. CBC will be obtained to assess for leukocytosis and anemia. Basic metabolic profile will be obtained to assess for electrolyte abnormality renal function. CT scan of the abdomen and pelvis will be obtained to assess for ureteral calculus, diverticulitis, and abscess. Urinalysis will be obtained to assess for urinary tract infection and hematuria. History & Record Review Additional record(s) reviewed:: Prior ED visit and Prior labs Lab Data Attestation: I reviewed the patient's lab results. Lab results narrative: CBC was reviewed and was within normal limits. Basic metabolic profile was reviewed. Creatinine was slightly elevated 1.53. This is mildly elevated compared to previous result. Urinalysis was reviewed. There is no evidence of urinary tract infection or hematuria. Labs: Laboratory Results - last 24 hr 02/28/25 02/28/25 08:30 10:05 WBC 8.5 RBC 5.49 Hgb 15.9 Hct 47.4 MCV 86.3 MCH 29.0 MCHC 33.5 RDW Std Deviation 45.3 H RDW Coeff of [place] 14.2 Plt Count 243 MPV 8.8 Immature Gran % (Auto) 0.600 Neut % (Auto) 79.5 H Lymph % (Auto) 10.8 L [place] % (Auto) 6.9 Eos % (Auto) 1.8 Baso % (Auto) 0.4 Absolute Neuts (auto) 6.8 Absolute Lymphs (auto) 0.92 Nucleated RBC % 0 Sodium 139 Potassium 4.2 Chloride 102 Carbon Dioxide 24.3 Anion Gap 12 BUN 17 Creatinine 1.53 H Estim Creat Clear Calc 54.12 Est GFR (MDRD) Non-Af 49 L BUN/Creatinine Ratio 11.4 Glucose 106 H Calcium 9.0 Urine Color Yellow Urine Clarity Clear Urine pH 6.0 Ur Specific [place] 1.015 Urine Protein 30 H Urine Glucose (UA) Normal Urine Ketones 15 H Urine Occult Blood 10 H Urine Nitrite Negative Urine Bilirubin Negative Urine Urobilinogen Normal Ur Leukocyte Esterase 25 H Urine RBC 0 SEEN Urine WBC 0 SEEN Ur Squamous Epith Cells 0 SEEN Urine Bacteria 0 SEEN Urine Mucus 0 SEEN Radiography Diagnostic Testing: Clinical Impression(s) from Imaging Studies Abdomen/Pelvis CT 02/28/25 08:31 IMPRESSION: 1. Obstructing calculus with mild hydronephrosis and hydroureter. Calculus at the right ureterovesical junction. 2. Bilateral renal calculi. 3. Sliding hiatus hernia. Diverticulosis without diverticulitis. Reading Location: [id number] scan of the abdomen and pelvis was obtained. There is a calculus at the right ureterovesicular junction with mild hydronephrosis and hydroureter. There is diverticulosis but no evidence of diverticulitis. This was interpreted by the radiologist. I also independently reviewed the images and noted the right distal ureteral calculus. Management Discussion w/another healthcare provider: [facility] (Dr. Wild) Treatment and Re-Evaluation :: Patient was given IV fluids, Toradol, morphine, and Zofran. Patient was feeling better on reevaluation. Patient was advised of his findings. Discussed case with Dr. Wild. He will take the patient to the OR today for stone removal. Patient understands and is agreeable with the plan. All questions were answered. Discharge Plan Dx/Rx/DC Orders Clinical Impression: Calculus of distal right ureter, Hydronephrosis, right, Elevated blood pressure reading Disposition Disposition: Acute Care Hospital [facility]
--- NOTE | 2025-02-28 08:31 | CT_ITS ---
PROCEDURE: ABDOMEN/PELVIS WITHOUT CONT N/A REASON FOR EXAM: RIGHT FLANK PAIN TECHNIQUE: Procedure Code: [id number] Modality: CT Procedure: ABDOMEN/PELVIS WITHOUT CONT Noncontrast technique limits evaluation of the abdominal and pelvic viscera. Coronal and Sagittal reconstruction series were provided. One or more dose reduction techniques were used (e.g., Automated exposure control, adjustment of the mA and/or kV according to patient size, use of iterative reconstruction technique). RADIATION DOSE SUMMARY: CTDlvol: 17 mGy DLP: 975 mGycm COMPARISON: February 23, 2025, November 29, 2022 FINDINGS: Lung bases: Linear scarring right middle lobe in the inferior lingula. Liver: Normal Gallbladder: Normal Spleen: Normal Pancreas: Normal Adrenals: Normal Kidneys: 3.2 mm calculus is seen at the ureterovesical junction, UVJ on the right side with mild hydroureter. Additionally, there is mild hydronephrosis and some stranding of the renal pelvis. A 3.6 mm calculus is shown at the right lower pole and a 2 mm calculus is seen at the upper pole. On the left side a 3.8 mm calculus is present at the upper pole. No collecting system dilation on the left side. Bladder: Normal Reproductive Organs: Normal Bowel: Small sliding hiatus hernia. Small bowel is normal. A few scattered colonic diverticula are present without diverticulitis. Appendix: Normal Lymph nodes: None appear enlarged Vasculature: [id number] atherosclerotic plaque without aneurysm. Peritoneum / Retroperitoneum: No free air, free fluid or mass. Abdominal wall: Small umbilical hernia containing omentum. Hernia sac is 1.8 x 1.8 cm. Bones: Bridging osteophytes lower thoracic spine as well as L4/5 and L5/S1. Lower lumbar facet hypertrophy is seen. CT/Abdomen/Pelvis without Cont IMPRESSION: 1. Obstructing calculus with mild hydronephrosis and hydroureter. Calculus at the right ureterovesical junction. 2. Bilateral renal calculi. 3. Sliding hiatus hernia. Diverticulosis without diverticulitis. Reading Location: [facility]
[2025-02-28] MEDS: 0.9% Normal Saline (1000mL) 1,000 ML 1000 ML IV (08:37)
[2025-02-28 08:39] LABS: Hematocrit 47.4 % (40-54); Hemoglobin 15.9 g/dL (13.0-16.5); Immature Granulocytes Count 0.050 X10^3/uL (0.0-0.0); Mean Corp Hgb Conc 33.5 g/dL (32-36); Mean Corpuscular Volume 86.3 fL (80-94); Mean Platelet Vol. 8.8 fl (6.2-12.0); NRBC Flagged by Analyzer 0 % (0-5); Platelet Count 243 K/mm3 (150-450); RBC Distribution Width CV 14.2 % (11.6-14.6); RBC Distribution Width SD 45.3 fl (35.1-43.9); Red Blood Count 5.49 M/mm3 (4.6-6.2); White Blood Count 8.5 K/mm3 (4.4-11.0)
[2025-02-28 08:55] LABS: Anion Gap 12 (5-15); BUN 17 mg/dL (4-19); BUN/Creat Ratio 11.4 RATIO (10-20); Calcium,Total 9.0 mg/dL (7.6-11.0); Carbon Dioxide 24.3 mmol/L (21.0-32.0); Chloride 102 mmol/L (98-108); Estimated Creatinine Clearance 54.12 ml/min (50-250); Glucose 106 mg/dL (70-99); Potassium 4.2 mmol/L (3.3-5.1)
--- OUTSIDE RECORDS SUMMARY | 2025-02-28 09:06 | XMS RPT_ITS | CCD ---
Author Organization [facility] Care Team Providers Care Mobile Designer Name Role Phone John Anne Unavailable Muriel Woo Unavailable Unavailable Unavailable Unavailable Luke Driver Unavailable Unavailable Ciesa, Anne Unavailable Tiffanie Harris Unavailable Unavailable Ciesa LEORA, Anne Unavailable Luke Driver LPN Unavailable [...] MD Unavailable Lin Pardo MD Unavailable Gravius COLLECTIONS DIRECTOR, Tyra Unavailable Unavailable Unavailable Unavailable Lin Pardo MD Unavailable Dora Shaffer LPN Unavailable Unavailable Lin Pardo MD Attending Unavailable Lin Pardo MD Consulting Unavailable Courtney RIZVI, Kayela Unavailable Unavailable Dr. Jonas Carey Unavailable Dr. Lin Pardo Primary Care Provider Dr. Lin Pardo Referring Provider LINO Ramachandran Attending Provider [phone] Lin Pardo Referring Unavailable Willem Ramachandran Attending [...] 40 {Tablet} Refills: 1 Ordered: 09-Jul-2012 SABINO Gramajo LPN Start : 11-Jul-2011 End : 09-Jul-2012 Discontinued Comments: This order discontinued per [facility]. Comment on above: This order discontin ued per -Span. [id number] 200 actuat albuterol 0.09 mg/actuat metered dose [...] and symptoms good Dr. carey EGD in [facility] Dr. 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 Lin Pardo MD Status: [facility] Study: Low Dose CT Lung Screening Date of Exam: 03/01 Exam# [id number] Ordering Dr: Lin Pardo MD [id number] EXAM: CT CHEST, LUNG CANCER SCREENING WITHOUT [...] EST , CC: Dr. Lin Pardo MD Day Care Director: Signed Normal [facility] Basophil percentageOrdered B y: Lin Pardo on 11-29-2022 Creatinine [Mass/Vol] 1.3 mg/dL 0.70-1.30 [facility] Laboratory - Chemistry and C hemistry - challengeOrdered By: Linjustyn Pardo on 11-29-2022 GFR/1.73 sq M.predicted among non-blacks MDRD (S/P/Bld) [Vol rate/Area] 60.0000 mL/min/{1.73_m2} >60 [facility] PSA (Medicare - [facility]) (8415 3)Ordered By: Laundry Agent on 09-02-2022 Prostate specific Ag [Mass/Vol] 0.8 ng/mL Normal 0.0-4.0 [facility] Work Phone: Comment on above: Layar ECLIA methodol ogy. .According to the [place] [employer], Serum PSA shoulddecrease and remain [...] malignant disease. PATIENT NOT FASTINGP ERFORMED BY: Coupad[address] [place] [id number] C-REACT PROT HIGH SENS(hsCRP ) (53787)Ordered By: Laundry Agent on 06-03-2022 CRP High sensitivity method [Mass/Vol] 8.58 mg/L Abnormal 0.00-3.00 [facility]; [facility] Work Phone: Comment on above: Relative Risk for Fu ture Cardiovascular Event Low <1.00 Average 1.00 - 3.00 High >3.00 PATIENT WAS FASTINGP ERFORMED BY: EyeLock[address] [place] [id number] CALCIFEDIOL (22201)Ordered B y: Laundry Agent on 06-03-2022 25-hydroxyvitamin D [Mass/Vol] 68.9 ng/mL Normal 30.0-100.0 [facility]; [facility] Work Phone: Comment on above: Vitamin D deficiency has been defined by the Dexter ofMedicine and an Endocrine Society practice guideline as alevel of serum 25-OH vitamin D less than 20 ng/mL (1,2).The Endocrine Society went on to further define vitamin Dinsufficiency as a level between 21 and 29 ng/mL (2).1. IOM (Dexter of Medicine). 2010. Dietary reference intakes for calcium and D. [place]: The National Academies Press.2. Favian MF, Shubham RAMOS, Josep STAHL, et al. Evaluation, treatment, and prevention of vitamin D deficiency: an Endocrine Society clinical practice guideline. JCEM. 2010; 96(7):1911-30. PATIENT WAS FASTINGP ERFORMED BY: CB [facility] Hwfmwl9699 Travis RoadDublin [place] [id number] CBC & PLATELETS (AUTO) (8502 7)Ordered By: Laundry Agent on 06-03-2022 Erythrocyte distribution width (RBC) [Ratio] 13.5 % Normal 11.6-15.4 [facility]; [facility] Work Phone: Comment on above: PATIENT WAS FASTINGP ERFORMED BY: CB [facility] Tpupgp7453 Travis RoadDublin [place] [id number] Hematocrit (Bld) [Volume fraction] 47.1 % Normal 37.5-51.0 [facility]; [facility] Work Phone: Comment on above: PATIENT WAS FASTINGP ERFORMED BY: CB [facility] Hacrkr8442 Travis RoadDublin [place] [id number] Hemoglobin (Bld) [Mass/Vol] 15.8 g/dL Normal 13.0-17.7 [facility]; [facility] Work Phone: Comment on above: PATIENT WAS FASTINGP ERFORMED BY: CB [facility] Bqljmn4944 Travis RoadDublin [place] [id number] MCH (RBC) [Entitic mass] 28.8 pg Normal 26.6-33.0 [facility]; [facility] Work Phone: Comment on above: PATIENT WAS FASTINGP ERFORMED BY: CB [facility] Gjwoio9322 [address] RoadDublin [place] [id number] MCHC (RBC) [Mass/Vol] 33.5 g/dL Normal 31.5-35.7 [facility]; [facility] Work Phone: Comment on above: PATIENT WAS FASTINGP ERFORMED BY: GERTRUDE [facility] Oebszg4958 [address] [facility]bl[facility] [place] [id number] MCV (RBC) [Entitic vol] 86 fL Normal 79-97 [facility]; [facility] Work Phone: Comment on above: PATIENT WAS FASTINGP ERFORMED BY: GERTRUDE [facility] Wgrsrh5496 Travis RoadAtrium Health Carolinas Medical Centerin [place] [id number] Platelets (Bld) [#/Vol] 237 10*3/uL Normal 150-450 [facility]; [facility] Work Phone: Comment on above: PATIENT WAS FASTINGP ERFORMED BY: GERTRUDE [facility] Zubkuf1048 Travis RoadAtrium Health Carolinas Medical Centerin [place] [id number] RBC (Bld) [#/Vol] 5.48 10*6/uL Normal 4.14-5.80 [facility]; [facility] Work Phone: Comment on above: PATIENT WAS FASTINGP ERFORMED BY: GERTRUDE [facility] Qddrnl9996 [facility]in [place] [id number] WBC (Bld) [#/Vol] 8.0 10*3/uL Normal 3.4-10.8 [facility]; [facility] Work Phone: Comment on above: PATIENT WAS FASTINGP ERFORMED BY: [facility] Cxipxm6461 [address] [facility]in [place] [id number] HGB A1C (80162)Ordered By: S ystem Gluing Machine Operator Electronic on 06-03-2022 HbA1c (Bld) [Mass fraction] 5.7 % Abnormal 4.8-5.6 [facility]; [facility] Work Phone: Comment on above: . Prediabetes: 5.7 - 6.4 Diabetes: >6.4 Glycemic control for adults with diabetes: <7.0 PATIENT WAS FASTINGP ERFORMED BY: GERTRUDE [facility] Xhoxhc7766 [facility] [id number] Homocysteine, Plasma (75708) Ordered By: Laundry Agent on 06-03-2022 Homocysteine [Moles/Vol] 13.7 umol/L Normal 0.0-17.2 [facility]; [facility] Work Phone: Comment on above: PATIENT WAS FASTINGP ERFORMED BY: GERTRUDE Kari Maria6370 [facility] [id number] LIPID PANEL (55748)Ordered B y: Laundry Agent on 06-03-2022 Cholesterol [Mass/Vol] 127 mg/dL Normal 100-199 [facility]; [facility] Work Phone: Comment on above: PATIENT WAS FASTINGP ERFORMED BY: GERTRUDE Kari Maria6370 [facility] [id number] Cholesterol in HDL [Mass/Vol] 37 mg/dL Abnormal [facility]; [facility] Work Phone: Comment on above: PATIENT WAS FASTINGP ERFORMED BY: GERTRUDE Kari Maria6370 [facility] [id number] Triglyceride [Mass/Vol] 51 mg/dL Normal 0-149 [facility]; [facility] Work Phone: Comment on above: PATIENT WAS FASTINGP ERFORMED BY: GERTRUDE Kari Maria6370 [facility] [id number] LIPID PANEL (62499) 12 mg/dL Normal 5-40 Compr ehensive Internal Medicine; [facility] Work Phone: Comment on above: PATIENT WAS FASTINGP ERFORMED BY: GERTRUDE Forresterlin6370 [facility] [id number] LIPID PANEL (58926) 78 mg/dL Normal 0-99 Compr ehensive [facility]; [facility] Work Phone: Comment on above: PATIENT WAS FASTINGP ERFORMED BY: GERTRUDE Forresterlin6370 [facility] [id number] LIPID PANEL (71315) 2.1 {ratio} Normal 0.0-3.6 Comp [facility]; [facility] Work Phone: Comment on above: LDL/HDL Ratio Men Wo men 1/2 Avg.Risk 1.0 1.5 Avg.Risk 3.6 3.2 2X Avg.Risk 6.2 5.0 3X Avg.Risk 8.0 6.1 PATIENT WAS FASTINGP ERFORMED BY: [facility] Fecjcd9567 [address] [facility]bl[facility] [place] [id number] METABOLIC PANEL, COMPREHENSI VE (09748)Ordered By: Laundry Agent on 06-03-2022 Albumin [Mass/Vol] 4.3 g/dL Normal 3.8-4.8 [facility] [place] [facility]; [facility] Work Phone: Comment on above: PATIENT WAS FASTINGP ERFORMED BY: [facility] Xjjlhf9644 [address] [facility]in [place] [id number] Albumin/Globulin [Mass ratio] 1.3 {ratio} Normal 1.2-2.2 [facility]; [facility] Work Phone: Comment on above: PATIENT WAS FASTINGP ERFORMED BY: [facility] Cowfgh0067 [address] [facility]in [place] [id number] ALP [Catalytic activity/Vol] 77 U/L Normal 44-121 [facility]; [facility] Work Phone: Comment on above: PATIENT WAS FASTINGP ERFORMED BY: [facility] Wlolhc1769 [address] [facility]bl[facility] [place] [id number] ALT [Catalytic activity/Vol] 12 U/L Normal 0-44 [facility]; [facility] Work Phone: Comment on above: PATIENT WAS FASTINGP ERFORMED BY: [facility] Eearwq8265 [address] [facility]in [place] [id number] AST [Catalytic activity/Vol] 17 U/L Normal 0-40 [facility]; [facility] Work Phone: Comment on above: PATIENT WAS FASTINGP ERFORMED BY: [facility] Aotxsm1579 [address] [facility] [place] [id number] Bilirubin [Mass/Vol] 0.2 mg/dL Normal 0.0-1.2 [facility]; [facility] Work Phone: Comment on above: PATIENT WAS FASTINGP ERFORMED BY: [facility] Gclncb7073 Travis RoadDublin [place] [id number] Calcium [Mass/Vol] 9.5 mg/dL Normal 8.6-10.2 [facility]; [facility] Work Phone: Comment on above: PATIENT WAS FASTINGP ERFORMED BY: [facility] Kqzoau0785 [address] RoadDublin [place] [id number] Chloride [Moles/Vol] 106 mmol/L Normal 96-106 [facility]; [facility] Work Phone: Comment on above: PATIENT WAS FASTINGP ERFORMED BY: [facility] Dgxwza5070 Travis RoadDublin [place] [id number] CO2 [Moles/Vol] 23 mmol/L Normal 20-29 [facility]; [facility] Work Phone: Comment on above: PATIENT WAS FASTINGP ERFORMED BY: [facility] Rrekqq5853 Travis RoadAtrium Health [facility] Medical Centerin [place] [id number] Creatinine [Mass/Vol] 0.99 mg/dL Normal 0.76-1.27 [facility]; [facility] Work Phone: Comment on above: PATIENT WAS FASTINGP ERFORMED BY: [facility] Sfeznt2809 [address] [facility]in [place] [id number] GFR/1.73 sq M.predicted among non-blacks MDRD (S/P/Bld) [Vol rate/Area] 85 mL/min/{1.73_m2} Normal Comprehensiv e Internal Medicine; [facility] Work Phone: Comment on above: PATIENT WAS FASTINGP ERFORMED BY: [facility] Itsgkb4097 Travis RoadDublin [place] [id number] Globulin (S) [Mass/Vol] 3.2 g/dL Normal 1.5-4.5 [facility]; [facility] Work Phone: Comment on above: PATIENT WAS FASTINGP ERFORMED BY: [facility] Nwdchg3152 Travis Roadblin [place] [id number] Glucose [Mass/Vol] 101 mg/dL Abnormal 70-99 [facility]; [facility] Work Phone: Comment on above: PATIENT WAS FASTINGP ERFORMED BY: CB [facility] Ijpuat3433 Travis RoadDublin [place] [id number] Potassium [Moles/Vol] 4.7 mmol/L Normal 3.5-5.2 [facility]; [facility] Work Phone: Comment on above: PATIENT WAS FASTINGP ERFORMED BY: CB [facility] Slmejm8588 Travis RoadAtrium Health [facility] Centerin [place] [id number] Protein [Mass/Vol] 7.5 g/dL Normal 6.0-8.5 [facility] Internal Medicine; [facility] Internal Medicine Work Phone: Comment on above: PATIENT WAS FASTINGP ERFORMED BY: CB [facility] Dtpmqo4161 Travis RoadDuin [place] [id number] Sodium [Moles/Vol] 144 mmol/L Normal 134-144 [facility] Internal Medicine; [facility] Internal Medicine Work Phone: Comment on above: PATIENT WAS FASTINGP ERFORMED BY: CB [facility] Nikpne4417 [address] RoadDublin [place] [id number] Urea nitrogen [Mass/Vol] 11 mg/dL Normal 8-27 [facility]; [facility] Work Phone: Comment on above: PATIENT WAS FASTINGP ERFORMED BY: CB [facility] Lhwmqa1306 Travis RoadDublin [place] [id number] Urea nitrogen/Creatinine [Mass ratio] 11 mg/mg Normal 10-24 [facility]; [facility] Work Phone: Comment on above: PATIENT WAS FASTINGP ERFORMED BY: CB [facility] Rwgsko1810 [address] RoadDublin [place] [id number] C-REACT PROT HIGH SENS(hsCRP ) (40322)Ordered By: Laundry Agent on 09-07-2021 CRP High sensitivity method [Mass/Vol] 12.45 mg/L Abnormal 0.00-3.00 [facility]; [facility] Work Phone: Comment on above: Relative Risk for Fu ture Cardiovascular Event Low <1.00 Average 1.00 - 3.00 High >3.00 PATIENT NOT FASTINGP ERFORMED BY: GERTRUDE DesignLinemiladys Mnqttf0189 Mixer Labsblin [place] [id number] CALCIFIDIOL (98175) VIT D 25 Ordered By: Laundry Agent on 09-07-2021 25-hydroxyvitamin D [Mass/Vol] 67.3 ng/mL Normal 30.0-100.0 [facility]; [facility] Work Phone: Comment on above: Vitamin D deficiency has been defined by the Dexter ofMedicine and an Endocrine Society practice guideline as alevel of serum 25-OH vitamin D less than 20 ng/mL (1,2).The Endocrine Society went on to further define vitamin Dinsufficiency as a level between 21 and 29 ng/mL (2).1. IOM (Dexter of Medicine). 2010. Dietary reference intakes for calcium and D. [place]: The National Academies Press.2. Favian MF, Shubham RAMOS, Josep STAHL, et al. Evaluation, treatment, and prevention of vitamin D deficiency: an Endocrine Society clinical practice guideline. JCEM. 2010; 96(7):1911-30. PATIENT NOT FASTINGP ERFORMED BY: GERTRUDE EXFO6370 [address]omTownin [place] [id number] CERULOPLASMIN (42731)Ordered By: Laundry Agent on 09-07-2021 Ceruloplasmin [Mass/Vol] 29.1 mg/dL Normal 16.0-31.0 [facility]; [facility] Work Phone: Comment on above: PATIENT NOT FASTINGP ERFORMED BY: GERTRUDE DesignLinemiladys Uslpuv7224 [address] Mus[facility] Labsin [place] [id number] Information: NURSE DRAW Homocysteine, Plasma (28785) Ordered By: Laundry Agent on 09-07-2021 Homocysteine [Moles/Vol] 12.5 umol/L Normal 0.0-17.2 [facility]; [facility] Work Phone: Comment on above: PATIENT NOT FASTINGP ERFORMED BY: GERTRUDE EXFO6370 [facility]er LabsTrigg [facility] Hospital [id number] VITAMIN B12 AND FOLATES (826 07)Ordered By: Laundry Agent on 09-07-2021 Cobalamin (Vitamin B12) [Mass/Vol] 312 pg/mL Normal 232-1245 [facility]; [facility] Work Phone: Comment on above: PATIENT NOT FASTINGP ERFORMED BY: GERTRUDE DesignLine Vccptb9568 Mixer LabsMaria Parham Health [id number] Information: NURSE DRAW Folate [Mass/Vol] ng/mL Normal Compreh ensive Internal Medicine; [facility] Work Phone: Comment on above: A serum folate viktor ntration of less than 3.1 ng/mL isconsidered to represent clinical deficiency. PATIENT NOT FASTINGP ERFORMED BY: GERTRUDE [employer]70 TravisGroundswell TechnologiesMaria [facility]ham Health [id number] Information: NURSE DRAW Basophil percentageon 2021 Creatinine [Mass/Vol] 0.8 mg/dL 0.70-1.30 [facility] Work Phone: No Panel Informationon 06-23 Bedside Estimated GFR (eGFR) > 60.0000 mL/min >60 [facility] Work Phone: ASM (ANTI SMOOTH MUSCLE ANTI BODY) (86553)Ordered By: Laundry Agent on 06-15-2021 Actin IgG Qn 7 {Units} [...] biliary cirrhosis. PATIENT NOT FASTINGP ERFORMED BY: ODEGARD Media GroupPhelps Health1447 [facility] [id number] BY: GERTRUDE DesignLine Uwewof7222 [address] 6SenseFormerly [facility] [id number] CERULOPLASMIN (88781)Ordered By: Laundry Agent on 06-15-2021 Ceruloplasmin [Mass/Vol] 32.2 mg/dL Abnormal 16.0-31.0 [facility]; [facility] Work Phone: Comment on above: PATIENT NOT FASTINGP ERFORMED BY: DesignLine[address] [id number] BY: DesignLine Xygfid3983 [facility] [id number] Hepatitis C Quant, DNA Probe , Amplified (54237)Ordered By: Laundry Agent on 06-15-2021 HCV RNA ANIYA+probe Qn Not detected Normal [facility]; [facility] Work Phone: Comment on above: PATIENT NOT FASTINGP ERFORMED BY: [address]Line[address] [id number] BY: [employer]Line Xrfwff6886 [facility] [id number] Hepatitis C Quant, DNA Probe, Amplified (32113) SPRCS Normal [facility]; [facility] Work Phone: Comment on above: The quantitative ran ge of this assay is 15 IU/mL to 100 million IU/mL. PATIENT NOT FASTINGP ERFORMED BY: [employer] [id number] BY: DesignLine Fimruw3120 [facility] [id number] MICROSOMAL ANTIBODY (34169)O rdered By: Laundry Agent on 06-15-2021 Liver kidney microsomal 1 Ab [...] HCV infection. PATIENT NOT FASTINGP ERFORMED BY: DesignLine[address] [id number] BY: DesignLineAnn Klein Forensic CenterUtxjxi2616 [facility] [id number] URINE JONNY CULTURE-IDENTIFICA [place] (50942)Ordered By: Laundry Agent on 06-15-2021 Bacteria identified Cx Nom (U) Final report Abnormal [facility]; [facility] Work Phone: Comment on above: PATIENT NOT FASTINGP ERFORMED BY: LabSuperCloud Djmupw0619 Mixer LabsMaria Parham Health [id number] Information: SRC: Bacteria identified Cx Nom (U) Citrobacter koseri Abnormal [facility]; [facility] Work Phone: Comment on above: 25,000-50,000 colony forming units per mL PATIENT NOT FASTINGP ERFORMED BY: [facility] Oxssuc5651 [address] Muses LabsMaria [facility]ham Health [id number] Information: SRC: Other Antibiotic [Susc] MIHEAD Normal [...] STrimethoprim/Sulfa S PATIENT NOT FASTINGP ERFORMED BY: LabSuperCloudrp Fhntrv5255 TravisS[facility] Treatment Center [id number] Information: SRC: Urinalysis, Office (52526)Or dered By: SABINO Gramajo on 06-15-2021 Bilirubin [...] Medicine Work Phone: CBC WITH MANUAL DIFF (04097) Ordered By: Laundry Agent on 06-08-2021 Basophils (Bld) [#/Vol] 0.0 10*3/uL Normal 0.0-0.2 [facility]; [facility] Work Phone: Comment on above: Test(s) 628507-KIJ-B ; 545454-KGZ-R; 991968-Jefnuzdehxbbr; 397792-Nhnsnzndbnc, Total; 272794-CQM-V (Total); 041855-Cayor LDL-P; 990215-PIX Size; 678903-WZ-IT Scorewas developed and its performance characteristics determinedby [employer]. It has not been cleared or approved by the Foodand Drug Administration.PATIENT WAS FASTINGPERFORMED BY: LabcoBrandizi Fsfeqttteq0229 [facility] [id number] BY: LabSuperCloudAnn Klein Forensic CenterJfwrpm3359 [facility] [id number] Basophils/100 WBC (Bld) 1 % Normal [facility]; [facility] Work Phone: Comment on above: Test(s) 704977-IOY-R ; 629846-FXW-J; 466858-Xyxrzwlluuxco; 497802-Lifhmrltrsu, Total; 433378-MIG-W (Total); 359065-Eyviy LDL-P; 616072-HRR Size; 609162-DA-EC Scorewas developed and its performance characteristics determinedby [employer]. It has not been cleared or approved by the Foodand Drug Administration.PATIENT WAS FASTINGPERFORMED BY: [employer] [id number] BY: [employer] Irdqbx4898 Mixer LabsMaria Parham Health [id number] Eosinophils (Bld) [#/Vol] 0.4 10*3/uL Normal 0.0-0.4 [facility]; [facility] Work Phone: Comment on above: Test(s) 511128-OBI-W ; 716395-MAK-Y; 475520-Thmiknbqfklsb; 840405-Xkjsdddxkix, Total; 319918-BQU-V (Total); 904274-Myfre LDL-P; 891730-FVZ Size; 201417-VA-KB Scorewas developed and its performance characteristics determinedby [employer]. It has not been cleared or approved by the Foodand Drug Administration.PATIENT WAS FASTINGPERFORMED BY: [employer] [id number] BY: Coupad70 [address] Muses LabsMaria [facility] Health [id number] Eosinophils/100 WBC (Bld) 5 % Normal [facility]; [facility] Work Phone: Comment on above: Test(s) 576796-TAD-V ; 582747-KJK-L; 091974-Fniuwihnxmpuv; 017705-Nkdpsnojzqa, Total; 553393-LLT-T (Total); 776576-Rdsez LDL-P; 341800-FUB Size; 716639-ZQ-HC Scorewas developed and its performance characteristics determinedby [employer]. It has not been cleared or approved by the Foodand Drug Administration.PATIENT WAS FASTINGPERFORMED BY: [employer] [id number] BY: Meteor EntertainmentAnn Klein Forensic CenterFxktmf9948 [facility] [id number] Erythrocyte distribution width (RBC) [Ratio] 14.0 % Normal 11.6-15.4 [facility]; [facility] Work Phone: Comment on above: Test(s) 244954-CTJ-V ; 181924-PVG-F; 709799-Ejqmcbtlkmwbb; 772623-Riaqdtrwxin, Total; 388212-EWL-N (Total); 937892-Pzeki LDL-P; 129064-COH Size; 935077-DI-ML Scorewas developed and its performance characteristics determinedby [employer]. It has not been cleared or approved by the Foodand Drug Administration.PATIENT WAS FASTINGPERFORMED BY: [employer] [address] [id number] BY: Coupad70 [facility] [id number] Hematocrit (Bld) [Volume fraction] 51.0 % Normal 37.5-51.0 [facility]; [facility] Work Phone: Comment on above: Test(s) 488336-RJR-D ; 215881-YLB-G; 931763-Addqvilfbtbvx; 420494-Mghyqvdutmc, Total; 744253-WHM-M (Total); 997843-Vvexs LDL-P; 960053-AAG Size; 899222-AD-VQ Scorewas developed and its performance characteristics determinedby [employer]. It has not been cleared or approved by the Foodand Drug Administration.PATIENT WAS FASTINGPERFORMED BY: [employer] [address] [id number] BY: [employer] Ogjipq8078 [facility] [id number] Hemoglobin (Bld) [Mass/Vol] 16.6 g/dL Normal 13.0-17.7 [facility]; [facility] Work Phone: Comment on above: Test(s) 891353-QTA-F ; 281497-UEX-W; 528071-Qmijdetcxkuhm; 416724-Qminxnvcmgn, Total; 246935-LQY-B (Total); 578439-Yyjnw LDL-P; 645559-MIT Size; 756943-ZM-ML Scorewas developed and its performance characteristics determinedby [employer]. It has not been cleared or approved by the Foodand Drug Administration.PATIENT WAS FASTINGPERFORMED BY: [employer] [address] [id number] BY: DesignLineAnn Klein Forensic CenterIrhhxx4609 [facility] [id number] Immature granulocytes (Bld) [#/Vol] 0.0 10*3/uL Normal 0.0-0.1 [facility]; [facility] Work Phone: Comment on above: Test(s) 891545-EAZ-A ; 879323-KPV-A; 421099-Ioajjkazmqxby; 777933-Mucieimtnzs, Total; 293754-EKK-Q (Total); 254610-Hpned LDL-P; 623237-ZTQ Size; 356770-YW-SH Scorewas developed and its performance characteristics determinedby [employer]. It has not been cleared or approved by the Foodand Drug Administration.PATIENT WAS FASTINGPERFORMED BY: [employer] [address] [id number] BY: [employer]6370 [facility] [id number] Immature granulocytes/100 WBC (Bld) 1 % Normal [facility]; [facility] Work Phone: Comment on above: Test(s) 749866-DNW-G ; 698257-ENO-T; 611638-Minjlgseaplhf; 132244-Daqjeywvhos, Total; 407942-YSY-N (Total); 414859-Zrgso LDL-P; 610253-SRH Size; 469682-OS-CQ Scorewas developed and its performance characteristics determinedby [employer]. It has not been cleared or approved by the Foodand Drug Administration.PATIENT WAS FASTINGPERFORMED BY: [employer] [id number] BY: DesignLineAnn Klein Forensic CenterKzwbqm4807 [facility] [id number] Lymphocytes (Bld) [#/Vol] 1.5 10*3/uL Normal 0.7-3.1 [facility]; [facility] Work Phone: Comment on above: Test(s) 660771-USX-D ; 850966-IXB-B; 366481-Azxpwlfpyceif; 363613-Agiofsmbtxn, Total; 656561-GTN-F (Total); 465377-Xpnpd LDL-P; 292313-IXD Size; 580648-DK-KM Scorewas developed and its performance characteristics determinedby [employer]. It has not been cleared or approved by the Foodand Drug Administration.PATIENT WAS FASTINGPERFORMED BY: [employer] [address] [id number] BY: [employer]oup[employer]70 Travis Muses LabsMaria Parham Health [id number] Lymphocytes/100 WBC (Bld) 18 % Normal [facility]; [facility] Work Phone: Comment on above: Test(s) 088285-YJP-B ; 423079-ZEP-P; 599129-Rcskosbowrtoa; 735040-Xfucjpnzmoc, Total; 132174-FLP-G (Total); 986865-Zpyfu LDL-P; 066558-NQW Size; 126450-UL-FO Scorewas developed and its performance characteristics determinedby [employer]. It has not been cleared or approved by the Foodand Drug Administration.PATIENT WAS FASTINGPERFORMED BY: [employer] [address] [id number] BY: [employer]oup[employer]70 Travis Muses LabsMaria Parham Health [id number] MCH (RBC) [Entitic mass] 28.1 pg Normal 26.6-33.0 [facility]; [facility] Work Phone: Comment on above: Test(s) 274614-CMK-H ; 165787-AAN-H; 901312-Wlyuhwxxergvt; 208019-Evhwuyixalj, Total; 909228-FVL-T (Total); 279656-Jfckv LDL-P; 710576-HHO Size; 664784-CX-OZ Scorewas developed and its performance characteristics determinedby [employer]. It has not been cleared or approved by the Foodand Drug Administration.PATIENT WAS FASTINGPERFORMED BY: [employer] [address] [id number] BY: Coupad70 [facility] LabsMaria Parham Health [id number] MCHC (RBC) [Mass/Vol] 32.5 g/dL Normal 31.5-35.7 [facility]; [facility] Work Phone: Comment on above: Test(s) 379554-UJP-J ; 776330-CFT-E; 371095-Miadxwvyczgcr; 302484-Hlqgseaewmb, Total; 206309-LGV-F (Total); 098962-Fgrib LDL-P; 685536-VVT Size; 173864-YG-RN Scorewas developed and its performance characteristics determinedby [employer]. It has not been cleared or approved by the Foodand Drug Administration.PATIENT WAS FASTINGPERFORMED BY: [employer] [id number] BY: Coupad70 [facility] [id number] MCV (RBC) [Entitic vol] 86 fL Normal 79-97 [facility]; [facility] Work Phone: Comment on above: Test(s) 505795-MNO-Y ; 327010-NKB-H; 633047-Ztahpxnrhiygu; 922709-Jbtagawvibn, Total; 654835-UWA-V (Total); 690807-Rdieh LDL-P; 452745-NAB Size; 985493-FU-UY Scorewas developed and its performance characteristics determinedby [employer]. It has not been cleared or approved by the Foodand Drug Administration.PATIENT WAS FASTINGPERFORMED BY: [employer] [id number] BY: [employer]Lock6370 [facility] [id number] Monocytes (Bld) [#/Vol] 0.5 10*3/uL Normal 0.1-0.9 [facility]; [facility] Work Phone: Comment on above: Test(s) 454648-RGH-K ; 996819-JED-T; 117041-Gibblyfvpphqr; 418076-Wyuoohshhec, Total; 451842-KLM-Y (Total); 079719-Lovjh LDL-P; 511218-HLQ Size; 697283-NR-VN Scorewas developed and its performance characteristics determinedby [employer]. It has not been cleared or approved by the Foodand Drug Administration.PATIENT WAS FASTINGPERFORMED BY: [employer] [address] [id number] BY: [employer] Mforur6648 [facility] [id number] Monocytes/100 WBC (Bld) 6 % Normal [facility]; [facility] Work Phone: Comment on above: Test(s) 050893-DPD-C ; 119523-BGH-I; 721118-Igtvbovthacqc; 743754-Kvouvnfpdwz, Total; 433192-OSA-E (Total); 608211-Lhpsm LDL-P; 068977-CAI Size; 969221-AB-WS Scorewas developed and its performance characteristics determinedby [employer]. It has not been cleared or approved by the Foodand Drug Administration.PATIENT WAS FASTINGPERFORMED BY: [employer] [address] [id number] BY: Coup[employer]70 [facility] [id number] Neutrophils (Bld) [#/Vol] 5.7 10*3/uL Normal 1.4-7.0 [facility]; [facility] Work Phone: Comment on above: Test(s) 149453-YZX-R ; 493334-PAT-V; 121222-Onglwysvrbbmb; 189059-Ciypjpjhxlo, Total; 519883-MQD-A (Total); 381708-Ozpoo LDL-P; 832130-DRE Size; 378312-VI-AJ Scorewas developed and its performance characteristics determinedby [employer]. It has not been cleared or approved by the Foodand Drug Administration.PATIENT WAS FASTINGPERFORMED BY: [employer] [address] [id number] BY: [employer] Yxhmkw7509 [facility] [id number] Neutrophils/100 WBC (Bld) 69 % Normal [facility]; [facility] Work Phone: Comment on above: Test(s) 847882-SOR-H ; 094672-YVB-A; 147688-Nwatezxfkwgrn; 682843-Dwbqlvdsdnn, Total; 510558-OVP-D (Total); 766700-Fuirp LDL-P; 195401-JJD Size; 270735-HT-TO Scorewas developed and its performance characteristics determinedby [employer]. It has not been cleared or approved by the Foodand Drug Administration.PATIENT WAS FASTINGPERFORMED BY: [employer] [address] [id number] BY: [employer]Lock6370 [facility] [id number] Platelets (Bld) [#/Vol] 282 10*3/uL Normal 150-450 [facility]; [facility] Work Phone: Comment on above: Test(s) 520986-HIU-O ; 655674-GMO-G; 619474-Rrottpogomvpq; 818249-Crokbqhgmqt, Total; 451044-YJE-A (Total); 302999-Xprfp LDL-P; 603138-MFM Size; 592160-AT-EG Scorewas developed and its performance characteristics determinedby [employer]. It has not been cleared or approved by the Foodand Drug Administration.PATIENT WAS FASTINGPERFORMED BY: [employer] [address] [id number] BY: EyeLock6370 [facility] [id number] RBC (Bld) [#/Vol] 5.90 10*6/uL Abnormal 4.14-5.80 [facility]; [facility] Work Phone: Comment on above: Test(s) 636593-WHA-U ; 095581-FWY-M; 621735-Qcmtwjwnbuayy; 098303-Tuqivqypzau, Total; 445216-LBY-B (Total); 330226-Mxlas LDL-P; 032751-UPG Size; 071629-PM-GB Scorewas developed and its performance characteristics determinedby [employer]. It has not been cleared or approved by the Foodand Drug Administration.PATIENT WAS FASTINGPERFORMED BY: [employer] [address] [id number] BY: DesignLineAnn Klein Forensic CenterBzbfeu6062 [facility] [id number] WBC (Bld) [#/Vol] 8.1 10*3/uL Normal 3.4-10.8 [facility]; [facility] Work Phone: Comment on above: Test(s) 932825-RRR-K ; 986381-WWY-X; 273138-Srqbmkmntfmox; 352876-Axwnwvxlgsj, Total; 057881-FJH-O (Total); 365182-Zvkvj LDL-P; 526414-YZR Size; 297274-DZ-ZW Scorewas developed and its performance characteristics determinedby [employer]. It has not been cleared or approved by the Foodand Drug Administration.PATIENT WAS FASTINGPERFORMED BY: [employer] [address] [id number] BY: [employer] Dgbvim6016 [facility] [id number] HEPATITIS C ANTIBODY (17811) Ordered By: Laundry Agent on 06-08-2021 HCV Ab Signal/Cutoff IA [Rel units/Vol] 1.3 {s/co_ratio} Abnormal 0.0-0.9 [facility]; [facility] Work Phone: Comment on above: . Negative: < 0.8 In determinate: 0.8 - 0.9 Positive: > 0.9 . The CDC recommends that a positive HCV antibody result be followed up with a HCV Nucleic Acid Amplification test (536858). Test(s) 075937-XKK-G ; 766051-EQI-W; 843009-Npfkgstdmdjij; 136180-Aezwjqtfeck, Total; 066099-TLB-S (Total); 985541-Acyxg LDL-P; 575453-ADV Size; 024847-XW-HA Scorewas developed and its performance characteristics determinedby [employer]. It has not been cleared or approved by the Foodand Drug Administration.PATIENT WAS FASTINGPERFORMED BY: [employer] [address] [id number] BY: EyeLock6370 [facility] [id number] Metabolic Panel, Comprehensi ve (80020)Ordered By: Laundry Agent on 06-08-2021 Albumin [Mass/Vol] 4.0 g/dL Normal 3.8-4.8 [facility]; [facility] Work Phone: Comment on above: Test(s) 103920-XTR-R ; 489161-KUT-B; 174838-Niwhhwhlzivkg; 520955-Haotjpmnaif, Total; 783417-RWZ-I (Total); 865590-Ojkls LDL-P; 325305-PSG Size; 740159-OC-BF Scorewas developed and its performance characteristics determinedby [employer]. It has not been cleared or approved by the Foodand Drug Administration.PATIENT WAS FASTINGPERFORMED BY: [employer] [id number] BY: EyeLock6370 Travis 6[facility]enseFormerly [facility] [id number] Albumin/Globulin [Mass ratio] 1.1 {ratio} Abnormal 1.2-2.2 [facility]; [facility] Work Phone: Comment on above: Test(s) 496336-JYH-C ; 953758-JVX-B; 982011-Ruxxjhhqbpxlo; 977004-Eiazxanxwir, Total; 203187-RNN-F (Total); 360697-Oqilq LDL-P; 906261-RNG Size; 453750-OY-OE Scorewas developed and its performance characteristics determinedby [employer]. It has not been cleared or approved by the Foodand Drug Administration.PATIENT WAS FASTINGPERFORMED BY: [employer] [id number] BY: EyeLock6370 [facility] [id number] ALP [Catalytic activity/Vol] 87 U/L Normal 44-121 [facility]; [facility] Work Phone: Comment on above: Test(s) 965497-PJN-U ; 606725-OLL-P; 215019-Urcpypxczwned; 160433-Vhnicboniqp, Total; 592290-IXS-C (Total); 854192-Ogigl LDL-P; 545223-WSC Size; 705655-HD-WC Scorewas developed and its performance characteristics determinedby [employer]. It has not been cleared or approved by the Foodand Drug Administration.PATIENT WAS FASTINGPERFORMED BY: [employer] [id number] BY: [employer] Xqgkzw0607 TravisS[facility] [id number] ALT [Catalytic activity/Vol] 15 U/L Normal 0-44 [facility]; [facility] Work Phone: Comment on above: Test(s) 971395-KEV-Y ; 100047-YGH-J; 152265-Odouwxnrxctnd; 999161-Zfaezwqtnre, Total; 499342-QKC-X (Total); 253821-Nwgti LDL-P; 082881-ZUM Size; 101285-XD-BH Scorewas developed and its performance characteristics determinedby [employer]. It has not been cleared or approved by the Foodand Drug Administration.PATIENT WAS FASTINGPERFORMED BY: [employer] [address] [id number] BY: [employer] Soqozj5823 [facility] [id number] AST [Catalytic activity/Vol] 18 U/L Normal 0-40 [facility]; [facility] Work Phone: Comment on above: Test(s) 191104-MSU-J ; 367060-ZOR-K; 999572-Frvybaqsxdemh; 876419-Mfvymtahmnh, Total; 687401-ATZ-N (Total); 577583-Znxgj LDL-P; 066387-GAS Size; 509508-DV-LZ Scorewas developed and its performance characteristics determinedby [employer]. It has not been cleared or approved by the Foodand Drug Administration.PATIENT WAS FASTINGPERFORMED BY: [employer] [id number] BY: [employer] Kkiuyt1007 [facility] [id number] Bilirubin [Mass/Vol] 0.5 mg/dL Normal 0.0-1.2 [facility] Internal Medicine; [facility] Work Phone: Comment on above: Test(s) 109276-PFL-W ; 654519-MSF-A; 722583-Iucfxhzkxjtmk; 223908-Ajwlglgffee, Total; 903986-FWE-R (Total); 694042-Cjnxb LDL-P; 080700-RFO Size; 995675-SC-LS Scorewas developed and its performance characteristics determinedby [employer]. It has not been cleared or approved by the Foodand Drug Administration.PATIENT WAS FASTINGPERFORMED BY: [employer] [id number] BY: EXFO6370 [facility] [id number] Calcium [Mass/Vol] 8.9 mg/dL Normal 8.6-10.2 [facility] Internal Medicine; [facility] Internal Medicine Work Phone: Comment on above: Test(s) 443411-TEB-Y ; 978734-XTL-C; 320107-Wkacubcctjvla; 748910-Ryhbzupggmh, Total; 190359-RUJ-E (Total); 799224-Vdmjl LDL-P; 248084-LBM Size; 400134-XD-NG Scorewas developed and its performance characteristics determinedby [employer]. It has not been cleared or approved by the Foodand Drug Administration.PATIENT WAS FASTINGPERFORMED BY: [employer] [id number] BY: EXFO6370 [facility] [id number] Chloride [Moles/Vol] 101 mmol/L Normal 96-106 [facility] Internal Medicine; [facility] Work Phone: Comment on above: Test(s) 414904-YJM-H ; 913136-XDD-V; 128655-Kqgobafedzyrv; 708701-Psjwqbozvkt, Total; 236026-TDS-E (Total); 948837-Fhyms LDL-P; 265649-LYN Size; 029772-TU-FO Scorewas developed and its performance characteristics determinedby [employer]. It has not been cleared or approved by the Foodand Drug Administration.PATIENT WAS FASTINGPERFORMED BY: [employer] [address] [id number] BY: [employer] Tjmerb8726 [facility] [id number] CO2 [Moles/Vol] 23 mmol/L Normal 20-29 [facility] Internal Medicine; [facility] Internal Medicine Work Phone: Comment on above: Test(s) 852250-TKR-D ; 586271-KAY-M; 840193-Aisoxigawjqtw; 146525-Jnnywndlvdd, Total; 904113-BYL-N (Total); 877858-Vcojv LDL-P; 374306-HTF Size; 474467-WT-ZO Scorewas developed and its performance characteristics determinedby [employer]. It has not been cleared or approved by the Foodand Drug Administration.PATIENT WAS FASTINGPERFORMED BY: [employer] [address] [id number] BY: EyeLock6370 [facility] [id number] Creatinine [Mass/Vol] 1.05 mg/dL Normal 0.76-1.27 [facility]; [facility] Work Phone: Comment on above: Test(s) 223266-SFR-O ; 123725-XSQ-P; 775776-Fmtwtkjbvybra; 874165-Pzsbpqgsyvj, Total; 525762-KXT-K (Total); 311996-Fmibf LDL-P; 993423-BUV Size; 080982-ZU-DD Scorewas developed and its performance characteristics determinedby [employer]. It has not been cleared or approved by the Foodand Drug Administration.PATIENT WAS FASTINGPERFORMED BY: [employer] [address] [id number] BY: [employer] Zbjqxe2880 [facility] [id number] GFR/1.73 sq M.predicted among non-blacks MDRD (S/P/Bld) [Vol rate/Area] 79 mL/min/{1.73_m2} Normal Comprehensiv e Internal Medicine; [facility] Work Phone: Comment on above: Test(s) 907370-LWB-G ; 132326-XLQ-V; 508580-Ekgeoaswidxxp; 911030-Pquirmndxqj, Total; 215286-IIO-U (Total); 792306-Pnflt LDL-P; 529394-DLS Size; 538984-WI-PL Scorewas developed and its performance characteristics determinedby [employer]. It has not been cleared or approved by the Foodand Drug Administration.PATIENT WAS FASTINGPERFORMED BY: [employer] [id number] BY: Coupad70 [facility] [id number] Globulin (S) [Mass/Vol] 3.5 g/dL Normal 1.5-4.5 [facility]; [facility] Work Phone: Comment on above: Test(s) 790982-FJV-U ; 182098-RQE-H; 999511-Ingcelobqecfh; 106007-Ckndpaklveb, Total; 686885-VHO-B (Total); 589252-Amdyq LDL-P; 498237-PSQ Size; 403199-XH-LA Scorewas developed and its performance characteristics determinedby [employer]. It has not been cleared or approved by the Foodand Drug Administration.PATIENT WAS FASTINGPERFORMED BY: [employer] [id number] BY: EyeLock6370 [facility] [id number] Glucose [Mass/Vol] 91 mg/dL Normal 65-99 [facility]; [facility] Work Phone: Comment on above: Test(s) 324989-KLC-M ; 354328-JVX-V; 140106-Elzfpmmgqqdij; 672300-Guavqtwxbhs, Total; 651388-CVG-T (Total); 978597-Aoydm LDL-P; 735061-ERQ Size; 937809-IA-GA Scorewas developed and its performance characteristics determinedby [employer]. It has not been cleared or approved by the Foodand Drug Administration.PATIENT WAS FASTINGPERFORMED BY: [employer] [id number] BY: DesignLineAnn Klein Forensic CenterFefjvu5506 [facility] [id number] Potassium [Moles/Vol] 4.4 mmol/L Normal 3.5-5.2 [facility]; [facility] Work Phone: Comment on above: Test(s) 765736-FWM-D ; 279083-KTP-K; 491277-Rcnadxszmttmy; 987215-Ulamsgwksfc, Total; 672057-JXF-D (Total); 220815-Rjtxt LDL-P; 452366-BPK Size; 573533-IT-YY Scorewas developed and its performance characteristics determinedby [employer]. It has not been cleared or approved by the Foodand Drug Administration.PATIENT WAS FASTINGPERFORMED BY: [employer] [address] [id number] BY: DesignLineAlta Vista Regional HospitalJzgkal6671 [facility] [id number] Protein [Mass/Vol] 7.5 g/dL Normal 6.0-8.5 [facility]; [facility] Work Phone: Comment on above: Test(s) 757262-HKL-A ; 291084-HHR-P; 294063-Zaluprjvvcljr; 006968-Bzezratwvpg, Total; 882928-XZZ-S (Total); 421486-Khabb LDL-P; 747390-LAH Size; 534706-CG-FJ Scorewas developed and its performance characteristics determinedby [employer]. It has not been cleared or approved by the Foodand Drug Administration.PATIENT WAS FASTINGPERFORMED BY: [employer] [id number] BY: DesignLineAnn Klein Forensic CenterTijikz3964 [facility] [id number] Sodium [Moles/Vol] 141 mmol/L Normal 134-144 [facility]; [facility] Work Phone: Comment on above: Test(s) 820879-AGI-P ; 783502-ZNQ-F; 890732-Zdojuhwvrklux; 117896-Qivregngdfi, Total; 075922-AMD-J (Total); 469899-Gqwux LDL-P; 399569-RXV Size; 113373-HN-BX Scorewas developed and its performance characteristics determinedby [employer]. It has not been cleared or approved by the Foodand Drug Administration.PATIENT WAS FASTINGPERFORMED BY: [employer] [address] [id number] BY: Coupad70 [facility] [id number] Urea nitrogen [Mass/Vol] 12 mg/dL Normal 8-27 [facility]; [facility] Work Phone: Comment on above: Test(s) 141262-SLY-Z ; 184153-DOG-K; 612887-Vzhtjyaubjsxk; 810765-Osomlhyoqxd, Total; 704724-NUV-Q (Total); 551891-Ewvxz LDL-P; 249573-VFQ Size; 232770-OQ-EL Scorewas developed and its performance characteristics determinedby [employer]. It has not been cleared or approved by the Foodand Drug Administration.PATIENT WAS FASTINGPERFORMED BY: [employer] [address] [id number] BY: EyeLock6370 [facility] [id number] Urea nitrogen/Creatinine [Mass ratio] 11 mg/mg Normal 10-24 [facility]; [facility] Work Phone: Comment on above: Test(s) 360909-QSV-Y ; 671951-ODT-U; 030873-Bfiqhdtgmleyc; 574519-Eyzwmdsvajo, Total; 782914-PHV-N (Total); 946979-Ssoym LDL-P; 387223-SDZ Size; 227850-PD-KT Scorewas developed and its performance characteristics determinedby [employer]. It has not been cleared or approved by the Foodand Drug Administration.PATIENT WAS FASTINGPERFORMED BY: [employer] [address] [id number] BY: Meteor EntertainmentAlta Vista Regional HospitalIspejo9453 [facility] [id number] NMR Profile (64050)Ordered B y: Laundry Agent on 06-08-2021 Cholesterol [Mass/Vol] 124 mg/dL Normal 100-199 [facility]; [facility] Work Phone: Comment on above: Test(s) 144526-LUV-E ; 919872-MEC-E; 324987-Maqmdshlwfhmo; 467949-Tmgkqrjjcso, Total; 758202-EHY-J (Total); 297647-Fvkub LDL-P; 277670-CHE Size; 087980-SV-YJ Scorewas developed and its performance characteristics determinedby [employer]. It has not been cleared or approved by the Foodand Drug Administration.PATIENT WAS FASTINGPERFORMED BY: [employer] [id number] BY: EyeLock6370 [facility] [id number] Information: NURSE DRAW Lipoprotein.alpha [Moles/Vol] 20.5 umol/L Abnormal [facility]; [facility] Work Phone: Comment on above: Test(s) 137982-YJZ-I ; 493352-XEA-L; 002239-Oddbruylspagw; 834881-Xehrvdtzqwb, Total; 974183-ZRU-I (Total); 685378-Ekiyu LDL-P; 146543-QJO Size; 574578-XU-NB Scorewas developed and its performance characteristics determinedby [employer]. It has not been cleared or approved by the Foodand Drug Administration.PATIENT WAS FASTINGPERFORMED BY: [employer] [address] [id number] BY: [employer] Bcpdev6882 [facility] [id number] Information: NURSE DRAW Lipoprotein.beta.stringer bparticle [Entitic length] [...] not afterLDL-P is taken into account. Test(s) 182297-EDG-R ; 249148-OOS-W; 181072-Xumavxdziyqup; 791969-Vccpwixgyrj, Total; 231184-FDY-G (Total); 654160-Ihoeg LDL-P; 410455-QQW Size; 251289-RX-IG Scorewas developed and its performance characteristics determinedby [employer]. It has not been cleared or approved by the Foodand Drug Administration.PATIENT WAS FASTINGPERFORMED BY: BN [facility] [address] [id number] BY: LabcoAnn [facility] Forensic CenterDdvnat1337 [facility] [id number] Information: NURSE DRAW Lipoprotein.beta.stringer bparticle [Moles/Vol] 1072 nmol/L Abnormal [facility]; [facility] Work Phone: Comment on above: Low < 1000 Moderate 1000 - 1299 Borderline-High 1300 - 1599 High 1600 - 2000 Very High > 2000 Test(s) 422141-TMY-M ; 464512-RQI-S; 608178-Pxzksnrpctlcu; 141542-Ggcmjuweejs, Total; 190847-BIT-O (Total); 488692-Jpxid LDL-P; 160188-QUH Size; 974445-UN-JM Scorewas developed and its performance characteristics determinedby [employer]. It has not been cleared or approved by the Foodand Drug Administration.PATIENT WAS FASTINGPERFORMED BY: [employer] [address] [id number] BY: [employer] Jcnfcj5840 [facility] [id number] Information: NURSE DRAW Lipoprotein.beta.stringer bparticle.small [Moles/Vol] 532 nmol/L Abnormal [facility]; [facility] Work Phone: Comment on above: Test(s) 209813-EQF-C ; 916972-POK-K; 456675-Smdnsxhzwsktf; 851452-Kwdcfdlnevi, Total; 036366-SAF-Q (Total); 897106-Jbpar LDL-P; 281991-ZTR Size; 992869-LJ-PV Scorewas developed and its performance characteristics determinedby [employer]. It has not been cleared or approved by the Foodand Drug Administration.PATIENT WAS FASTINGPERFORMED BY: [employer] [address] [id number] BY: [employer] Itzjjs1588 [facility] [id number] Information: NURSE DRAW Triglyceride [Mass/Vol] 78 mg/dL Normal 0-149 [facility]; [facility] Work Phone: Comment on above: Test(s) 139338-ZYH-X ; 639529-FLZ-C; 385422-Bwaqycrcsqdii; 476221-Kxwsvsdxpxv, Total; 531313-GPT-T (Total); 705912-Khdqe LDL-P; 114414-PVO Size; 276291-GY-JS Scorewas developed and its performance characteristics determinedby [employer]. It has not been cleared or approved by the Foodand Drug Administration.PATIENT WAS FASTINGPERFORMED BY: [employer] [address] [id number] BY: [employer]6370 [facility] [id number] Information: NURSE DRAW NMR Profile (69489) 74 mg/dL Normal 0-99 [facility]; [facility] Work Phone: Comment on above: . Optimal < 100 Abov e optimal 100 - 129 Borderline 130 - 159 High 160 - 189 Very high > 189 . Test(s) 563754-SAT-R ; 111734-VGY-W; 238694-Oaytpyjesyyix; 416733-Rzdrlgzrxtd, Total; 449164-NBF-R (Total); 771222-Loesk LDL-P; 822827-ZGR Size; 787470-JH-WA Scorewas developed and its performance characteristics determinedby [employer]. It has not been cleared or approved by the Foodand Drug Administration.PATIENT WAS FASTINGPERFORMED BY: [employer] [address] [id number] BY: [employer]6370 [facility] [id number] Information: NURSE DRAW NMR Profile (09187) 34 mg/dL Abnormal [facility]; [facility] Work Phone: Comment on above: Test(s) 969556-WDX-P ; 200940-BJI-A; 533289-Fqnppbbymvwdd; 654809-Wqgwondhsdl, Total; 985848-VFK-L (Total); 176789-Yfahl LDL-P; 190243-BNA Size; 359092-VH-BZ Scorewas developed and its performance characteristics determinedby [employer]. It has not been cleared or approved by the Foodand Drug Administration.PATIENT WAS FASTINGPERFORMED BY: [employer] [address] [id number] BY: [employer]70 [facility] [id number] Information: NURSE DRAW PSA (Prostate Specific Antig en), Screening (26111)Ordered By: Laundry Agent on 06-08-2021 Prostate specific Ag [Mass/Vol] 1.0 ng/mL Normal 0.0-4.0 [facility]; [facility] Work Phone: Comment on above: Josee ECLIA methodol ogy. .According to the [place], Serum PSA shoulddecrease and remain at undetectable levels after radicalprostatectomy. The AUA defines biochemical recurrence as an initialPSA value 0.2 ng/mL or greater followed by a subsequent confirmatoryPSA value 0.2 ng/mL or greater.Values obtained with different assay methods or kits cannot be usedinterchangeably. Results cannot be interpreted as absolute evidenceof the presence or absence of malignant disease. Test(s) 243509-RKS-V ; 389738-PZH-V; 486650-Blbahgszuxebz; 191349-Ympvhbcrsdv, Total; 490776-PNP-O (Total); 701772-Avkbq LDL-P; 125045-SUB Size; 271816-FF-ZY Scorewas developed and its performance characteristics determinedby [employer]. It has not been cleared or approved by the Foodand Drug Administration.PATIENT WAS FASTINGPERFORMED BY: [employer] [id number] BY: [employer] Blrdgb2044 [facility] LabsMaria [facility] [id number] CBC, PLATELETS & AUT DIFF (6 5104)Ordered By: Laundry Agent on 09-03-2020 Basophils (Bld) [#/Vol] 0.0 10*3/uL Normal 0.0-0.2 [facility]; [facility] Work Phone: Comment on above: PATIENT WAS FASTINGP ERFORMED BY: Casperlin6370 [facility]er LabsMaria [facility] [id number] Basophils/100 WBC (Bld) 1 % Normal [facility]; [facility] Work Phone: Comment on above: PATIENT WAS FASTINGP ERFORMED BY: Appdra70 [facility] [id number] Eosinophils (Bld) [#/Vol] 0.3 10*3/uL Normal 0.0-0.4 [facility]; [facility] Work Phone: Comment on above: PATIENT WAS FASTINGP ERFORMED BY: Casperlin6370 [facility] [id number] Eosinophils/100 WBC (Bld) 5 % Normal [facility]; [facility] Work Phone: Comment on above: PATIENT WAS FASTINGP ERFORMED BY: GERTRUDE Maria6370 [facility] [id number] Erythrocyte distribution width (RBC) [Ratio] 14.2 % Normal 11.6-15.4 [facility]; [facility] Work Phone: Comment on above: PATIENT WAS FASTINGP ERFORMED BY: [facility] Ezecbt2749 [facility] [id number] Hematocrit (Bld) [Volume fraction] 44.1 % Normal 37.5-51.0 [facility]; [facility] Work Phone: Comment on above: PATIENT WAS FASTINGP ERFORMED BY: [facility] Zyqmfe7597 [facility] [id number] Hemoglobin (Bld) [Mass/Vol] 14.8 g/dL Normal 13.0-17.7 [facility]; [facility] Work Phone: Comment on above: PATIENT WAS FASTINGP ERFORMED BY: Esa Tzztuw2450 [facility] [id number] Immature granulocytes (Bld) [#/Vol] 0.0 10*3/uL Normal 0.0-0.1 [facility]; [facility] Work Phone: Comment on above: PATIENT WAS FASTINGP ERFORMED BY: [facility] Essbda0949 [facility] [id number] Immature granulocytes/100 WBC (Bld) 1 % Normal [facility]; [facility] Work Phone: Comment on above: PATIENT WAS FASTINGP ERFORMED BY: [facility] Oueljq2778 [facility] [id number] Lymphocytes (Bld) [#/Vol] 1.6 10*3/uL Normal 0.7-3.1 [facility]; [facility] Work Phone: Comment on above: PATIENT WAS FASTINGP ERFORMED BY: [facility] Omfyxx5513 [facility] [id number] Lymphocytes/100 WBC (Bld) 23 % Normal [facility]; [facility] Work Phone: Comment on above: PATIENT WAS FASTINGP ERFORMED BY: [facility] Hqycbn7225 [facility] [id number] MCH (RBC) [Entitic mass] 28.5 pg Normal 26.6-33.0 [facility]; [facility] Work Phone: Comment on above: PATIENT WAS FASTINGP ERFORMED BY: [place] [id number] [facility] [id number] MCHC (RBC) [Mass/Vol] 33.6 g/dL Normal 31.5-35.7 [facility]; [facility] Work Phone: Comment on above: PATIENT WAS FASTINGP ERFORMED BY: [place] [id number] [facility] [id number] MCV (RBC) [Entitic vol] 85 fL Normal 79-97 [facility]; [facility] Work Phone: Comment on above: PATIENT WAS FASTINGP ERFORMED BY: JustinJennifer [place] [id number] [facility] [id number] Monocytes (Bld) [#/Vol] 0.3 10*3/uL Normal 0.1-0.9 [facility]; [facility] Work Phone: Comment on above: PATIENT WAS FASTINGP ERFORMED BY: [facility]6370 [facility] [id number] Monocytes/100 WBC (Bld) 5 % Normal [facility]; [facility] Work Phone: Comment on above: PATIENT WAS FASTINGP ERFORMED BY: [facility]6370 [facility] [id number] Neutrophils (Bld) [#/Vol] 4.5 10*3/uL Normal 1.4-7.0 [facility]; [facility] Work Phone: Comment on above: PATIENT WAS FASTINGP ERFORMED BY: GERTRUDE [facility] Drevye10[address] RoadDublin [place] [id number] Neutrophils/100 WBC (Bld) 65 % Normal [facility]; [facility] Work Phone: Comment on above: PATIENT WAS FASTINGP ERFORMED BY: GERTRUDE [facility] Ngykfe4668 [address] RoadDublin [place] [id number] Platelets (Bld) [#/Vol] 254 10*3/uL Normal 150-450 [facility]; [facility] Work Phone: Comment on above: PATIENT WAS FASTINGP ERFORMED BY: GERTRUDE [facility] Hmtghu0225 [address] RoadDublin [place] [id number] RBC (Bld) [#/Vol] 5.19 10*6/uL Normal 4.14-5.80 Compr ehensive Internal [facility]; [facility] Work Phone: Comment on above: PATIENT WAS FASTINGP ERFORMED BY: GERTRUDE [facility] Stpqym2632 [address] RoadDublin [place] [id number] WBC (Bld) [#/Vol] 6.8 10*3/uL Normal 3.4-10.8 Compre [facility]; [facility] Work Phone: Comment on above: PATIENT WAS FASTINGP ERFORMED BY: GERTRUDE [facility] Jyndbh1681 [address]Dublin [place] [id number] LIPID PANEL (36734)Ordered B y: Laundry Agent on 09-03-2020 Cholesterol [Mass/Vol] 197 mg/dL Normal 100-199 [facility]; [facility] Work Phone: Comment on above: PATIENT WAS FASTINGP ERFORMED BY: GERTRUDE [facility] Cvfsvf0713 [address] RoadDublin [place] [id number] Cholesterol in HDL [Mass/Vol] 37 mg/dL Abnormal [facility]; [facility] Work Phone: Comment on above: PATIENT WAS FASTINGP ERFORMED BY: GERTRUDE [facility] Nwgpdx3505 [address] RoadDublin [place] [id number] Triglyceride [Mass/Vol] 73 mg/dL Normal 0-149 [facility]; [facility] Work Phone: Comment on above: PATIENT WAS FASTINGP ERFORMED BY: GERTRUDE LabComilad[facility] Tqpgtn6725 [address] Roadblin [place] [id number] LIPID PANEL (59233) 13 mg/dL Normal 5-40 [facility]; [facility] Work Phone: Comment on above: PATIENT WAS FASTINGP ERFORMED BY: GERTRUDE LabComilad[facility] Wrzsfp3503 [address]bl[address] [place] [id number] LIPID PANEL (80336) 147 mg/dL Abnormal 0-99 [facility]; [facility] Work Phone: Comment on above: PATIENT WAS FASTINGP ERFORMED BY: GERTRUDE LabComiladys ForresterNnonbk5508 [address] [facility] [id number] LIPID PANEL (99273) 4.0 {ratio} Abnormal 0.0-3.6 [facility]; [facility] Work Phone: Comment on above: LDL/HDL Ratio Men Wo men 1/2 Avg.Risk 1.0 1.5 Avg.Risk 3.6 3.2 2X Avg.Risk 6.2 5.0 3X Avg.Risk 8.0 6.1 PATIENT WAS FASTINGP ERFORMED BY: GERTRUDE LabZoey Feeobc9981 [facility] [id number] METABOLIC PANEL, COMPREHENSI VE (78606)Ordered By: Laundry Agent on 09-03-2020 Albumin [Mass/Vol] 3.8 g/dL Normal 3.8-4.8 [facility]; [facility] Work Phone: Comment on above: PATIENT WAS FASTINGP ERFORMED BY: GERTRUDE [facility] Ihsbsi60[address] [facility]in [place] [id number] Albumin/Globulin [Mass ratio] 1.2 {ratio} Normal 1.2-2.2 [facility]; [facility] Work Phone: Comment on above: PATIENT WAS FASTINGP ERFORMED BY: GERTRUDE [facility] Fazvtv20[address] Mcl[facility] RegionDublin [place] [id number] ALP [Catalytic activity/Vol] 78 U/L Normal 48-121 [facility]; [facility] Work Phone: Comment on above: PATIENT WAS FASTINGP ERFORMED BY: CB [facility] Nkpsgh9005 [address]Dublin [place] [id number] ALT [Catalytic activity/Vol] 18 U/L Normal 0-44 [facility]; [facility] Work Phone: Comment on above: PATIENT WAS FASTINGP ERFORMED BY: CB [facility] Enassk4303 [address]Dublin [place] [id number] AST [Catalytic activity/Vol] 22 U/L Normal 0-40 [facility]; [facility] Work Phone: Comment on above: PATIENT WAS FASTINGP ERFORMED BY: CB [facility] Qwvuoz5202 [address]Dublin [place] [id number] Bilirubin [Mass/Vol] 0.3 mg/dL Normal 0.0-1.2 [facility]; [facility] Work Phone: Comment on above: PATIENT WAS FASTINGP ERFORMED BY: CB [facility] Qetocc5337 [address]Dublin [place] [id number] Calcium [Mass/Vol] 8.7 mg/dL Normal 8.6-10.2 [facility] [place] [facility]; [facility] Work Phone: Comment on above: PATIENT WAS FASTINGP ERFORMED BY: CB [facility] Yccrjf1914 [address]Dublin [place] [id number] Chloride [Moles/Vol] 107 mmol/L Abnormal 96-106 [facility]; [facility] Work Phone: Comment on above: PATIENT WAS FASTINGP ERFORMED BY: CB [facility] Hqaczg3233 [address] RoadDublin [place] [id number] CO2 [Moles/Vol] 24 mmol/L Normal 20-29 [facility]; [facility] Work Phone: Comment on above: PATIENT WAS FASTINGP ERFORMED BY: CB [facility] Tdkrfh8231 [address]Dublin [place] [id number] Creatinine [Mass/Vol] 1.19 mg/dL Normal 0.76-1.27 [facility]; [facility] Work Phone: Comment on above: PATIENT WAS FASTINGP ERFORMED BY: [facility]6370 [facility] [id number] GFR/1.73 sq M.predicted among blacks CKD-EPI (S/P/Bld) [Vol rate/Area] 75 mL/min/1.73 Normal [facility]; [facility] Work Phone: Comment on above: [facility] currently reports eGFR in compliance with the current recommendations of the National Kidney Foundation. [facility] will update reporting as new guidelines are published from the NKF-ASN Task force. PATIENT WAS FASTINGP ERFORMED BY: [facility]6370 [facility] [id number] GFR/1.73 sq M.predicted among non-blacks CKD-EPI (S/P/Bld) [Vol rate/Area] 65 mL/min/1.73 Normal [facility]; [facility] Work Phone: Comment on above: PATIENT WAS FASTINGP ERFORMED BY: [facility]6370 [facility] [id number] Globulin (S) [Mass/Vol] 3.3 g/dL Normal 1.5-4.5 [facility]; [facility] Work Phone: Comment on above: PATIENT WAS FASTINGP ERFORMED BY: [facility]6370 [facility] [id number] Glucose [Mass/Vol] 92 mg/dL Normal 65-99 [facility] [place] [facility]; [facility] Work Phone: Comment on above: PATIENT WAS FASTINGP ERFORMED BY: [facility] Kwssna1409 [facility] [id number] Potassium [Moles/Vol] 4.6 mmol/L Normal 3.5-5.2 [facility]; [facility] Work Phone: Comment on above: PATIENT WAS FASTINGP ERFORMED BY: [facility] Irtgqb9250 [facility] [id number] Protein [Mass/Vol] 7.1 g/dL Normal 6.0-8.5 [facility] [place] [facility]; [facility] Work Phone: Comment on above: PATIENT WAS FASTINGP ERFORMED BY: [facility] Bpyaei3471 [address] [facility] [id number] Sodium [Moles/Vol] 145 mmol/L Abnormal 134-144 [facility] [place] [facility]; [facility] Work Phone: Comment on above: PATIENT WAS FASTINGP ERFORMED BY: [facility] Fiwqdt8455 [address] [facility] [id number] Urea nitrogen [Mass/Vol] 12 mg/dL Normal 8-27 [facility]; [facility] Work Phone: Comment on above: PATIENT WAS FASTINGP ERFORMED BY: [facility] Qzkghq3210 [facility] [id number] Urea nitrogen/Creatinine [Mass ratio] 10 mg/mg Normal 10-24 [facility]; [facility] Work Phone: Comment on above: PATIENT WAS FASTINGP ERFORMED BY: [facility] Upbilb4366 [facility] [id number] TSH (THYROID STIMULATING HOR JAYSON) (47477)Ordered By: Laundry Agent on 09-03-2020 TSH Qn 2.850 {uIU/mL} Normal 0.450-4.500 [facility]; [facility] Work Phone: Comment on above: PATIENT WAS FASTINGP ERFORMED BY: [facility] Skopfg2507 [facility] [id number] Provider Note - ED v2on 08-01 Provider [...] SIGNS: T PRBP SpO2O2(LPM) %FiO2 Method 12-Aug-2020 13:41:[id number]/86 97 MEDICAL DECISION MAKING/ED COURSE MDM/ED COURSE: [...] complaints. No known health issues. 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 States he has not received [...] or drainage, (more content not included)... Normal [facility] Urinalysis, Office (91494)Or dered By: Luke Driver on 05-05-2020 Bilirubin [...] [facility] Work Phone: Urinalysis, Office (46797)Or dered By: Muriel Woo on 05-25-2018 Bilirubin [...] [facility] Work Phone: Urinalysis, Office (88525)Or dered By: Coni Rebolledo on 06-13-2016 Bilirubin [...] [facility] Work Phone: Urinalysis, Office (40641)Or dered By: Barbie Henriquez on 07-01-2014 Bilirubin [...] [facility] Work Phone: Urinalysis, Office (41745)Or dered By: Tiffanie Hopkins on 01-14-2013 Bilirubin [...] screen fmx bladder c a Urinalysis, Office (26835)on 01-14-2013 Bilirubin Ql (U) Negative Normal Comprehe [...] [facility] Work Phone: Urinalysis, Office (98505)Or dered By: Barbie Henriquez on 08-01-2012 Bilirubin [...] Work Phone: RIBS,UNI,MIN 3V,W/PA CHESTOr dered By: Laundry Agent on 07-11-2011 RIBS,UNI,MIN 3V,W/PA CHEST See Note [...] radiologist regarding this report, please call our [id number] line @ Dictated on 07/11/11 1426 by Ashley MEJÍA, SupratikTranscribed on 07/12/11 0121 by ITS IMPORTSign by Ashley MEJÍA, Supratik on 07/12/11 0122 Sign by: Ashley MEJÍA, Supratik Urinalysis, Office (06525)Or dered By: Dominga Queen on 07-26-2010 Bilirubin [...] [facility] Work Phone: Urinalysis, Office (38456)on 07-26-2010 Bilirubin Ql (U) Negative Normal Comprehe [...] Phone: PSA (Prostate Specific Antig en), Screening (47691)Ordered By: Jess Lopez on 08-06-2008 Prostate specific Ag mass conc 1.0 ng/mL Normal 0.0-4.0 [facility] Work Phone: Comment on above: Josee ECLIA methodol ogy. .According to the [place] [employer], PSA should beundetectable after radical prostatectomy. A PSA of less than0.5 ng/mL (or undetectable) is not likely to be associated withdisease recurrence within five years of treatment.Values obtained with different assay methods or kits cannot be usedinterchangeably. Results cannot be interpreted as absolute evidenceof the presence or absence of malignant disease. PATIENT NOT FASTINGC linical Information: ADD DRAW FEE [id number] ADD J 22170 PERFORMED BY: [facility]6370 [facility] [id number] Urinalysis, Office (91533)Or dered By: Shawnee Payan on 08-05-2008 Bilirubin [...] Hemoglobin Ql (U) Hemolyzed Trace Normal [facility] Work Phone: Comment on [...] 170.[address] Lin Pardo Work Phone: [facility] 11-07-2022 16:13-0400 Body mass index (BMI) [Ratio] 31.8 kg/m2 Dr. Lin Pardo Work Phone: [facility] 11-07-2022 16:13-0400 Body temperature 98.2 [degF] Dr. Lin Pardo Work Phone: [facility] 11-07-2022 16:13-0400 Body weight 92.[address] Lin Pardo Work Phone: [facility] 11-07-2022 16:13-0400 Diastolic blood pressure 86 mm[Hg] Dr. Lin Pardo Work Phone: [facility] 11-07-2022 16:13-0400 Heart rate 73 /min Dr. Lin Pardo Work Phone: [facility] 11-07-2022 16:13-0400 Respiratory rate 16 /min Dr. Lin Pardo Work Phone: [facility] 11-07-2022 16:13-0400 SaO2% (BldA) [Mass fraction] 98 % Dr. Lin Pardo Work Phone: [facility] 11-07-2022 16:13-0400 Systolic blood pressure 128 mm[Hg] Dr. Lin Pardo Work Phone: [facility] 10-13-2022 14:52-0400 Body height 167.64 cm [...] 15:21-0500 Respiratory rate 16 /min Dora Shaffer COMMUNITY EDUCATOR [facility]; [facility] Work Phone: Comment on above: Pattern: Unlabored 06-06-2022 15:21-0500 SaO2% (BldA) [Mass fraction] 99 % Dora Shaffer LPN [facility]; [facility] Work Phone: Comment on above: Room air 06-06-2022 15:21-0500 Systolic blood pressure 118 mm[Hg] Dora Shaffer COMMUNITY EDUCATOR [facility]; [facility] Work Phone: Comment on above: Patient Position: Sitting; Cuff Location : Left Arm; Cuff Size: Standard 04-11-2022 13:48-0500 Body weight 90.72 kg Lin Pardo MD Work Phone: [facility]; [facility] Work Phone: 09-06-2021 15:38-0400 Body height 167.64 cm Tyra De Leon [facility]; [facility] Work Phone: 09-06-2021 15:38-0400 Body mass index (BMI) [Ratio] 37.77 kg/m2 Tyra De Leon [facility]; [facility] Work Phone: 09-06-2021 15:38-0400 Body surface area Derived from formula 2.14 m2 Tyra De Leon [facility]; [facility] Work Phone: 09-06-2021 15:38-0400 Body temperature 97.3 [degF] Tyra De Leon [facility]; [facility] Work Phone: Comment on above: Method: Infrared 06-06-2022 15:38-0400 Body weight 106.15 kg Tyra De Leon [facility]; [facility] Work Phone: 09-06-2021 15:38-0400 Diastolic blood pressure 82 mm[Hg] Tyra De Leon [facility]; [facility] Work Phone: Comment on above: Patient Position: Sitting; Cuff Location : Left Arm; Cuff Size: Standard 09-06-2021 15:38-0400 Heart rate 84 /min Tyra De Leon [facility]; [facility] Work Phone: Comment on above: Pattern: Regular 09-06-2021 15:38-0400 Respiratory rate 16 /min Tyra De Leon [facility]; [facility] Work Phone: Comment on above: Pattern: Unlabored 09-06-2021 15:38-0400 SaO2% (BldA) [Mass fraction] 94 % Tyra De Leon [facility]; [facility] Work Phone: Comment on above: Room air 09-06-2021 15:38-0400 Systolic blood pressure 138 mm[Hg] Tyra De Leon [facility]; [facility] Work [...] 14:55-0400 Respiratory rate 16 /min Luke Driver COMMUNITY EDUCATOR [facility]; [facility] Work Phone: Comment on above: Pattern: Unlabored 09-07-2020 14:55-0400 SaO2% (BldA) [Mass fraction] 98 % Luke Driver [facility]; [facility] Work Phone: Comment on above: Room air 09-07-2020 14:55-0400 Systolic blood pressure 140 mm[Hg] Luke Driver [facility]; [facility] Work Phone: Comment on above: Patient Position: Sitting; Cuff Location : Left Arm; Cuff Size: Standard 08-24-2020 15:38-0400 Body height 172.72 cm [facility]; [facility] Work Phone: 08-24-2020 15:38-0400 Body mass index (BMI) [Ratio] 38.32 kg/m2 [facility]; [facility] Work Phone: 08-24-2020 15:38-0400 Body surface area Derived from formula 2.26 m2 [facility]; [facility] Work Phone: 08-24-2020 15:38-0400 Body weight 114.33 kg [facility]; [facility] Work Phone: 08-12-2020 15:41-0400 Body height 175.2 cm Jess Lopez Other Phone: [facility] 08-12-2020 15:41-0400 Body temperature 98.6 [degF] Jess Lopez Other Phone: [facility] 08-12-2020 15:41-0400 Diastolic blood pressure 86 mm[Hg] Jess Lopez Other Phone: [facility] 08-12-2020 15:41-0400 Heart rate 90 /min Jess Lopez Other Phone: [facility] 08-12-2020 15:41-0400 Respiratory rate 16 /min Jess Lopez Other Phone: [facility] 08-12-2020 15:41-0400 SaO2% (BldA) [Mass fraction] 97 % Jess Lopez Other Phone: [facility] 08-12-2020 15:41-0400 Systolic blood pressure 143 mm[Hg] Jess Lopez Other Phone: [facility] 05-05-2020 12:56-0500 BMI (Body Mass Index) 38.32 kg/m2 Luke Driver LPN [facility] Internal Medicine; [facility] Work Phone: Comment on above: PASSED WHISPER TESTPASSED COLOR VISION T EST 05-05-2020 12:56-0500 Body Temperature 97.8 [degF] Luke Driver LPN [facility]; [facility] Work Phone: Comment on above: Method: Infrared PASSED WHISPER TESTP ASSED COLOR VISION TEST 05-05-2020 12:56-0500 Body weight 114.33 kg Luke Driver LPN [facility] Internal Medicine; [facility] Work Phone: Comment on above: PASSED WHISPER TESTPASSED COLOR VISION T EST 05-05-2020 12:56-0500 BP Diastolic 78 mm[Hg] uLke Driver LPN [facility]; [facility] Work Phone: Comment on above: Patient Position: Sitting; Cuff Location : Left Arm; Cuff Size: Standard PASSED WHISPER TESTP ASSED COLOR VISION TEST 05-05-2020 12:56-0500 BP Systolic 120 mm[Hg] Luke Driver LPN [facility] Internal Medicine; [facility] Work [...] 12:56-0500 Pulse Oximetry 97 % Jess Lopez [facility] Internal Medicine; [facility] Work Phone: Comment on above: Room air PASSED WHISPER TESTP ASSED COLOR VISION TEST 05-05-2020 12:56-0500 Respiratory Rate 18 /min Luke Driver LPN [facility] Internal Medicine; [facility] Work Phone: Comment on above: Pattern: Unlabored PASSED WHISPER TESTP ASSED COLOR VISION TEST 05-05-2020 12:56-0500 SaO2% (BldA) [Mass fraction] 97 % Luke Driver LPN [facility] Internal Medicine; [facility] Work Phone: Comment on above: Room air PASSED WHISPER TESTP ASSED COLOR VISION TEST 05-25-2018 09:13-0500 BMI (Body Mass Index) 38.49 kg/m2 Muriel Woo [facility] Internal Medicine Work Phone: 05-25-2018 09:13-0500 Body Temperature 97.1 [degF] Muriel Woo [facility] Internal Medicine Work Phone: Comment on above: Method: Temporal 05-25-2018 09:13-0500 Body weight 114.82 kg Muriel Woo [facility] Internal Medicine Work Phone: 05-25-2018 09:13-0500 BP Diastolic 80 mm[Hg] Muriel Woo [facility] Internal Medicine Work Phone: Comment on above: Patient Position: Sitting; Cuff Location : Left Arm; Cuff Size: Standard 05-25-2018 09:13-0500 BP Systolic 124 mm[Hg] Muriel Woo [facility] Internal Medicine Work Phone: Comment on above: Patient Position: Sitting; Cuff Location : Left Arm; Cuff Size: Standard 05-25-2018 09:13-0500 BSA (Body Surface Area) 2.26 m2 Muriel Woo [facility] Internal Medicine Work Phone: 05-25-2018 09:13-0500 Height 172.72 cm Muriel Woo [facility] Internal Medicine Work Phone: 05-25-2018 09:13-0500 Pulse (Heart Rate) 86 /min Muriel Woo [facility] Internal Medicine Work Phone: Comment on above: Pattern: Regular 05-25-2018 09:13-0500 Pulse Oximetry 96 % Jess Lopez [facility] Internal Medicine Work Phone: Comment on above: Room air 05-25-2018 09:13-0500 Respiratory Rate 17 /min Muriel Woo [facility] Internal Medicine Work Phone: Comment on above: Pattern: Unlabored 05-25-2018 09:13-0500 SaO2% (BldA) [Mass fraction] 96 % Muriel Woo [facility] Internal Medicine; [facility] Internal Medicine Work Phone: Comment on above: Room air 05-25-2018 09:13-0500 Weight 114.82 kg Jess Lopez [facility] Medicine Work Phone: 06-13-2016 14:29-0400 BMI (Body Mass Index) 40.44 kg/m2 Coni Rebolledo [facility] Internal Medicine Work Phone: 06-13-2016 14:29-0400 Body Temperature 98.4 [degF] Coni Rebolledo [facility] Internal Medicine Work Phone: Comment on above: Method: Temporal 06-13-2016 14:29-0400 Body weight 120.66 kg Coni Rebolledo [facility] Internal Medicine Work Phone: 06-13-2016 14:29-0400 BP Diastolic 78 mm[Hg] Coni Rebolledo [facility] Internal Medicine Work Phone: Comment on above: Patient Position: Sitting; Cuff Location : Left Arm; Cuff Size: Standard 06-13-2016 14:29-0400 BP Systolic 136 mm[Hg] Coni Rebolledo [facility] Internal Medicine Work Phone: Comment on above: Patient Position: Sitting; Cuff Location : Left Arm; Cuff Size: Standard 06-13-2016 14:29-0400 BSA (Body Surface Area) 2.31 m2 Coni Rebolledo [facility] Internal Medicine Work Phone: 06-13-2016 14:29-0400 Height 172.72 cm Coni Rebolledo [facility] Internal Medicine Work Phone: 06-13-2016 14:29-0400 Pulse (Heart Rate) 93 /min Coni Rebolledo [facility] Internal Medicine Work Phone: Comment on above: Pattern: Regular 06-13-2016 14:29-0400 Pulse Oximetry 98 % Jess Lopez [facility] Internal Medicine Work Phone: Comment on above: Room air 06-13-2016 14:29-0400 Respiratory Rate 16 /min Coni Rebolledo [facility] Internal Medicine Work Phone: Comment on above: Pattern: Unlabored 06-13-2016 14:29-0400 SaO2% (BldA) [Mass fraction] 98 % Coni Rebolledo [facility] Internal Medicine; [facility] Work Phone: Comment on above: Room air 06-13-2016 14:29-0400 Weight 120.66 kg Jess Lopez [facility] Internal Medicine Work Phone: 07-01-2014 15:38-0400 BMI (Body Mass Index) 40.29 kg/m2 Barbie Martinez [facility] Internal Medicine Work Phone: 07-01-2014 15:38-0400 Body Temperature 98.6 [degF] Barbie Martinez [facility] Internal Medicine Work Phone: Comment on above: Method: Oral 07-01-2014 15:38-0400 Body weight 120.2 kg Barbie Henriquez [facility] Internal Medicine Work Phone: 07-01-2014 15:38-0400 BP Diastolic 78 mm[Hg] Barbie Henriquez LPN [facility] Internal Medicine Work Phone: Comment on above: Patient Position: Sitting; Cuff Location : Left Arm; Cuff Size: Standard 07-01-2014 15:38-0400 BP Systolic 124 mm[Hg] Barbie Henriquez LPN [facility] Internal Medicine Work Phone: Comment on above: Patient Position: Sitting; Cuff Location : Left Arm; Cuff Size: Standard 07-01-2014 15:38-0400 BSA (Body Surface Area) 2.3 m2 Barbie Henriquez LPN [facility] Internal Medicine Work Phone: 07-01-2014 15:38-0400 Height 172.72 cm Barbie Henriquez LPN [facility] Internal Medicine Work Phone: 07-01-2014 15:38-0400 Pulse (Heart Rate) 84 /min Barbie Henriquez LPN [facility] Internal Medicine Work Phone: Comment on above: Pattern: Regular 07-01-2014 15:38-0400 Pulse Oximetry 98 % Jess Lopez [facility] Internal Medicine Work Phone: Comment on above: Room air 07-01-2014 15:38-0400 Respiratory Rate 16 /min Barbie Hneriquez LPN [facility] Internal Medicine Work Phone: 07-01-2014 15:38-0400 SaO2% (BldA) [Mass fraction] 98 % Barbie Henriquez LPN [facility] Internal Medicine; [facility] Work Phone: Comment on above: Room air 07-01-2014 15:38-0400 Weight 120.2 kg Jess Lopez [facility] Internal Medicine Work Phone: 01-14-2013 15:05-0400 BMI (Body Mass Index) 39.25 kg/m2 Talia Henderson [facility] Internal Medicine Work Phone: 01-14-2013 15:05-0400 Body Temperature 97.8 [degF] Talia Fountain [facility] Internal Medicine Work Phone: Comment on above: Method: Oral 10-14-2013 15:05-0400 Body weight 117.09 kg Talia Fountain [facility] Internal Medicine Work Phone: 01-14-2013 15:05-0400 BP Diastolic 58 mm[Hg] Talia Fountain [facility] Internal Medicine Work Phone: Comment on above: Patient Position: Sitting; Cuff Location : Left Arm; Cuff Size: Standard 01-14-2013 15:05-0400 BP Systolic 116 mm[Hg] [facility] Work Phone: Comment on above: Patient Position: Sitting; Cuff Location : Left Arm; Cuff Size: Standard 01-14-2013 15:05-0400 BSA (Body Surface Area) 2.28 m2 Talia Fountain [facility] Internal Medicine Work Phone: 01-14-2013 15:05-0400 Height 172.72 cm [facility] Work Phone: 01-14-2013 15:05-0400 Pulse (Heart Rate) 72 /min Talia Fountain [facility] Internal Medicine Work Phone: Comment on above: Pattern: Regular 01-14-2013 15:05-0400 Respiratory Rate 18 /min Talia Fountain [facility] Internal Medicine Work Phone: Comment on above: Pattern: Unlabored 01-14-2013 15:05-0400 Weight 117.09 kg Jess Lopez [facility] Internal Medicine Work Phone: 08-01-2012 15:20-0400 BMI (Body Mass Index) 39.25 kg/m2 Barbie Martinez [facility] Internal Medicine Work Phone: 08-01-2012 15:20-0400 Body Temperature 98.2 [degF] Barbie Martinez FLEMING [facility] Internal Medicine Work Phone: Comment [...] 08-01-2012 15:20-0400 Weight 117.09 kg Jess Lopez [facility] Internal Medicine Work Phone: 07-26-2010 15:43-0400 BMI (Body Mass Index) 38.37 kg/m2 Barbie Henriquez LPN [facility] Work Phone: 07-26-2010 15:43-0400 Body Temperature 97 [degF] Barbie Henriquez LPN [facility] Work Phone: Comment on above: Method: Oral 07-26-2010 15:43-0400 Body weight 114.48 kg Barbie Henriquez LPN [facility] Work Phone: 07-26-2010 15:43-0400 BP Diastolic 82 mm[Hg] Barbie Henriquez LPN [facility] Internal Medicine Work Phone: Comment on above: Patient Position: Sitting; Cuff Location : Left Arm; Cuff Size: Standard 07-26-2010 15:43-0400 BP Systolic 124 mm[Hg] Barbie Henriquez LPN [facility] Internal Medicine Work Phone: Comment on above: Patient Position: Sitting; Cuff Location : Left Arm; Cuff Size: Standard 07-26-2010 15:43-0400 BSA (Body Surface Area) 2.26 m2 Barbie Henriquez LPN [facility] Internal Medicine Work Phone: 07-26-2010 15:43-0400 Height 172.72 cm Barbie Henriquez LPN [facility] Internal Medicine Work Phone: 07-26-2010 15:43-0400 Pulse (Heart Rate) 82 /min Barbie Henriquez LPN [facility] Internal Medicine Work Phone: Comment on above: Pattern: Regular 07-26-2010 15:43-0400 Respiratory Rate 15 /min Barbie Henriquez LPN [facility] Internal Medicine Work Phone: Comment on above: Pattern: Unlabored 07-26-2010 15:43-0400 Weight 114.48 kg Jess Lopez [facility] Internal Medicine Work Phone: 08-05-2008 15:47-0400 BMI (Body Mass Index) 37.43 kg/m2 Shawnee Payan [facility] Internal Medicine Work Phone: 08-05-2008 15:47-0400 Body Temperature 97.5 [degF] Shaw[facility] Internal Medicine Work Phone: Comment on above: Method: Oral 08-05-2008 15:47-0400 Body weight 111.67 kg [facility] Work Phone: 08-05-2008 15:47-0400 BP Diastolic 82 mm[Hg] Shawnee [facility] Internal Medicine Work Phone: Comment on above: Patient Position: Sitting; Cuff Location : Left Arm; Cuff Size: Large 08-05-2008 15:47-0400 BP Systolic 128 mm[Hg] Shaw[facility] Internal Medicine Work Phone: Comment on above: Patient Position: Sitting; Cuff Location : Left Arm; Cuff Size: Large 08-05-2008 15:47-0400 BSA (Body Surface Area) 2.23 m2 [facility] Internal Medicine Work Phone: 08-05-2008 15:47-0400 Head Circumference 0 cm Jess [facility] Internal Medicine Work Phone: 08-05-2008 15:47-0400 Head Occipital-frontal circumference 0 cm [facility] Internal Medicine; [facility] Internal Medicine Work Phone: 08-05-2008 15:47-0400 Height 172.72 cm [facility] Internal Medicine Work Phone: 08-05-2008 15:47-0400 Pulse (Heart Rate) 74 /min [facility] Internal Medicine Work Phone: Comment on above: Pattern: Regular 08-05-2008 15:47-0400 Respiratory Rate 16 /min [facility] Internal Medicine Work Phone: Comment on above: Pattern: Unlabored 08-05-2008 15:47-0400 Weight 111.67 kg Jess [facility] Internal Medicine Work Phone: 08-30-2007 08:03-0400 BMI (Body Mass Index) 38.11 kg/m2 Junie [facility] Internal Medicine Work Phone: 08-30-2007 08:03-0400 Body Temperature 98 [degF] [facility] Internal Medicine Work Phone: Comment on above: Method: Oral 08-30-2007 08:03-0400 Body weight 112.04 kg [facility] Internal Medicine Work Phone: 08-30-2007 08:03-0400 BP Diastolic 70 mm[Hg] [facility] Internal Medicine Work Phone: Comment on above: Patient Position: Sitting; Cuff Location : Left Arm; Cuff Size: Large 08-30-2007 08:03-0400 BP Systolic 128 mm[Hg] [facility] Internal Medicine Work Phone: Comment on above: Patient Position: Sitting; Cuff Location : Left Arm; Cuff Size: Large 08-30-2007 08:03-0400 BSA (Body Surface Area) 2.22 m2 [facility] Internal Medicine Work Phone: 08-30-2007 08:03-0400 Head Circumference 0 cm Jess [facility] Internal Medicine Work Phone: 08-30-2007 08:03-0400 Head Occipital-frontal circumference 0 cm [facility] Internal Medicine; [facility] Internal Medicine Work Phone: 08-30-2007 08:03-0400 Height 171.45 cm [facility] Internal Medicine Work Phone: 08-30-2007 08:03-0400 Pulse (Heart Rate) 80 /min [facility] Internal Medicine Work Phone: Comment on above: Pattern: Regular 08-30-2007 08:03-0400 Respiratory Rate 18 /min [facility] Internal Medicine Work Phone: Comment on above: Pattern: Unlabored 08-30-2007 08:03-0400 Weight 112.04 kg Jess Lopez [facility] Internal Medicine Work Phone: 08-07-2006 15:26-0400 BMI (Body Mass Index) 38.11 kg/m2 Lena Metcalf RN [facility] Internal Medicine Work Phone: 08-07-2006 15:26-0400 Body [...] 08-07-2006 15:26-0400 Head Occipital-frontal circumference 0 cm eLna Metcalf RN [facility]; [facility] [...] Provider Facility Start: 04-15-2024 End: [facility] Start: 03-01-2024 End: 03-01-2024 [facility] Start: 11-30-2022 End: 11-30-2022 Phone Encounter Lin Pardo MD Work Phone: [facility] Start: 11-29-2022 End: 11-29-[address] Lin Pardo Work Phone: [facility] Work Phone: Start: 11-29-2022 End: 11-29-[address] Lin Pardo Work Phone: [facility] Scan, [facility] Work Phone: Start: 11-23-2022 End: 11-23-2022 Prescription Refill Lin Pardo MD Work Phone: [facility] Start: 11-07-2022 End: 11-07-[address] Lin Pardo Work Phone: [facility] Work Phone: Start: 10-13-2022 End: 10-13-2022 [...] encounter procedure Dr. Lin Pardo Work Phone: [facility], [facility] Start: 06-18-2021 End: 06-18-2021 Phone Encounter Jess Lopez Work Phone: [facility] Start: 06-17-2021 Review Jess Lopez Work Phone: [facility] Start: 06-15-2021 End: 06-15-2021 Office outpatient visit 15 minutes Jess Lopez Work Phone: [facility] Start: 06-15-2021 End: 06-15-2021 Lab Order Jess Lopez CNP Work Phone: [facility] Start: 06-14-2021 End: 06-14-2021 Lab Order Jess Lopez CNP Work Phone: [facility] Start: 06-09-2021 Non-patient / Non-visit Dr. Galdamez Work Phone: [facility] Start: 06-09-2021 End: 06-09-[address] Lin Pardo Work Phone: [facility] Start: 05-28-2021 End: 05-28-2021 Lab Order Jess [...] Start: 09-07-2020 End: 09-07-2020 Annotation/Addendum Jess Ciesa DRY DRUG WORKER Work Phone: [facility] Start: 09-07-2020 End: 09-07-2020 Office outpatient visit 25 minutes Jess Lopez DRY DRUG WORKER Work Phone: [facility] Start: 09-07-2020 Review Jess Lopez DRY DRUG WORKER Work Phone: [facility] Start: 09-03-2020 End: 09-03-2020 Annotation/Addendum Jess Lopez DRY DRUG WORKER Work Phone: [facility] Start: 08-24-2020 End: 08-24-2020 Office outpatient visit 15 minutes Jess Lopez DRY DRUG WORKER Work Phone: [facility] Start: 08-12-2020 End: 08-12-2020 Emergency department patient visit Tiffanie Harris [facility] Start: 05-05-2020 End: 05-05-2020 Office outpatient visit 25 minutes Jess Lopez [facility] Start: 10-03-2018 End: 10-03-2018 Annotation/Addendum Jess Luisjustyn Onofre [facility] Start: 05-25-2018 End: 05-25-2018 Office outpatient visit 25 minutes Jess Lopez [facility] Start: 05-25-2018 End: 05-25-2018 Physical examination Lin Pardo MD Work Phone: [facility] Start: 06-13-2016 End: 06-13-2016 Office outpatient visit 15 minutes Jess Lopez [facility] Start: 06-08-2016 End: 06-08-2016 Refill Request Jess Lopez [facility] Start: 07-01-2014 End: 07-01-2014 Office [...] End: 07-09-2012 Phone Encounter Jess Lopez [facility] Start: 07-09-2012 End: 07-09-2012 Phone Encounter Jess Lopez [facility] Start: 07-06-2012 End: 07-06-2012 Refill Request Jess Lopez [facility] Start: 07-11-2011 End: 07-11-2011 Phone Encounter Jess Lopez [facility] Start: 07-26-2010 End: 07-27-2010 Office [...] End: 08-03-2006 Historical Summary Jess Lopez [facility] Patient encounter status Muriel Woo [...] with associated hyperinflation and air trapping) refused [place] and cognivue Physical examination Adrianne Reyez COMMUNITY EDUCATOR Com prehensive Internal Medicine; [facility] Work Phone: Comment on above: 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; [facility] Work Phone: Comment on above: DOT exam Procedures Date Procedure Procedure Detail Performing Clinician Start: 11-29-2022 Computed tomography of abdomen and pelvis with contrast Dr. Lin Pardo Work Phone: Start: 11-29-2022 End: 11-29-2022 Abdomen/Pelvis WITH Contrast Procedure Note: See Note; NOTES: [facility] Imaging Services [address] [place] [id number] Abdomen/Pelvis WITH Contrast MR#: [id number] Acct: [id number] Name: LEANA PORTER Rep #: [id number] : 1955 M 67 From: Sarath Leos MD PCP: Dr. Lin Pardo MD Status: REG CLI Study: Abdomen/Pelvis WITH Contrast Date of Exam: Exam# [id number] Ordering Dr: Lin Pardo MD ACR Level 3 findings have [...] EDT , CC: Dr. 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 No vision changes, and no hearing changes. No complaints of rash, upper extremity radicular complaints, fever, chills, sweats, lightheadedness/dizziness, nausea/vomiting. Patient has tolerated food and fluids well, no changes in color/character of urine/stool. No gyuo-bfh-qdafsyg products taken to assist. Chickenpox as a [...] the above. This note was generated with [employer] dictation software. 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 Lin Pardo MD Status: REG CLI Study: Abdomen/Pelvis WITH Contrast Date of Exam: Exam# [id number] Ordering Dr: Lin Pardo MD STUDY: CT [...] EDT , CC: Dr. Lin Pardo MD Day Care Director: Signed Lin Pardo MD Work Phone: Start: 06-23-2021 Computed tomography of abdomen and pelvis with contrast Dr. Lin Pardo Work Phone: Start: 06-09-2021 End: 06-09-2021 Pulmonary Function Test Comments: See Note; NOTES: [facility]/Neurology [address] [place] [address] MR#: [id number] Acct: [id number] Name: LEANA PORTER Rep #: [id number] : 1955 66 From: Harshil Huitron DO [...] Date Dictated: 06/09/21 1255 Date Transcribed: 06/09/211254 Day Care Director: DB Signed Jess Lpoez CNP Work Phone: Start: 06-09-[address] Lin Pardo Work Phone: Start: 06-09-2021 End: 06-09-[address] Lung Screening Comments: See Note; NOTES: [facility] Imaging Services [address] [place] [address] Lung Screening MR#: [id number] Acct: [id number] Name: LEANA PORTER Rep #: [id number] : 1955 M 66 From: Hardy Davidson MD PCP: Dr. Lin Pardo MD Status: [facility] Study: Low Dose CT Lung Screening Date of Exam: 06/09 Exam# [id number] Ordering Dr: Lin Pardo MD EXAM: CT [...] reconstruction technique. This report was created using [employer] report generation technology. COMPARISON: None. FINDINGS: LUNGS [...] EST , CC: Dr. Lin Pardo MD Day Care Director: Signed Lin Pardo MD Work Phone: Start: 12-16-2019 End: 12-17-2019 Elbow min 3 Views Comments: See Note; NOTES: [facility] Imaging Services [address] [place] [address] Elbow min 3 Views MR#: [id number] Acct: [id number] Name: LEANA PORTER Rep #: [id number] : 1955 M 64 From: Yung forbes MD PCP: Jess Lopez NP-C Status: REG ER Study: Elbow min 3 Views Date of Exam: 12/16/19 Exam# [id number] Ordering Dr: Heather Mina MD STUDY: X-RAY [...] CC: EDWIN Lopez; Dr. Heather Mina MD Day Care Director: Signed Jess Lopez Start: 12-16-2019 End: 12-17-2019 Emergency Department Summary Comments: See Note; NOTES: [facility] Medical Records Department [address] [place] [address] Emergency Department Summary 12/16/19 MR#: [id number] Acct: [id number] Name: LEANA PORTER Rep #: [id number] : 1955 64 From: Heather Mina MD [...] 20:06) Primary Care Physician: Jess Lopez NP HYDROPONICS WORKER-C [Primary Care Provider] - Past Medical History: [...] Q12H #20 tab Transmission Status: Pending to [facility]/pharmacy #[id number] Referrals: Jess Lopez NP, HYDROPONICS WORKER-C [Primary Care Provider] - 1 Week if not improving What to do if you have Problems For any increased pain, shortness of breath, bleeding, nausea or vomiting, chest pain, or any unexpected problems, contact your Primary Care Provider. Call [facility] ([phone]) or report to the closest Emergency Room. Call 911 if necessary. 12/17/19 0039 <Electronically signed by Heather Mina MD> Date Heather Mina MD Cosigner Signature (If Indicated): Date CC: HYDROPONICS WORKER-C Jess Lopez Start: 12-16-2019 End: 12-17-2019 Wrist min 3 Views Comments: See Note; NOTES: [facility] Imaging Services [address] [place] [address] Wrist min 3 Views MR#: [id number] Acct: [id number] Name: LEANA PORTER Rep #: [id number] : 1955 M 64 From: Yung forbes MD PCP: EDWIN Davalos Status: REG ER Study: Wrist min 3 Views Date of Exam: 12/16/19 Exam# [id number] Ordering Dr: Heather Mina MD STUDY: X-RAY [...] CC: EDWIN Lopez; Dr. Heather Mina MD Day Care Director: Signed Jess Lopez Start: 12-16-2019 End: 12-17-2019 Abdomen/Pelvis without Cont Comments: See Note; NOTES: [facility] Imaging Services [address] [place] [address] Abdomen/Pelvis without Cont MR#: [id number] Acct: [id number] Name: LEANA PORTER Rep #: [id number] : 1955 M 64 From: Yung forbes MD PCP: EDWIN Davalos Status: REG ER Study: Abdomen/Pelvis without Cont Date of Exam: 12/02 07/21 Exam# [id number] Ordering Dr: Heather Mina MD STUDY: CT [...] CC: EDWIN Lopez; Dr. Heather Mina MD Day Care Director: Signed Jess Lopez Start: 12-22-2012 PSA screening Jess Lopez Comment on above: This test was performed using the TPSA a ssay method for theAppear Here chemistry system. Values obtained with differentassay methods cannot be used interchangably.When changing PSA assays in the course of monitoring apatient, additional sequential testing should be carriedout to confirm baseline values. Vasectomy Muriel Patinolear Comment on above: 1983 Vasectomy planned Luke Brian is Comment on above: 1983 Vasectomy planned Adrianne Carlson ss COMMUNITY EDUCATOR Comment on above: 1983 Vasectomy planned Luke Brian is COMMUNITY EDUCATOR Comment on above: 1983 Vasectomy planned Lin Randall MD Work Phone: Comment on above: 1983 Vasectomy planned SABINO Kc sell COMMUNITY EDUCATOR Comment on above: 1983 Vasectomy planned Tyra marion COLLECTIONS DIRECTOR Comment on above: 1983 Vasectomy planned Dora Coff man COMMUNITY EDUCATOR Comment on above: 1983 Vasectomy planned Dora Coff man COMMUNITY EDUCATOR Comment on above: 1983 Plan of Treatment [...] h igh sensitivity C-REACT PROT HIGH SENS(hsCRP) (05507) [facility] Work Phone: Start: 02-08-2022 25 hydroxy includes fractions if performed CALCIFEDIOL (51223) [facility]; [facility] Work Phone: Start: 02-08-2022 Assay of homocysteine Homocyst eine, Plasma (42890) [facility]; [facility] Work Phone: Start: 02-08-2022 Blood count complete automated CBC & PLATELETS (AUTO) (03262) [facility]; [facility] Work Phone: Start: 02-08-2022 Hemoglobin glycosyla darrion a1c HGB A1C (78240) [facility]; [facility] Work Phone: Start: 02-08-2022 Comprehensive metabo lic panel METABOLIC PANEL, COMPREHENSIVE (19566) [facility]; [facility] Work Phone: Start: 02-08-2022 Lipid panel LIPID PANEL (70074) [facility]; [facility] Work Phone: Start: 09-10-2021 C-reactive protein C-REACTIVE PROTEIN (68227) [facility]; [facility] Work Phone: Comment on above: re check prior to Au tiffani appointment Start: 09-06-2021 Ceruloplasmin CERULOPLASMIN (10655) [facility]; [facility] Work Phone: Start: 09-06-2021 Procedure Education Eprescribe d prescriptions (G8553) [facility]; [facility] Work Phone: Start: 06-29-2021 Protein total xcpt refractometry urine PROTEIN, URINE , Copper (11873) [facility]; [facility] Work Phone: Comment on above: need 24 hour urine c opper Start: 06-29-2021 Cyanocobalamin vitam in b-12 VITAMIN B12 AND FOLATES (71564) [facility]; [facility] Work Phone: Start: 06-29-2021 Assay of homocysteine Homocyst eine, Plasma (77108) [facility]; [facility] Work Phone: Start: 06-29-2021 C-reactive protein h igh sensitivity C-REACT PROT HIGH SENS(hsCRP) (50782) [facility]; [facility] Work Phone: Start: 06-29-2021 25 hydroxy includes fractions if performed CALCIFIDIOL (49031) VIT D 25 [facility]; [facility] Work Phone: Start: 06-15-2021 Culture bct isol&prs mptv id isolate ea urine URINE JONNY CULTURE-IDENTIFICATN (05560) [facility]; [facility] Work Phone: Start: 06-15-2021 Iadna hepatitis c amplified probe&revrse transcr Hepatitis C RNA, DNA Probe, Amplified (28136) [facility]; [facility] Work Phone: Start: 06-15-2021 Ceruloplasmin CERULOPLASMIN (24290) [facility]; [facility] Work Phone: Start: 06-15-2021 Fluorescent nonnfct agt antb screen ea antibody ASM (ANTI SMOOTH MUSCLE ANTIBODY) (25496) [facility]; [facility] Work Phone: Start: 06-15-2021 Microsomal antibodie s each MICROSOMAL ANTIBODY (36413) [facility]; [facility] Work Phone: Start: 06-15-2021 Iadna hepatitis c qu ant & reverse hod carrier Hepatitis C Quant, DNA Probe, Amplified (53967) [facility]; [facility] Work Phone: Start: 06-14-2021 Iadna hepatitis c amplified probe&revrse transcr Hepatitis C RNA, DNA Probe, Amplified (75304) [facility]; [facility] Work Phone: Start: 06-08-2021 Assay of prostate specific antigen total PSA (Prostate Specific Antigen), Screening (03810) [facility]; [facility] Work Phone: Start: 06-08-2021 Blood count manual c ell count each CBC WITH MANUAL DIFF (86517) [facility]; [facility] Work Phone: Start: 06-08-2021 Comprehensive metabo lic panel Metabolic Panel, Comprehensive (43561) [facility]; [facility] Work Phone: Start: 06-08-2021 Hepatitis c antibody HEPATITIS C ANTIBODY (49216) [facility]; [facility] Work Phone: Start: 06-08-2021 Lipoprotein blood qu an numbers & subclasses NMR Profile (04215) [facility]; [facility] Work Phone: Start: 12-08-2020 Comprehensive metabo lic panel Metabolic Panel, Comprehensive (77414) [facility]; [facility] Work Phone: Start: 12-08-2020 Lipid panel LIPID PANEL (75359) [facility]; [facility] Work Phone: Start: 09-07-2020 Procedure Education Eprescribe d prescriptions (G8553) [facility]; [facility] Work Phone: Start: 09-07-2020 Provider Instruction s for Treatment Follow up in 3 months 4-7 days after Dec 7 [facility]; [facility] Work Phone: Start: 09-03-2020 Assay of thyroid stimulating hormone tsh TSH (95921) [facility]; [facility] Work Phone: Start: 09-03-2020 Blood count complete auto&auto difrntl wbc CBC, Platelets & Auto Diff (20948) [facility]; [facility] Work Phone: Start: 09-03-2020 Comprehensive metabo lic panel Metabolic Panel, Comprehensive (57036) [facility]; [facility] Work Phone: Start: 09-03-2020 Lipid panel LIPID PANEL (90457) [facility] Work Phone: Start: 09-03-2020 Assay of thyroid stimulating hormone tsh [facility]; [facility] Work Phone: Start: 09-03-2020 Blood count complete auto&auto difrntl wbc [facility]; [facility] Work Phone: Start: 09-03-2020 Comprehensive metabo lic panel METABOLIC PANEL, COMPREHENSIVE (10919) [facility]; [facility] Work Phone: Start: 09-03-2020 Lipid panel LIPID PANEL (31437) [facility]; [facility] Work Phone: Start: 08-24-2020 Procedure Education Eprescribe d prescriptions (G8553) [facility]; [facility] Work Phone: Start: 08-24-2020 Provider Instruction s for Treatment Follow up Week of September 07 with [facility] 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 to schedule [facility]; [facility] [...] Phone: Start: 01-14-2013 Lipid panel LIPID PANEL (15944) [facility] Work Phone: Start: 01-14-2013 Hepatic function panel HEPATIC FUNCTION PANEL (10938) [facility] Work Phone: Start: 08-01-2012 Blood count complete auto&auto difrntl wbc CBC, Platelets & Auto Diff (74020) [facility] Work Phone: Start: 08-01-2012 Comprehensive metabo lic panel Metabolic Panel, Comprehensive (50927) [facility] Work Phone: Start: 08-01-2012 Lipid panel Lipid Panel (90962) [facility] Work Phone: Start: 08-01-2012 Assay of prostate specific antigen total PSA (PROSTATE SPECIFIC ANTIGEN) (V76.44) [facility] Work Phone: Start: 08-01-2012 Protein mass conc PSA (PROSTAT E SPECIFIC ANTIGEN) (V76.44) [facility] Work Phone: Start: 08-01-2012 Provider Instruction s for Treatment [facility] Work Phone: Start: 08-07-2006 Assay of prostate specific antigen total PSA (PROSTATE SPECIFIC ANTIGEN) (08873) [facility] Work Phone: Start: 08-07-2006 Protein mass conc PSA (PROSTAT E SPECIFIC ANTIGEN) (64178) [facility] Work Phone: Start: 08-07-2006 Glucose mass conc Glucose (58840) [facility] Work Phone: Start: 08-07-2006 Glucose quantitative blood xcpt reagent strip Glucose (15195) [facility]; [facility] Work Phone: Start: 08-07-2006 Lipid panel Lipid Panel (84533) [facility] Work Phone: Comprehensive [...] Phone: Payers Date Payer Category Payer Self-pay [id number] 2024 Medicare [id number] 2024 Unknown [id number] 2021 Unknown [id number] 2017 Private Health Insurance [id number] 1955 Unknown [id number] Private Health Insurance [id number] Private Health Insurance [id number] Unknown Unknown [id number] Unknown [id number] Social History Date Type Detail Facility Alcohol Use [facility] Work Phone: Comment on above: Occasional alcohol u se some rum in the summer. 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 Test(s) 795497-RUE-E ; 370269-ATT-L; 790100-Jljbmqaoxxudt; 423359-Dggrsguoldv, Total; 226736-XRB-T (Total); 903377-Vrjuj LDL-P; 548051-BOL Size; 989214-PR-LS Scorewas developed and its performance characteristics determinedby [employer]. It has not been cleared or approved by the Foodand Drug Administration.PATIENT WAS FASTINGPERFORMED BY: BN [facility] [id number] [facility] [id number] BY: GERTRUDE [facility] [id number] [facility] [id number] Information: NURSE DRAW Clinical Notes Note Date & Type Note Facility Evaluation note No assessment information availa ble [facility] Work Phone: Evaluation note Diagnosis Onset Date Cervical strain acute Left-sided face pain acute [facility] Work Phone: Instructions* Name Dates Details How to Access Health Informa tion Online using Patient Portal and [employer] Indication:Current non-smoker Start:24-Aug-2020 Instruction Type:Patient Education Patient Instructions Indication:BMI 38.0-38.9,adult Start:24-Aug-2020 Instruction Type:Provider Instructions for Treatment Patient Instructions Indication:Current non-smoker Start:05-May-2020 Instruction Type:Provider Instructions for Treatment How to Access Health Informa tion Online using Patient Portal and [employer] Indication:Current non-smoker Start:05-May-2020 Instruction Type:Patient Education [...] Informa tion Online using Patient Portal and [employer] Indication:Current non-smoker Start:24-Aug-2020 Instruction Type:Patient Education Patient Instructions Indication:BMI 38.0-38.9,adult Start:24-Aug-2020 Instruction Type:Provider Instructions for Treatment Patient Instructions Indication:Current non-smoker Start:05-May-2020 Instruction Type:Provider Instructions for Treatment How to Access Health Informa tion Online using Patient Portal and [employer] Indication:Current non-smoker Start:05-May-2020 Instruction Type:Patient Education [...] Informa tion Online using Patient Portal and [employer] Indication:Current non-smoker Start:07-Sep-2020 Instruction Type:Patient Education How to Access Health Informa tion Online using Patient Portal and [employer] Indication:Current non-smoker Start:24-Aug-2020 Instruction Type:Patient Education Patient Instructions Indication:BMI 38.0-38.9,adult Start:24-Aug-2020 Instruction Type:Provider Instructions for Treatment Patient Instructions Indication:Current non-smoker Start:05-May-2020 Instruction Type:Provider Instructions for Treatment How to Access Health Informa tion Online using Patient Portal and [employer] Indication:Current non-smoker Start:05-May-2020 Instruction Type:Patient Education [...] Informa tion Online using Patient Portal and [employer] Indication:Current non-smoker Start:07-Sep-2020 Instruction Type:Patient Education How to Access Health Informa tion Online using Patient Portal and [employer] Indication:Current non-smoker Start:24-Aug-2020 Instruction Type:Patient Education Patient Instructions Indication:BMI 38.0-38.9,adult Start:24-Aug-2020 Instruction Type:Provider Instructions for Treatment Patient Instructions Indication:Current non-smoker Start:05-May-2020 Instruction Type:Provider Instructions for Treatment How to Access Health Informa tion Online using Patient Portal and [employer] Indication:Current non-smoker Start:05-May-2020 Instruction Type:Patient Education [...] Informa tion Online using Patient Portal and [employer] Indication:Current non-smoker Start:07-Sep-2020 Instruction Type:Patient Education How to Access Health Informa tion Online using Patient Portal and [employer] Indication:Current non-smoker Start:24-Aug-2020 Instruction Type:Patient Education Patient Instructions Indication:BMI 38.0-38.9,adult Start:24-Aug-2020 Instruction Type:Provider Instructions for Treatment Patient Instructions Indication:Current non-smoker Start:05-May-2020 Instruction Type:Provider Instructions for Treatment How to Access Health Informa tion Online using Patient Portal and [employer] Indication:Current non-smoker Start:05-May-2020 Instruction Type:Patient Education [...] Informa tion Online using Patient Portal and [employer] Indication:Current non-smoker Start:07-Sep-2020 Instruction Type:Patient Education How to Access Health Informa tion Online using Patient Portal and [employer] Indication:Current non-smoker Start:24-Aug-2020 Instruction Type:Patient Education Patient Instructions Indication:BMI 38.0-38.9,adult Start:24-Aug-2020 Instruction Type:Provider Instructions for Treatment Patient Instructions Indication:Current non-smoker Start:05-May-2020 Instruction Type:Provider Instructions for Treatment How to Access Health Informa tion Online using Patient Portal and [employer] Indication:Current non-smoker Start:05-May-2020 Instruction Type:Patient Education [...] Informa tion Online using Patient Portal and [employer] Indication:Current non-smoker Start:07-Sep-2020 Instruction Type:Patient Education How to Access Health Informa tion Online using Patient Portal and [employer] Indication:Current non-smoker Start:24-Aug-2020 Instruction Type:Patient Education Patient Instructions Indication:BMI 38.0-38.9,adult Start:24-Aug-2020 Instruction Type:Provider Instructions for Treatment Patient Instructions Indication:Current non-smoker Start:05-May-2020 Instruction Type:Provider Instructions for Treatment How to Access Health Informa tion Online using Patient Portal and [employer] Indication:Current non-smoker Start:05-May-2020 Instruction Type:Patient Education [...] Informa tion Online using Patient Portal and [employer] Indication:Current non-smoker Start:07-Sep-2020 Instruction Type:Patient Education How to Access Health Informa tion Online using Patient Portal and [employer] Indication:Current non-smoker Start:24-Aug-2020 Instruction Type:Patient Education Patient Instructions Indication:BMI 38.0-38.9,adult Start:24-Aug-2020 Instruction Type:Provider Instructions for Treatment Patient Instructions Indication:Current non-smoker Start:05-May-2020 Instruction Type:Provider Instructions for Treatment How to Access Health Informa tion Online using Patient Portal and [employer] Indication:Current non-smoker Start:05-May-2020 Instruction Type:Patient Education [...] Informa tion Online using Patient Portal and [employer] Indication:Current non-smoker Start:07-Sep-2020 Instruction Type:Patient Education How to Access Health Informa tion Online using Patient Portal and [employer] Indication:Current non-smoker Start:24-Aug-2020 Instruction Type:Patient Education Patient Instructions Indication:BMI 38.0-38.9,adult Start:24-Aug-2020 Instruction Type:Provider Instructions for Treatment Patient Instructions Indication:Current non-smoker Start:05-May-2020 Instruction Type:Provider Instructions for Treatment How to Access Health Informa tion Online using Patient Portal and [employer] Indication:Current non-smoker Start:05-May-2020 Instruction Type:Patient Education [...] Informa tion Online using Patient Portal and [employer] Indication:Current non-smoker Start:07-Sep-2020 Instruction Type:Patient Education How to Access Health Informa tion Online using Patient Portal and [employer] Indication:Current non-smoker Start:24-Aug-2020 Instruction Type:Patient Education Patient Instructions Indication:BMI 38.0-38.9,adult Start:24-Aug-2020 Instruction Type:Provider Instructions for Treatment Patient Instructions Indication:Current non-smoker Start:05-May-2020 Instruction Type:Provider Instructions for Treatment How to Access Health Informa tion Online using Patient Portal and [employer] Indication:Current non-smoker Start:05-May-2020 Instruction Type:Patient Education [...] Informa tion Online using Patient Portal and [employer] Indication:Current non-smoker Start:07-Sep-2020 Instruction Type:Patient Education How to Access Health Informa tion Online using Patient Portal and [employer] Indication:Current non-smoker Start:24-Aug-2020 Instruction Type:Patient Education Patient Instructions Indication:BMI 38.0-38.9,adult Start:24-Aug-2020 Instruction Type:Provider Instructions for Treatment Patient Instructions Indication:Current non-smoker Start:05-May-2020 Instruction Type:Provider Instructions for Treatment How to Access Health Informa tion Online using Patient Portal and [employer] Indication:Current non-smoker Start:05-May-2020 Instruction Type:Patient Education [...] tion Online using Patient Portal and [employer] Apps Indication:Current non-smoker Start:07-Sep-2020 Instruction Type:Patient Education How to Access Health Informa tion Online using Patient Portal and [employer] Apps Indication:Current non-smoker Start:24-Aug-2020 Instruction Type:Patient Education Patient Instructions Indication:BMI 38.0-38.9,adult Start:24-Aug-2020 Instruction Type:Provider Instructions for Treatment Patient Instructions Indication:Current non-smoker Start:05-May-2020 Instruction Type:Provider Instructions for Treatment How to Access Health Informa tion Online using Patient Portal and [employer] Indication:Current non-smoker Start:05-May-2020 Instruction Type:Patient Education [...] Informa tion Online using Patient Portal and [employer] Indication:Current non-smoker Start:07-Sep-2020 Instruction Type:Patient Education How to Access Health Informa tion Online using Patient Portal and [employer] Indication:Current non-smoker Start:24-Aug-2020 Instruction Type:Patient Education Patient Instructions Indication:BMI 38.0-38.9,adult Start:24-Aug-2020 Instruction Type:Provider Instructions for Treatment Patient Instructions Indication:Current non-smoker Start:05-May-2020 Instruction Type:Provider Instructions for Treatment How to Access Health Informa tion Online using Patient Portal and [employer] Indication:Current non-smoker Start:05-May-2020 Instruction Type:Patient Education [...] Informa tion Online using Patient Portal and [employer] Indication:Current non-smoker Start:07-Sep-2020 Instruction Type:Patient Education How to Access Health Informa tion Online using Patient Portal and [employer] Indication:Current non-smoker Start:24-Aug-2020 Instruction Type:Patient Education Patient Instructions Indication:BMI 38.0-38.9,adult Start:24-Aug-2020 Instruction Type:Provider Instructions for Treatment Patient Instructions Indication:Current non-smoker Start:05-May-2020 Instruction Type:Provider Instructions for Treatment How to Access Health Informa tion Online using Patient Portal and [employer] Indication:Current non-smoker Start:05-May-2020 Instruction Type:Patient Education [...] Informa tion Online using Patient Portal and [employer] Indication:Encounter for well adult exam with abnormal findings (Renamed from Encounter for general adult medical examination with abnormal findings) Start:29-Jun-2021 Instruction Type:Patient Education Patient Instructions Indication:Gastric reflux Start:07-Sep-2020 Instruction Type:Provider Instructions for Treatment How to Access Health Informa tion Online using Patient Portal and [employer] Indication:Current non-smoker Start:07-Sep-2020 Instruction Type:Patient Education How to Access Health Informa tion Online using Patient Portal and [employer] Indication:Current non-smoker Start:24-Aug-2020 Instruction Type:Patient Education Patient Instructions Indication:BMI 38.0-38.9,adult Start:24-Aug-2020 Instruction Type:Provider Instructions for Treatment Patient Instructions Indication:Current non-smoker Start:05-May-2020 Instruction Type:Provider Instructions for Treatment How to Access Health Informa tion Online using Patient Portal and [employer] Indication:Current non-smoker Start:05-May-2020 Instruction Type:Patient Education [...] Informa tion Online using Patient Portal and [employer] Indication:Encounter for well adult exam with abnormal findings (Renamed from Encounter for general adult medical examination with abnormal findings) Start:29-Jun-2021 Instruction Type:Patient Education Patient Instructions Indication:Gastric reflux Start:07-Sep-2020 Instruction Type:Provider Instructions for Treatment How to Access Health Informa tion Online using Patient Portal and [employer] Indication:Current non-smoker Start:07-Sep-2020 Instruction Type:Patient Education How to Access Health Informa tion Online using Patient Portal and [employer] Indication:Current non-smoker Start:24-Aug-2020 Instruction Type:Patient Education Patient Instructions Indication:BMI 38.0-38.9,adult Start:24-Aug-2020 Instruction Type:Provider Instructions for Treatment Patient Instructions Indication:Current non-smoker Start:05-May-2020 Instruction Type:Provider Instructions for Treatment How to Access Health Informa tion Online using Patient Portal and [employer] Indication:Current non-smoker Start:05-May-2020 Instruction Type:Patient Education [...] tion Online using Patient Portal and [employer] Apps Indication:BMI 37.0-37.9, adult Start:06-Sep-2021 Instruction Type:Patient Education Patient Instructions Indication:Encounter for well adult exam with abnormal findings (Renamed from Encounter for general adult medical examination with abnormal findings) Start:29-Jun-2021 Instruction Type:Provider Instructions for Treatment How to Access Health Informa tion Online using Patient Portal and [employer] Indication:Encounter for well adult exam with abnormal findings (Renamed from Encounter for general adult medical examination with abnormal findings) Start:29-Jun-2021 Instruction Type:Patient Education Patient Instructions Indication:Gastric reflux Start:07-Sep-2020 Instruction Type:Provider Instructions for Treatment How to Access Health Informa tion Online using Patient Portal and [employer] Apps Indication:Current non-smoker Start:07-Sep-2020 Instruction Type:Patient Education How to Access Health Informa tion Online using Patient Portal and [employer] Indication:Current non-smoker Start:24-Aug-2020 Instruction Type:Patient Education Patient Instructions Indication:BMI 38.0-38.9,adult Start:24-Aug-2020 Instruction Type:Provider Instructions for Treatment Patient Instructions Indication:Current non-smoker Start:05-May-2020 Instruction Type:Provider Instructions for Treatment How to Access Health Informa tion Online using Patient Portal and [employer] Indication:Current non-smoker Start:05-May-2020 Instruction Type:Patient Education [...] tion Online using Patient Portal and [employer] Apps Indication:BMI 37.0-37.9, adult Start:06-Sep-2021 Instruction Type:Patient Education Patient Instructions Indication:Encounter for well adult exam with abnormal findings (Renamed from Encounter for general adult medical examination with abnormal findings) Start:29-Jun-2021 Instruction Type:Provider Instructions for Treatment How to Access Health Informa tion Online using Patient Portal and [employer] Apps Indication:Encounter for well adult exam with abnormal findings (Renamed from Encounter for general adult medical examination with abnormal findings) Start:29-Jun-2021 Instruction Type:Patient Education Patient Instructions Indication:Gastric reflux Start:07-Sep-2020 Instruction Type:Provider Instructions for Treatment How to Access Health Informa tion Online using Patient Portal and [employer] Apps Indication:Current non-smoker Start:07-Sep-2020 Instruction Type:Patient Education How to Access Health Informa tion Online using Patient Portal and [employer] Indication:Current non-smoker Start:24-Aug-2020 Instruction Type:Patient Education Patient Instructions Indication:BMI 38.0-38.9,adult Start:24-Aug-2020 Instruction Type:Provider Instructions for Treatment Patient Instructions Indication:Current non-smoker Start:05-May-2020 Instruction Type:Provider Instructions for Treatment How to Access Health Informa tion Online using Patient Portal and [employer] Apps Indication:Current non-smoker Start:05-May-2020 Instruction Type:Patient Education [...] Informa tion Online using Patient Portal and [employer] Indication:BMI 37.0-37.9, adult Start:06-Sep-2021 Instruction Type:Patient Education Patient Instructions Indication:Encounter for well adult exam with abnormal findings (Renamed from Encounter for general adult medical examination with abnormal findings) Start:29-Jun-2021 Instruction Type:Provider Instructions for Treatment How to Access Health Informa tion Online using Patient Portal and [employer] Indication:Encounter for well adult exam with abnormal findings (Renamed from Encounter for general adult medical examination with abnormal findings) Start:29-Jun-2021 Instruction Type:Patient Education Patient Instructions Indication:Gastric reflux Start:07-Sep-2020 Instruction Type:Provider Instructions for Treatment How to Access Health Informa tion Online using Patient Portal and [employer] Apps Indication:Current non-smoker Start:07-Sep-2020 Instruction Type:Patient Education How to Access Health Informa tion Online using Patient Portal and [employer] Indication:Current non-smoker Start:24-Aug-2020 Instruction Type:Patient Education Patient Instructions Indication:BMI 38.0-38.9,adult Start:24-Aug-2020 Instruction Type:Provider Instructions for Treatment Patient Instructions Indication:Current non-smoker Start:05-May-2020 Instruction Type:Provider Instructions for Treatment How to Access Health Informa tion Online using Patient Portal and [employer] Indication:Current non-smoker Start:05-May-2020 Instruction Type:Patient Education [...] Informa tion Online using Patient Portal and [employer] Indication:BMI 37.0-37.9, adult Start:06-Sep-2021 Instruction Type:Patient Education Patient Instructions Indication:Encounter for well adult exam with abnormal findings (Renamed from Encounter for general adult medical examination with abnormal findings) Start:29-Jun-2021 Instruction Type:Provider Instructions for Treatment How to Access Health Informa tion Online using Patient Portal and [employer] Indication:Encounter for well adult exam with abnormal findings (Renamed from Encounter for general adult medical examination with abnormal findings) Start:29-Jun-2021 Instruction Type:Patient Education Patient Instructions Indication:Gastric reflux Start:07-Sep-2020 Instruction Type:Provider Instructions for Treatment How to Access Health Informa tion Online using Patient Portal and [employer] Indication:Current non-smoker Start:07-Sep-2020 Instruction Type:Patient Education How to Access Health Informa tion Online using Patient Portal and [employer] Indication:Current non-smoker Start:24-Aug-2020 Instruction Type:Patient Education Patient Instructions Indication:BMI 38.0-38.9,adult Start:24-Aug-2020 Instruction Type:Provider Instructions for Treatment Patient Instructions Indication:Current non-smoker Start:05-May-2020 Instruction Type:Provider Instructions for Treatment How to Access Health Informa tion Online using Patient Portal and [employer] Indication:Current non-smoker Start:05-May-2020 Instruction Type:Patient Education [...] Informa tion Online using Patient Portal and [employer] Indication:BMI 37.0-37.9, adult Start:06-Sep-2021 Instruction Type:Patient Education Patient Instructions Indication:Encounter for well adult exam with abnormal findings (Renamed from Encounter for general adult medical examination with abnormal findings) Start:29-Jun-2021 Instruction Type:Provider Instructions for Treatment How to Access Health Informa tion Online using Patient Portal and [employer] Indication:Encounter for well adult exam with abnormal findings (Renamed from Encounter for general adult medical examination with abnormal findings) Start:29-Jun-2021 Instruction Type:Patient Education Patient Instructions Indication:Gastric reflux Start:07-Sep-2020 Instruction Type:Provider Instructions for Treatment How to Access Health Informa tion Online using Patient Portal and [employer] Indication:Current non-smoker Start:07-Sep-2020 Instruction Type:Patient Education How to Access Health Informa tion Online using Patient Portal and [employer] Indication:Current non-smoker Start:24-Aug-2020 Instruction Type:Patient Education Patient Instructions Indication:BMI 38.0-38.9,adult Start:24-Aug-2020 Instruction Type:Provider Instructions for Treatment Patient Instructions Indication:Current non-smoker Start:05-May-2020 Instruction Type:Provider Instructions for Treatment How to Access Health Informa tion Online using Patient Portal and [employer] Indication:Current non-smoker Start:05-May-2020 Instruction Type:Patient Education [...] Informa tion Online using Patient Portal and [employer] Indication:BMI 37.0-37.9, adult Start:06-Sep-2021 Instruction Type:Patient Education Patient Instructions Indication:Encounter for well adult exam with abnormal findings (Renamed from Encounter for general adult medical examination with abnormal findings) Start:29-Jun-2021 Instruction Type:Provider Instructions for Treatment How to Access Health Informa tion Online using Patient Portal and [employer] Indication:Encounter for well adult exam with abnormal findings (Renamed from Encounter for general adult medical examination with abnormal findings) Start:29-Jun-2021 Instruction Type:Patient Education Patient Instructions Indication:Gastric reflux Start:07-Sep-2020 Instruction Type:Provider Instructions for Treatment How to Access Health Informa tion Online using Patient Portal and [employer] Indication:Current non-smoker Start:07-Sep-2020 Instruction Type:Patient Education How to Access Health Informa tion Online using Patient Portal and [employer] Indication:Current non-smoker Start:24-Aug-2020 Instruction Type:Patient Education Patient Instructions Indication:BMI 38.0-38.9,adult Start:24-Aug-2020 Instruction Type:Provider Instructions for Treatment Patient Instructions Indication:Current non-smoker Start:05-May-2020 Instruction Type:Provider Instructions for Treatment How to Access Health Informa tion Online using Patient Portal and [employer] Indication:Current non-smoker Start:05-May-2020 Instruction Type:Patient Education [...] Informa tion Online using Patient Portal and [employer] Indication:BMI 37.0-37.9, adult Start:06-Sep-2021 Instruction Type:Patient Education Patient Instructions Indication:Encounter for well adult exam with abnormal findings (Renamed from Encounter for general adult medical examination with abnormal findings) Start:29-Jun-2021 Instruction Type:Provider Instructions for Treatment How to Access Health Informa tion Online using Patient Portal and [employer] Indication:Encounter for well adult exam with abnormal findings (Renamed from Encounter for general adult medical examination with abnormal findings) Start:29-Jun-2021 Instruction Type:Patient Education Patient Instructions Indication:Gastric reflux Start:07-Sep-2020 Instruction Type:Provider Instructions for Treatment How to Access Health Informa tion Online using Patient Portal and [employer] Indication:Current non-smoker Start:07-Sep-2020 Instruction Type:Patient Education How to Access Health Informa tion Online using Patient Portal and [employer] Indication:Current non-smoker Start:24-Aug-2020 Instruction Type:Patient Education Patient Instructions Indication:BMI 38.0-38.9,adult Start:24-Aug-2020 Instruction Type:Provider Instructions for Treatment Patient Instructions Indication:Current non-smoker Start:05-May-2020 Instruction Type:Provider Instructions for Treatment How to Access Health Informa tion Online using Patient Portal and [employer] Indication:Current non-smoker Start:05-May-2020 Instruction Type:Patient Education [...] Informa tion Online using Patient Portal and [employer] Indication:BMI 37.0-37.9, adult Start:06-Sep-2021 Instruction Type:Patient Education Patient Instructions Indication:Encounter for well adult exam with abnormal findings (Renamed from Encounter for general adult medical examination with abnormal findings) Start:29-Jun-2021 Instruction Type:Provider Instructions for Treatment How to Access Health Informa tion Online using Patient Portal and [employer] Indication:Encounter for well adult exam with abnormal findings (Renamed from Encounter for general adult medical examination with abnormal findings) Start:29-Jun-2021 Instruction Type:Patient Education Patient Instructions Indication:Gastric reflux Start:07-Sep-2020 Instruction Type:Provider Instructions for Treatment How to Access Health Informa tion Online using Patient Portal and [employer] Indication:Current non-smoker Start:07-Sep-2020 Instruction Type:Patient Education How to Access Health Informa tion Online using Patient Portal and [employer] Indication:Current non-smoker Start:24-Aug-2020 Instruction Type:Patient Education Patient Instructions Indication:BMI 38.0-38.9,adult Start:24-Aug-2020 Instruction Type:Provider Instructions for Treatment Patient Instructions Indication:Current non-smoker Start:05-May-2020 Instruction Type:Provider Instructions for Treatment How to Access Health Informa tion Online using Patient Portal and [employer] Indication:Current non-smoker Start:05-May-2020 Instruction Type:Patient Education [...] Informa tion Online using Patient Portal and [employer] Indication:BMI 37.0-37.9, adult Start:06-Sep-2021 Instruction Type:Patient Education Patient Instructions Indication:Encounter for well adult exam with abnormal findings (Renamed from Encounter for general adult medical examination with abnormal findings) Start:29-Jun-2021 Instruction Type:Provider Instructions for Treatment How to Access Health Informa tion Online using Patient Portal and [employer] Indication:Encounter for well adult exam with abnormal findings (Renamed from Encounter for general adult medical examination with abnormal findings) Start:29-Jun-2021 Instruction Type:Patient Education Patient Instructions Indication:Gastric reflux Start:07-Sep-2020 Instruction Type:Provider Instructions for Treatment How to Access Health Informa tion Online using Patient Portal and [employer] Indication:Current non-smoker Start:07-Sep-2020 Instruction Type:Patient Education How to Access Health Informa tion Online using Patient Portal and [employer] Indication:Current non-smoker Start:24-Aug-2020 Instruction Type:Patient Education Patient Instructions Indication:BMI 38.0-38.9,adult Start:24-Aug-2020 Instruction Type:Provider Instructions for Treatment Patient Instructions Indication:Current non-smoker Start:05-May-2020 Instruction Type:Provider Instructions for Treatment How to Access Health Informa tion Online using Patient Portal and [employer] Indication:Current non-smoker Start:05-May-2020 Instruction Type:Patient Education [...] Informa tion Online using Patient Portal and [employer] Indication:BMI 37.0-37.9, adult Start:06-Sep-2021 Instruction Type:Patient Education Patient Instructions Indication:Encounter for well adult exam with abnormal findings (Renamed from Encounter for general adult medical examination with abnormal findings) Start:29-Jun-2021 Instruction Type:Provider Instructions for Treatment How to Access Health Informa tion Online using Patient Portal and [employer] Indication:Encounter for well adult exam with abnormal findings (Renamed from Encounter for general adult medical examination with abnormal findings) Start:29-Jun-2021 Instruction Type:Patient Education Patient Instructions Indication:Gastric reflux Start:07-Sep-2020 Instruction Type:Provider Instructions for Treatment How to Access Health Informa tion Online using Patient Portal and [employer] Indication:Current non-smoker Start:07-Sep-2020 Instruction Type:Patient Education How to Access Health Informa tion Online using Patient Portal and [employer] Indication:Current non-smoker Start:24-Aug-2020 Instruction Type:Patient Education Patient Instructions Indication:BMI 38.0-38.9,adult Start:24-Aug-2020 Instruction Type:Provider Instructions for Treatment Patient Instructions Indication:Current non-smoker Start:05-May-2020 Instruction Type:Provider Instructions for Treatment How to Access Health Informa tion Online using Patient Portal and [employer] Indication:Current non-smoker Start:05-May-2020 Instruction Type:Patient Education [...] Informa tion Online using Patient Portal and [employer] Indication:BMI 38.0-38.9,adult Start:06-Jun-2022 Instruction Type:Patient Education Patient Instructions Indication:BMI 37.0-37.9, adult Start:06-Sep-2021 Instruction Type:Provider Instructions for Treatment How to Access Health Informa tion Online using Patient Portal and [employer] Indication:BMI 37.0-37.9, adult Start:06-Sep-2021 Instruction Type:Patient Education Patient Instructions Indication:Encounter for well adult exam with abnormal findings (Renamed from Encounter for general adult medical examination with abnormal findings) Start:29-Jun-2021 Instruction Type:Provider Instructions for Treatment How to Access Health Informa tion Online using Patient Portal and [employer] Indication:Encounter for well adult exam with abnormal findings (Renamed from Encounter for general adult medical examination with abnormal findings) Start:29-Jun-2021 Instruction Type:Patient Education Patient Instructions Indication:Gastric reflux Start:07-Sep-2020 Instruction Type:Provider Instructions for Treatment How to Access Health Informa tion Online using Patient Portal and [employer] Indication:Current non-smoker Start:07-Sep-2020 Instruction Type:Patient Education How to Access Health Informa tion Online using Patient Portal and [employer] Indication:Current non-smoker Start:24-Aug-2020 Instruction Type:Patient Education Patient Instructions Indication:BMI 38.0-38.9,adult Start:24-Aug-2020 Instruction Type:Provider Instructions for Treatment Patient Instructions Indication:Current non-smoker Start:05-May-2020 Instruction Type:Provider Instructions for Treatment How to Access Health Informa tion Online using Patient Portal and [employer] Indication:Current non-smoker Start:05-May-2020 Instruction Type:Patient Education [...] Informa tion Online using Patient Portal and [employer] Indication:BMI 38.0-38.9,adult Start:06-Jun-2022 Instruction Type:Patient Education Patient Instructions Indication:BMI 37.0-37.9, adult Start:06-Sep-2021 Instruction Type:Provider Instructions for Treatment How to Access Health Informa tion Online using Patient Portal and [employer] Indication:BMI 37.0-37.9, adult Start:06-Sep-2021 Instruction Type:Patient Education Patient Instructions Indication:Encounter for well adult exam with abnormal findings (Renamed from Encounter for general adult medical examination with abnormal findings) Start:29-Jun-2021 Instruction Type:Provider Instructions for Treatment How to Access Health Informa tion Online using Patient Portal and [employer] Indication:Encounter for well adult exam with abnormal findings (Renamed from Encounter for general adult medical examination with abnormal findings) Start:29-Jun-2021 Instruction Type:Patient Education Patient Instructions Indication:Gastric reflux Start:07-Sep-2020 Instruction Type:Provider Instructions for Treatment How to Access Health Informa tion Online using Patient Portal and [employer] Indication:Current non-smoker Start:07-Sep-2020 Instruction Type:Patient Education How to Access Health Informa tion Online using Patient Portal and [employer] Indication:Current non-smoker Start:24-Aug-2020 Instruction Type:Patient Education Patient Instructions Indication:BMI 38.0-38.9,adult Start:24-Aug-2020 Instruction Type:Provider Instructions for Treatment Patient Instructions Indication:Current non-smoker Start:05-May-2020 Instruction Type:Provider Instructions for Treatment How to Access Health Informa tion Online using Patient Portal and [employer] [employer] Indication:Current non-smoker Start:05-May-2020 Instruction Type:Patient Education [...] tion Online using Patient Portal and [employer]rd [employer] Indication:BMI 38.0-38.9,adult Start:06-Jun-2022 Instruction Type:Patient Education Patient Instructions Indication:BMI 37.0-37.9, adult Start:06-Sep-2021 Instruction Type:Provider Instructions for Treatment How to Access Health Informa tion Online using Patient Portal and [employer] Indication:BMI 37.0-37.9, adult Start:06-Sep-2021 Instruction Type:Patient Education Patient Instructions Indication:Encounter for well adult exam with abnormal findings (Renamed from Encounter for general adult medical examination with abnormal findings) Start:29-Jun-2021 Instruction Type:Provider Instructions for Treatment How to Access Health Informa tion Online using Patient Portal and [employer]rd [employer] Indication:Encounter for well adult exam with abnormal findings (Renamed from Encounter for general adult medical examination with abnormal findings) Start:29-Jun-2021 Instruction Type:Patient Education Patient Instructions Indication:Gastric reflux Start:07-Sep-2020 Instruction Type:Provider Instructions for Treatment How to Access Health Informa tion Online using Patient Portal and [employer]rd [employer] Indication:Current non-smoker Start:07-Sep-2020 Instruction Type:Patient Education How to Access Health Informa tion Online using Patient Portal and [employer] Indication:Current non-smoker Start:24-Aug-2020 Instruction Type:Patient Education Patient Instructions Indication:BMI 38.0-38.9,adult Start:24-Aug-2020 Instruction Type:Provider Instructions for Treatment Patient Instructions Indication:Current non-smoker Start:05-May-2020 Instruction Type:Provider Instructions for Treatment How to Access Health Informa tion Online using Patient Portal and [employer] Indication:Current non-smoker Start:05-May-2020 Instruction Type:Patient Education [...] Informa tion Online using Patient Portal and [employer] Indication:BMI 38.0-38.9,adult Start:06-Jun-2022 Instruction Type:Patient Education Patient Instructions Indication:BMI 37.0-37.9, adult Start:06-Sep-2021 Instruction Type:Provider Instructions for Treatment How to Access Health Informa tion Online using Patient Portal and [employer] Indication:BMI 37.0-37.9, adult Start:06-Sep-2021 Instruction Type:Patient Education Patient Instructions Indication:Encounter for well adult exam with abnormal findings (Renamed from Encounter for general adult medical examination with abnormal findings) Start:29-Jun-2021 Instruction Type:Provider Instructions for Treatment How to Access Health Informa tion Online using Patient Portal and [employer] Indication:Encounter for well adult exam with abnormal findings (Renamed from Encounter for general adult medical examination with abnormal findings) Start:29-Jun-2021 Instruction Type:Patient Education Patient Instructions Indication:Gastric reflux Start:07-Sep-2020 Instruction Type:Provider Instructions for Treatment How to Access Health Informa tion Online using Patient Portal and [employer] Indication:Current non-smoker Start:07-Sep-2020 Instruction Type:Patient Education How to Access Health Informa tion Online using Patient Portal and [employer] Indication:Current non-smoker Start:24-Aug-2020 Instruction Type:Patient Education Patient Instructions Indication:BMI 38.0-38.9,adult Start:24-Aug-2020 Instruction Type:Provider Instructions for Treatment Patient Instructions Indication:Current non-smoker Start:05-May-2020 Instruction Type:Provider Instructions for Treatment How to Access Health Informa tion Online using Patient Portal and [employer] Indication:Current non-smoker Start:05-May-2020 Instruction Type:Patient Education [...] tion Online using Patient Portal and [employer] Indication:BMI 38.0-38.9,adult Start:13-Oct-2022 Instruction Type:Patient Education Patient Instructions Indication:BMI 38.0-38.9,adult Start:06-Jun-2022 Instruction Type:Provider Instructions for Treatment How to Access Health Informa tion Online using Patient Portal and [employer] Indication:BMI 38.0-38.9,adult Start:06-Jun-2022 Instruction Type:Patient Education Patient Instructions Indication:BMI 37.0-37.9, adult Start:06-Sep-2021 Instruction Type:Provider Instructions for Treatment How to Access Health Informa tion Online using Patient Portal and [employer] Indication:BMI 37.0-37.9, adult Start:06-Sep-2021 Instruction Type:Patient Education Patient Instructions Indication:Encounter for well adult exam with abnormal findings (Renamed from Encounter for general adult medical examination with abnormal findings) Start:29-Jun-2021 Instruction Type:Provider Instructions for Treatment How to Access Health Informa tion Online using Patient Portal and [employer] Indication:Encounter for well adult exam with abnormal findings (Renamed from Encounter for general adult medical examination with abnormal findings) Start:29-Jun-2021 Instruction Type:Patient Education Patient Instructions Indication:Gastric reflux Start:07-Sep-2020 Instruction Type:Provider Instructions for Treatment How to Access Health Informa tion Online using Patient Portal and [employer] Indication:Current non-smoker Start:07-Sep-2020 Instruction Type:Patient Education How to Access Health Informa tion Online using Patient Portal and [employer] Indication:Current non-smoker Start:24-Aug-2020 Instruction Type:Patient Education Patient Instructions Indication:BMI 38.0-38.9,adult Start:24-Aug-2020 Instruction Type:Provider Instructions for Treatment Patient Instructions Indication:Current non-smoker Start:05-May-2020 Instruction Type:Provider Instructions for Treatment How to Access Health Informa tion Online using Patient Portal and [employer]rd [employer] Indication:Current non-smoker Start:05-May-2020 Instruction Type:Patient Education [...] Informa tion Online using Patient Portal and [employer] Indication:BMI 38.0-38.9,adult Start:13-Oct-2022 Instruction Type:Patient Education Patient Instructions Indication:BMI 38.0-38.9,adult Start:06-Jun-2022 Instruction Type:Provider Instructions for Treatment How to Access Health Informa tion Online using Patient Portal and [employer] Indication:BMI 38.0-38.9,adult Start:06-Jun-2022 Instruction Type:Patient Education Patient Instructions Indication:BMI 37.0-37.9, adult Start:06-Sep-2021 Instruction Type:Provider Instructions for Treatment How to Access Health Informa tion Online using Patient Portal and [employer] Indication:BMI 37.0-37.9, adult Start:06-Sep-2021 Instruction Type:Patient Education Patient Instructions Indication:Encounter for well adult exam with abnormal findings (Renamed from Encounter for general adult medical examination with abnormal findings) Start:29-Jun-2021 Instruction Type:Provider Instructions for Treatment How to Access Health Informa tion Online using Patient Portal and [employer] Indication:Encounter for well adult exam with abnormal findings (Renamed from Encounter for general adult medical examination with abnormal findings) Start:29-Jun-2021 Instruction Type:Patient Education Patient Instructions Indication:Gastric reflux Start:07-Sep-2020 Instruction Type:Provider Instructions for Treatment How to Access Health Informa tion Online using Patient Portal and [employer] Indication:Current non-smoker Start:07-Sep-2020 Instruction Type:Patient Education How to Access Health Informa tion Online using Patient Portal and [employer] Indication:Current non-smoker Start:24-Aug-2020 Instruction Type:Patient Education Patient Instructions Indication:BMI 38.0-38.9,adult Start:24-Aug-2020 Instruction Type:Provider Instructions for Treatment Patient Instructions Indication:Current non-smoker Start:05-May-2020 Instruction Type:Provider Instructions for Treatment How to Access Health Informa tion Online using Patient Portal and [employer] Indication:Current non-smoker Start:05-May-2020 Instruction Type:Patient Education [...] tion Online using Patient Portal and [employer] Indication:BMI 38.0-38.9,adult Start:13-Oct-2022 Instruction Type:Patient Education Patient Instructions Indication:BMI 38.0-38.9,adult Start:06-Jun-2022 Instruction Type:Provider Instructions for Treatment How to Access Health Informa tion Online using Patient Portal and [employer] Indication:BMI 38.0-38.9,adult Start:06-Jun-2022 Instruction Type:Patient Education Patient Instructions Indication:BMI 37.0-37.9, adult Start:06-Sep-2021 Instruction Type:Provider Instructions for Treatment How to Access Health Informa tion Online using Patient Portal and [employer] Indication:BMI 37.0-37.9, adult Start:06-Sep-2021 Instruction Type:Patient Education Patient Instructions Indication:Encounter for well adult exam with abnormal findings (Renamed from Encounter for general adult medical examination with abnormal findings) Start:29-Jun-2021 Instruction Type:Provider Instructions for Treatment How to Access Health Informa tion Online using Patient Portal and [employer] Indication:Encounter for well adult exam with abnormal findings (Renamed from Encounter for general adult medical examination with abnormal findings) Start:29-Jun-2021 Instruction Type:Patient Education Patient Instructions Indication:Gastric reflux Start:07-Sep-2020 Instruction Type:Provider Instructions for Treatment How to Access Health Informa tion Online using Patient Portal and [employer] Indication:Current non-smoker Start:07-Sep-2020 Instruction Type:Patient Education How to Access Health Informa tion Online using Patient Portal and [employer] Indication:Current non-smoker Start:24-Aug-2020 Instruction Type:Patient Education Patient Instructions Indication:BMI 38.0-38.9,adult Start:24-Aug-2020 Instruction Type:Provider Instructions for Treatment Patient Instructions Indication:Current non-smoker Start:05-May-2020 Instruction Type:Provider Instructions for Treatment How to Access Health Informa tion Online using Patient Portal and [employer] Indication:Current non-smoker Start:05-May-2020 Instruction Type:Patient Education [...] tion Online using Patient Portal and [employer] Indication:BMI 38.0-38.9,adult Start:13-Oct-2022 Instruction Type:Patient Education Patient Instructions Indication:BMI 38.0-38.9,adult Start:06-Jun-2022 Instruction Type:Provider Instructions for Treatment How to Access Health Informa tion Online using Patient Portal and [employer] Indication:BMI 38.0-38.9,adult Start:06-Jun-2022 Instruction Type:Patient Education Patient Instructions Indication:BMI 37.0-37.9, adult Start:06-Sep-2021 Instruction Type:Provider Instructions for Treatment How to Access Health Informa tion Online using Patient Portal and [employer] Indication:BMI 37.0-37.9, adult Start:06-Sep-2021 Instruction Type:Patient Education Patient Instructions Indication:Encounter for well adult exam with abnormal findings (Renamed from Encounter for general adult medical examination with abnormal findings) Start:29-Jun-2021 Instruction Type:Provider Instructions for Treatment How to Access Health Informa tion Online using Patient Portal and [employer] Indication:Encounter for well adult exam with abnormal findings (Renamed from Encounter for general adult medical examination with abnormal findings) Start:29-Jun-2021 Instruction Type:Patient Education Patient Instructions Indication:Gastric reflux Start:07-Sep-2020 Instruction Type:Provider Instructions for Treatment How to Access Health Informa tion Online using Patient Portal and [employer] Indication:Current non-smoker Start:07-Sep-2020 Instruction Type:Patient Education How to Access Health Informa tion Online using Patient Portal and [employer] Indication:Current non-smoker Start:24-Aug-2020 Instruction Type:Patient Education Patient Instructions Indication:BMI 38.0-38.9,adult Start:24-Aug-2020 Instruction Type:Provider Instructions for Treatment Patient Instructions Indication:Current non-smoker Start:05-May-2020 Instruction Type:Provider Instructions for Treatment How to Access Health Informa tion Online using Patient Portal and [employer] Indication:Current non-smoker Start:05-May-2020 Instruction Type:Patient Education [...] tion Online using Patient Portal and [employer] Indication:BMI 38.0-38.9,adult Start:13-Oct-2022 Instruction Type:Patient Education Patient Instructions Indication:BMI 38.0-38.9,adult Start:06-Jun-2022 Instruction Type:Provider Instructions for Treatment How to Access Health Informa tion Online using Patient Portal and [employer] Indication:BMI 38.0-38.9,adult Start:06-Jun-2022 Instruction Type:Patient Education Patient Instructions Indication:BMI 37.0-37.9, adult Start:06-Sep-2021 Instruction Type:Provider Instructions for Treatment How to Access Health Informa tion Online using Patient Portal and [employer] Indication:BMI 37.0-37.9, adult Start:06-Sep-2021 Instruction Type:Patient Education Patient Instructions Indication:Encounter for well adult exam with abnormal findings (Renamed from Encounter for general adult medical examination with abnormal findings) Start:29-Jun-2021 Instruction Type:Provider Instructions for Treatment How to Access Health Informa tion Online using Patient Portal and [employer] Indication:Encounter for well adult exam with abnormal findings (Renamed from Encounter for general adult medical examination with abnormal findings) Start:29-Jun-2021 Instruction Type:Patient Education Patient Instructions Indication:Gastric reflux Start:07-Sep-2020 Instruction Type:Provider Instructions for Treatment How to Access Health Informa tion Online using Patient Portal and [employer] Indication:Current non-smoker Start:07-Sep-2020 Instruction Type:Patient Education How to Access Health Informa tion Online using Patient Portal and [employer] Indication:Current non-smoker Start:24-Aug-2020 Instruction Type:Patient Education Patient Instructions Indication:BMI 38.0-38.9,adult Start:24-Aug-2020 Instruction Type:Provider Instructions for Treatment Patient Instructions Indication:Current non-smoker Start:05-May-2020 Instruction Type:Provider Instructions for Treatment How to Access Health Informa tion Online using Patient Portal and [employer] Indication:Current non-smoker Start:05-May-2020 Instruction Type:Patient Education [...] Informa tion Online using Patient Portal and [employer] Indication:BMI 38.0-38.9,adult Start:13-Oct-2022 Instruction Type:Patient Education Patient Instructions Indication:BMI 38.0-38.9,adult Start:06-Jun-2022 Instruction Type:Provider Instructions for Treatment How to Access Health Informa tion Online using Patient Portal and [employer] Indication:BMI 38.0-38.9,adult Start:06-Jun-2022 Instruction Type:Patient Education Patient Instructions Indication:BMI 37.0-37.9, adult Start:06-Sep-2021 Instruction Type:Provider Instructions for Treatment How to Access Health Informa tion Online using Patient Portal and [employer] Indication:BMI 37.0-37.9, adult Start:06-Sep-2021 Instruction Type:Patient Education Patient Instructions Indication:Encounter for well adult exam with abnormal findings (Renamed from Encounter for general adult medical examination with abnormal findings) Start:29-Jun-2021 Instruction Type:Provider Instructions for Treatment How to Access Health Informa tion Online using Patient Portal and [employer] Indication:Encounter for well adult exam with abnormal findings (Renamed from Encounter for general adult medical examination with abnormal findings) Start:29-Jun-2021 Instruction Type:Patient Education Patient Instructions Indication:Gastric reflux Start:07-Sep-2020 Instruction Type:Provider Instructions for Treatment How to Access Health Informa tion Online using Patient Portal and [employer] Indication:Current non-smoker Start:07-Sep-2020 Instruction Type:Patient Education How to Access Health Informa tion Online using Patient Portal and [employer] Indication:Current non-smoker Start:24-Aug-2020 Instruction Type:Patient Education Patient Instructions Indication:BMI 38.0-38.9,adult Start:24-Aug-2020 Instruction Type:Provider Instructions for Treatment Patient Instructions Indication:Current non-smoker Start:05-May-2020 Instruction Type:Provider Instructions for Treatment How to Access Health Informa tion Online using Patient Portal and [employer] Indication:Current non-smoker Start:05-May-2020 Instruction Type:Patient Education [...] tion Online using Patient Portal and [employer] Indication:BMI 38.0-38.9,adult Start:13-Oct-2022 Instruction Type:Patient Education Patient Instructions Indication:BMI 38.0-38.9,adult Start:06-Jun-2022 Instruction Type:Provider Instructions for Treatment How to Access Health Informa tion Online using Patient Portal and [employer] Indication:BMI 38.0-38.9,adult Start:06-Jun-2022 Instruction Type:Patient Education Patient Instructions Indication:BMI 37.0-37.9, adult Start:06-Sep-2021 Instruction Type:Provider Instructions for Treatment How to Access Health Informa tion Online using Patient Portal and [employer] Indication:BMI 37.0-37.9, adult Start:06-Sep-2021 Instruction Type:Patient Education Patient Instructions Indication:Encounter for well adult exam with abnormal findings (Renamed from Encounter for general adult medical examination with abnormal findings) Start:29-Jun-2021 Instruction Type:Provider Instructions for Treatment How to Access Health Informa tion Online using Patient Portal and [employer] Indication:Encounter for well adult exam with abnormal findings (Renamed from Encounter for general adult medical examination with abnormal findings) Start:29-Jun-2021 Instruction Type:Patient Education Patient Instructions Indication:Gastric reflux Start:07-Sep-2020 Instruction Type:Provider Instructions for Treatment How to Access Health Informa tion Online using Patient Portal and [employer] Indication:Current non-smoker Start:07-Sep-2020 Instruction Type:Patient Education How to Access Health Informa tion Online using Patient Portal and [employer] Indication:Current non-smoker Start:24-Aug-2020 Instruction Type:Patient Education Patient Instructions Indication:BMI 38.0-38.9,adult Start:24-Aug-2020 Instruction Type:Provider Instructions for Treatment Patient Instructions Indication:Current non-smoker Start:05-May-2020 Instruction Type:Provider Instructions for Treatment How to Access Health Informa tion Online using Patient Portal and [employer] Indication:Current non-smoker Start:05-May-2020 Instruction Type:Patient Education [...] Informa tion Online using Patient Portal and [employer] Indication:Current non-smoker Start:05-May-2020 Instruction Type:Patient Education [...] No December 16, 2019 9:41pm Power of [employer] No December 9:41pm Chief Complaint and Reason [...] section and content) DATE CREATED AUTHOR 08/25/2020 [facility] DATE CREATED AUTHOR AUTHOR'S ORGANIZ ATION 06/08/2022 [facility] DATE CREATED AUTHOR AUTHOR'S ORGANIZ ATION 04/18/2024 [facility] Goals (unrecognized section and content) Goals may [...] BE BASED ON THE PRIMARY CLINICAL RECORDS. [employer] provides no warranty or guarantee of the accuracy or completeness of information in this document.
[2025-02-28 10:10] LABS: Mucous, Urine 0 SEEN /hpf (<or=2+); Red Blood Cells-Urine 0 SEEN /hpf (0-5); Squamous Epithelial Cells - UA 0 SEEN /hpf (0-5)
[2025-02-28 10:12] LABS: Color, Urine Yellow (Yellow); Glucose, Dipstick Normal (Normal); Ketone-Dipstick 15 mg/dl (Negative); Leukocyte Esterase-Dipstick 25 /ul (Negative); Nitrite-Dipstick Negative (Negative); Occult Blood-Urine 10 /ul (Negative); Protein-Dipstick 30 mg/dl (Negative); Specific Gravity, Urine 1.015 (1.002-1.030); Urine Bilirubin Dipstick Negative (Negative)
--- OUTSIDE RECORDS SUMMARY | 2025-02-28 12:58 | XMS RPT_ITS | CCD ---
Author Organization [facility] Care Team Providers Care Bargeman Name Role Phone John Anne Unavailable Muriel Woo Unavailable Unavailable Unavailable Unavailable Luke Driver Unavailable Unavailable Ciesa, Anne Unavailable Tiffanie Harris Unavailable Unavailable Ciesa LEORA, Anne Unavailable Luke Driver LPN Unavailable Unavailable Adrianne Reyez LPN Unavailable Unavailable Muriel Woo Unavailable Unavailable Unavailable Unavailable Donald Moreno Unavailable Dr. Donald Pop Unavailable [phone] Lai Tucker Unavailable SABINO Gramajo LPN Unavailable Unavailable Angel , Dr. Mcdaniel Unavailable Lin Pardo MD Unavailable John COREY Anne Unavailable Dr. Lin Pardo Primary Care Provider Dr. Lin Pardo Referring Provider Dr. Lin Pardo Other Provider Dr. Harshil Huitron Attending Provider Jess Lopez Unavailable Lin Pardo MD Unavailable Lin Pardo MD Unavailable Gravius COSTUME CUTTER, Tyra Unavailable Unavailable Unavailable Unavailable Lin Pardo MD Unavailable Dora Shaffer LPN Unavailable Unavailable Lin Pardo MD Attending Unavailable Lin Pardo MD Consulting Unavailable Courtney RIZVI, Kayela Unavailable Unavailable Dr. Jonas Caery Unavailable Dr. Lin Pardo Primary Care Provider Dr. Lin Pardo Referring Provider LINO Ramachandran Attending Provider [phone] Lin Pardo Referring Unavailable Willem Ramachandran Attending [...] above: This order discontin ued per -Span. [id number] 200 actuat albuterol 0.09 mg/actuat metered dose [...] and symptoms good Dr. carey EGD in [facility] Dr. 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 Allergies No Known Allergies Allergy (Verified 04/15/24 10:11) Have you fallen in the past year?: No [facility] Medical History (Updated 11/07/22 @ 16:40 by [...] Cosigner Signature: Date (if applicable) CC: Normal [facility] Low Dose CT Lung Screeningon 03-01-[address] Lung Screening [facility] Imaging Services [address] [place] [id number] Lung Screening MR#: [id number] Acct: [id number] Name: LEANA PORTER Rep #: [id number] : 1955 M 69 From: Hardy Davidson MD PCP: Dr. Lin Pardo MD Status: [facility] Study: Low Dose CT Lung Screening Date of Exam: 03/01 Exam# [id number] Ordering Dr: Lin Pardo MD [id number] EXAM: CT CHEST, LUNG CANCER SCREENING WITHOUT [...] EST , CC: Dr. Lin Pardo MD Garden Labourer: Signed Normal [facility] Basophil percentageOrdered B y: Lin Pardo on 11-29-2022 Creatinine [Mass/Vol] 1.3 mg/dL 0.70-1.30 [facility] Laboratory - Chemistry and C hemistry - challengeOrdered By: Linjustyn Pardo on 11-29-2022 GFR/1.73 sq M.predicted among non-blacks MDRD (S/P/Bld) [Vol rate/Area] 60.0000 mL/min/{1.73_m2} >60 [facility] PSA (Medicare - [facility] [place] [place]) (8415 3)Ordered By: Sales Office Coordinator on 09-02-2022 Prostate specific Ag [Mass/Vol] 0.8 ng/mL Normal 0.0-4.0 [facility] Work Phone: Comment on above: SocialGlimpz ECLIA methodol ogy. .According to the [place] [employer], Serum PSA shoulddecrease and remain [...] malignant disease. PATIENT NOT FASTINGP ERFORMED BY: Seventymm[address] [place] [id number] C-REACT PROT HIGH SENS(hsCRP ) (78131)Ordered By: Sales Office Coordinator on 06-03-2022 CRP High sensitivity method [Mass/Vol] 8.58 mg/L Abnormal 0.00-3.00 [facility]; [facility] Work Phone: Comment on above: Relative Risk for Fu ture Cardiovascular Event Low <1.00 Average 1.00 - 3.00 High >3.00 PATIENT WAS FASTINGP ERFORMED BY: SolarBuddy[address] [place] [id number] CALCIFEDIOL (67280)Ordered B y: Sales Office Coordinator on 06-03-2022 25-hydroxyvitamin D [Mass/Vol] 68.9 ng/mL Normal 30.0-100.0 [facility]; [facility] Work Phone: Comment on above: Vitamin D deficiency has been defined by the [place] ofMedicine and an Endocrine Society practice guideline as alevel of serum 25-OH vitamin D less than 20 ng/mL (1,2).The Endocrine Society went on to further define vitamin Dinsufficiency as a level between 21 and 29 ng/mL (2).1. IOM ([place] of Medicine). 2010. Dietary reference intakes for calcium and D. [place]: The National Academies Press.2. Favian MF, Shubham RAMOS, Josep STAHL, et al. Evaluation, treatment, and prevention of vitamin D deficiency: an Endocrine Society clinical practice guideline. JCEM. 2010; 96(7):1911-30. PATIENT WAS FASTINGP ERFORMED BY: CB [facility] Ckpgdg5216 Travis RoadDublin [place] [id number] CBC & PLATELETS (AUTO) (8502 7)Ordered By: Sales Office Coordinator on 06-03-2022 Erythrocyte distribution width (RBC) [Ratio] 13.5 % Normal 11.6-15.4 [facility]; [facility] Work Phone: Comment on above: PATIENT WAS FASTINGP ERFORMED BY: CB [facility] Uoxtqz8601 Travis RoadDublin [place] [id number] Hematocrit (Bld) [Volume fraction] 47.1 % Normal 37.5-51.0 [facility]; [facility] Work Phone: Comment on above: PATIENT WAS FASTINGP ERFORMED BY: CB [facility] Izhcct1785 Travis RoadDublin [place] [id number] Hemoglobin (Bld) [Mass/Vol] 15.8 g/dL Normal 13.0-17.7 [facility]; [facility] Work Phone: Comment on above: PATIENT WAS FASTINGP ERFORMED BY: CB [facility] Lkwjgh8505 Travis RoadDublin [place] [id number] MCH (RBC) [Entitic mass] 28.8 pg Normal 26.6-33.0 [facility]; [facility] Work Phone: Comment on above: PATIENT WAS FASTINGP ERFORMED BY: CB [facility] Hsdowp6588 Travis RoadDublin [place] [id number] MCHC (RBC) [Mass/Vol] 33.5 g/dL Normal 31.5-35.7 [facility]; [facility] Work Phone: Comment on above: PATIENT WAS FASTINGP ERFORMED BY: GERTRUDE [facility] Lpdkmd6063 [address] [facility] [place] [id number] MCV (RBC) [Entitic vol] 86 fL Normal 79-97 [facility]; [facility] Work Phone: Comment on above: PATIENT WAS FASTINGP ERFORMED BY: GERTRUDE [facility] Ejvkov4274 Travis RoadCritical Access Hospitalin [place] [id number] Platelets (Bld) [#/Vol] 237 10*3/uL Normal 150-450 [facility]; [facility] Work Phone: Comment on above: PATIENT WAS FASTINGP ERFORMED BY: GERTRUDE [facility] Tkngpk9371 Travis RoadCritical Access Hospitalin [place] [id number] RBC (Bld) [#/Vol] 5.48 10*6/uL Normal 4.14-5.80 [facility] Internal [facility]; [facility] Work Phone: Comment on above: PATIENT WAS FASTINGP ERFORMED BY: GERTRUDE [facility] Renmeb41[address] [facility] [place] [id number] WBC (Bld) [#/Vol] 8.0 10*3/uL Normal 3.4-10.8 [facility]; [facility] Work Phone: Comment on above: PATIENT WAS FASTINGP ERFORMED BY: [facility] Wffhfh9[address] [facility] [place] [id number] HGB A1C (05582)Ordered By: S ystem Bolt Threader on 06-03-2022 HbA1c (Bld) [Mass fraction] 5.7 % Abnormal 4.8-5.6 [facility]; [facility] Work Phone: Comment on above: . Prediabetes: 5.7 - 6.4 Diabetes: >6.4 Glycemic control for adults with diabetes: <7.0 PATIENT WAS FASTINGP ERFORMED BY: GERTRUDE [facility] Cjmwve3994 [facility] [id number] Homocysteine, Plasma (80351) Ordered By: Sales Office Coordinator on 06-03-2022 Homocysteine [Moles/Vol] 13.7 umol/L Normal 0.0-17.2 [facility]; [facility] Work Phone: Comment on above: PATIENT WAS FASTINGP ERFORMED BY: GERTRUDE Kari Maria6370 [facility] [id number] LIPID PANEL (07601)Ordered B y: Sales Office Coordinator on 06-03-2022 Cholesterol [Mass/Vol] 127 mg/dL Normal 100-199 [facility]; [facility] Work Phone: Comment on above: PATIENT WAS FASTINGP ERFORMED BY: GERTRUDE Kari Maria6370 [facility] [id number] Cholesterol in HDL [Mass/Vol] 37 mg/dL Abnormal [facility]; [facility] Work Phone: Comment on above: PATIENT WAS FASTINGP ERFORMED BY: GERTRUDE Kari Maria6370 [facility] [id number] Triglyceride [Mass/Vol] 51 mg/dL Normal 0-149 [facility]; [facility] Work Phone: Comment on above: PATIENT WAS FASTINGP ERFORMED BY: GERTRUDE Kari Maria6370 [facility] [id number] LIPID PANEL (34849) 12 mg/dL Normal 5-40 Compr ehensive Internal Medicine; [facility] Work Phone: Comment on above: PATIENT WAS FASTINGP ERFORMED BY: GERTRUDE Forresterlin6370 [facility] [id number] LIPID PANEL (87729) 78 mg/dL Normal 0-99 Compr ehensive [facility]; [facility] Work Phone: Comment on above: PATIENT WAS FASTINGP ERFORMED BY: GERTRUDE Forresterlin6370 [facility] [id number] LIPID PANEL (07999) 2.1 {ratio} Normal 0.0-3.6 [facility]; [facility] Work Phone: Comment on above: LDL/HDL Ratio Men Wo men 1/2 Avg.Risk 1.0 1.5 Avg.Risk 3.6 3.2 2X Avg.Risk 6.2 5.0 3X Avg.Risk 8.0 6.1 PATIENT WAS FASTINGP ERFORMED BY: [facility] Nrgafx4889 [address] [facility] [place] [id number] METABOLIC PANEL, COMPREHENSI VE (31047)Ordered By: Sales Office Coordinator on 06-03-2022 Albumin [Mass/Vol] 4.3 g/dL Normal 3.8-4.8 [facility]; [facility] Work Phone: Comment on above: PATIENT WAS FASTINGP ERFORMED BY: [facility] Xxefwy1506 [address] [facility] [place] [id number] Albumin/Globulin [Mass ratio] 1.3 {ratio} Normal 1.2-2.2 [facility]; [facility] Work Phone: Comment on above: PATIENT WAS FASTINGP ERFORMED BY: [facility] Bagwcl2111 [address] [facility] [place] [id number] ALP [Catalytic activity/Vol] 77 U/L Normal 44-121 [facility]; [facility] Work Phone: Comment on above: PATIENT WAS FASTINGP ERFORMED BY: [facility] Mrxcgy4811 [address] [facility] [place] [id number] ALT [Catalytic activity/Vol] 12 U/L Normal 0-44 [facility]; [facility] Work Phone: Comment on above: PATIENT WAS FASTINGP ERFORMED BY: [facility] Dlivzq5893 [address] [facility] [place] [id number] AST [Catalytic activity/Vol] 17 U/L Normal 0-40 [facility]; [facility] Work Phone: Comment on above: PATIENT WAS FASTINGP ERFORMED BY: [facility] Uqxufb5307 [address] [facility]bl[facility] [place] [id number] Bilirubin [Mass/Vol] 0.2 mg/dL Normal 0.0-1.2 [facility]; [facility] Work Phone: Comment on above: PATIENT WAS FASTINGP ERFORMED BY: [facility] Fkhyvo4482 Travis RoadDublin [place] [id number] Calcium [Mass/Vol] 9.5 mg/dL Normal 8.6-10.2 [facility]; [facility] Work Phone: Comment on above: PATIENT WAS FASTINGP ERFORMED BY: [facility] Nskpjk7389 Travis RoadDublin [place] [id number] Chloride [Moles/Vol] 106 mmol/L Normal 96-106 [facility]; [facility] Work Phone: Comment on above: PATIENT WAS FASTINGP ERFORMED BY: [facility] Yskqfx1659 Travis RoadDublin [place] [id number] CO2 [Moles/Vol] 23 mmol/L Normal 20-29 Comprehen [facility] Internal [facility]; [facility] Work Phone: Comment on above: PATIENT WAS FASTINGP ERFORMED BY: [facility] Ebsuyb7326 Travis RoadCritical Access Hospitalin [place] [id number] Creatinine [Mass/Vol] 0.99 mg/dL Normal 0.76-1.27 [facility]; [facility] Work Phone: Comment on above: PATIENT WAS FASTINGP ERFORMED BY: [facility] Ujjxgx2126 [address] [facility]in [place] [id number] GFR/1.73 sq M.predicted among non-blacks MDRD (S/P/Bld) [Vol rate/Area] 85 mL/min/{1.73_m2} Normal Comprehensiv e Internal Medicine; [facility] Work Phone: Comment on above: PATIENT WAS FASTINGP ERFORMED BY: [facility] Fdmjca8646 Travis RoadDublin [place] [id number] Globulin (S) [Mass/Vol] 3.2 g/dL Normal 1.5-4.5 [facility]; [facility] Work Phone: Comment on above: PATIENT WAS FASTINGP ERFORMED BY: [facility] Wvbwiz3845 Travis Roadblin [place] [id number] Glucose [Mass/Vol] 101 mg/dL Abnormal 70-99 [facility]; [facility] Work Phone: Comment on above: PATIENT WAS FASTINGP ERFORMED BY: CB [facility] Jbrjaw7397 Travis RoadDublin [place] [id number] Potassium [Moles/Vol] 4.7 mmol/L Normal 3.5-5.2 [facility]; [facility] Work Phone: Comment on above: PATIENT WAS FASTINGP ERFORMED BY: CB [facility] Cbmnum7474 Travis RoadCritical Access Hospitalin [place] [id number] Protein [Mass/Vol] 7.5 g/dL Normal 6.0-8.5 [facility] Internal Medicine; [facility] Internal Medicine Work Phone: Comment on above: PATIENT WAS FASTINGP ERFORMED BY: CB [facility] Uytbjv9181 Travsi RoadDuin [place] [id number] Sodium [Moles/Vol] 144 mmol/L Normal 134-144 [facility] Internal Medicine; [facility] Internal Medicine Work Phone: Comment on above: PATIENT WAS FASTINGP ERFORMED BY: CB [facility] Pjqduo7957 [address] RoadDublin [place] [id number] Urea nitrogen [Mass/Vol] 11 mg/dL Normal 8-27 [facility]; [facility] Work Phone: Comment on above: PATIENT WAS FASTINGP ERFORMED BY: CB [facility] Dwybpe8506 Travis RoadDublin [place] [id number] Urea nitrogen/Creatinine [Mass ratio] 11 mg/mg Normal 10-24 [facility]; [facility] Work Phone: Comment on above: PATIENT WAS FASTINGP ERFORMED BY: CB [facility] Gcelcg5179 Travis RoadDublin [place] [id number] C-REACT PROT HIGH SENS(hsCRP ) (45639)Ordered By: Sales Office Coordinator on 09-07-2021 CRP High sensitivity method [Mass/Vol] 12.45 mg/L Abnormal 0.00-3.00 [facility]; [facility] Work Phone: Comment on above: Relative Risk for Fu ture Cardiovascular Event Low <1.00 Average 1.00 - 3.00 High >3.00 PATIENT NOT FASTINGP ERFORMED BY: GERTRUDE Stykymiladys Lwjzdu7474 Cinegifblin [place] [id number] CALCIFIDIOL (33808) VIT D 25 Ordered By: Sales Office Coordinator on 09-07-2021 25-hydroxyvitamin D [Mass/Vol] 67.3 ng/mL Normal 30.0-100.0 [facility]; [facility] Work Phone: Comment on above: Vitamin D deficiency has been defined by the [place] ofMedicine and an Endocrine Society practice guideline as alevel of serum 25-OH vitamin D less than 20 ng/mL (1,2).The Endocrine Society went on to further define vitamin Dinsufficiency as a level between 21 and 29 ng/mL (2).1. IOM ([place] of Medicine). 2010. Dietary reference intakes for calcium and D. [place]: The National Academies Press.2. Favian MF, Shubham RAMOS, Josep STAHL, et al. Evaluation, treatment, and prevention of vitamin D deficiency: an Endocrine Society clinical practice guideline. JCEM. 2010; 96(7):1911-30. PATIENT NOT FASTINGP ERFORMED BY: GERTRUDE Runner6370 CloudCrowdin [place] [id number] CERULOPLASMIN (35489)Ordered By: Sales Office Coordinator on 09-07-2021 Ceruloplasmin [Mass/Vol] 29.1 mg/dL Normal 16.0-31.0 [facility]; [facility] Work Phone: Comment on above: PATIENT NOT FASTINGP ERFORMED BY: GERTRUDE Stykymiladys Iizelo0085 [address] Visionin [place] [id number] Information: NURSE DRAW Homocysteine, Plasma (62110) Ordered By: Sales Office Coordinator on 09-07-2021 Homocysteine [Moles/Vol] 12.5 umol/L Normal 0.0-17.2 [facility]; [facility] Work Phone: Comment on above: PATIENT NOT FASTINGP ERFORMED BY: GERTRUDE Runner6370 CinegifGeorgetown Community Hospital [id number] VITAMIN B12 AND FOLATES (826 07)Ordered By: Sales Office Coordinator on 09-07-2021 Cobalamin (Vitamin B12) [Mass/Vol] 312 pg/mL Normal 232-1245 [facility]; [facility] Work Phone: Comment on above: PATIENT NOT FASTINGP ERFORMED BY: GERTRUDE Styky Gewtzf7484 CinegifBlue [facility] Hospital [id number] Information: NURSE DRAW Folate [Mass/Vol] ng/mL Normal Compreh ensive Internal Medicine; [facility] Work Phone: Comment on above: A serum folate viktor ntration of less than 3.1 ng/mL isconsidered to represent clinical deficiency. PATIENT NOT FASTINGP ERFORMED BY: GERTRUDE Sparkplay Media70 TravisVertroBlue Ridge Regional Hospital [id number] Information: NURSE DRAW Basophil percentageon 2021 Creatinine [Mass/Vol] 0.8 mg/dL 0.70-1.30 [facility] Work Phone: No Panel Informationon 06-23 Bedside Estimated GFR (eGFR) > 60.0000 mL/min >60 [facility] Work Phone: ASM (ANTI SMOOTH MUSCLE ANTI BODY) (38175)Ordered By: Sales Office Coordinator on 06-15-2021 Actin IgG Qn 7 {Units} [...] biliary cirrhosis. PATIENT NOT FASTINGP ERFORMED BY: ThrasosSalem Memorial District Hospital14[address] [facility] [id number] BY: GERTRUDE Styky Amwstu99[address] Cord ProjectAtrium Health Kannapolis [id number] CERULOPLASMIN (52601)Ordered By: Sales Office Coordinator on 06-15-2021 Ceruloplasmin [Mass/Vol] 32.2 mg/dL Abnormal 16.0-31.0 [facility]; [facility] Work Phone: Comment on above: PATIENT NOT FASTINGP ERFORMED BY: Styky[address] [id number] BY: Styky Qibxqh0553 [facility] [id number] Hepatitis C Quant, DNA Probe , Amplified (69299)Ordered By: Sales Office Coordinator on 06-15-2021 HCV RNA ANIYA+probe Qn Not detected Normal [facility]; [facility] Work Phone: Comment on above: PATIENT NOT FASTINGP ERFORMED BY: Styky[address] [id number] BY: Styky Idqbpg1750 [facility] [id number] Hepatitis C Quant, DNA Probe, Amplified (41350) SPRCS Normal [facility]; [facility] Work Phone: Comment on above: The quantitative ran ge of this assay is 15 IU/mL to 100 million IU/mL. PATIENT NOT FASTINGP ERFORMED BY: KnowRe[address] [id number] BY: Styky Alkfvn0054 [facility] [id number] MICROSOMAL ANTIBODY (75276)O rdered By: Sales Office Coordinator on 06-15-2021 Liver kidney microsomal 1 Ab [...] HCV infection. PATIENT NOT FASTINGP ERFORMED BY: Styky[address] [id number] BY: StykySaint Clare's Hospital at SussexHvlkmh6104 [facility] [id number] URINE JONNY CULTURE-IDENTIFICA [place] (19058)Ordered By: Sales Office Coordinator on 06-15-2021 Bacteria identified Cx Nom (U) Final report Abnormal [facility]; [facility] Work Phone: Comment on above: PATIENT NOT FASTINGP ERFORMED BY: LabGridAnts Leksir9004 CinegifBlue Ridge Regional Hospital [id number] Information: SRC: Bacteria identified Cx Nom (U) Citrobacter koseri Abnormal [facility]; [facility] Work Phone: Comment on above: 25,000-50,000 colony forming units per mL PATIENT NOT FASTINGP ERFORMED BY: [facility] Lggetk8017 [address] VisionBlue Ridge Regional Hospital [id number] Information: SRC: Other Antibiotic [Susc] MIHEAD Normal [...] STrimethoprim/Sulfa S PATIENT NOT FASTINGP ERFORMED BY: LabGridAntsrp Dlzteq6640 TravisSaint [facility] Center [id number] Information: SRC: Urinalysis, Office (03940)Or dered By: SABINO Gramajo on 06-15-2021 Bilirubin [...] Medicine Work Phone: CBC WITH MANUAL DIFF (59549) Ordered By: Sales Office Coordinator on 06-08-2021 Basophils (Bld) [#/Vol] 0.0 10*3/uL Normal 0.0-0.2 [facility]; [facility] Work Phone: Comment on above: Test(s) 380381-ORW-G ; 256440-KNC-V; 771268-Uqiejdyqcsinc; 824467-Zynfwfbfxlq, Total; 099820-GNU-H (Total); 882656-Eocrh LDL-P; 014992-EMH Size; 952832-AB-EM Scorewas developed and its performance characteristics determinedby Q Interactive. It has not been cleared or approved by the Foodand Drug Administration.PATIENT WAS FASTINGPERFORMED BY: [facility]coSur[facility] Vmwausigtk1512 [facility] [id number] BY: LabGridAntsSaint Clare's Hospital at SussexUrruli2174 [facility] [id number] Basophils/100 WBC (Bld) 1 % Normal [facility]; [facility] Work Phone: Comment on above: Test(s) 376737-YMP-W ; 489271-VIV-L; 970349-Xutpeadlesrip; 611331-Fgolnsdzrvh, Total; 987507-PSJ-X (Total); 599425-Towat LDL-P; 690305-TEK Size; 587988-ZM-ZG Scorewas developed and its performance characteristics determinedby [employer]. It has not been cleared or approved by the Foodand Drug Administration.PATIENT WAS FASTINGPERFORMED BY: Groove Customer Support[address] [id number] BY: Atieva Pprtzq6392 CinegifBlue Ridge Regional Hospital [id number] Eosinophils (Bld) [#/Vol] 0.4 10*3/uL Normal 0.0-0.4 [facility]; [facility] Work Phone: Comment on above: Test(s) 184500-ZWX-W ; 665586-GQA-E; 074680-Jmarymxnhflrw; 689999-Lcoldbcpxvd, Total; 634838-OXX-S (Total); 855222-Gyzdf LDL-P; 067687-NOL Size; 265513-GN-NX Scorewas developed and its performance characteristics determinedby [employer]. It has not been cleared or approved by the Foodand Drug Administration.PATIENT WAS FASTINGPERFORMED BY: MarketTools[address] [id number] BY: Seventymm70 [address] VisionBlue Ridge Regional Hospital [id number] Eosinophils/100 WBC (Bld) 5 % Normal [facility]; [facility] Work Phone: Comment on above: Test(s) 501167-URE-Z ; 247185-NGC-R; 457922-Ycpbbhebzylsa; 378837-Xgtsfhvjneu, Total; 158895-RYG-F (Total); 388101-Gyapd LDL-P; 957449-EMF Size; 791802-QU-MJ Scorewas developed and its performance characteristics determinedby [employer] Interactive. It has not been cleared or approved by the Foodand Drug Administration.PATIENT WAS FASTINGPERFORMED BY: Groove Customer Support[address] [id number] BY: AtievaSaint Clare's Hospital at SussexIltvld7171 [facility] [id number] Erythrocyte distribution width (RBC) [Ratio] 14.0 % Normal 11.6-15.4 [facility]; [facility] Work Phone: Comment on above: Test(s) 380728-GTJ-P ; 170474-UYU-I; 779614-Rhxnileszrioc; 948462-Pyxpqzrpnbn, Total; 468487-DXS-Y (Total); 293631-Ntvcu LDL-P; 024685-LED Size; 209863-JZ-NL Scorewas developed and its performance characteristics determinedby [employer]. It has not been cleared or approved by the Foodand Drug Administration.PATIENT WAS FASTINGPERFORMED BY: [facility] [address] [id number] BY: Seventymm70 [facility] [id number] Hematocrit (Bld) [Volume fraction] 51.0 % Normal 37.5-51.0 [facility]; [facility] Work Phone: Comment on above: Test(s) 830860-PZJ-G ; 931351-TEM-B; 564387-Clzoiosmjxjay; 049729-Wkrealfjetg, Total; 093732-ZGK-S (Total); 823145-Cnksm LDL-P; 096819-ZFM Size; 323709-EL-JO Scorewas developed and its performance characteristics determinedby [employer]. It has not been cleared or approved by the Foodand Drug Administration.PATIENT WAS FASTINGPERFORMED BY: [facility] [address] [id number] BY: Dezide Qyzjez3690 [facility] [id number] Hemoglobin (Bld) [Mass/Vol] 16.6 g/dL Normal 13.0-17.7 [facility]; [facility] Work Phone: Comment on above: Test(s) 668331-UPT-F ; 915150-ZZF-E; 928690-Nrkylvqhcpfjm; 241857-Hponzwtokuq, Total; 885332-FWE-N (Total); 235869-Bkamx LDL-P; 295641-GEU Size; 668496-IS-MK Scorewas developed and its performance characteristics determinedby [employer]. It has not been cleared or approved by the Foodand Drug Administration.PATIENT WAS FASTINGPERFORMED BY: [facility] [address] [id number] BY: StykySaint Clare's Hospital at SussexIdeyhq8841 [facility] [id number] Immature granulocytes (Bld) [#/Vol] 0.0 10*3/uL Normal 0.0-0.1 [facility]; [facility] Work Phone: Comment on above: Test(s) 082519-YMS-T ; 139307-ZRS-L; 144265-Zfgixwxofmnmi; 539923-Qyupnvqsdlx, Total; 758034-OAP-G (Total); 580845-Kvdcf LDL-P; 421624-VPB Size; 530942-KX-LL Scorewas developed and its performance characteristics determinedby [employer]. It has not been cleared or approved by the Foodand Drug Administration.PATIENT WAS FASTINGPERFORMED BY: [facility] [address] [id number] BY: SolarBuddy6370 [facility] [id number] Immature granulocytes/100 WBC (Bld) 1 % Normal [facility]; [facility] Work Phone: Comment on above: Test(s) 387765-DQG-X ; 371088-NXR-H; 341281-Zvhkvtnopjufx; 787646-Xjgbrzgbwgn, Total; 157109-ZPY-G (Total); 066985-Umxrz LDL-P; 974967-PAW Size; 847636-XT-TS Scorewas developed and its performance characteristics determinedby [employer]. It has not been cleared or approved by the Foodand Drug Administration.PATIENT WAS FASTINGPERFORMED BY: [employer] [id number] BY: StykySaint Clare's Hospital at SussexVqckoz6847 [facility] [id number] Lymphocytes (Bld) [#/Vol] 1.5 10*3/uL Normal 0.7-3.1 [facility]; [facility] Work Phone: Comment on above: Test(s) 409105-KVU-I ; 248462-YUL-B; 695790-Tbhkawpbmzkxo; 035466-Dldoglorgwm, Total; 427956-KHV-Y (Total); 768710-Brdfi LDL-P; 192268-GCD Size; 824478-NW-XW Scorewas developed and its performance characteristics determinedby [employer]. It has not been cleared or approved by the Foodand Drug Administration.PATIENT WAS FASTINGPERFORMED BY: [facility] [address] [id number] BY: Seventymm70 [employer] [facility] [id number] Lymphocytes/100 WBC (Bld) 18 % Normal [facility]; [facility] Work Phone: Comment on above: Test(s) 823548-EPP-L ; 276329-NST-X; 203130-Wvuoqrmhdwjjo; 791950-Wwqqisxfcqn, Total; 569571-FLY-U (Total); 661964-Izjpy LDL-P; 396585-XXB Size; 065836-RC-NJ Scorewas developed and its performance characteristics determinedby [employer]. It has not been cleared or approved by the Foodand Drug Administration.PATIENT WAS FASTINGPERFORMED BY: [facility] [address] [id number] BY: Seventymm70 [employer] [facility] [id number] MCH (RBC) [Entitic mass] 28.1 pg Normal 26.6-33.0 [facility]; [facility] Work Phone: Comment on above: Test(s) 578967-ZTB-F ; 730395-PRS-V; 292910-Nppenzzcegjgy; 299146-Cgwpwnujqsx, Total; 083234-JPC-T (Total); 614386-Pbuwf LDL-P; 691031-MNV Size; 277900-JP-HT Scorewas developed and its performance characteristics determinedby [employer]. It has not been cleared or approved by the Foodand Drug Administration.PATIENT WAS FASTINGPERFORMED BY: [facility] [address] [id number] BY: Seventymm70 [facility] [id number] MCHC (RBC) [Mass/Vol] 32.5 g/dL Normal 31.5-35.7 [facility]; [facility] Work Phone: Comment on above: Test(s) 915099-SIW-F ; 329797-DTQ-Z; 522153-Keurjrdaosnys; 501862-Ylcaneasiqi, Total; 329137-IKL-W (Total); 093898-Ckpla LDL-P; 681661-HBL Size; 269157-DD-YT Scorewas developed and its performance characteristics determinedby [employer]. It has not been cleared or approved by the Foodand Drug Administration.PATIENT WAS FASTINGPERFORMED BY: [employer] [id number] BY: Seventymm70 [facility] [id number] MCV (RBC) [Entitic vol] 86 fL Normal 79-97 [facility]; [facility] Work Phone: Comment on above: Test(s) 668791-RBY-E ; 289871-UQY-L; 021515-Ffehphdnlfniz; 689109-Zructowxllz, Total; 012125-RWV-G (Total); 657942-Fglbx LDL-P; 160938-JXJ Size; 591956-JI-NA Scorewas developed and its performance characteristics determinedby [employer]. It has not been cleared or approved by the Foodand Drug Administration.PATIENT WAS FASTINGPERFORMED BY: [employer] [id number] BY: SolarBuddy6370 [facility] [id number] Monocytes (Bld) [#/Vol] 0.5 10*3/uL Normal 0.1-0.9 [facility]; [facility] Work Phone: Comment on above: Test(s) 635886-PYX-J ; 027634-YHX-O; 811652-Advrdrckonwca; 321148-Cpcvpdgwopq, Total; 078500-UYS-B (Total); 930046-Khpnd LDL-P; 499893-QAQ Size; 726614-IQ-TL Scorewas developed and its performance characteristics determinedby [employer]. It has not been cleared or approved by the Foodand Drug Administration.PATIENT WAS FASTINGPERFORMED BY: [facility] [address] [id number] BY: Dezide Ecrnab6371 [facility] [id number] Monocytes/100 WBC (Bld) 6 % Normal [facility]; [facility] Work Phone: Comment on above: Test(s) 734216-CPA-U ; 653392-DLD-E; 523047-Lqflsoofunhnz; 781850-Foqcdpmjxvv, Total; 001336-PNK-E (Total); 366705-Oorex LDL-P; 889272-PRB Size; 422839-TQ-NH Scorewas developed and its performance characteristics determinedby [employer]. It has not been cleared or approved by the Foodand Drug Administration.PATIENT WAS FASTINGPERFORMED BY: [facility] [address] [id number] BY: Seventymm70 [facility] [id number] Neutrophils (Bld) [#/Vol] 5.7 10*3/uL Normal 1.4-7.0 [facility]; [facility] Work Phone: Comment on above: Test(s) 282128-VWW-O ; 870770-KBY-R; 274920-Ugakoknvxlhxg; 773710-Itaglnjvbwm, Total; 724676-BXI-P (Total); 263632-Ofzql LDL-P; 239337-XQL Size; 095892-EN-MG Scorewas developed and its performance characteristics determinedby [employer]. It has not been cleared or approved by the Foodand Drug Administration.PATIENT WAS FASTINGPERFORMED BY: [facility] [address] [id number] BY: Dezide Txcqqe0381 [facility] [id number] Neutrophils/100 WBC (Bld) 69 % Normal [facility]; [facility] Work Phone: Comment on above: Test(s) 176848-DYT-E ; 029783-HTU-I; 015257-Naytxghhxwxkg; 262370-Mrnmvmbvleb, Total; 433425-DDL-D (Total); 046679-Jgsxh LDL-P; 087114-KWR Size; 762687-AW-AM Scorewas developed and its performance characteristics determinedby [employer]. It has not been cleared or approved by the Foodand Drug Administration.PATIENT WAS FASTINGPERFORMED BY: [facility] [address] [id number] BY: SolarBuddy6370 [facility] [id number] Platelets (Bld) [#/Vol] 282 10*3/uL Normal 150-450 [facility]; [facility] Work Phone: Comment on above: Test(s) 237781-QJK-Y ; 440669-BKX-S; 734860-Wqvispdiyeytz; 858236-Lrfgkmjntya, Total; 242265-HZY-R (Total); 496349-Epubg LDL-P; 752555-IIQ Size; 182715-DJ-QL Scorewas developed and its performance characteristics determinedby [employer]. It has not been cleared or approved by the Foodand Drug Administration.PATIENT WAS FASTINGPERFORMED BY: [facility] [address] [id number] BY: SolarBuddy6370 [facility] [id number] RBC (Bld) [#/Vol] 5.90 10*6/uL Abnormal 4.14-5.80 [facility]; [facility] Work Phone: Comment on above: Test(s) 384475-QZM-Y ; 410267-DFI-M; 956599-Rgkgtkqiewjyg; 682119-Dheoqtohefh, Total; 196123-XRJ-Y (Total); 027625-Jcmwp LDL-P; 365608-DIK Size; 296365-MZ-OL Scorewas developed and its performance characteristics determinedby [employer]. It has not been cleared or approved by the Foodand Drug Administration.PATIENT WAS FASTINGPERFORMED BY: [facility] [address] [id number] BY: StykySaint Clare's Hospital at SussexYkzhxl6865 [facility] [id number] WBC (Bld) [#/Vol] 8.1 10*3/uL Normal 3.4-10.8 [facility]; [facility] Work Phone: Comment on above: Test(s) 290981-KYO-U ; 909417-UEL-T; 663864-Ngmejyrnjcwhn; 503272-Utonvxmdziu, Total; 614635-OUZ-B (Total); 726547-Zbrot LDL-P; 709941-HDM Size; 195870-RZ-UW Scorewas developed and its performance characteristics determinedby [employer]. It has not been cleared or approved by the Foodand Drug Administration.PATIENT WAS FASTINGPERFORMED BY: [facility] [address] [id number] BY: [employer] Felivc5530 [facility] [id number] HEPATITIS C ANTIBODY (91916) Ordered By: Sales Office Coordinator on 06-08-2021 HCV Ab Signal/Cutoff IA [Rel units/Vol] 1.3 {s/co_ratio} Abnormal 0.0-0.9 [facility]; [facility] Work Phone: Comment on above: . Negative: < 0.8 In determinate: 0.8 - 0.9 Positive: > 0.9 . The CDC recommends that a positive HCV antibody result be followed up with a HCV Nucleic Acid Amplification test (767546). Test(s) 979786-YRF-V ; 595842-JLK-C; 315498-Qerkoiiykypdp; 780720-Rkstjsswjuy, Total; 214248-EWZ-X (Total); 392652-Pijby LDL-P; 943370-JSM Size; 775048-TR-YD Scorewas developed and its performance characteristics determinedby [employer]. It has not been cleared or approved by the Foodand Drug Administration.PATIENT WAS FASTINGPERFORMED BY: [facility] [address] [id number] BY: SolarBuddy6370 [facility] [id number] Metabolic Panel, Comprehensi ve (87450)Ordered By: Sales Office Coordinator on 06-08-2021 Albumin [Mass/Vol] 4.0 g/dL Normal 3.8-4.8 [facility]; [facility] Work Phone: Comment on above: Test(s) 087478-IOE-H ; 509191-YWP-A; 241517-Frheibdmqlfeq; 536585-Cbrnqgnbupa, Total; 230698-FYD-O (Total); 462026-Ojnox LDL-P; 126229-BMV Size; 310705-PB-XH Scorewas developed and its performance characteristics determinedby [employer]. It has not been cleared or approved by the Foodand Drug Administration.PATIENT WAS FASTINGPERFORMED BY: [employer] [id number] BY: SolarBuddy6370 [facility] ProjectAt[facility] [id number] Albumin/Globulin [Mass ratio] 1.1 {ratio} Abnormal 1.2-2.2 [facility]; [facility] Work Phone: Comment on above: Test(s) 973934-ZEB-M ; 009070-MMU-X; 283196-Plvtrebztvktb; 227258-Ymjcjlnviyi, Total; 715040-IVK-P (Total); 432911-Bdeiy LDL-P; 530995-DFV Size; 993351-VL-TQ Scorewas developed and its performance characteristics determinedby [employer]. It has not been cleared or approved by the Foodand Drug Administration.PATIENT WAS FASTINGPERFORMED BY: [employer] [id number] BY: SolarBuddy6370 [facility] [id number] ALP [Catalytic activity/Vol] 87 U/L Normal 44-121 [facility]; [facility] Work Phone: Comment on above: Test(s) 153091-JLV-L ; 956181-GJS-Z; 142848-Iygpdishmquhy; 310744-Odouwygfzfj, Total; 204613-GAA-P (Total); 514888-Kruou LDL-P; 542767-AAH Size; 749676-FA-HV Scorewas developed and its performance characteristics determinedby [employer]. It has not been cleared or approved by the Foodand Drug Administration.PATIENT WAS FASTINGPERFORMED BY: Styky[address] [id number] BY: Styky Iquejs1009 [facility] [id number] ALT [Catalytic activity/Vol] 15 U/L Normal 0-44 [facility]; [facility] Work Phone: Comment on above: Test(s) 576463-VLY-T ; 348666-WML-H; 073610-Gubtcjdeefrng; 036451-Dpmxuddqxzy, Total; 851838-FIP-S (Total); 024759-Ljttz LDL-P; 874542-SOV Size; 437940-ZD-KQ Scorewas developed and its performance characteristics determinedby [employer]. It has not been cleared or approved by the Foodand Drug Administration.PATIENT WAS FASTINGPERFORMED BY: [employer] [address] [id number] BY: Atieva Yslxyq2302 [facility] [id number] AST [Catalytic activity/Vol] 18 U/L Normal 0-40 [facility]; [facility] Work Phone: Comment on above: Test(s) 562976-ZOW-V ; 511598-XMR-B; 421876-Yuikaetfjegms; 848422-Vjvqvvpizac, Total; 766687-IUN-C (Total); 965627-Ngpov LDL-P; 867207-JRS Size; 237891-QW-KE Scorewas developed and its performance characteristics determinedby [employer]. It has not been cleared or approved by the Foodand Drug Administration.PATIENT WAS FASTINGPERFORMED BY: Styky[address] [id number] BY: Styky Cvyhst5565 [facility] [id number] Bilirubin [Mass/Vol] 0.5 mg/dL Normal 0.0-1.2 [facility] Internal Medicine; [facility] Internal Medicine Work Phone: Comment on above: Test(s) 684508-DFC-F ; 535615-NFR-M; 919826-Bpbphjtllqfav; 039393-Smpsqsnelxc, Total; 350291-RVU-H (Total); 740574-Qpzsh LDL-P; 666040-IZI Size; 964432-GL-ZP Scorewas developed and its performance characteristics determinedby [employer]. It has not been cleared or approved by the Foodand Drug Administration.PATIENT WAS FASTINGPERFORMED BY: KnowRe[address] [id number] BY: Runner6370 [facility] [id number] Calcium [Mass/Vol] 8.9 mg/dL Normal 8.6-10.2 [facility] Internal Medicine; [facility] Internal Medicine Work Phone: Comment on above: Test(s) 222077-DNC-L ; 265157-SDP-K; 601229-Ccewvancditip; 314421-Iziwxzcsodc, Total; 708431-KOZ-X (Total); 275340-Oneyk LDL-P; 354913-YNP Size; 507602-LN-MZ Scorewas developed and its performance characteristics determinedby [employer]. It has not been cleared or approved by the Foodand Drug Administration.PATIENT WAS FASTINGPERFORMED BY: KnowRe[address] [id number] BY: Runner6370 [facility] [id number] Chloride [Moles/Vol] 101 mmol/L Normal 96-106 [facility] Internal Medicine; [facility] Internal Medicine Work Phone: Comment on above: Test(s) 400955-WBU-S ; 490883-IZY-V; 333045-Lgfhjqvhrxxnp; 112304-Eiguhvdxqcv, Total; 526213-EBU-T (Total); 451130-Fpyeu LDL-P; 897098-BDP Size; 290188-VD-TN Scorewas developed and its performance characteristics determinedby [employer]. It has not been cleared or approved by the Foodand Drug Administration.PATIENT WAS FASTINGPERFORMED BY: [facility] [address] [id number] BY: Atieva Uvteyo6477 [facility] [id number] CO2 [Moles/Vol] 23 mmol/L Normal 20-29 [facility] Internal Medicine; [facility] Internal Medicine Work Phone: Comment on above: Test(s) 402678-JWZ-E ; 887042-SJY-W; 815664-Wdavyqqdegyzp; 454703-Bokndxygnjn, Total; 914261-ZUV-V (Total); 937033-Agugr LDL-P; 075863-QLH Size; 456267-CO-BR Scorewas developed and its performance characteristics determinedby [employer]. It has not been cleared or approved by the Foodand Drug Administration.PATIENT WAS FASTINGPERFORMED BY: [facility] [address] [id number] BY: SolarBuddy6370 [facility] [id number] Creatinine [Mass/Vol] 1.05 mg/dL Normal 0.76-1.27 [facility]; [facility] Work Phone: Comment on above: Test(s) 512688-SFL-C ; 721230-KHO-A; 009576-Hgliwxdspdhvx; 342285-Rwnmlwnocfw, Total; 546764-BRF-N (Total); 190644-Vynce LDL-P; 907402-MFI Size; 976989-AF-SL Scorewas developed and its performance characteristics determinedby [employer]. It has not been cleared or approved by the Foodand Drug Administration.PATIENT WAS FASTINGPERFORMED BY: [facility] [address] [id number] BY: Dezide Txrdgi9916 [facility] [id number] GFR/1.73 sq M.predicted among non-blacks MDRD (S/P/Bld) [Vol rate/Area] 79 mL/min/{1.73_m2} Normal Comprehensiv e Internal Medicine; [facility] Work Phone: Comment on above: Test(s) 845605-CAF-W ; 076850-BHO-L; 256743-Uyzlxjogiqkae; 546441-Jlphwrafoen, Total; 021935-FEO-K (Total); 051844-Xvwvo LDL-P; 053954-KCG Size; 933371-LX-GC Scorewas developed and its performance characteristics determinedby [employer]. It has not been cleared or approved by the Foodand Drug Administration.PATIENT WAS FASTINGPERFORMED BY: [employer] [id number] BY: Seventymm70 [facility] [id number] Globulin (S) [Mass/Vol] 3.5 g/dL Normal 1.5-4.5 [facility]; [facility] Work Phone: Comment on above: Test(s) 457659-DHL-P ; 892254-CGZ-X; 201221-Nkhliyvisjvym; 757999-Bdtgiaypdai, Total; 605205-GFB-N (Total); 848250-Gyujd LDL-P; 158534-JOK Size; 143296-JE-ZC Scorewas developed and its performance characteristics determinedby [employer]. It has not been cleared or approved by the Foodand Drug Administration.PATIENT WAS FASTINGPERFORMED BY: [employer] [id number] BY: SolarBuddy6370 [facility] [id number] Glucose [Mass/Vol] 91 mg/dL Normal 65-99 [facility]; [facility] Work Phone: Comment on above: Test(s) 401367-NET-H ; 765332-PTV-P; 487036-Zesitpvvzkiko; 207635-Dbtelsspdii, Total; 382831-QDH-H (Total); 589977-Qiddm LDL-P; 771386-ZBS Size; 228060-NP-KX Scorewas developed and its performance characteristics determinedby [employer]. It has not been cleared or approved by the Foodand Drug Administration.PATIENT WAS FASTINGPERFORMED BY: Styky[address] [id number] BY: StykySaint Clare's Hospital at SussexUgxiof1520 [facility] [id number] Potassium [Moles/Vol] 4.4 mmol/L Normal 3.5-5.2 [facility]; [facility] Work Phone: Comment on above: Test(s) 330826-YDL-V ; 503248-KBZ-A; 750098-Tasycvrcegbvy; 854336-Mcbgisgordg, Total; 045816-QEQ-R (Total); 327505-Qlqrw LDL-P; 264778-XLT Size; 279909-JV-PG Scorewas developed and its performance characteristics determinedby [employer]. It has not been cleared or approved by the Foodand Drug Administration.PATIENT WAS FASTINGPERFORMED BY: [employer] [address] [id number] BY: StykyUNM Sandoval Regional Medical CenterYermab9275 [facility] [id number] Protein [Mass/Vol] 7.5 g/dL Normal 6.0-8.5 [facility]; [facility] Work Phone: Comment on above: Test(s) 055332-TDK-D ; 770049-CED-L; 785944-Msulwcrppuilp; 636177-Jdccjgccvya, Total; 198473-JOG-W (Total); 898313-Fkbup LDL-P; 729441-FED Size; 248640-FS-XR Scorewas developed and its performance characteristics determinedby [employer]. It has not been cleared or approved by the Foodand Drug Administration.PATIENT WAS FASTINGPERFORMED BY: Styky[address] [id number] BY: StykySaint Clare's Hospital at SussexEdiqjw2612 [facility] [id number] Sodium [Moles/Vol] 141 mmol/L Normal 134-144 [facility]; [facility] Work Phone: Comment on above: Test(s) 155271-ATB-M ; 532285-ROT-I; 673163-Eobugbblpxrhg; 459627-Mfdkwvpfnsw, Total; 011818-TWR-U (Total); 671764-Kchsm LDL-P; 241675-IRK Size; 669453-VI-TS Scorewas developed and its performance characteristics determinedby [employer]. It has not been cleared or approved by the Foodand Drug Administration.PATIENT WAS FASTINGPERFORMED BY: [facility] [address] [id number] BY: Seventymm70 [facility] [id number] Urea nitrogen [Mass/Vol] 12 mg/dL Normal 8-27 [facility]; [facility] Work Phone: Comment on above: Test(s) 342411-XCJ-E ; 644230-NNY-F; 445144-Wcyhpfggnxwgr; 945186-Zndewgbngsa, Total; 004485-SHD-Q (Total); 298227-Jrjvd LDL-P; 699566-NOC Size; 772256-FI-KT Scorewas developed and its performance characteristics determinedby [employer]. It has not been cleared or approved by the Foodand Drug Administration.PATIENT WAS FASTINGPERFORMED BY: [facility] [address] [id number] BY: SolarBuddy6370 [facility] [id number] Urea nitrogen/Creatinine [Mass ratio] 11 mg/mg Normal 10-24 [facility]; [facility] Work Phone: Comment on above: Test(s) 552492-TKB-V ; 177619-TTC-S; 756337-Xyoacqxgxggjb; 704744-Iqaijxevnxv, Total; 660549-SJB-R (Total); 100185-Wwrtt LDL-P; 528332-CWX Size; 855280-SP-NV Scorewas developed and its performance characteristics determinedby [employer]. It has not been cleared or approved by the Foodand Drug Administration.PATIENT WAS FASTINGPERFORMED BY: [facility] [address] [id number] BY: AtievaUNM Sandoval Regional Medical CenterGxxgag6675 [facility] [id number] NMR Profile (02237)Ordered B y: Sales Office Coordinator on 06-08-2021 Cholesterol [Mass/Vol] 124 mg/dL Normal 100-199 [facility]; [facility] Work Phone: Comment on above: Test(s) 425769-PUY-Y ; 419793-XVX-A; 841829-Waptlvcdtwzkl; 666173-Sgfxizyrbee, Total; 957523-JGL-T (Total); 775445-Kxobn LDL-P; 500387-QVI Size; 965156-BS-BP Scorewas developed and its performance characteristics determinedby [employer]. It has not been cleared or approved by the Foodand Drug Administration.PATIENT WAS FASTINGPERFORMED BY: [employer] [id number] BY: SolarBuddy6370 [facility] [id number] Information: NURSE DRAW Lipoprotein.alpha [Moles/Vol] 20.5 umol/L Abnormal [facility]; [facility] Work Phone: Comment on above: Test(s) 327541-RPD-A ; 991683-JUY-T; 155695-Nrdtggabnacul; 155944-Ixpufbaxevm, Total; 992765-UIZ-U (Total); 589831-Fpnlp LDL-P; 799815-QNE Size; 709829-HF-RR Scorewas developed and its performance characteristics determinedby [employer]. It has not been cleared or approved by the Foodand Drug Administration.PATIENT WAS FASTINGPERFORMED BY: [facility] [address] [id number] BY: Dezide Poflvw8889 [facility] [id number] Information: NURSE DRAW Lipoprotein.beta.stringer bparticle [Entitic length] [...] not afterLDL-P is taken into account. Test(s) 059786-VIF-K ; 970519-APF-T; 994522-Kiffszzfqjklb; 990519-Iaditikmsra, Total; 351099-BLI-C (Total); 429858-Iiiiy LDL-P; 096271-GPQ Size; 050384-QH-MW Scorewas developed and its performance characteristics determinedby [employer]. It has not been cleared or approved by the Foodand Drug Administration.PATIENT WAS FASTINGPERFORMED BY: BN [facility] [address] [id number] BY: LabcoSaint Clare's Hospital at SussexGvmwax5578 [facility] [id number] Information: NURSE DRAW Lipoprotein.beta.stringer bparticle [Moles/Vol] 1072 nmol/L Abnormal [facility]; [facility] Work Phone: Comment on above: Low < 1000 Moderate 1000 - 1299 Borderline-High 1300 - 1599 High 1600 - 2000 Very High > 2000 Test(s) 058176-VUL-O ; 176546-HHN-X; 873757-Mpnjyrzibuiqt; 861928-Lqtoxodgtic, Total; 902182-ANX-J (Total); 266664-Xdeie LDL-P; 834411-MVV Size; 004589-IU-FD Scorewas developed and its performance characteristics determinedby [employer]. It has not been cleared or approved by the Foodand Drug Administration.PATIENT WAS FASTINGPERFORMED BY: [facility] [address] [id number] BY: Dezide Onbzis6493 [facility] [id number] Information: NURSE DRAW Lipoprotein.beta.stringer bparticle.small [Moles/Vol] 532 nmol/L Abnormal [facility]; [facility] Work Phone: Comment on above: Test(s) 037016-EDP-O ; 297327-CMB-D; 787959-Kutfctrmsiafb; 013674-Atepxibczqt, Total; 718091-PCG-H (Total); 649834-Udmey LDL-P; 112620-LXC Size; 842826-AQ-NQ Scorewas developed and its performance characteristics determinedby [employer]. It has not been cleared or approved by the Foodand Drug Administration.PATIENT WAS FASTINGPERFORMED BY: [facility] [address] [id number] BY: Dezide Fxoucf4507 [facility] [id number] Information: NURSE DRAW Triglyceride [Mass/Vol] 78 mg/dL Normal 0-149 [facility]; [facility] Work Phone: Comment on above: Test(s) 556957-PKI-Z ; 360296-QML-K; 213248-Ibleczqgvedse; 318746-Urexuylakyb, Total; 056863-OOE-I (Total); 654144-Artog LDL-P; 611886-BDD Size; 927633-PI-OA Scorewas developed and its performance characteristics determinedby [employer]. It has not been cleared or approved by the Foodand Drug Administration.PATIENT WAS FASTINGPERFORMED BY: [facility] [address] [id number] BY: SolarBuddy6370 [facility] [id number] Information: NURSE DRAW NMR Profile (35936) 74 mg/dL Normal 0-99 [facility]; [facility] Work Phone: Comment on above: . Optimal < 100 Abov e optimal 100 - 129 Borderline 130 - 159 High 160 - 189 Very high > 189 . Test(s) 747661-OWM-X ; 302404-MZU-E; 052481-Jisnepkdacunt; 641924-Tqctrxykbur, Total; 336158-HWL-U (Total); 938795-Iakxs LDL-P; 641205-ZAZ Size; 966582-HC-VE Scorewas developed and its performance characteristics determinedby [employer]. It has not been cleared or approved by the Foodand Drug Administration.PATIENT WAS FASTINGPERFORMED BY: [facility] [address] [id number] BY: SolarBuddy6370 [facility] [id number] Information: NURSE DRAW NMR Profile (95076) 34 mg/dL Abnormal [facility]; [facility] Work Phone: Comment on above: Test(s) 443651-KPS-H ; 497814-VQS-U; 670762-Hytzsvuppujrr; 836144-Wbyxwxioewd, Total; 097131-ZTN-D (Total); 308286-Orxit LDL-P; 443038-KMY Size; 693213-GZ-HY Scorewas developed and its performance characteristics determinedby [employer] Interactive. It has not been cleared or approved by the Foodand Drug Administration.PATIENT WAS FASTINGPERFORMED BY: [facility] [address] [id number] BY: Seventymm70 [facility] [id number] Information: NURSE DRAW PSA (Prostate Specific Antig en), Screening (32417)Ordered By: Sales Office Coordinator on 06-08-2021 Prostate specific Ag [Mass/Vol] 1.0 ng/mL Normal 0.0-4.0 [facility]; [facility] Work Phone: Comment on above: Josee ECLIA methodol ogy. .According to the [employer], Serum PSA shoulddecrease and remain at undetectable levels after radicalprostatectomy. The AUA defines biochemical recurrence as an initialPSA value 0.2 ng/mL or greater followed by a subsequent confirmatoryPSA value 0.2 ng/mL or greater.Values obtained with different assay methods or kits cannot be usedinterchangeably. Results cannot be interpreted as absolute evidenceof the presence or absence of malignant disease. Test(s) 604322-HJL-T ; 390192-JTI-B; 010989-Yusofgddtqxph; 083622-Bbshnacebgu, Total; 116783-GVT-N (Total); 494700-Ntxdd LDL-P; 420188-QAT Size; 818269-FV-PW Scorewas developed and its performance characteristics determinedby [employer] Interactive. It has not been cleared or approved by the Foodand Drug Administration.PATIENT WAS FASTINGPERFORMED BY: Styky[address] [id number] BY: Styky Ulvtue7345 [facility]Blue [facility] [id number] CBC, PLATELETS & AUT DIFF (2 2809)Ordered By: Sales Office Coordinator on 09-03-2020 Basophils (Bld) [#/Vol] 0.0 10*3/uL Normal 0.0-0.2 [facility]; [facility] Work Phone: Comment on above: PATIENT WAS FASTINGP ERFORMED BY: [employer] Soullin6370 [facility]inegifBlue [facility] [id number] Basophils/100 WBC (Bld) 1 % Normal [facility]; [facility] Work Phone: Comment on above: PATIENT WAS FASTINGP ERFORMED BY: [employer]70 [facility]dGe[facility] [id number] Eosinophils (Bld) [#/Vol] 0.3 10*3/uL Normal 0.0-0.4 [facility]; [facility] Work Phone: Comment on above: PATIENT WAS FASTINGP ERFORMED BY: [employer] Soullin6370 [facility] [id number] Eosinophils/100 WBC (Bld) 5 % Normal [facility]; [facility] Work Phone: Comment on above: PATIENT WAS FASTINGP ERFORMED BY: GERTRUDE Maria6370 [facility] [id number] Erythrocyte distribution width (RBC) [Ratio] 14.2 % Normal 11.6-15.4 [facility]; [facility] Work Phone: Comment on above: PATIENT WAS FASTINGP ERFORMED BY: [facility] Cpfoqp2088 [facility] [id number] Hematocrit (Bld) [Volume fraction] 44.1 % Normal 37.5-51.0 [facility]; [facility] Work Phone: Comment on above: PATIENT WAS FASTINGP ERFORMED BY: [facility] Ayztpm5485 [facility] [id number] Hemoglobin (Bld) [Mass/Vol] 14.8 g/dL Normal 13.0-17.7 [facility]; [facility] Work Phone: Comment on above: PATIENT WAS FASTINGP ERFORMED BY: Esa Fhckoj8809 [facility] [id number] Immature granulocytes (Bld) [#/Vol] 0.0 10*3/uL Normal 0.0-0.1 [facility]; [facility] Work Phone: Comment on above: PATIENT WAS FASTINGP ERFORMED BY: [facility] Bdlmfn8442 [facility] [id number] Immature granulocytes/100 WBC (Bld) 1 % Normal [facility]; [facility] Work Phone: Comment on above: PATIENT WAS FASTINGP ERFORMED BY: [facility] Wjbtxr5815 [facility] [id number] Lymphocytes (Bld) [#/Vol] 1.6 10*3/uL Normal 0.7-3.1 [facility]; [facility] Work Phone: Comment on above: PATIENT WAS FASTINGP ERFORMED BY: [facility] Neeimn7502 [facility] [id number] Lymphocytes/100 WBC (Bld) 23 % Normal [facility]; [facility] Work Phone: Comment on above: PATIENT WAS FASTINGP ERFORMED BY: [facility] Dmrenc3040 [facility] [id number] MCH (RBC) [Entitic mass] 28.5 pg Normal 26.6-33.0 [facility]; [facility] Work Phone: Comment on above: PATIENT WAS FASTINGP ERFORMED BY: [place] [id number] [facility] [id number] MCHC (RBC) [Mass/Vol] 33.6 g/dL Normal 31.5-35.7 [facility]; [facility] Work Phone: Comment on above: PATIENT WAS FASTINGP ERFORMED BY: [place] 6658770 [facility] [id number] MCV (RBC) [Entitic vol] 85 fL Normal 79-97 [facility]; [facility] Work Phone: Comment on above: PATIENT WAS FASTINGP ERFORMED BY: JustinMike Ville 9553670 [facility] [id number] Monocytes (Bld) [#/Vol] 0.3 10*3/uL Normal 0.1-0.9 [facility]; [facility] Work Phone: Comment on above: PATIENT WAS FASTINGP ERFORMED BY: [facility]6370 [facility] [id number] Monocytes/100 WBC (Bld) 5 % Normal [facility]; [facility] Work Phone: Comment on above: PATIENT WAS FASTINGP ERFORMED BY: [facility]6370 [facility] [id number] Neutrophils (Bld) [#/Vol] 4.5 10*3/uL Normal 1.4-7.0 [facility]; [facility] Work Phone: Comment on above: PATIENT WAS FASTINGP ERFORMED BY: GERTRUDE [facility] Tuhazl5[address] RoadDublin [place] [id number] Neutrophils/100 WBC (Bld) 65 % Normal [facility]; [facility] Work Phone: Comment on above: PATIENT WAS FASTINGP ERFORMED BY: GERTRUDE [facility] Knqijk2628 Travis RoadDublin [place] [id number] Platelets (Bld) [#/Vol] 254 10*3/uL Normal 150-450 [facility]; [facility] Work Phone: Comment on above: PATIENT WAS FASTINGP ERFORMED BY: GERTRUDE [facility] Kpvfvs0217 [address] RoadDublin [place] [id number] RBC (Bld) [#/Vol] 5.19 10*6/uL Normal 4.14-5.80 Compr ehensive [facility]; [facility] Work Phone: Comment on above: PATIENT WAS FASTINGP ERFORMED BY: GERTRUDE [facility] Dbwyfj1569 Travis RoadDublin [place] [id number] WBC (Bld) [#/Vol] 6.8 10*3/uL Normal 3.4-10.8 [facility]; [facility] Work Phone: Comment on above: PATIENT WAS FASTINGP ERFORMED BY: GERTRUDE [facility] Gnnywz8880 Travis RoadDublin [place] [id number] LIPID PANEL (05860)Ordered B y: Sales Office Coordinator on 09-03-2020 Cholesterol [Mass/Vol] 197 mg/dL Normal 100-199 [facility]; [facility] Work Phone: Comment on above: PATIENT WAS FASTINGP ERFORMED BY: GERTRUDE [facility] Hzyynx6138 [address] RoadDublin [place] [id number] Cholesterol in HDL [Mass/Vol] 37 mg/dL Abnormal [facility]; [facility] Work Phone: Comment on above: PATIENT WAS FASTINGP ERFORMED BY: GERTRUED [facility] Nhhmtj3884 [address] RoadDublin [place] [id number] Triglyceride [Mass/Vol] 73 mg/dL Normal 0-149 [facility]; [facility] Work Phone: Comment on above: PATIENT WAS FASTINGP ERFORMED BY: GERTRUDE LabComilad[facility] Fvmabl7254 [address] Roadblin [place] [id number] LIPID PANEL (52242) 13 mg/dL Normal 5-40 [facility]; [facility] Work Phone: Comment on above: PATIENT WAS FASTINGP ERFORMED BY: GERTRUDE LabComil[facility] Pjvnba5219 [address] Roadblin [place] [id number] LIPID PANEL (83438) 147 mg/dL Abnormal 0-99 [facility]; [facility] Work Phone: Comment on above: PATIENT WAS FASTINGP ERFORMED BY: GERTRUDE LabComiladys ForresterPxznzr2114 [address] [facility] [id number] LIPID PANEL (92268) 4.0 {ratio} Abnormal 0.0-3.6 [facility]; [facility] Work Phone: Comment on above: LDL/HDL Ratio Men Wo men 1/2 Avg.Risk 1.0 1.5 Avg.Risk 3.6 3.2 2X Avg.Risk 6.2 5.0 3X Avg.Risk 8.0 6.1 PATIENT WAS FASTINGP ERFORMED BY: GERTRUDE LabZoey Obzelb8172 [facility] [id number] METABOLIC PANEL, COMPREHENSI VE (74152)Ordered By: Sales Office Coordinator on 09-03-2020 Albumin [Mass/Vol] 3.8 g/dL Normal 3.8-4.8 [facility]; [facility] Work Phone: Comment on above: PATIENT WAS FASTINGP ERFORMED BY: GERTRUDE [facility] Kocaav[address] [facility]in [place] [id number] Albumin/Globulin [Mass ratio] 1.2 {ratio} Normal 1.2-2.2 [facility]; [facility] Work Phone: Comment on above: PATIENT WAS FASTINGP ERFORMED BY: GERTRUDE [facility] Makhuw[address] [facility] [place] [id number] ALP [Catalytic activity/Vol] 78 U/L Normal 48-121 [facility]; [facility] Work Phone: Comment on above: PATIENT WAS FASTINGP ERFORMED BY: CB [facility] Rmaekj1933 [address] RoadDublin [place] [id number] ALT [Catalytic activity/Vol] 18 U/L Normal 0-44 [facility]; [facility] Work Phone: Comment on above: PATIENT WAS FASTINGP ERFORMED BY: CB [facility] Petqbj5427 [address] RoadDublin [place] [id number] AST [Catalytic activity/Vol] 22 U/L Normal 0-40 [facility]; [facility] Work Phone: Comment on above: PATIENT WAS FASTINGP ERFORMED BY: CB [facility] Mpvkaj8112 [address] RoadDublin [place] [id number] Bilirubin [Mass/Vol] 0.3 mg/dL Normal 0.0-1.2 [facility]; [facility] Work Phone: Comment on above: PATIENT WAS FASTINGP ERFORMED BY: CB [facility] Dxaixx0419 [address] RoadDublin [place] [id number] Calcium [Mass/Vol] 8.7 mg/dL Normal 8.6-10.2 [facility]; [facility] Work Phone: Comment on above: PATIENT WAS FASTINGP ERFORMED BY: CB [facility] Dlniop4737 [address] RoadDublin [place] [id number] Chloride [Moles/Vol] 107 mmol/L Abnormal 96-106 [facility]; [facility] Work Phone: Comment on above: PATIENT WAS FASTINGP ERFORMED BY: CB [facility] Fcqeao8039 [address] RoadDublin [place] [id number] CO2 [Moles/Vol] 24 mmol/L Normal 20-29 [facility]; [facility] Work Phone: Comment on above: PATIENT WAS FASTINGP ERFORMED BY: CB [facility] Bogqsb8384 [address] RoadDublin [place] [id number] Creatinine [Mass/Vol] 1.19 mg/dL Normal 0.76-1.27 [facility]; [facility] Work Phone: Comment on above: PATIENT WAS FASTINGP ERFORMED BY: [facility]6370 [facility] [id number] GFR/1.73 sq M.predicted among blacks CKD-EPI (S/P/Bld) [Vol rate/Area] 75 mL/min/1.73 Normal [facility]; [facility] Work Phone: Comment on above: [facility] currently reports eGFR in compliance with the current recommendations of the National Kidney Foundation. [facility] will update reporting as new guidelines are published from the NKF-ASN Task force. PATIENT WAS FASTINGP ERFORMED BY: [facility]6370 [facility] [id number] GFR/1.73 sq M.predicted among non-blacks CKD-EPI (S/P/Bld) [Vol rate/Area] 65 mL/min/1.73 Normal [facility]; [facility] Work Phone: Comment on above: PATIENT WAS FASTINGP ERFORMED BY: [facility]6370 [facility] [id number] Globulin (S) [Mass/Vol] 3.3 g/dL Normal 1.5-4.5 [facility]; [facility] Work Phone: Comment on above: PATIENT WAS FASTINGP ERFORMED BY: [facility]6370 [facility] [id number] Glucose [Mass/Vol] 92 mg/dL Normal 65-99 [facility]; [facility] Work Phone: Comment on above: PATIENT WAS FASTINGP ERFORMED BY: [facility] Fqekvh7341 [facility] [id number] Potassium [Moles/Vol] 4.6 mmol/L Normal 3.5-5.2 [facility]; [facility] Work Phone: Comment on above: PATIENT WAS FASTINGP ERFORMED BY: [facility] Ehrboa0642 [facility] [id number] Protein [Mass/Vol] 7.1 g/dL Normal 6.0-8.5 [facility]; [facility] Work Phone: Comment on above: PATIENT WAS FASTINGP ERFORMED BY: [facility] Usxhqc3843 [address] [facility] [id number] Sodium [Moles/Vol] 145 mmol/L Abnormal 134-144 [facility]; [facility] Work Phone: Comment on above: PATIENT WAS FASTINGP ERFORMED BY: [facility] Jknagl2096 [address] [facility] [id number] Urea nitrogen [Mass/Vol] 12 mg/dL Normal 8-27 [facility]; [facility] Work Phone: Comment on above: PATIENT WAS FASTINGP ERFORMED BY: [facility] Nomwpw1847 [address] [facility] [id number] Urea nitrogen/Creatinine [Mass ratio] 10 mg/mg Normal 10-24 [facility]; [facility] Work Phone: Comment on above: PATIENT WAS FASTINGP ERFORMED BY: [facility] Zmjwxv8121 [facility] [id number] TSH (THYROID STIMULATING HOR JAYSON) (04743)Ordered By: Sales Office Coordinator on 09-03-2020 TSH Qn 2.850 {uIU/mL} Normal 0.450-4.500 [facility]; [facility] Work Phone: Comment on above: PATIENT WAS FASTINGP ERFORMED BY: [facility] Ourpya4701 [facility] [id number] Provider Note - ED v2on 08-01 Provider [...] SIGNS: T PRBP SpO2O2(LPM) %FiO2 Method 12-Aug-2020 13:41:[id number]/86 97 MEDICAL DECISION MAKING/ED COURSE MDM/ED COURSE: [...] complaints. No known health issues. 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 States he has not received the Herpes [...] or drainage, (more content not included)... Normal [facility] Urinalysis, Office (17581)Or dered By: Luke Driver on 05-05-2020 Bilirubin [...] [facility] Work Phone: Urinalysis, Office (69552)Or dered By: Muriel Woo on 05-25-2018 Bilirubin [...] [facility] Work Phone: Urinalysis, Office (03964)Or dered By: Coni Rebolledo on 06-13-2016 Bilirubin [...] [facility] Work Phone: Urinalysis, Office (14386)Or dered By: Barbie Henriquez on 07-01-2014 Bilirubin [...] [facility] Work Phone: Urinalysis, Office (95349)Or dered By: Tiffanie Hopkins on 01-14-2013 Bilirubin [...] screen fmx bladder c a Urinalysis, Office (57902)on 01-14-2013 Bilirubin Ql (U) Negative Normal Comprehe [...] [facility] Work Phone: Urinalysis, Office (52061)Or dered By: Barbie Henriquez on 08-01-2012 Bilirubin [...] Work Phone: RIBS,UNI,MIN 3V,W/PA CHESTOr dered By: Sales Office Coordinator on 07-11-2011 RIBS,UNI,MIN 3V,W/PA CHEST See Note [...] radiologist regarding this report, please call our [id number] line @ Dictated on 07/11/11 1426 by Ashley MEJÍA, SupratikTranscribed on 07/12/11 0121 by ITS IMPORTSign by Ashley MEJÍA, Supratik on 07/12/11 0122 Sign by: Ashley MEJÍA, Supratik Urinalysis, Office (26482)Or dered By: Dominga Queen on 07-26-2010 Bilirubin [...] [facility] Work Phone: Urinalysis, Office (32225)on 07-26-2010 Bilirubin Ql (U) Negative Normal Comprehe [...] Phone: PSA (Prostate Specific Antig en), Screening (84067)Ordered By: Jess Lopez on 08-06-2008 Prostate specific Ag mass conc 1.0 ng/mL Normal 0.0-4.0 [facility] Work Phone: Comment on above: Josee ECLIA methodol ogy. .According to the [place] [employer], PSA should beundetectable after radical prostatectomy. A PSA of less than0.5 ng/mL (or undetectable) is not likely to be associated withdisease recurrence within five years of treatment.Values obtained with different assay methods or kits cannot be usedinterchangeably. Results cannot be interpreted as absolute evidenceof the presence or absence of malignant disease. PATIENT NOT FASTINGC linical Information: ADD DRAW FEE [id number] ADD J 42030 PERFORMED BY: [facility]6370 [facility] [id number] Urinalysis, Office (29981)Or dered By: Shawnee Payan on 08-05-2008 Bilirubin [...] Hemoglobin Ql (U) Hemolyzed Trace Normal [facility]hpark[facility] Work Phone: Comment on [...] 170.[address] Lin Pardo Work Phone: [facility] 11-07-2022 16:13-0400 Body mass index (BMI) [Ratio] 31.8 kg/m2 Dr. Lin Pardo Work Phone: [facility] 11-07-2022 16:13-0400 Body temperature 98.2 [degF] Dr. Lin Pardo Work Phone: [facility] 11-07-2022 16:13-0400 Body weight 92.[address] Lin Pardo Work Phone: [facility] 11-07-2022 16:13-0400 Diastolic blood pressure 86 mm[Hg] Dr. Lin Pardo Work Phone: [facility] 11-07-2022 16:13-0400 Heart rate 73 /min Dr. Lin Pardo Work Phone: [facility] 11-07-2022 16:13-0400 Respiratory rate 16 /min Dr. Lin Pardo Work Phone: [facility] 11-07-2022 16:13-0400 SaO2% (BldA) [Mass fraction] 98 % Dr. Lin Pardo Work Phone: [facility] 11-07-2022 16:13-0400 Systolic blood pressure 128 mm[Hg] Dr. Lin Pardo Work Phone: [facility] 10-13-2022 14:52-0400 Body height 167.64 cm Dora [...] Phone: 10-13-2022 14:52-0400 Body temperature 97.8 [degF] oDra Shaffer LPN [facility]; [facility] [...] 15:21-0500 Respiratory rate 16 /min Dora Shaffer HOME ATTENDANT [facility]; [facility] Work Phone: Comment on above: Pattern: Unlabored 06-06-2022 15:21-0500 SaO2% (BldA) [Mass fraction] 99 % Dora Shaffer LPN [facility]; [facility] Work Phone: Comment on above: Room air 06-06-2022 15:21-0500 Systolic blood pressure 118 mm[Hg] Dora Shaffer HOME ATTENDANT [facility]; [facility] Work Phone: Comment on above: Patient Position: Sitting; Cuff Location : Left Arm; Cuff Size: Standard 04-11-2022 13:48-0500 Body weight 90.72 kg Lin Pardo MD Work Phone: [facility]; [facility] Work Phone: 09-06-2021 15:38-0400 Body height 167.64 cm Tyra De Leon [facility]; [facility] Work Phone: 09-06-2021 15:38-0400 Body mass index (BMI) [Ratio] 37.77 kg/m2 Tyra De Leon [facility]; [facility] Work Phone: 09-06-2021 15:38-0400 Body surface area Derived from formula 2.14 m2 Tyra De Leon [facility]; [facility] Work Phone: 09-06-2021 15:38-0400 Body temperature 97.3 [degF] Tyra De Leon [facility]; [facility] Work Phone: Comment on above: Method: Infrared 06-06-2022 15:38-0400 Body weight 106.15 kg Tyra De Leon [facility] [facility]; [facility] Work Phone: 09-06-2021 15:38-0400 Diastolic blood pressure 82 mm[Hg] Tyra De Leon [facility]; [facility] Work Phone: Comment on above: Patient Position: Sitting; Cuff Location : Left Arm; Cuff Size: Standard 09-06-2021 15:38-0400 Heart rate 84 /min Tyra De Leon [facility]; [facility] Work Phone: Comment on above: Pattern: Regular 09-06-2021 15:38-0400 Respiratory rate 16 /min Tyra De Leon [facility]; [facility] Work Phone: Comment on above: Pattern: Unlabored 09-06-2021 15:38-0400 SaO2% (BldA) [Mass fraction] 94 % Tyra De Leon [facility]; [facility] Work Phone: Comment on above: Room air 09-06-2021 15:38-0400 Systolic blood pressure 138 mm[Hg] Tyra De Leon [facility]; [facility] Work [...] 14:55-0400 Respiratory rate 16 /min Luke Driver HOME ATTENDANT [facility]; [facility] Work Phone: Comment on above: Pattern: Unlabored 09-07-2020 14:55-0400 SaO2% (BldA) [Mass fraction] 98 % Luke Driver [facility]; [facility] Work Phone: Comment on above: Room air 09-07-2020 14:55-0400 Systolic blood pressure 140 mm[Hg] Luke Driver [facility]; [facility] Work Phone: Comment on above: Patient Position: Sitting; Cuff Location : Left Arm; Cuff Size: Standard 08-24-2020 15:38-0400 Body height 172.72 cm [facility]; [facility] Work Phone: 08-24-2020 15:38-0400 Body mass index (BMI) [Ratio] 38.32 kg/m2 [facility]; [facility] Work Phone: 08-24-2020 15:38-0400 Body surface area Derived from formula 2.26 m2 [facility]; [facility] Work Phone: 08-24-2020 15:38-0400 Body weight 114.33 kg [facility]; [facility] Work Phone: 08-12-2020 15:41-0400 Body height 175.2 cm Jess Lopez Other Phone: [facility] 08-12-2020 15:41-0400 Body temperature 98.6 [degF] Jess Lopez Other Phone: [facility] 08-12-2020 15:41-0400 Diastolic blood pressure 86 mm[Hg] Jess Lopez Other Phone: [facility] 08-12-2020 15:41-0400 Heart rate 90 /min Jess Lopez Other Phone: [facility] 08-12-2020 15:41-0400 Respiratory rate 16 /min Jess Lopez Other Phone: [facility] 08-12-2020 15:41-0400 SaO2% (BldA) [Mass fraction] 97 % Jess Lopez Other Phone: [facility] 08-12-2020 15:41-0400 Systolic blood pressure 143 mm[Hg] Jess Lopez Other Phone: [facility] 05-05-2020 12:56-0500 BMI (Body Mass Index) 38.32 kg/m2 Luke Driver LPN [facility] Internal Medicine; [facility] Work Phone: Comment on above: PASSED WHISPER TESTPASSED COLOR VISION T EST 05-05-2020 12:56-0500 Body Temperature 97.8 [degF] Luke Driver LPN [facility]; [facility] Work Phone: Comment on above: Method: Infrared PASSED WHISPER TESTP ASSED COLOR VISION TEST 05-05-2020 12:56-0500 Body weight 114.33 kg Luke Driver LPN [facility] Internal Medicine; [facility] [...] BP Systolic 120 mm[Hg] Luke Driver LPN [facility]; [facility] [...] 12:56-0500 Pulse Oximetry 97 % Jess Lopez [facility]; [facility] Work Phone: Comment on above: Room air PASSED WHISPER TESTP ASSED COLOR VISION TEST 05-05-2020 12:56-0500 Respiratory Rate 18 /min Luke Driver LPN [facility] Medicine; [facility] Work Phone: Comment on above: Pattern: Unlabored PASSED WHISPER TESTP ASSED COLOR VISION TEST 05-05-2020 12:56-0500 SaO2% (BldA) [Mass fraction] 97 % Luke Driver LPN [facility] Medicine; [facility] Work Phone: Comment on above: Room air PASSED WHISPER TESTP ASSED COLOR VISION TEST 05-25-2018 09:13-0500 BMI (Body Mass Index) 38.49 kg/m2 Muriel Woo [facility] Internal Medicine Work Phone: 05-25-2018 09:13-0500 Body Temperature 97.1 [degF] Muriel Woo [facility] Internal Medicine Work Phone: Comment on above: Method: Temporal 05-25-2018 09:13-0500 Body weight 114.82 kg Muriel Woo [facility] Internal Medicine Work Phone: 05-25-2018 09:13-0500 BP Diastolic 80 mm[Hg] Muriel Woo [facility] Internal Medicine Work Phone: Comment on above: Patient Position: Sitting; Cuff Location : Left Arm; Cuff Size: Standard 05-25-2018 09:13-0500 BP Systolic 124 mm[Hg] Muriel Woo [facility] Internal Medicine Work Phone: Comment on above: Patient Position: Sitting; Cuff Location : Left Arm; Cuff Size: Standard 05-25-2018 09:13-0500 BSA (Body Surface Area) 2.26 m2 Muriel Woo [facility] Internal Medicine Work Phone: 05-25-2018 09:13-0500 Height 172.72 cm Muriel Woo [facility] Internal Medicine Work Phone: 05-25-2018 09:13-0500 Pulse (Heart Rate) 86 /min Muriel Woo [facility] Internal Medicine Work Phone: Comment on above: Pattern: Regular 05-25-2018 09:13-0500 Pulse Oximetry 96 % Jess Lopez [facility] Internal Medicine Work Phone: Comment on above: Room air 05-25-2018 09:13-0500 Respiratory Rate 17 /min Muriel Woo [facility] Internal Medicine Work Phone: Comment on above: Pattern: Unlabored 05-25-2018 09:13-0500 SaO2% (BldA) [Mass fraction] 96 % Muriel Woo [facility] Internal Medicine; [facility] Internal Medicine Work Phone: Comment on above: Room air 05-25-2018 09:13-0500 Weight 114.82 kg Jess Lopez [facility] Medicine Work Phone: 06-13-2016 14:29-0400 BMI (Body Mass Index) 40.44 kg/m2 Coni Rebolledo [facility] Internal Medicine Work Phone: 06-13-2016 14:29-0400 Body Temperature 98.4 [degF] Coni Rebolledo [facility] Internal Medicine Work Phone: Comment on above: Method: Temporal 06-13-2016 14:29-0400 Body weight 120.66 kg Coni Rebolledo [facility] Internal Medicine Work Phone: 06-13-2016 14:29-0400 BP Diastolic 78 mm[Hg] Coni Rebolledo [facility] Internal Medicine Work Phone: Comment on above: Patient Position: Sitting; Cuff Location : Left Arm; Cuff Size: Standard 06-13-2016 14:29-0400 BP Systolic 136 mm[Hg] Coni Rebolledo [facility] Internal Medicine Work Phone: Comment on above: Patient Position: Sitting; Cuff Location : Left Arm; Cuff Size: Standard 06-13-2016 14:29-0400 BSA (Body Surface Area) 2.31 m2 Coni Rebolledo [facility] Internal Medicine Work Phone: 06-13-2016 14:29-0400 Height 172.72 cm Coni Rebolledo [facility] Internal Medicine Work Phone: 06-13-2016 14:29-0400 Pulse (Heart Rate) 93 /min Coni Rebolledo [facility] Internal Medicine Work Phone: Comment on above: Pattern: Regular 06-13-2016 14:29-0400 Pulse Oximetry 98 % Jess Lopez [facility] Internal Medicine Work Phone: Comment on above: Room air 06-13-2016 14:29-0400 Respiratory Rate 16 /min Coni Rebolledo [facility] Internal Medicine Work Phone: Comment on above: Pattern: Unlabored 06-13-2016 14:29-0400 SaO2% (BldA) [Mass fraction] 98 % Coni Rebolledo [facility] Internal Medicine; [facility] Work Phone: Comment on above: Room air 06-13-2016 14:29-0400 Weight 120.66 kg Jess Lopez [facility] Internal Medicine Work Phone: 07-01-2014 15:38-0400 BMI (Body Mass Index) 40.29 kg/m2 Barbie Martinez [facility] Internal Medicine Work Phone: 07-01-2014 15:38-0400 Body Temperature 98.6 [degF] Barbie Martinez [facility] Internal Medicine Work Phone: Comment on above: Method: Oral 07-01-2014 15:38-0400 Body weight 120.2 kg Barbie Henriquez [facility] Internal Medicine Work Phone: 07-01-2014 15:38-0400 BP Diastolic 78 mm[Hg] Barbie Henriquez LPN [facility] Internal Medicine Work Phone: Comment on above: Patient Position: Sitting; Cuff Location : Left Arm; Cuff Size: Standard 07-01-2014 15:38-0400 BP Systolic 124 mm[Hg] Barbie Henriquez LPN [facility] Internal Medicine Work Phone: Comment on above: Patient Position: Sitting; Cuff Location : Left Arm; Cuff Size: Standard 07-01-2014 15:38-0400 BSA (Body Surface Area) 2.3 m2 Barbie Henriquez LPN [facility] Internal Medicine Work Phone: 07-01-2014 15:38-0400 Height 172.72 cm Barbie Henriquez LPN [facility] Internal Medicine Work Phone: 07-01-2014 15:38-0400 Pulse (Heart Rate) 84 /min Barbie Henriquez LPN [facility] Internal Medicine Work Phone: Comment on above: Pattern: Regular 07-01-2014 15:38-0400 Pulse Oximetry 98 % Jess Lopez [facility] Internal Medicine Work Phone: Comment on above: Room air 07-01-2014 15:38-0400 Respiratory Rate 16 /min Barbie Henriquez LPN [facility] Internal Medicine Work Phone: 07-01-2014 15:38-0400 SaO2% (BldA) [Mass fraction] 98 % Barbie Henriquez LPN [facility]; [facility] Work Phone: Comment on above: Room air 07-01-2014 15:38-0400 Weight 120.2 kg Jess Lopez [facility] Internal Medicine Work Phone: 01-14-2013 15:05-0400 BMI (Body Mass Index) 39.25 kg/m2 Talia Henderson [facility] Internal Medicine Work Phone: 01-14-2013 15:05-0400 Body Temperature 97.8 [degF] Talia Fountain [facility] Internal Medicine Work Phone: Comment on above: Method: Oral 10-14-2013 15:05-0400 Body weight 117.09 kg Talia Fountain [facility] Internal Medicine Work Phone: 01-14-2013 15:05-0400 BP Diastolic 58 mm[Hg] Talia Fountain [facility] Internal Medicine Work Phone: Comment on above: Patient Position: Sitting; Cuff Location : Left Arm; Cuff Size: Standard 01-14-2013 15:05-0400 BP Systolic 116 mm[Hg] [facility] Work Phone: Comment on above: Patient Position: Sitting; Cuff Location : Left Arm; Cuff Size: Standard 01-14-2013 15:05-0400 BSA (Body Surface Area) 2.28 m2 Talia Fountain [facility] Internal Medicine Work Phone: 01-14-2013 15:05-0400 Height 172.72 cm [facility] Work Phone: 01-14-2013 15:05-0400 Pulse (Heart Rate) 72 /min Talia Fountain [facility] Internal Medicine Work Phone: Comment on above: Pattern: Regular 01-14-2013 15:05-0400 Respiratory Rate 18 /min Talia Fountain [facility] Internal Medicine Work Phone: Comment on above: Pattern: Unlabored 01-14-2013 15:05-0400 Weight 117.09 kg Jess Lopez [facility] Internal Medicine Work Phone: 08-01-2012 15:20-0400 BMI (Body Mass Index) 39.25 kg/m2 Barbie Martinez [facility] Internal Medicine Work Phone: 08-01-2012 15:20-0400 Body Temperature 98.2 [degF] Barbie Martinez FLEMING [facility] Internal Medicine Work Phone: Comment [...] 15:20-0400 BSA (Body Surface Area) 2.28 m2 Baribe Henriquez LPN [facility] Work Phone: [...] 08-01-2012 15:20-0400 Weight 117.09 kg Jess Lopez [facility] Internal Medicine Work Phone: 07-26-2010 15:43-0400 BMI (Body Mass Index) 38.37 kg/m2 Barbie Henriquez LPN [facility] Work Phone: 07-26-2010 15:43-0400 Body Temperature 97 [degF] Barbie Henriquez LPN [facility] Work Phone: Comment on above: Method: Oral 07-26-2010 15:43-0400 Body weight 114.48 kg Barbie Henriquez LPN [facility] Work Phone: 07-26-2010 15:43-0400 BP Diastolic 82 mm[Hg] Barbie Henriquez LPN [facility] Internal Medicine Work Phone: Comment on above: Patient Position: Sitting; Cuff Location : Left Arm; Cuff Size: Standard 07-26-2010 15:43-0400 BP Systolic 124 mm[Hg] Barbie Henriquez LPN [facility] Internal Medicine Work Phone: Comment on above: Patient Position: Sitting; Cuff Location : Left Arm; Cuff Size: Standard 07-26-2010 15:43-0400 BSA (Body Surface Area) 2.26 m2 Barbie Henriquez LPN [facility] Internal Medicine Work Phone: 07-26-2010 15:43-0400 Height 172.72 cm Barbie Henriquez LPN [facility] Internal Medicine Work Phone: 07-26-2010 15:43-0400 Pulse (Heart Rate) 82 /min Barbie Henriquez LPN [facility] Internal Medicine Work Phone: Comment on above: Pattern: Regular 07-26-2010 15:43-0400 Respiratory Rate 15 /min Barbie Henriquez LPN [facility] Internal Medicine Work Phone: Comment on above: Pattern: Unlabored 07-26-2010 15:43-0400 Weight 114.48 kg Jess Lopez [facility] Internal Medicine Work Phone: 08-05-2008 15:47-0400 BMI (Body Mass Index) 37.43 kg/m2 Shawnee Payan [facility] Internal Medicine Work Phone: 08-05-2008 15:47-0400 Body Temperature 97.5 [degF] Shawnee Rust Internal Medicine Work Phone: Comment on above: Method: Oral 08-05-2008 15:47-0400 Body weight 111.67 kg [facility] Work Phone: 08-05-2008 15:47-0400 BP Diastolic 82 mm[Hg] Shawnee Rust [facility] Medicine Work Phone: Comment on above: Patient Position: Sitting; Cuff Location : Left Arm; Cuff Size: Large 08-05-2008 15:47-0400 BP Systolic 128 mm[Hg] Shawnee Rust [facility] Work Phone: Comment on above: Patient Position: Sitting; Cuff Location : Left Arm; Cuff Size: Large 08-05-2008 15:47-0400 BSA (Body Surface Area) 2.23 m2 Shawnee Rust Internal Medicine Work Phone: 08-05-2008 15:47-0400 Head Circum[facility] 0 [facility] Work Phone: 08-05-2008 15:47-0400 Head Occipital-frontal circumference 0 cm Shawnee Rust Internal Medicine; [facility] Internal Medicine Work Phone: 08-05-2008 15:47-0400 Height 172.72 cm Shawnee Rust Internal Medicine Work Phone: 08-05-2008 15:47-0400 Pulse (Heart Rate) 74 /min Shawnee Rust Internal Medicine Work Phone: Comment on above: Pattern: Regular 08-05-2008 15:47-0400 Respiratory Rate 16 /min Shawnee Rust Internal Medicine Work Phone: Comment on above: Pattern: Unlabored 08-05-2008 15:47-0400 Weight 111.67 [facility] Work Phone: 08-30-2007 08:03-0400 BMI (Body Mass Index) 38.11 kg/m2 Junie [facility] Internal Medicine Work Phone: 08-30-2007 08:03-0400 Body Temperature 98 [degF] [facility] Internal Medicine Work Phone: Comment on above: Method: Oral 08-30-2007 08:03-0400 Body weight 112.04 kg [facility] Internal Medicine Work Phone: 08-30-2007 08:03-0400 BP Diastolic 70 mm[Hg] [facility] Internal Medicine Work Phone: Comment on above: Patient Position: Sitting; Cuff Location : Left Arm; Cuff Size: Large 08-30-2007 08:03-0400 BP Systolic 128 mm[Hg] [facility] Internal Medicine Work Phone: Comment on above: Patient Position: Sitting; Cuff Location : Left Arm; Cuff Size: Large 08-30-2007 08:03-0400 BSA (Body Surface Area) 2.22 m2 [facility] Internal Medicine Work Phone: 08-30-2007 08:03-0400 Head Circumference 0 cm Jess [facility] Internal Medicine Work Phone: 08-30-2007 08:03-0400 Head Occipital-frontal circumference 0 cm [facility] Internal Medicine; [facility] Internal Medicine Work Phone: 08-30-2007 08:03-0400 Height 171.45 cm [facility] Internal Medicine Work Phone: 08-30-2007 08:03-0400 Pulse (Heart Rate) 80 /min [facility] Internal Medicine Work Phone: Comment on above: Pattern: Regular 08-30-2007 08:03-0400 Respiratory Rate 18 /min [facility] Internal Medicine Work Phone: Comment on above: Pattern: Unlabored 08-30-2007 08:03-0400 Weight 112.04 kg Jess Lopez [facility] Internal Medicine Work Phone: 08-07-2006 15:26-0400 BMI (Body Mass Index) 38.11 kg/m2 Lena Metcalf RN [facility] Internal Medicine Work Phone: 08-07-2006 15:26-0400 Body [...] Provider Facility Start: 04-15-2024 End: 04-15-20[facility] Start: 03-01-2024 End: 03-01-2024 [facility] Start: 11-30-2022 End: 11-30-2022 Phone Encounter Lin Pardo MD Work Phone: [facility] Start: 11-29-2022 End: 11-29-[address] Lin Pardo Work Phone: [facility] Work Phone: Start: 11-29-2022 End: 11-29-[address] Lin Pardo Work Phone: [facility] Scan, [facility] Work Phone: Start: 11-23-2022 End: 11-23-2022 Prescription Refill Lin Pardo MD Work Phone: [facility] Start: 11-07-2022 End: 11-07-[address] Lin Pardo Work Phone: [facility] Work Phone: Start: 10-13-2022 End: [...] 10-18-2021 Office outpatient visit 15 minutes Lin Padro MD Work Phone: [facility] Start: [...] encounter procedure Dr. Lin Pardo Work Phone: [facility], [facility] Start: 06-18-2021 End: 06-18-2021 Phone Encounter [...] Non-patient / Non-visit Dr. Galdamez Work Phone: [facility] Start: 06-09-2021 End: 06-09-[address] Lin Pardo Work Phone: [facility] Start: 05-28-2021 End: 05-28-2021 Lab Order Jess [...] Start: 09-07-2020 End: 09-07-2020 Annotation/Addendum Jess Ciesa DONOR RELATIONS ASSOCIATE Work Phone: [facility] Start: 09-07-2020 End: 09-07-2020 Office outpatient visit 25 minutes Jess Lopez DONOR RELATIONS ASSOCIATE Work Phone: [facility] Start: 09-07-2020 Review Jess Lopez DONOR RELATIONS ASSOCIATE Work Phone: [facility] Start: 09-03-2020 End: 09-03-2020 Annotation/Addendum Jess Lopez DONOR RELATIONS ASSOCIATE Work Phone: [facility] Start: 08-24-2020 End: 08-24-2020 Office outpatient visit 15 minutes Jess Lopez DONOR RELATIONS ASSOCIATE Work Phone: [facility] Start: 08-12-2020 End: 08-12-2020 Emergency department patient visit Tiffanie Harris [facility] Start: 05-05-2020 End: 05-05-2020 Office outpatient visit 25 minutes Jess Lopez [facility] Start: 10-03-2018 End: 10-03-2018 Annotation/Addendum Jess Luisjustyn Onofre Oceanology Teacher al Medicine Start: 05-25-2018 End: 05-25-2018 Office outpatient visit 25 minutes Jess Lopez [facility] Start: 05-25-2018 End: 05-25-2018 Physical examination Lin Pardo MD Work Phone: [facility] Start: 06-13-2016 End: 06-13-2016 Office outpatient visit 15 minutes Jess Lopez [facility] Start: 06-08-2016 End: 06-08-2016 Refill Request Jess Lopez [facility] Start: 07-01-2014 End: 07-01-2014 Office [...] End: 07-09-2012 Phone Encounter Jess Lopez [facility] Start: 07-09-2012 End: 07-09-2012 Phone Encounter Jess Lopez [facility] Start: 07-06-2012 End: 07-06-2012 Refill Request Jess Lopez [facility] Start: 07-11-2011 End: 07-11-2011 Phone Encounter Jess Lopez [facility] Start: 07-26-2010 End: 07-27-2010 Office [...] End: 08-03-2006 Historical Summary Jess Lopez [facility] Patient encounter status Muriel Woo [...] with associated hyperinflation and air trapping) refused Davidson and cognivue Physical examination Adrianne Reyez HOME ATTENDANT Com prehensive Internal Medicine; [facility] Work Phone: 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 Physical examination Tyra De Leon [facility] Work Phone: Comment on above: 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 Lin Pardo Work Phone: Start: 11-29-2022 End: 11-29-2022 Abdomen/Pelvis WITH Contrast Procedure Note: See Note; NOTES: [facility] Imaging Services [address] [place] [id number] Abdomen/Pelvis WITH Contrast MR#: [id number] Acct: [id number] Name: LEANA PORTER Rep #: [id number] : 1955 M 67 From: Sarath Leos MD PCP: Dr. Lin Pardo MD Status: REG CLI Study: Abdomen/Pelvis WITH Contrast Date of Exam: Exam# [id number] Ordering Dr: Lin Pardo MD ACR Level [...] EDT , CC: Dr. Lin Pardo MD Garden Labourer: Signed Lin Pardo MD Work Phone: Start: 11-07-2022 End: 11-07-2022 Urgent Care Visit Report Procedure Note: See Note; NOTES: [facility] [address], [address] [place] [id number] OFFICE VISIT Date of Service: 11/07/22 MR#: [id number] Acct: [id number] Name: LEANA PORTER Rep #: [id number] : 1955 Provider: LINO Puckett Age/Sex: 67/M Location: [facility] Status: Signed Intake Vital Signs 12/16/19 20:07 [...] PAIN/SORE THROAT Chief Complaint: LT ear pain Marketing Planning Manager Required: No Accompanied by: Is patient in [...] discomfort upon returning from vacation in the [facility]. No vision changes, and no hearing changes. No complaints of rash, upper extremity radicular complaints, fever, chills, sweats, lightheadedness/dizziness, nausea/vomiting. Patient has tolerated food and fluids well, no changes in color/character of urine/stool. No [id number] products taken to assist. Chickenpox as a [...] the above. This note was generated with Tip Network dictation software. 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 Lin Pardo MD Status: REG CLI Study: Abdomen/Pelvis WITH Contrast Date of Exam: Exam# [id number] Ordering Dr: Lin Pardo MD STUDY: CT [...] EDT , CC: Dr. Lin Pardo MD Garden Labourer: Signed Lin Pardo MD Work Phone: Start: 06-23-2021 Computed tomography of abdomen and pelvis with contrast Dr. Lni Pardo Work Phone: Start: 06-09-2021 End: 06-09-2021 Pulmonary Function Test Comments: See Note; NOTES: [facility]/Neurology [address] [place] [address] MR#: [id number] Acct: [id number] Name: LEANA PORTER Rep #: [id number] : 1955 66 From: Harshil Huitron DO [...] Date Dictated: 06/09/21 1255 Date Transcribed: 06/09/211254 Garden Labourer: DB Signed Jess Lopez CNP Work Phone: Start: 06-09-[address] Lin Pardo Work Phone: Start: 06-09-2021 End: 06-09-[address] Lung Screening Comments: See Note; NOTES: [facility] Imaging Services [address] [place] [address] Lung Screening MR#: [id number] Acct: [id number] Name: LEANA PORTER Rep #: [id number] : 1955 M 66 From: Hardy Davidson MD PCP: Dr. Lin Pardo MD Status: [facility] Study: Low Dose CT Lung Screening Date of Exam: 06/09 Exam# [id number] Ordering Dr: Lin Pardo MD EXAM: CT [...] reconstruction technique. This report was created using [employer] report generation technology. COMPARISON: None. FINDINGS: LUNGS [...] EST , CC: Dr. Lin Pardo MD Garden Labourer: Signed Lin Pardo MD Work Phone: Start: 12-16-2019 End: 12-17-2019 Elbow min 3 Views Comments: See Note; NOTES: [facility] Imaging Services [address] [place] [address] Elbow min 3 Views MR#: [id number] Acct: [id number] Name: LEANA PORTER Rep #: [id number] : 1955 M 64 From: Yung forbes MD PCP: Jess Lopez NP-C Status: REG ER Study: Elbow min 3 Views Date of Exam: 12/16/19 Exam# [id number] Ordering Dr: Heather Mina MD STUDY: X-RAY [...] CC: EDWIN Lopez; Dr. Heather Mina MD Garden Labourer: Signed Jess Lopez Start: 12-16-2019 End: 12-17-2019 Emergency Department Summary Comments: See Note; NOTES: [facility] Medical Records Department [address] [place] [address] Emergency Department Summary 12/16/19 MR#: [id number] Acct: [id number] Name: LEANA PORTER Rep #: [id number] : 1955 64 From: Heather Mina MD [...] 20:06) Primary Care Physician: Jess Lopez NP PERFORMING ARTIST-C [Primary Care Provider] - Past Medical History: [...] Q12H #20 tab Transmission Status: Pending to [facility]/pharmacy #[id number] Referrals: Jess Lopez NP, PERFORMING ARTIST-C [Primary Care Provider] - 1 Week if not improving What to do if you have Problems For any increased pain, shortness of breath, bleeding, nausea or vomiting, chest pain, or any unexpected problems, contact your Primary Care Provider. Call [facility] ([phone]) or report to the closest Emergency Room. Call 911 if necessary. 12/17/19 0039 <Electronically signed by Heather Mina MD> Date Heather Mina MD Cosigner Signature (If Indicated): Date CC: PERFORMING ARTIST-C Jess Lopez Start: 12-16-2019 End: 12-17-2019 Wrist min 3 Views Comments: See Note; NOTES: [facility] Imaging Services [address] [place] [address] Wrist min 3 Views MR#: [id number] Acct: [id number] Name: LEANA PORTER Rep #: [id number] : 1955 M 64 From: Yung forbes MD PCP: EDWIN Davalos Status: REG ER Study: Wrist min 3 Views Date of Exam: 12/16/19 Exam# [id number] Ordering Dr: Heather Mina MD STUDY: X-RAY [...] CC: EDWIN Lopez; Dr. Heather Mina MD Garden Labourer: Signed Jess Lopez Start: 12-16-2019 End: 12-17-2019 Abdomen/Pelvis without Cont Comments: See Note; NOTES: [facility] Imaging Services [address] [place] [address] Abdomen/Pelvis without Cont MR#: [id number] Acct: [id number] Name: LEANA PORTER Rep #: [id number] : 1955 M 64 From: Yung forbes MD PCP: EDWIN Davalos Status: REG ER Study: Abdomen/Pelvis without Cont Date of Exam: 12/02 07/21 Exam# [id number] Ordering Dr: Heather Mina MD STUDY: CT [...] CC: EDWIN Lopez; Dr. Heather Mina MD Garden Labourer: Signed Jess Lopez Start: 12-22-2012 PSA screening Jess Lopez Comment on above: This test was performed using the TPSA a ssay method for the[employer] chemistry system. Values obtained with differentassay methods cannot be used interchangably.When changing PSA assays in the course of monitoring apatient, additional sequential testing should be carriedout to confirm baseline values. Vasectomy Muriel Patinolear Comment on above: 1983 Vasectomy planned Luke Brian is Comment on above: 1983 Vasectomy planned Adrianne Carlson ss HOME ATTENDANT Comment on above: 1983 Vasectomy planned Luke Brian is HOME ATTENDANT Comment on above: 1983 Vasectomy planned Lin Randall MD Work Phone: Comment on above: 1983 Vasectomy planned SABINO [employer] sell HOME ATTENDANT Comment on above: 1983 Vasectomy planned Tyra marion COSTUME CUTTER Comment on above: 1983 Vasectomy planned Dora Coff man HOME ATTENDANT Comment on above: 1983 Vasectomy planned Dora Coff man HOME ATTENDANT Comment on above: 1983 Plan of Treatment [...] h igh sensitivity C-REACT PROT HIGH SENS(hsCRP) (93322) [facility] Work Phone: Start: 02-08-2022 25 hydroxy includes fractions if performed CALCIFEDIOL (54983) [facility]; [facility] Work Phone: Start: 02-08-2022 Assay of homocysteine Homocyst eine, Plasma (61424) [facility]; [facility] Work Phone: Start: 02-08-2022 Blood count complete automated CBC & PLATELETS (AUTO) (37136) [facility]; [facility] Work Phone: Start: 02-08-2022 Hemoglobin glycosyla darrion a1c HGB A1C (00345) [facility]; [facility] Work Phone: Start: 02-08-2022 Comprehensive metabo lic panel METABOLIC PANEL, COMPREHENSIVE (45590) [facility]; [facility] Work Phone: Start: 02-08-2022 Lipid panel LIPID PANEL (71514) [facility]; [facility] Work Phone: Start: 09-10-2021 C-reactive protein C-REACTIVE PROTEIN (62648) [facility]; [facility] Work Phone: Comment on above: re check prior to [place] t[place] appointment Start: 09-06-2021 Ceruloplasmin CERULOPLASMIN (38514) [facility]; [facility] Work Phone: Start: 09-06-2021 Procedure Education Eprescribe d prescriptions (G8553) [facility]; [facility] Work Phone: Start: 06-29-2021 Protein total xcpt refractometry urine PROTEIN, URINE , Copper (93322) [facility]; [facility] Work Phone: Comment on above: need 24 hour urine c opper Start: 06-29-2021 Cyanocobalamin vitam in b-12 VITAMIN B12 AND FOLATES (42411) [facility]; [facility] Work Phone: Start: 06-29-2021 Assay of homocysteine Homocyst eine, Plasma (63254) [facility]; [facility] Work Phone: Start: 06-29-2021 C-reactive protein h igh sensitivity C-REACT PROT HIGH SENS(hsCRP) (48564) [facility]; [facility] Work Phone: Start: 06-29-2021 25 hydroxy includes fractions if performed CALCIFIDIOL (93468) VIT D 25 [facility]; [facility] Work Phone: Start: 06-15-2021 Culture bct isol&prs mptv id isolate ea urine URINE JONNY CULTURE-IDENTIFICATN (58603) [facility]; [facility] Work Phone: Start: 06-15-2021 Iadna hepatitis c amplified probe&revrse transcr Hepatitis C RNA, DNA Probe, Amplified (21359) [facility]; [facility] Work Phone: Start: 06-15-2021 Ceruloplasmin CERULOPLASMIN (23293) [facility]; [facility] Work Phone: Start: 06-15-2021 Fluorescent nonnfct agt antb screen ea antibody ASM (ANTI SMOOTH MUSCLE ANTIBODY) (46401) [facility]; [facility] Work Phone: Start: 06-15-2021 Microsomal antibodie s each MICROSOMAL ANTIBODY (68736) [facility]; [facility] Work Phone: Start: 06-15-2021 Iadna hepatitis c qu ant & reverse hris specialist Hepatitis C Quant, DNA Probe, Amplified (39852) [facility]; [facility] Work Phone: Start: 06-14-2021 Iadna hepatitis c amplified probe&revrse transcr Hepatitis C RNA, DNA Probe, Amplified (10370) [facility]; [facility] Work Phone: Start: 06-08-2021 Assay of prostate specific antigen total PSA (Prostate Specific Antigen), Screening (23853) [facility]; [facility] Work Phone: Start: 06-08-2021 Blood count manual c ell count each CBC WITH MANUAL DIFF (66450) [facility]; [facility] Work Phone: Start: 06-08-2021 Comprehensive metabo lic panel Metabolic Panel, Comprehensive (87493) [facility]; [facility] Work Phone: Start: 06-08-2021 Hepatitis c antibody HEPATITIS C ANTIBODY (46810) [facility]; [facility] Work Phone: Start: 06-08-2021 Lipoprotein blood qu an numbers & subclasses NMR Profile (05374) [facility]; [facility] Work Phone: Start: 12-08-2020 Comprehensive metabo lic panel Metabolic Panel, Comprehensive (82209) [facility]; [facility] Work Phone: Start: 12-08-2020 Lipid panel LIPID PANEL (03330) [facility]; [facility] Work Phone: Start: 09-07-2020 Procedure Education Eprescribe d prescriptions (G8553) [facility]; [facility] Work Phone: Start: 09-07-2020 Provider Instruction s for Treatment Follow up in 3 months 4-7 days after Dec 7 [facility]; [facility] Work Phone: Start: 09-03-2020 Assay of thyroid stimulating hormone tsh TSH (89348) [facility]; [facility] Work Phone: Start: 09-03-2020 Blood count complete auto&auto difrntl wbc CBC, Platelets & Auto Diff (72950) [facility]; [facility] Work Phone: Start: 09-03-2020 Comprehensive metabo lic panel Metabolic Panel, Comprehensive (23725) [facility]; [facility] Work Phone: Start: 09-03-2020 Lipid panel LIPID PANEL (45065) [facility] Work Phone: Start: 09-03-2020 Assay of thyroid stimulating hormone tsh [facility]; [facility] Work Phone: Start: 09-03-2020 Blood count complete auto&auto difrntl wbc [facility]; [facility] Work Phone: Start: 09-03-2020 Comprehensive metabo lic panel METABOLIC PANEL, COMPREHENSIVE (67145) [facility]; [facility] Work Phone: Start: 09-03-2020 Lipid panel LIPID PANEL (83599) [facility]; [facility] Work Phone: Start: 08-24-2020 Procedure Education Eprescribe d prescriptions (G8553) [facility]; [facility] Work Phone: Start: 08-24-2020 Provider Instruction s for Treatment Follow up Week of September 07 with [facility] assistant front office manager to schedule [facility]; [facility] [...] Phone: Start: 01-14-2013 Lipid panel LIPID PANEL (11224) [facility] Work Phone: Start: 01-14-2013 Hepatic function panel HEPATIC FUNCTION PANEL (26666) [facility] Work Phone: Start: 08-01-2012 Blood count complete auto&auto difrntl wbc CBC, Platelets & Auto Diff (60488) [facility] Work Phone: Start: 08-01-2012 Comprehensive metabo lic panel Metabolic Panel, Comprehensive (80742) [facility] Work Phone: Start: 08-01-2012 Lipid panel Lipid Panel (24378) [facility] Work Phone: Start: 08-01-2012 Assay of prostate specific antigen total PSA (PROSTATE SPECIFIC ANTIGEN) (V76.44) [facility] Work Phone: Start: 08-01-2012 Protein mass conc PSA (PROSTAT E SPECIFIC ANTIGEN) (V76.44) [facility] Work Phone: Start: 08-01-2012 Provider Instruction s for Treatment [facility] Work Phone: Start: 08-07-2006 Assay of prostate specific antigen total PSA (PROSTATE SPECIFIC ANTIGEN) (04513) [facility] Work Phone: Start: 08-07-2006 Protein mass conc PSA (PROSTAT E SPECIFIC ANTIGEN) (73478) [facility] Work Phone: Start: 08-07-2006 Glucose mass conc Glucose (03886) [facility] Work Phone: Start: 08-07-2006 Glucose quantitative blood xcpt reagent strip Glucose (07681) [facility]; [facility] Work Phone: Start: 08-07-2006 Lipid panel Lipid Panel (59483) [facility] Work Phone: Comprehensive I [...] Phone: Payers Date Payer Category Payer Self-pay [id number] 2024 Medicare [id number] 2024 Unknown [id number] 2021 Unknown [id number] 2017 Private Health Insurance [id number] 1955 Unknown [id number] Private Health Insurance [id number] Private Health Insurance [id number] Unknown Unknown [id number] Unknown [id number] Social History Date Type Detail Facility Alcohol Use [facility] Work Phone: Comment on above: Occasional alcohol u se some rum in the summer. 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 Test(s) 545673-GNU-H ; 893469-YRJ-C; 153859-Jwemcqixdtddd; 101777-Madosxasfqy, Total; 431468-ATB-J (Total); 390078-Iwbmv LDL-P; 344148-AQV Size; 172416-NU-AM Scorewas developed and its performance characteristics determinedby [employer]. It has not been cleared or approved by the Foodand Drug Administration.PATIENT WAS FASTINGPERFORMED BY: BN [facility] [id number] [facility] [id number] BY: GERTRUDE [facility] [id number] [facility] [id number] Information: NURSE DRAW Clinical Notes Note Date & Type Note Facility Evaluation note No assessment information availa ble [facility] Work Phone: Evaluation note Diagnosis Onset Date Cervical strain acute Left-sided face pain acute [facility] Work Phone: Instructions* Name Dates Details How to Access Health Informa tion Online using Patient Portal and [employer] Indication:Current non-smoker Start:24-Aug-2020 Instruction Type:Patient Education Patient Instructions Indication:BMI 38.0-38.9,adult Start:24-Aug-2020 Instruction Type:Provider Instructions for Treatment Patient Instructions Indication:Current non-smoker Start:05-May-2020 Instruction Type:Provider Instructions for Treatment How to Access Health Informa tion Online using Patient Portal and MOMENT[employer] Apps Indication:Current non-smoker Start:05-May-2020 Instruction Type:Patient Education [...] Informa tion Online using Patient Portal and MOM[employer] Apps Indication:Current non-smoker Start:24-Aug-2020 Instruction Type:Patient Education Patient Instructions Indication:BMI 38.0-38.9,adult Start:24-Aug-2020 Instruction Type:Provider Instructions for Treatment Patient Instructions Indication:Current non-smoker Start:05-May-2020 Instruction Type:Provider Instructions for Treatment How to Access Health Informa tion Online using Patient Portal and [employer] Apps Indication:Current non-smoker Start:05-May-2020 Instruction Type:Patient Education [...] Informa tion Online using Patient Portal and MOM[employer] Apps Indication:Current non-smoker Start:07-Sep-2020 Instruction Type:Patient Education How to Access Health Informa tion Online using Patient Portal and [employer] Apps Indication:Current non-smoker Start:24-Aug-2020 Instruction Type:Patient Education Patient Instructions Indication:BMI 38.0-38.9,adult Start:24-Aug-2020 Instruction Type:Provider Instructions for Treatment Patient Instructions Indication:Current non-smoker Start:05-May-2020 Instruction Type:Provider Instructions for Treatment How to Access Health Informa tion Online using Patient Portal and [employer] Apps Indication:Current non-smoker Start:05-May-2020 Instruction Type:Patient Education [...] Informa tion Online using Patient Portal and [employer] Apps Indication:Current non-smoker Start:07-Sep-2020 Instruction Type:Patient Education How to Access Health Informa tion Online using Patient Portal and [employer] Apps Indication:Current non-smoker Start:24-Aug-2020 Instruction Type:Patient Education Patient Instructions Indication:BMI 38.0-38.9,adult Start:24-Aug-2020 Instruction Type:Provider Instructions for Treatment Patient Instructions Indication:Current non-smoker Start:05-May-2020 Instruction Type:Provider Instructions for Treatment How to Access Health Informa tion Online using Patient Portal and 3rd [employer] Apps Indication:Current non-smoker Start:05-May-2020 Instruction Type:Patient Education [...] Informa tion Online using Patient Portal and [employer] Apps Indication:Current non-smoker Start:07-Sep-2020 Instruction Type:Patient Education How to Access Health Informa tion Online using Patient Portal and [employer] Apps Indication:Current non-smoker Start:24-Aug-2020 Instruction Type:Patient Education Patient Instructions Indication:BMI 38.0-38.9,adult Start:24-Aug-2020 Instruction Type:Provider Instructions for Treatment Patient Instructions Indication:Current non-smoker Start:05-May-2020 Instruction Type:Provider Instructions for Treatment How to Access Health Informa tion Online using Patient Portal and [employer] Apps Indication:Current non-smoker Start:05-May-2020 Instruction Type:Patient Education [...] Informa tion Online using Patient Portal and [employer] Apps Indication:Current non-smoker Start:07-Sep-2020 Instruction Type:Patient Education How to Access Health Informa tion Online using Patient Portal and [employer] Apps Indication:Current non-smoker Start:24-Aug-2020 Instruction Type:Patient Education Patient Instructions Indication:BMI 38.0-38.9,adult Start:24-Aug-2020 Instruction Type:Provider Instructions for Treatment Patient Instructions Indication:Current non-smoker Start:05-May-2020 Instruction Type:Provider Instructions for Treatment How to Access Health Informa tion Online using Patient Portal and [employer] Apps Indication:Current non-smoker Start:05-May-2020 Instruction Type:Patient Education [...] Informa tion Online using Patient Portal and [employer] Apps Indication:Current non-smoker Start:07-Sep-2020 Instruction Type:Patient Education How to Access Health Informa tion Online using Patient Portal and [employer] Apps Indication:Current non-smoker Start:24-Aug-2020 Instruction Type:Patient Education Patient Instructions Indication:BMI 38.0-38.9,adult Start:24-Aug-2020 Instruction Type:Provider Instructions for Treatment Patient Instructions Indication:Current non-smoker Start:05-May-2020 Instruction Type:Provider Instructions for Treatment How to Access Health Informa tion Online using Patient Portal and [employer] Apps Indication:Current non-smoker Start:05-May-2020 Instruction Type:Patient Education [...] Informa tion Online using Patient Portal and [employer] Apps Indication:Current non-smoker Start:07-Sep-2020 Instruction Type:Patient Education How to Access Health Informa tion Online using Patient Portal and [employer] Apps Indication:Current non-smoker Start:24-Aug-2020 Instruction Type:Patient Education Patient Instructions Indication:BMI 38.0-38.9,adult Start:24-Aug-2020 Instruction Type:Provider Instructions for Treatment Patient Instructions Indication:Current non-smoker Start:05-May-2020 Instruction Type:Provider Instructions for Treatment How to Access Health Informa tion Online using Patient Portal and [employer] Apps Indication:Current non-smoker Start:05-May-2020 Instruction Type:Patient Education [...] Informa tion Online using Patient Portal and [employer] Apps Indication:Current non-smoker Start:07-Sep-2020 Instruction Type:Patient Education How to Access Health Informa tion Online using Patient Portal and [employer] Apps Indication:Current non-smoker Start:24-Aug-2020 Instruction Type:Patient Education Patient Instructions Indication:BMI 38.0-38.9,adult Start:24-Aug-2020 Instruction Type:Provider Instructions for Treatment Patient Instructions Indication:Current non-smoker Start:05-May-2020 Instruction Type:Provider Instructions for Treatment How to Access Health Informa tion Online using Patient Portal and [employer] Apps Indication:Current non-smoker Start:05-May-2020 Instruction Type:Patient Education [...] Informa tion Online using Patient Portal and [employer] Apps Indication:Current non-smoker Start:07-Sep-2020 Instruction Type:Patient Education How to Access Health Informa tion Online using Patient Portal and [employer] Apps Indication:Current non-smoker Start:24-Aug-2020 Instruction Type:Patient Education Patient Instructions Indication:BMI 38.0-38.9,adult Start:24-Aug-2020 Instruction Type:Provider Instructions for Treatment Patient Instructions Indication:Current non-smoker Start:05-May-2020 Instruction Type:Provider Instructions for Treatment How to Access Health Informa tion Online using Patient Portal and [employer] Apps Indication:Current non-smoker Start:05-May-2020 Instruction Type:Patient Education [...] Informa tion Online using Patient Portal and [employer] Apps Indication:Current non-smoker Start:07-Sep-2020 Instruction Type:Patient Education How to Access Health Informa tion Online using Patient Portal and [employer] Apps Indication:Current non-smoker Start:24-Aug-2020 Instruction Type:Patient Education Patient Instructions Indication:BMI 38.0-38.9,adult Start:24-Aug-2020 Instruction Type:Provider Instructions for Treatment Patient Instructions Indication:Current non-smoker Start:05-May-2020 Instruction Type:Provider Instructions for Treatment How to Access Health Informa tion Online using Patient Portal and [employer] Apps Indication:Current non-smoker Start:05-May-2020 Instruction Type:Patient Education [...] tion Online using Patient Portal and [employer] Apps Indication:Current non-smoker Start:07-Sep-2020 Instruction Type:Patient Education How to Access Health Informa tion Online using Patient Portal and [employer] Apps Indication:Current non-smoker Start:24-Aug-2020 Instruction Type:Patient Education Patient Instructions Indication:BMI 38.0-38.9,adult Start:24-Aug-2020 Instruction Type:Provider Instructions for Treatment Patient Instructions Indication:Current non-smoker Start:05-May-2020 Instruction Type:Provider Instructions for Treatment How to Access Health Informa tion Online using Patient Portal and [employer] Indication:Current non-smoker Start:05-May-2020 Instruction Type:Patient Education [...] Informa tion Online using Patient Portal and [employer] Apps Indication:Current non-smoker Start:07-Sep-2020 Instruction Type:Patient Education How to Access Health Informa tion Online using Patient Portal and [employer] Apps Indication:Current non-smoker Start:24-Aug-2020 Instruction Type:Patient Education Patient Instructions Indication:BMI 38.0-38.9,adult Start:24-Aug-2020 Instruction Type:Provider Instructions for Treatment Patient Instructions Indication:Current non-smoker Start:05-May-2020 Instruction Type:Provider Instructions for Treatment How to Access Health Informa tion Online using Patient Portal and [employer] Apps Indication:Current non-smoker Start:05-May-2020 Instruction Type:Patient Education [...] Informa tion Online using Patient Portal and [employer] Apps Indication:Current non-smoker Start:07-Sep-2020 Instruction Type:Patient Education How to Access Health Informa tion Online using Patient Portal and [employer] Apps Indication:Current non-smoker Start:24-Aug-2020 Instruction Type:Patient Education Patient Instructions Indication:BMI 38.0-38.9,adult Start:24-Aug-2020 Instruction Type:Provider Instructions for Treatment Patient Instructions Indication:Current non-smoker Start:05-May-2020 Instruction Type:Provider Instructions for Treatment How to Access Health Informa tion Online using Patient Portal and [employer] Apps Indication:Current non-smoker Start:05-May-2020 Instruction Type:Patient Education [...] Informa tion Online using Patient Portal and [employer] Apps Indication:Encounter for well adult exam with abnormal findings (Renamed from Encounter for general adult medical examination with abnormal findings) Start:29-Jun-2021 Instruction Type:Patient Education Patient Instructions Indication:Gastric reflux Start:07-Sep-2020 Instruction Type:Provider Instructions for Treatment How to Access Health Informa tion Online using Patient Portal and [employer] Apps Indication:Current non-smoker Start:07-Sep-2020 Instruction Type:Patient Education How to Access Health Informa tion Online using Patient Portal and [employer] Apps Indication:Current non-smoker Start:24-Aug-2020 Instruction Type:Patient Education Patient Instructions Indication:BMI 38.0-38.9,adult Start:24-Aug-2020 Instruction Type:Provider Instructions for Treatment Patient Instructions Indication:Current non-smoker Start:05-May-2020 Instruction Type:Provider Instructions for Treatment How to Access Health Informa tion Online using Patient Portal and [employer] Apps Indication:Current non-smoker Start:05-May-2020 Instruction Type:Patient Education [...] Informa tion Online using Patient Portal and [employer] Apps Indication:Encounter for well adult exam with abnormal findings (Renamed from Encounter for general adult medical examination with abnormal findings) Start:29-Jun-2021 Instruction Type:Patient Education Patient Instructions Indication:Gastric reflux Start:07-Sep-2020 Instruction Type:Provider Instructions for Treatment How to Access Health Informa tion Online using Patient Portal and [employer] Apps Indication:Current non-smoker Start:07-Sep-2020 Instruction Type:Patient Education How to Access Health Informa tion Online using Patient Portal and [employer] Apps Indication:Current non-smoker Start:24-Aug-2020 Instruction Type:Patient Education Patient Instructions Indication:BMI 38.0-38.9,adult Start:24-Aug-2020 Instruction Type:Provider Instructions for Treatment Patient Instructions Indication:Current non-smoker Start:05-May-2020 Instruction Type:Provider Instructions for Treatment How to Access Health Informa tion Online using Patient Portal and [employer] Apps Indication:Current non-smoker Start:05-May-2020 Instruction Type:Patient Education [...] tion Online using Patient Portal and [employer] Indication:BMI 37.0-37.9, adult Start:06-Sep-2021 Instruction Type:Patient Education Patient Instructions Indication:Encounter for well adult exam with abnormal findings (Renamed from Encounter for general adult medical examination with abnormal findings) Start:29-Jun-2021 Instruction Type:Provider Instructions for Treatment How to Access Health Informa tion Online using Patient Portal and [employer] Apps Indication:Encounter for well adult exam with abnormal findings (Renamed from Encounter for general adult medical examination with abnormal findings) Start:29-Jun-2021 Instruction Type:Patient Education Patient Instructions Indication:Gastric reflux Start:07-Sep-2020 Instruction Type:Provider Instructions for Treatment How to Access Health Informa tion Online using Patient Portal and [employer] Apps Indication:Current non-smoker Start:07-Sep-2020 Instruction Type:Patient Education How to Access Health Informa tion Online using Patient Portal and [employer] Apps Indication:Current non-smoker Start:24-Aug-2020 Instruction Type:Patient Education Patient Instructions Indication:BMI 38.0-38.9,adult Start:24-Aug-2020 Instruction Type:Provider Instructions for Treatment Patient Instructions Indication:Current non-smoker Start:05-May-2020 Instruction Type:Provider Instructions for Treatment How to Access Health Informa tion Online using Patient Portal and [employer] Apps Indication:Current non-smoker Start:05-May-2020 Instruction Type:Patient Education [...] tion Online using Patient Portal and [employer] Apps Indication:BMI 37.0-37.9, adult Start:06-Sep-2021 Instruction Type:Patient Education Patient Instructions Indication:Encounter for well adult exam with abnormal findings (Renamed from Encounter for general adult medical examination with abnormal findings) Start:29-Jun-2021 Instruction Type:Provider Instructions for Treatment How to Access Health Informa tion Online using Patient Portal and [employer] Apps Indication:Encounter for well adult exam with abnormal findings (Renamed from Encounter for general adult medical examination with abnormal findings) Start:29-Jun-2021 Instruction Type:Patient Education Patient Instructions Indication:Gastric reflux Start:07-Sep-2020 Instruction Type:Provider Instructions for Treatment How to Access Health Informa tion Online using Patient Portal and [employer] Indication:Current non-smoker Start:07-Sep-2020 Instruction Type:Patient Education How to Access Health Informa tion Online using Patient Portal and [employer] Apps Indication:Current non-smoker Start:24-Aug-2020 Instruction Type:Patient Education Patient Instructions Indication:BMI 38.0-38.9,adult Start:24-Aug-2020 Instruction Type:Provider Instructions for Treatment Patient Instructions Indication:Current non-smoker Start:05-May-2020 Instruction Type:Provider Instructions for Treatment How to Access Health Informa tion Online using Patient Portal and [employer] Indication:Current non-smoker Start:05-May-2020 Instruction Type:Patient Education [...] Informa tion Online using Patient Portal and [employer] Apps Indication:BMI 37.0-37.9, adult Start:06-Sep-2021 Instruction Type:Patient Education Patient Instructions Indication:Encounter for well adult exam with abnormal findings (Renamed from Encounter for general adult medical examination with abnormal findings) Start:29-Jun-2021 Instruction Type:Provider Instructions for Treatment How to Access Health Informa tion Online using Patient Portal and [employer] Indication:Encounter for well adult exam with abnormal findings (Renamed from Encounter for general adult medical examination with abnormal findings) Start:29-Jun-2021 Instruction Type:Patient Education Patient Instructions Indication:Gastric reflux Start:07-Sep-2020 Instruction Type:Provider Instructions for Treatment How to Access Health Informa tion Online using Patient Portal and [employer] Apps Indication:Current non-smoker Start:07-Sep-2020 Instruction Type:Patient Education How to Access Health Informa tion Online using Patient Portal and [employer] Apps Indication:Current non-smoker Start:24-Aug-2020 Instruction Type:Patient Education Patient Instructions Indication:BMI 38.0-38.9,adult Start:24-Aug-2020 Instruction Type:Provider Instructions for Treatment Patient Instructions Indication:Current non-smoker Start:05-May-2020 Instruction Type:Provider Instructions for Treatment How to Access Health Informa tion Online using Patient Portal and [employer] Apps Indication:Current non-smoker Start:05-May-2020 Instruction Type:Patient Education [...] Informa tion Online using Patient Portal and [employer] Apps Indication:BMI 37.0-37.9, adult Start:06-Sep-2021 Instruction Type:Patient Education Patient Instructions Indication:Encounter for well adult exam with abnormal findings (Renamed from Encounter for general adult medical examination with abnormal findings) Start:29-Jun-2021 Instruction Type:Provider Instructions for Treatment How to Access Health Informa tion Online using Patient Portal and [employer] Apps Indication:Encounter for well adult exam with abnormal findings (Renamed from Encounter for general adult medical examination with abnormal findings) Start:29-Jun-2021 Instruction Type:Patient Education Patient Instructions Indication:Gastric reflux Start:07-Sep-2020 Instruction Type:Provider Instructions for Treatment How to Access Health Informa tion Online using Patient Portal and [employer] Apps Indication:Current non-smoker Start:07-Sep-2020 Instruction Type:Patient Education How to Access Health Informa tion Online using Patient Portal and [employer] Apps Indication:Current non-smoker Start:24-Aug-2020 Instruction Type:Patient Education Patient Instructions Indication:BMI 38.0-38.9,adult Start:24-Aug-2020 Instruction Type:Provider Instructions for Treatment Patient Instructions Indication:Current non-smoker Start:05-May-2020 Instruction Type:Provider Instructions for Treatment How to Access Health Informa tion Online using Patient Portal and [employer] Apps Indication:Current non-smoker Start:05-May-2020 Instruction Type:Patient Education [...] Informa tion Online using Patient Portal and [employer] Apps Indication:BMI 37.0-37.9, adult Start:06-Sep-2021 Instruction Type:Patient Education Patient Instructions Indication:Encounter for well adult exam with abnormal findings (Renamed from Encounter for general adult medical examination with abnormal findings) Start:29-Jun-2021 Instruction Type:Provider Instructions for Treatment How to Access Health Informa tion Online using Patient Portal and [employer] Apps Indication:Encounter for well adult exam with abnormal findings (Renamed from Encounter for general adult medical examination with abnormal findings) Start:29-Jun-2021 Instruction Type:Patient Education Patient Instructions Indication:Gastric reflux Start:07-Sep-2020 Instruction Type:Provider Instructions for Treatment How to Access Health Informa tion Online using Patient Portal and [employer] Apps Indication:Current non-smoker Start:07-Sep-2020 Instruction Type:Patient Education How to Access Health Informa tion Online using Patient Portal and [employer] Apps Indication:Current non-smoker Start:24-Aug-2020 Instruction Type:Patient Education Patient Instructions Indication:BMI 38.0-38.9,adult Start:24-Aug-2020 Instruction Type:Provider Instructions for Treatment Patient Instructions Indication:Current non-smoker Start:05-May-2020 Instruction Type:Provider Instructions for Treatment How to Access Health Informa tion Online using Patient Portal and [employer] Apps Indication:Current non-smoker Start:05-May-2020 Instruction Type:Patient Education [...] Informa tion Online using Patient Portal and [employer] Apps Indication:BMI 37.0-37.9, adult Start:06-Sep-2021 Instruction Type:Patient Education Patient Instructions Indication:Encounter for well adult exam with abnormal findings (Renamed from Encounter for general adult medical examination with abnormal findings) Start:29-Jun-2021 Instruction Type:Provider Instructions for Treatment How to Access Health Informa tion Online using Patient Portal and [employer] Apps Indication:Encounter for well adult exam with abnormal findings (Renamed from Encounter for general adult medical examination with abnormal findings) Start:29-Jun-2021 Instruction Type:Patient Education Patient Instructions Indication:Gastric reflux Start:07-Sep-2020 Instruction Type:Provider Instructions for Treatment How to Access Health Informa tion Online using Patient Portal and [employer] Apps Indication:Current non-smoker Start:07-Sep-2020 Instruction Type:Patient Education How to Access Health Informa tion Online using Patient Portal and [employer] Apps Indication:Current non-smoker Start:24-Aug-2020 Instruction Type:Patient Education Patient Instructions Indication:BMI 38.0-38.9,adult Start:24-Aug-2020 Instruction Type:Provider Instructions for Treatment Patient Instructions Indication:Current non-smoker Start:05-May-2020 Instruction Type:Provider Instructions for Treatment How to Access Health Informa tion Online using Patient Portal and [employer] Apps Indication:Current non-smoker Start:05-May-2020 Instruction Type:Patient Education [...] Informa tion Online using Patient Portal and [employer] Indication:BMI 37.0-37.9, adult Start:06-Sep-2021 Instruction Type:Patient Education Patient Instructions Indication:Encounter for well adult exam with abnormal findings (Renamed from Encounter for general adult medical examination with abnormal findings) Start:29-Jun-2021 Instruction Type:Provider Instructions for Treatment How to Access Health Informa tion Online using Patient Portal and [employer] Apps Indication:Encounter for well adult exam with abnormal findings (Renamed from Encounter for general adult medical examination with abnormal findings) Start:29-Jun-2021 Instruction Type:Patient Education Patient Instructions Indication:Gastric reflux Start:07-Sep-2020 Instruction Type:Provider Instructions for Treatment How to Access Health Informa tion Online using Patient Portal and [employer] Apps Indication:Current non-smoker Start:07-Sep-2020 Instruction Type:Patient Education How to Access Health Informa tion Online using Patient Portal and [employer] Apps Indication:Current non-smoker Start:24-Aug-2020 Instruction Type:Patient Education Patient Instructions Indication:BMI 38.0-38.9,adult Start:24-Aug-2020 Instruction Type:Provider Instructions for Treatment Patient Instructions Indication:Current non-smoker Start:05-May-2020 Instruction Type:Provider Instructions for Treatment How to Access Health Informa tion Online using Patient Portal and [employer] Apps Indication:Current non-smoker Start:05-May-2020 Instruction Type:Patient Education [...] Informa tion Online using Patient Portal and [employer] Apps Indication:BMI 37.0-37.9, adult Start:06-Sep-2021 Instruction Type:Patient Education Patient Instructions Indication:Encounter for well adult exam with abnormal findings (Renamed from Encounter for general adult medical examination with abnormal findings) Start:29-Jun-2021 Instruction Type:Provider Instructions for Treatment How to Access Health Informa tion Online using Patient Portal and [employer] Apps Indication:Encounter for well adult exam with abnormal findings (Renamed from Encounter for general adult medical examination with abnormal findings) Start:29-Jun-2021 Instruction Type:Patient Education Patient Instructions Indication:Gastric reflux Start:07-Sep-2020 Instruction Type:Provider Instructions for Treatment How to Access Health Informa tion Online using Patient Portal and [employer] Apps Indication:Current non-smoker Start:07-Sep-2020 Instruction Type:Patient Education How to Access Health Informa tion Online using Patient Portal and [employer] Apps Indication:Current non-smoker Start:24-Aug-2020 Instruction Type:Patient Education Patient Instructions Indication:BMI 38.0-38.9,adult Start:24-Aug-2020 Instruction Type:Provider Instructions for Treatment Patient Instructions Indication:Current non-smoker Start:05-May-2020 Instruction Type:Provider Instructions for Treatment How to Access Health Informa tion Online using Patient Portal and [employer] Apps Indication:Current non-smoker Start:05-May-2020 Instruction Type:Patient Education [...] Informa tion Online using Patient Portal and [employer] Apps Indication:BMI 37.0-37.9, adult Start:06-Sep-2021 Instruction Type:Patient Education Patient Instructions Indication:Encounter for well adult exam with abnormal findings (Renamed from Encounter for general adult medical examination with abnormal findings) Start:29-Jun-2021 Instruction Type:Provider Instructions for Treatment How to Access Health Informa tion Online using Patient Portal and [employer] Apps Indication:Encounter for well adult exam with abnormal findings (Renamed from Encounter for general adult medical examination with abnormal findings) Start:29-Jun-2021 Instruction Type:Patient Education Patient Instructions Indication:Gastric reflux Start:07-Sep-2020 Instruction Type:Provider Instructions for Treatment How to Access Health Informa tion Online using Patient Portal and [employer] Apps Indication:Current non-smoker Start:07-Sep-2020 Instruction Type:Patient Education How to Access Health Informa tion Online using Patient Portal and [employer] Apps Indication:Current non-smoker Start:24-Aug-2020 Instruction Type:Patient Education Patient Instructions Indication:BMI 38.0-38.9,adult Start:24-Aug-2020 Instruction Type:Provider Instructions for Treatment Patient Instructions Indication:Current non-smoker Start:05-May-2020 Instruction Type:Provider Instructions for Treatment How to Access Health Informa tion Online using Patient Portal and [employer] Apps Indication:Current non-smoker Start:05-May-2020 Instruction Type:Patient Education [...] Informa tion Online using Patient Portal and [employer] Indication:BMI 37.0-37.9, adult Start:06-Sep-2021 Instruction Type:Patient Education Patient Instructions Indication:Encounter for well adult exam with abnormal findings (Renamed from Encounter for general adult medical examination with abnormal findings) Start:29-Jun-2021 Instruction Type:Provider Instructions for Treatment How to Access Health Informa tion Online using Patient Portal and [employer] Apps Indication:Encounter for well adult exam with abnormal findings (Renamed from Encounter for general adult medical examination with abnormal findings) Start:29-Jun-2021 Instruction Type:Patient Education Patient Instructions Indication:Gastric reflux Start:07-Sep-2020 Instruction Type:Provider Instructions for Treatment How to Access Health Informa tion Online using Patient Portal and [employer] Indication:Current non-smoker Start:07-Sep-2020 Instruction Type:Patient Education How to Access Health Informa tion Online using Patient Portal and [employer] Apps Indication:Current non-smoker Start:24-Aug-2020 Instruction Type:Patient Education Patient Instructions Indication:BMI 38.0-38.9,adult Start:24-Aug-2020 Instruction Type:Provider Instructions for Treatment Patient Instructions Indication:Current non-smoker Start:05-May-2020 Instruction Type:Provider Instructions for Treatment How to Access Health Informa tion Online using Patient Portal and [employer] Indication:Current non-smoker Start:05-May-2020 Instruction Type:Patient Education [...] Informa tion Online using Patient Portal and [employer] Indication:BMI 38.0-38.9,adult Start:06-Jun-2022 Instruction Type:Patient Education Patient Instructions Indication:BMI 37.0-37.9, adult Start:06-Sep-2021 Instruction Type:Provider Instructions for Treatment How to Access Health Informa tion Online using Patient Portal and [employer] Indication:BMI 37.0-37.9, adult Start:06-Sep-2021 Instruction Type:Patient Education Patient Instructions Indication:Encounter for well adult exam with abnormal findings (Renamed from Encounter for general adult medical examination with abnormal findings) Start:29-Jun-2021 Instruction Type:Provider Instructions for Treatment How to Access Health Informa tion Online using Patient Portal and [employer] Indication:Encounter for well adult exam with abnormal findings (Renamed from Encounter for general adult medical examination with abnormal findings) Start:29-Jun-2021 Instruction Type:Patient Education Patient Instructions Indication:Gastric reflux Start:07-Sep-2020 Instruction Type:Provider Instructions for Treatment How to Access Health Informa tion Online using Patient Portal and [employer] Indication:Current non-smoker Start:07-Sep-2020 Instruction Type:Patient Education How to Access Health Informa tion Online using Patient Portal and [employer] Indication:Current non-smoker Start:24-Aug-2020 Instruction Type:Patient Education Patient Instructions Indication:BMI 38.0-38.9,adult Start:24-Aug-2020 Instruction Type:Provider Instructions for Treatment Patient Instructions Indication:Current non-smoker Start:05-May-2020 Instruction Type:Provider Instructions for Treatment How to Access Health Informa tion Online using Patient Portal and [employer] Indication:Current non-smoker Start:05-May-2020 Instruction Type:Patient Education [...] Informa tion Online using Patient Portal and [employer] Indication:BMI 38.0-38.9,adult Start:06-Jun-2022 Instruction Type:Patient Education Patient Instructions Indication:BMI 37.0-37.9, adult Start:06-Sep-2021 Instruction Type:Provider Instructions for Treatment How to Access Health Informa tion Online using Patient Portal and [employer] Indication:BMI 37.0-37.9, adult Start:06-Sep-2021 Instruction Type:Patient Education Patient Instructions Indication:Encounter for well adult exam with abnormal findings (Renamed from Encounter for general adult medical examination with abnormal findings) Start:29-Jun-2021 Instruction Type:Provider Instructions for Treatment How to Access Health Informa tion Online using Patient Portal and [employer] Apps Indication:Encounter for well adult exam with abnormal findings (Renamed from Encounter for general adult medical examination with abnormal findings) Start:29-Jun-2021 Instruction Type:Patient Education Patient Instructions Indication:Gastric reflux Start:07-Sep-2020 Instruction Type:Provider Instructions for Treatment How to Access Health Informa tion Online using Patient Portal and [employer] Indication:Current non-smoker Start:07-Sep-2020 Instruction Type:Patient Education How to Access Health Informa tion Online using Patient Portal and [employer] Indication:Current non-smoker Start:24-Aug-2020 Instruction Type:Patient Education Patient Instructions Indication:BMI 38.0-38.9,adult Start:24-Aug-2020 Instruction Type:Provider Instructions for Treatment Patient Instructions Indication:Current non-smoker Start:05-May-2020 Instruction Type:Provider Instructions for Treatment How to Access Health Informa tion Online using Patient Portal and [employer] Indication:Current non-smoker Start:05-May-2020 Instruction Type:Patient Education [...] tion Online using Patient Portal and [employer] Indication:BMI 38.0-38.9,adult Start:06-Jun-2022 Instruction Type:Patient Education Patient Instructions Indication:BMI 37.0-37.9, adult Start:06-Sep-2021 Instruction Type:Provider Instructions for Treatment How to Access Health Informa tion Online using Patient Portal and [employer] Indication:BMI 37.0-37.9, adult Start:06-Sep-2021 Instruction Type:Patient Education Patient Instructions Indication:Encounter for well adult exam with abnormal findings (Renamed from Encounter for general adult medical examination with abnormal findings) Start:29-Jun-2021 Instruction Type:Provider Instructions for Treatment How to Access Health Informa tion Online using Patient Portal and [employer] Indication:Encounter for well adult exam with abnormal findings (Renamed from Encounter for general adult medical examination with abnormal findings) Start:29-Jun-2021 Instruction Type:Patient Education Patient Instructions Indication:Gastric reflux Start:07-Sep-2020 Instruction Type:Provider Instructions for Treatment How to Access Health Informa tion Online using Patient Portal and [employer] Indication:Current non-smoker Start:07-Sep-2020 Instruction Type:Patient Education How to Access Health Informa tion Online using Patient Portal and [employer] Indication:Current non-smoker Start:24-Aug-2020 Instruction Type:Patient Education Patient Instructions Indication:BMI 38.0-38.9,adult Start:24-Aug-2020 Instruction Type:Provider Instructions for Treatment Patient Instructions Indication:Current non-smoker Start:05-May-2020 Instruction Type:Provider Instructions for Treatment How to Access Health Informa tion Online using Patient Portal and [employer] Indication:Current non-smoker Start:05-May-2020 Instruction Type:Patient Education [...] Informa tion Online using Patient Portal and [employer] Indication:BMI 38.0-38.9,adult Start:06-Jun-2022 Instruction Type:Patient Education Patient Instructions Indication:BMI 37.0-37.9, adult Start:06-Sep-2021 Instruction Type:Provider Instructions for Treatment How to Access Health Informa tion Online using Patient Portal and [employer] Indication:BMI 37.0-37.9, adult Start:06-Sep-2021 Instruction Type:Patient Education Patient Instructions Indication:Encounter for well adult exam with abnormal findings (Renamed from Encounter for general adult medical examination with abnormal findings) Start:29-Jun-2021 Instruction Type:Provider Instructions for Treatment How to Access Health Informa tion Online using Patient Portal and [employer] Indication:Encounter for well adult exam with abnormal findings (Renamed from Encounter for general adult medical examination with abnormal findings) Start:29-Jun-2021 Instruction Type:Patient Education Patient Instructions Indication:Gastric reflux Start:07-Sep-2020 Instruction Type:Provider Instructions for Treatment How to Access Health Informa tion Online using Patient Portal and [employer] Indication:Current non-smoker Start:07-Sep-2020 Instruction Type:Patient Education How to Access Health Informa tion Online using Patient Portal and [employer] Indication:Current non-smoker Start:24-Aug-2020 Instruction Type:Patient Education Patient Instructions Indication:BMI 38.0-38.9,adult Start:24-Aug-2020 Instruction Type:Provider Instructions for Treatment Patient Instructions Indication:Current non-smoker Start:05-May-2020 Instruction Type:Provider Instructions for Treatment How to Access Health Informa tion Online using Patient Portal and [employer] Indication:Current non-smoker Start:05-May-2020 Instruction Type:Patient Education [...] tion Online using Patient Portal and [employer] Indication:BMI 38.0-38.9,adult Start:13-Oct-2022 Instruction Type:Patient Education Patient Instructions Indication:BMI 38.0-38.9,adult Start:06-Jun-2022 Instruction Type:Provider Instructions for Treatment How to Access Health Informa tion Online using Patient Portal and [employer] Indication:BMI 38.0-38.9,adult Start:06-Jun-2022 Instruction Type:Patient Education Patient Instructions Indication:BMI 37.0-37.9, adult Start:06-Sep-2021 Instruction Type:Provider Instructions for Treatment How to Access Health Informa tion Online using Patient Portal and [employer] Indication:BMI 37.0-37.9, adult Start:06-Sep-2021 Instruction Type:Patient Education Patient Instructions Indication:Encounter for well adult exam with abnormal findings (Renamed from Encounter for general adult medical examination with abnormal findings) Start:29-Jun-2021 Instruction Type:Provider Instructions for Treatment How to Access Health Informa tion Online using Patient Portal and [employer] Indication:Encounter for well adult exam with abnormal findings (Renamed from Encounter for general adult medical examination with abnormal findings) Start:29-Jun-2021 Instruction Type:Patient Education Patient Instructions Indication:Gastric reflux Start:07-Sep-2020 Instruction Type:Provider Instructions for Treatment How to Access Health Informa tion Online using Patient Portal and [employer] Indication:Current non-smoker Start:07-Sep-2020 Instruction Type:Patient Education How to Access Health Informa tion Online using Patient Portal and [employer] Indication:Current non-smoker Start:24-Aug-2020 Instruction Type:Patient Education Patient Instructions Indication:BMI 38.0-38.9,adult Start:24-Aug-2020 Instruction Type:Provider Instructions for Treatment Patient Instructions Indication:Current non-smoker Start:05-May-2020 Instruction Type:Provider Instructions for Treatment How to Access Health Informa tion Online using Patient Portal and [employer] Indication:Current non-smoker Start:05-May-2020 Instruction Type:Patient Education [...] Informa tion Online using Patient Portal and [employer] Indication:BMI 38.0-38.9,adult Start:13-Oct-2022 Instruction Type:Patient Education Patient Instructions Indication:BMI 38.0-38.9,adult Start:06-Jun-2022 Instruction Type:Provider Instructions for Treatment How to Access Health Informa tion Online using Patient Portal and [employer] Indication:BMI 38.0-38.9,adult Start:06-Jun-2022 Instruction Type:Patient Education Patient Instructions Indication:BMI 37.0-37.9, adult Start:06-Sep-2021 Instruction Type:Provider Instructions for Treatment How to Access Health Informa tion Online using Patient Portal and [employer] Indication:BMI 37.0-37.9, adult Start:06-Sep-2021 Instruction Type:Patient Education Patient Instructions Indication:Encounter for well adult exam with abnormal findings (Renamed from Encounter for general adult medical examination with abnormal findings) Start:29-Jun-2021 Instruction Type:Provider Instructions for Treatment How to Access Health Informa tion Online using Patient Portal and [employer] Indication:Encounter for well adult exam with abnormal findings (Renamed from Encounter for general adult medical examination with abnormal findings) Start:29-Jun-2021 Instruction Type:Patient Education Patient Instructions Indication:Gastric reflux Start:07-Sep-2020 Instruction Type:Provider Instructions for Treatment How to Access Health Informa tion Online using Patient Portal and [employer] Indication:Current non-smoker Start:07-Sep-2020 Instruction Type:Patient Education How to Access Health Informa tion Online using Patient Portal and [employer] Indication:Current non-smoker Start:24-Aug-2020 Instruction Type:Patient Education Patient Instructions Indication:BMI 38.0-38.9,adult Start:24-Aug-2020 Instruction Type:Provider Instructions for Treatment Patient Instructions Indication:Current non-smoker Start:05-May-2020 Instruction Type:Provider Instructions for Treatment How to Access Health Informa tion Online using Patient Portal and [employer] Indication:Current non-smoker Start:05-May-2020 Instruction Type:Patient Education [...] tion Online using Patient Portal and [employer] Indication:BMI 38.0-38.9,adult Start:13-Oct-2022 Instruction Type:Patient Education Patient Instructions Indication:BMI 38.0-38.9,adult Start:06-Jun-2022 Instruction Type:Provider Instructions for Treatment How to Access Health Informa tion Online using Patient Portal and [employer] Indication:BMI 38.0-38.9,adult Start:06-Jun-2022 Instruction Type:Patient Education Patient Instructions Indication:BMI 37.0-37.9, adult Start:06-Sep-2021 Instruction Type:Provider Instructions for Treatment How to Access Health Informa tion Online using Patient Portal and [employer] Indication:BMI 37.0-37.9, adult Start:06-Sep-2021 Instruction Type:Patient Education Patient Instructions Indication:Encounter for well adult exam with abnormal findings (Renamed from Encounter for general adult medical examination with abnormal findings) Start:29-Jun-2021 Instruction Type:Provider Instructions for Treatment How to Access Health Informa tion Online using Patient Portal and [employer] Indication:Encounter for well adult exam with abnormal findings (Renamed from Encounter for general adult medical examination with abnormal findings) Start:29-Jun-2021 Instruction Type:Patient Education Patient Instructions Indication:Gastric reflux Start:07-Sep-2020 Instruction Type:Provider Instructions for Treatment How to Access Health Informa tion Online using Patient Portal and [employer] Indication:Current non-smoker Start:07-Sep-2020 Instruction Type:Patient Education How to Access Health Informa tion Online using Patient Portal and [employer] Indication:Current non-smoker Start:24-Aug-2020 Instruction Type:Patient Education Patient Instructions Indication:BMI 38.0-38.9,adult Start:24-Aug-2020 Instruction Type:Provider Instructions for Treatment Patient Instructions Indication:Current non-smoker Start:05-May-2020 Instruction Type:Provider Instructions for Treatment How to Access Health Informa tion Online using Patient Portal and [employer] Indication:Current non-smoker Start:05-May-2020 Instruction Type:Patient Education [...] tion Online using Patient Portal and [employer] Indication:BMI 38.0-38.9,adult Start:13-Oct-2022 Instruction Type:Patient Education Patient Instructions Indication:BMI 38.0-38.9,adult Start:06-Jun-2022 Instruction Type:Provider Instructions for Treatment How to Access Health Informa tion Online using Patient Portal and [employer] Indication:BMI 38.0-38.9,adult Start:06-Jun-2022 Instruction Type:Patient Education Patient Instructions Indication:BMI 37.0-37.9, adult Start:06-Sep-2021 Instruction Type:Provider Instructions for Treatment How to Access Health Informa tion Online using Patient Portal and [employer] Indication:BMI 37.0-37.9, adult Start:06-Sep-2021 Instruction Type:Patient Education Patient Instructions Indication:Encounter for well adult exam with abnormal findings (Renamed from Encounter for general adult medical examination with abnormal findings) Start:29-Jun-2021 Instruction Type:Provider Instructions for Treatment How to Access Health Informa tion Online using Patient Portal and [employer] Indication:Encounter for well adult exam with abnormal findings (Renamed from Encounter for general adult medical examination with abnormal findings) Start:29-Jun-2021 Instruction Type:Patient Education Patient Instructions Indication:Gastric reflux Start:07-Sep-2020 Instruction Type:Provider Instructions for Treatment How to Access Health Informa tion Online using Patient Portal and [employer] Indication:Current non-smoker Start:07-Sep-2020 Instruction Type:Patient Education How to Access Health Informa tion Online using Patient Portal and [employer] Indication:Current non-smoker Start:24-Aug-2020 Instruction Type:Patient Education Patient Instructions Indication:BMI 38.0-38.9,adult Start:24-Aug-2020 Instruction Type:Provider Instructions for Treatment Patient Instructions Indication:Current non-smoker Start:05-May-2020 Instruction Type:Provider Instructions for Treatment How to Access Health Informa tion Online using Patient Portal and [employer] Indication:Current non-smoker Start:05-May-2020 Instruction Type:Patient Education [...] tion Online using Patient Portal and [employer] Indication:BMI 38.0-38.9,adult Start:13-Oct-2022 Instruction Type:Patient Education Patient Instructions Indication:BMI 38.0-38.9,adult Start:06-Jun-2022 Instruction Type:Provider Instructions for Treatment How to Access Health Informa tion Online using Patient Portal and [employer] Indication:BMI 38.0-38.9,adult Start:06-Jun-2022 Instruction Type:Patient Education Patient Instructions Indication:BMI 37.0-37.9, adult Start:06-Sep-2021 Instruction Type:Provider Instructions for Treatment How to Access Health Informa tion Online using Patient Portal and [employer] Indication:BMI 37.0-37.9, adult Start:06-Sep-2021 Instruction Type:Patient Education Patient Instructions Indication:Encounter for well adult exam with abnormal findings (Renamed from Encounter for general adult medical examination with abnormal findings) Start:29-Jun-2021 Instruction Type:Provider Instructions for Treatment How to Access Health Informa tion Online using Patient Portal and [employer] Indication:Encounter for well adult exam with abnormal findings (Renamed from Encounter for general adult medical examination with abnormal findings) Start:29-Jun-2021 Instruction Type:Patient Education Patient Instructions Indication:Gastric reflux Start:07-Sep-2020 Instruction Type:Provider Instructions for Treatment How to Access Health Informa tion Online using Patient Portal and [employer] Indication:Current non-smoker Start:07-Sep-2020 Instruction Type:Patient Education How to Access Health Informa tion Online using Patient Portal and [employer] Indication:Current non-smoker Start:24-Aug-2020 Instruction Type:Patient Education Patient Instructions Indication:BMI 38.0-38.9,adult Start:24-Aug-2020 Instruction Type:Provider Instructions for Treatment Patient Instructions Indication:Current non-smoker Start:05-May-2020 Instruction Type:Provider Instructions for Treatment How to Access Health Informa tion Online using Patient Portal and [employer] Indication:Current non-smoker Start:05-May-2020 Instruction Type:Patient Education [...] Informa tion Online using Patient Portal and [employer] Indication:BMI 38.0-38.9,adult Start:13-Oct-2022 Instruction Type:Patient Education Patient Instructions Indication:BMI 38.0-38.9,adult Start:06-Jun-2022 Instruction Type:Provider Instructions for Treatment How to Access Health Informa tion Online using Patient Portal and [employer] Indication:BMI 38.0-38.9,adult Start:06-Jun-2022 Instruction Type:Patient Education Patient Instructions Indication:BMI 37.0-37.9, adult Start:06-Sep-2021 Instruction Type:Provider Instructions for Treatment How to Access Health Informa tion Online using Patient Portal and [employer] Indication:BMI 37.0-37.9, adult Start:06-Sep-2021 Instruction Type:Patient Education Patient Instructions Indication:Encounter for well adult exam with abnormal findings (Renamed from Encounter for general adult medical examination with abnormal findings) Start:29-Jun-2021 Instruction Type:Provider Instructions for Treatment How to Access Health Informa tion Online using Patient Portal and [employer] Indication:Encounter for well adult exam with abnormal findings (Renamed from Encounter for general adult medical examination with abnormal findings) Start:29-Jun-2021 Instruction Type:Patient Education Patient Instructions Indication:Gastric reflux Start:07-Sep-2020 Instruction Type:Provider Instructions for Treatment How to Access Health Informa tion Online using Patient Portal and [employer] Indication:Current non-smoker Start:07-Sep-2020 Instruction Type:Patient Education How to Access Health Informa tion Online using Patient Portal and [employer] Indication:Current non-smoker Start:24-Aug-2020 Instruction Type:Patient Education Patient Instructions Indication:BMI 38.0-38.9,adult Start:24-Aug-2020 Instruction Type:Provider Instructions for Treatment Patient Instructions Indication:Current non-smoker Start:05-May-2020 Instruction Type:Provider Instructions for Treatment How to Access Health Informa tion Online using Patient Portal and [employer] Indication:Current non-smoker Start:05-May-2020 Instruction Type:Patient Education [...] tion Online using Patient Portal and [employer] Indication:BMI 38.0-38.9,adult Start:13-Oct-2022 Instruction Type:Patient Education Patient Instructions Indication:BMI 38.0-38.9,adult Start:06-Jun-2022 Instruction Type:Provider Instructions for Treatment How to Access Health Informa tion Online using Patient Portal and [employer] Indication:BMI 38.0-38.9,adult Start:06-Jun-2022 Instruction Type:Patient Education Patient Instructions Indication:BMI 37.0-37.9, adult Start:06-Sep-2021 Instruction Type:Provider Instructions for Treatment How to Access Health Informa tion Online using Patient Portal and [employer] Indication:BMI 37.0-37.9, adult Start:06-Sep-2021 Instruction Type:Patient Education Patient Instructions Indication:Encounter for well adult exam with abnormal findings (Renamed from Encounter for general adult medical examination with abnormal findings) Start:29-Jun-2021 Instruction Type:Provider Instructions for Treatment How to Access Health Informa tion Online using Patient Portal and [employer] Indication:Encounter for well adult exam with abnormal findings (Renamed from Encounter for general adult medical examination with abnormal findings) Start:29-Jun-2021 Instruction Type:Patient Education Patient Instructions Indication:Gastric reflux Start:07-Sep-2020 Instruction Type:Provider Instructions for Treatment How to Access Health Informa tion Online using Patient Portal and [employer] Indication:Current non-smoker Start:07-Sep-2020 Instruction Type:Patient Education How to Access Health Informa tion Online using Patient Portal and [employer] Indication:Current non-smoker Start:24-Aug-2020 Instruction Type:Patient Education Patient Instructions Indication:BMI 38.0-38.9,adult Start:24-Aug-2020 Instruction Type:Provider Instructions for Treatment Patient Instructions Indication:Current non-smoker Start:05-May-2020 Instruction Type:Provider Instructions for Treatment How to Access Health Informa tion Online using Patient Portal and [employer] Indication:Current non-smoker Start:05-May-2020 Instruction Type:Patient Education [...] Informa tion Online using Patient Portal and [employer] Indication:Current non-smoker Start:05-May-2020 Instruction Type:Patient Education [...] No December 16, 2019 9:41pm Power of Infection Control Manager No December 9:41pm Chief Complaint and Reason [...] section and content) DATE CREATED AUTHOR 08/25/2020 [facility] DATE CREATED AUTHOR AUTHOR'S ORGANIZ ATION 06/08/2022 [facility] DATE CREATED AUTHOR AUTHOR'S ORGANIZ ATION 04/18/2024 [facility] Goals (unrecognized section and content) Goals [...] BE BASED ON THE PRIMARY CLINICAL RECORDS. [employer] provides no warranty or guarantee of the accuracy or completeness of information in this document.
[2025-02-28] MEDS: Lactated Ringers 1,000 ML 15 ML IV (13:02)
--- NOTE | 2025-02-28 13:08 | PCM.CONS.GEN ---
Assessment & Plan Assessment/Plan (1) Calculus of distal right ureter: PLAN: Plan to take the surgery today for right ureteroscopy laser lithotripsy and stent placement HPI Consult Data Date of Consult: 02/28/25 HPI Narrative Reason for Consultation: Consult from the ER for kidney stone HPI Narrative: LEANA PORTER, is a 70 M who presents to the emergency room with right flank he has a calculus in the distal right ureter saw me the last week for the same diagnosis at that point he had thought it passed a stone he thought he had passed a fragment was not having any more pain whatsoever so we are doing expectant management he presented back to the emergency room with pain again CAT scan was done demonstrates a stone in the distal right ureter has not been able to pass it offered him either intervention or continued observation to see if he passed a stone and the patient would rather have come into the hospital for intervention so organ to proceed with laser lithotripsy and stent placement on the right side PFSH Medical History Cervical strain Left-sided face pain High cholesterol GERD (gastroesophageal reflux disease) 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 by 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) Home Medications ?Medication ?Instructions ?Recorded ?Last Taken ?Type pantoprazole 40 mg tablet,delayed 40 mg PO DAILY gerd 12/16/19 02/27/25 History release simvastatin 20 mg tablet (Zocor) 20 mg PO DAILY 11/07/22 02/27/25 History ondansetron 4 mg disintegrating 4 mg PO Q8H PRN PRN Nausea #30 tabs 02/23/25 02/28/25 Rx tablet oxycodone-acetaminophen 5 mg-325 1 tab PO Q6H PRN pain 3 days #12 02/23/25 02/28/25 Rx mg tablet (Percocet) tabs tamsulosin 0.4 mg capsule 0.4 mg PO DAILY #7 caps 02/23/25 02/27/25 Rx albuterol sulfate 90 mcg/actuation 2 puff inhalation PRN wheezing 02/28/25 Unknown History aerosol inhaler aspirin 81 mg capsule 81 mg PO DAILY heart 02/28/25 02/27/25 History budesonide-formoterol HFA 160 1 inh inhalation DAILY sob 02/28/25 02/27/25 History mcg-4.5 mcg/actuation aerosol inhaler folic acid 1 mg tablet 1 mg PO DAILY supplement 02/28/25 02/27/25 History Allergy/AdvReac Type Severity Reaction Status Date / Time No Known Allergies Allergy Verified 02/28/25 12:59 Social History (Updated 02/28/25 @ 08:[address] Mario Brennan, DO) Smoking Status: Former smoker substance use type: marijuana Physical Exam Const alert and oriented x3 General Appearance: cooperative HEENT normocephalic and head/scalp atraumatic Eyes PERRL and EOMs intact bilaterally Neck supple, no JVD and no carotid bruits Resp normal respiratory effort, normal air movement and clear to auscultation bilaterally Cardio regular rate and no murmurs GI normal to inspection, nondistended, normoactive bowel sounds and soft to palpation Extremity normal capillary refill General Extremity: no tenderness to palpation of joints or extremities; Negative for edema Skin no rashes or lesions noted and no wounds General Skin Exam: no breakdown Neuro CN's II-XII intact bilaterally Psych affect normal Appearance: appropriate Lab / Micro Data 02/28/25 08:30 02/28/25 08:30 Labs: Laboratory Results - last 24 hr 02/28/25 08:30: WBC 8.5, RBC 5.49, Hgb 15.9, Hct 47.4, MCV 86.3, MCH 29.0, MCHC 33.5, RDW Std Deviation 45.3 H, RDW Coeff of Byron 14.2, Plt Count 243, MPV 8.8, Immature Gran % (Auto) 0.600, Neut % (Auto) 79.5 H, Lymph % (Auto) 10.8 L, Child[place] % (Auto) 6.9, Eos % (Auto) 1.8, Baso % (Auto) 0.4, Absolute Neuts (auto) 6.8, Absolute Lymphs (auto) 0.92, Nucleated RBC % 0, Sodium 139, Potassium 4.2, Chloride 102, Carbon Dioxide 24.3, Anion Gap 12, BUN 17, Creatinine 1.53 H, Estim Creat Clear Calc 54.12, Est GFR (MDRD) Non-Af 49 L, BUN/Creatinine Ratio 11.4, Glucose 106 H, Calcium 9.0 02/28/25 10:05: Urine Color Yellow, Urine Clarity Clear, Urine pH 6.0, Ur Specific Geronimo 1.015, Urine Protein 30 H, Urine Glucose (UA) Normal, Urine Ketones 15 H, Urine Occult Blood 10 H, Urine Nitrite Negative, Urine Bilirubin Negative, Urine Urobilinogen Normal, Ur Leukocyte Esterase 25 H, Urine RBC 0 SEEN, Urine WBC 0 SEEN, Ur Squamous Epith Cells 0 SEEN, Urine Bacteria 0 SEEN, Urine Mucus 0 SEEN Imaging Radiology Impression Abdomen/Pelvis CT 02/28/25 08:31 IMPRESSION: 1. Obstructing calculus with mild hydronephrosis and hydroureter. Calculus at the right ureterovesical junction. 2. Bilateral renal calculi. 3. Sliding hiatus hernia. Diverticulosis without diverticulitis. Reading Location: [id number]
--- NOTE | 2025-02-28 13:21 | PRE.ANES_ITS ---
ASA Classification* ASA Classification ASA Classification: 2 Assessment & Plan Anesthesia* Anesthesia Assessment Anesthesia Assessment: Discussed sedation and/or anesthesia options, risks, benefits, and alternatives with patient/parents/legal guardian/POA. Questions invited. The patient/parents/legal guardian/POA seems to understand and agrees to proceed with anesthesia plan. Reviewed the physical assessment, medical history, allergy history and patient home medications list prior to surgery/procedure/anesthetic and documented any changes. Performed airway and anesthesia risk assessments. Anesthesia Type Anesthesia Type: General Anesthesia Focused Assessment* Temperature: 97.9 F Pulse Rate: 74 Blood Pressure: 168/97 Respiratory Rate: 16 Pulse Ox: 100 Airway Assessment Mouth opens: >3 cm Mallampati Score: II Labs Anesthesia Preop lab: CBC WBC, (4.4-11.0) 8.5 K/mm3 Today, 08:30 RBC, (4.6-6.2) 5.49 M/mm3 Today, 08:30 Hgb, (13.0-16.5) 15.9 g/dL Today, 08:30 Hct, (40-54) 47.4 % Today, 08:30 Plt Count, (150-450) 243 K/mm3 Today, 08:30 CHEMISTRY Potassium, (3.3-5.1) 4.2 mmol/L Today, 08:30 Sodium, (133-145) 139 mmol/L Today, 08:30 BUN, (4-19) 17 mg/dL Today, 08:30 Creatinine, (0.70-1.20) 1.53 mg/dL H Today, 08:30 Glucose, (70-99) 106 mg/dL H Today, 08:30 COAG Pre-Assessment Diagnosis/Proposed Procedure Planned Operative Procedure(s): Cystoscopy, laser stone, stent placement. Anesthesia History Anesthesia History - director of outpatient services: Anesthesia History - director of outpatient services Hx Hospitalization Any Problems With Anesthesia No 02/28/25 12:32 Cholinesterase deficiency You/Your Family Experience fever (hyperthermia) with Relationship Recent Exposure to Contagious Disease Does patient have nerve No 02/28/25 12:32 stimulator Patient instructed to have device shut off --Does patient have Pacemaker No 02/28/25 13:00 or ICD? When Was Last Pacemaker Check QUESTION #4 FULL TEXT: You/Your Family Experience fever (hyperthermia) with Anesthesia Last Oral Intake Last Oral intake: Last Oral Intake NPO since 04:00 02/28/25 13:00 Meds taken in AM with sips of water? Meds patient instructed to take am of surgery PONV PONV - director of outpatient services: PONV - director of outpatient services Female HX of Motion Sickness HX of N/V After Surgery Non-Smoker Duration of Surgery greater than 60 minutes Number of Risk Factors PONV Score Height & Weight Height & Weight: Anesthesia: Height & Weight Height 5 ft 10 in 02/28/25 13:00 Weight: 97.522 kg 02/28/25 13:00 Body Mass Index (BMI) 30.8 02/28/25 13:00 Respiratory Assessment Respiratory Assessment - director of outpatient services: Respiratory Tract Infection Hx - director of outpatient services Hx Respiratory Tract Infection STOP Sleep Apnea STOP Sleep Apnea - director of outpatient services: STOP Sleep Apnea - director of outpatient services Hx Hypertension Yes 02/28/25 12:32 Hx Sleep Apnea No 02/28/25 12:32 CPAP BIPAP Do you snore loudly (louder No 02/28/25 12:32 than talking or can be heard Do you often feel tired/ No 02/28/25 12:32 fatigued/ sleepy during daytime? Has anyone observed you stop No 02/28/25 12:32 breathing during sleep? STOP Results Negative 02/28/25 12:32 QUESTION #5 FULL TEXT : Do you snore loudly (louder than talking or can be heard through closed doors)? 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 Specify any problems Hx of Preganancy in last 3 Months Nurse Filling Out Transfusion & Questions: Date: Time: Patient unable to answer at this time (ie. confused, unrespo /Reproduction History /Reproductive History - director of outpatient services: /Reproductive Hx- director of outpatient services Hx Now Gestational Age (in weeks): EDC: Hx Hx Para Hx Section SAB Does the father of the baby or his family experience fever w Father of the baby Malignant Hypertension history comment Active Medications Active Medications: Current Medications Generic Name Dose Route Start Last Admin Trade Name Freq PRN Reason Stop Dose Admin Lactated Ringer's 1,000 mls @ 15 mls/hr 02/28/25 13:00 02/28/25 13:02 IV 15 mls/hr .Q48H DINESH Administration Cefazolin Sodium 2 gm/ Sodium 110 mls @ 200 mls/hr 02/28/25 12:50 Chloride IV 02/28/25 13:22 INTRAOP ONE PFSH Medical History Cervical strain Left-sided face pain High cholesterol GERD (gastroesophageal reflux disease) 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 by 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) Home Medications ?Medication ?Instructions ?Recorded ?Last Taken ?Type pantoprazole 40 mg tablet,delayed 40 mg PO DAILY gerd 12/16/19 02/27/25 History release simvastatin 20 mg tablet (Zocor) 20 mg PO DAILY 02/27/25 History ondansetron 4 mg disintegrating 4 mg PO Q8H PRN PRN Na usea #30 tabs 02/23/25 02/28/25 Rx tablet oxycodone-acetaminophen 5 mg-325 1 tab PO Q6H PRN pain 3 days #12 02/23/25 02/28/25 Rx mg tablet (Percocet) tabs tamsulosin 0.4 mg capsule 0.4 mg PO DAILY #7 caps 02/0202/27/25 Rx albuterol sulfate 90 mcg/actuation 2 puff inhalation P RN wheezing 02/28/25 Unknown History aerosol inhaler aspirin 81 mg capsule 81 mg PO DAILY heart 5 02/27/25 History budesonide-formoterol HFA 160 1 inh inhalation DAILY s ob 02/28/25 02/27/25 History mcg-4.5 mcg/actuation aerosol inhaler folic acid 1 mg tablet 1 mg PO DAILY supplement 02/27/25 History Allergy/AdvReac Type Severity Reaction Status Date / Time No Known Allergies Allergy Verified 02/28/25 12:59 Social History Smoking Status: Former smoker substance use type: marijuana Review of Systems (Anesthesia) ROS Narrative System reviewed and no additional complaints, except as documented.
[2025-02-28] MEDS: Lactated Ringers 1,000 ML 1000 ML IV (13:35)
[2025-02-28] MEDS: Midazolam 2 MG/2 ML Syringe IV (13:35)
[2025-02-28] MEDS: Cefazolin 1 GM/5 ML Vial 2 GM IV (13:40)
[2025-02-28] MEDS: fentaNYL 100 MCG/2 ML Ampul IV (13:40)
[2025-02-28] MEDS: Lidocaine 1% (5 ml sdv) 5 ML Vial IV (13:40)
--- NOTE | 2025-02-28 14:02 | DCINST_ITS ---
Discharge Instructions DC O2, CPAP, BIPAP needs Home O2 Discharge instructions: No Dressing / Incision Discharge Activity: Return to Normal Activity and May Not Drive (while taking narcotic pain medications.) Dressing / Incision Call your doctor if you observe: Fever of 101 or Higher Follow Up Care Please Follow Up With: Forrest Wild MD When: Call [phone] for an appointment Test Results: Test results from this visit will be discussed in further detail at your follow- up appointment, if applicable. Discharge Plan Admission Primary Reason for Your Visit: removal of stone Attending Provider: Forrest Wild Primary Care Provider: Lin Pardo Instructions Print Language: Salvadorean Discharge Orders/Prescriptions Prescriptions: New tamsulosin [Flomax] 0.4 mg capsule 0.4 mg PO DAILY Qty: 7 0RF ciprofloxacin HCl [Cipro] 500 mg tablet 500 mg PO BID Qty: 6 0RF phenazopyridine [Pyridium] 100 mg tablet 100 mg PO TID PRN (Reason: pain) Qty: 14 0RF oxycodone 5 mg tablet 5 mg PO Q6H PRN (Reason: pain) 7 Days Qty: 14 0RF Continued simvastatin [Zocor] 20 mg tablet 20 mg PO DAILY pantoprazole 40 MG tablet 40 mg PO DAILY ondansetron 4 mg tablet,disintegrating 4 mg PO Q8H PRN PRN (Reason: Nausea) Qty: 30 0RF tamsulosin 0.4 mg capsule 0.4 mg PO DAILY Qty: 7 0RF oxycodone-acetaminophen [Percocet] 5-325 mg tablet 1 tab PO Q6H PRN (Reason: pain) 3 Days Qty: 12 0RF folic acid 1 mg tablet 1 mg PO DAILY aspirin 81 mg capsule 81 mg PO DAILY albuterol sulfate 90 mcg/actuation HFA aerosol inhaler 2 puff INHALATION PRN budesonide-formoterol 160-4.5 mcg/actuation HFA aerosol inhaler 1 inh inhalation DAILY Referrals / Follow Up: Lin Pardo MD [Primary Care Provider, Internal Medicine] Forrest iWld MD [Med Staff - Active Staff, Urology] Disposition Disposition (needs filled in before D/C Order can be placed): Home, Self Care
--- NOTE | 2025-02-28 14:03 | OP.PCM_ITS ---
Operative Report (Standard) Operative Information Date of Procedure: 02/28/25 Pre-Operative Diagnosis: Right ureter calculi Post-Operative Diagnosis: The same Surgery/Procedure Performed: Cystoscopy balloon dilation of the right ureter right ureteroscopy basket extraction of stone and stent placement student finance specialist: No Type of Anesthesia: General RN Documented Start/Stop Times: Operation Date: 02/28/25 13:10 Case Time Into Pre-Op 02/28/25 12:46 Out of Pre-Op 02/28/25 13:30 Anesthesia Start 02/28/25 13:35 Into Room 02/28/25 13:35 Procedure Start 02/28/25 13:48 Procedure End 02/28/25 14:00 Procedure Start Time: 13:48 Procedure Stop Time: 14:04 Select all DRAINS/GRAFTS/IMPLANTS that apply: Drains Drain details: 6 Venezuelan by 26 centimeter stent Estimated Blood Loss: 0 Specimen collected: Yes Description of specimen(s) removed: Stone Description of surgery: Patient was taken back to the operating room after smooth induction of anesthesia penis testicles were prepped and draped in usual fashion went into the bladder with a 21 Venezuelan rigid cystourethroscope the entire length urethra and prostate were normal inside the bladder the bladder was normal I then cannulated the right ureter orifice with a Glidewire advanced a wire up into the kidney and advanced a balloon dilator over the wire once the balloon dilator in place balloon dilated the distal right ureter then win-win with ureteroscopy after this was able to see the stone in the distal right ureter used a basket and basket and grabbed the entire stone fragment this was pulled out completely I then looked back in the ureter no perforation or trauma to the ureter we then put a wire up in that side and placed a stent on the right side patient's anesthetic was reversed takeback to PACU in stable condition he will follow-up next week for stent removal Surgical Findings: Stone removed from distal ureter Complications Complications: No Admit VTE Documentation VTE Present on Admission: No VTE Mechan Device Prophylaxis: SCD's VTE Pharm Prophylaxis ordered?: No
--- NOTE | 2025-02-28 14:10 | PCM.POST.ANE ---
Anesthesia: Postop Eval I Current Vital Signs Temperature: 97.7 F Pulse Rate: 81 Blood Pressure: 123/105 Respiratory Rate: 20 Pulse Ox: 100 Oxygen Delivery Method: Room Air Assessment Airway patent: Yes Spontaneous unlabored respirations: Yes Mental status: Asleep nausea: No Vomiting: No Anesthesia Complication: No Fluid Hydration Crystalloid volume administer (ml): 600 Total IV fluid infused: 600 Progress Note Anesthesia document: Postop Eval 1 completed: Yes
--- NOTE | 2025-02-28 14:43 | POSTOPAN2_ITS ---
Anesthesia Postop Eval I Sum Postop Eval Completion status Anesthesia document: Postop Eval 1 completed: Yes Anesthesia Postop Eval I Summary Anesthesia Postop Eval I Summary: Anesthesia Postop Eval I: Assessment Summary Airway patent Yes 02/28/25 14:11 [email or web address] Spontaneous unlabored Yes 02/28/25 14:11 [email or web address] respirations Mental status Asleep 02/28/25 14:11 [email or web address] nausea No 02/28/25 14:11 [email or web address] Vomiting No 02/28/25 14:11 [email or web address] [email or web address] Anesthesia Postop Eval I: Fluid Summary Crystalloid volume administer 600 02/28/25 14:11 [email or web address] (ml) Colloids volume administered ( ml) Blood Product volume administered (ml) Total IV fluid infused 600 02/28/25 14:11 [email or web address] Anesthesia Postop Eval I: Summary Notes Anesthesia Complication No 02/28/25 14:11 [email or web address] Anesthesia Complication Comment: Post-operative progress note Anesthesia: Postop Eval II Evaluation Mental status: Awake Pain Level: 2 nausea: No Vomiting: No
--- NOTE | 2025-02-28 14:43 | PCM.POSTANE2 ---
Anesthesia Postop Eval I Sum Postop Eval Completion status Anesthesia document: Postop Eval 1 completed: Yes Anesthesia Postop Eval I Summary Anesthesia Postop Eval I Summary: Anesthesia Postop Eval I: Assessment Summary Airway patent Yes 02/28/25 14:11 CARDIOVASCULAR OR [email or web address] Spontaneous unlabored Yes 02/28/25 14:11 CARDIOVASCULAR OR [email or web address] respirations Mental status Asleep 02/28/25 14:11 CARDIOVASCULAR OR [email or web address] nausea No 02/28/25 14:11 CARDIOVASCULAR OR [email or web address] Vomiting No 02/28/25 14:11 [email or web address] OR [email or web address] Anesthesia Postop Eval I: Fluid Summary Crystalloid volume administer 600 02/28/25 14:11 [email or web address] OR [email or web address] (ml) Colloids volume administered ( ml) Blood Product volume administered (ml) Total IV fluid infused 600 02/28/25 14:11 [email or web address] OR [email or web address] Anesthesia Postop Eval I: Summary Notes Anesthesia Complication No 02/28/25 14:11 [email or web address] OR [email or web address] Anesthesia Complication Comment: Post-operative progress note Anesthesia: Postop Eval II Evaluation Mental status: Awake Pain Level: 2 nausea: No Vomiting: No
== END 2025-02-28 15:12 | disposition home or self-care (01) ==
LOC: ED 12:31 → SDC 12:37 → ACINP 12:38
PROVIDERS: Emergency Provider Emergency Medicine; PCP Internal Medicine; Visit Provider Urology
PROC: 0TJ98ZZ Inspection of Ureter, Via Natural or Artificial Opening Endoscopic (ICD-10-PCS; CPT 52352; principal; 2025-02-28 13:00)
DX: N13.2 Hydronephrosis with renal and ureteral calculous obstruction (principal); E78.00 Pure hypercholesterolemia, unspecified; K21.9 Gastro-esophageal reflux disease without esophagitis; Z87.891 Personal history of nicotine dependence; Z79.82 Long term (current) use of aspirin; Z79.51 Long term (current) use of inhaled steroids; Z79.899 Other long term (current) drug therapy
CPT/HCPCS: 52352; 52332; 00918; 74176; 80048; 81001; 85025; 99285; A4216; C1769; C2617; J2405